=== PATIENT | female | born 1960 | race Caucasian/White ===

== ENCOUNTER → 2021-04-17 09:16 | Outpatient (BNVA) | payer OTHER, SELFPAY | PROVIDERS: PCP Internal Medicine; Visit Provider Physician Assistant | DX: S00.03XA Contusion of scalp, initial encounter (principal); S10.93XA Contusion of unspecified part of neck, initial encounter; W10.9XXA Fall (on) (from) unspecified stairs and steps, initial encounter | CPT/HCPCS: 90714; 90715; 99203 ==

== ENCOUNTER → 2021-04-23 08:35 | Outpatient (BNVA) | payer OTHER, SELFPAY | PROVIDERS: PCP Internal Medicine; Visit Provider Internal Medicine | DX: S40.011A Contusion of right shoulder, initial encounter (principal); S20.219A Contusion of unspecified front wall of thorax, initial encounter; S30.0XXA Contusion of lower back and pelvis, initial encounter; X30.XXXA Exposure to excessive natural heat, initial encounter; W18.30XA Fall on same level, unspecified, initial encounter; R11.0 Nausea | CPT/HCPCS: 70450; 99214 ==

== ENCOUNTER 2021-04-30 13:10 | Outpatient (REF) | payer OTHER, SELFPAY ==
--- NOTE | ~2021-04-30 | MM_ITS ---
EXAMINATION: MM SCREENING DIGITAL BREAST TOMOSYNTHESIS, BILATERAL CLINICAL INFORMATION: Screening. Asymptomatic. The lifetime risk of breast cancer based on the Tyrer-Cuzick Model is 5.0%. COMPARISON: Mammography: 07/07/2019 and 12/03/2012. TECHNIQUE: Digital breast tomosynthesis is performed in both the craniocaudal and mediolateral oblique views along with computer-aided detection (CAD). Synthesized 2D images are generated from the tomosynthesis. FINDINGS: The breasts are extremely dense, which lowers the sensitivity of mammography (ACR BI-RADS breast composition Category d). There is a stable parenchymal pattern to the left breast. Within the upper outer aspect of the right breast, there is a new grouping of calcifications for which further evaluation with spot magnification films is recommended. MM/MM tomosynthesis screening BI IMPRESSION: New grouping of calcifications right breast for which spot magnification views in 90-degree mediolateral and craniocaudal projections is suggested. ASSESSMENT: BI-RADS 0: Incomplete - Need Additional Imaging Evaluation RECOMMENDATION: 1. Additional views of the right breast. 2. Targeted ultrasound if warranted after review of the additional views. 3. Radiology department staff will contact the patient for additional imaging. This patient's information was entered into a reminder system with a target due date for their next mammogram.
== END 2021-04-30 13:11 | disposition home or self-care (01) ==
LOC: HO.MAMMO 13:10
PROVIDERS: Visit Provider Internal Medicine
DX: Z12.31 Encounter for screening mammogram for malignant neoplasm of breast (principal)
CPT/HCPCS: 77063; 77067

== ENCOUNTER → 2021-05-01 07:48 | Outpatient (BNVA) | payer OTHER, SELFPAY | PROVIDERS: PCP Internal Medicine; Visit Provider Internal Medicine | DX: S16.1XXA Strain of muscle, fascia and tendon at neck level, initial encounter (principal); S29.012A Strain of muscle and tendon of back wall of thorax, initial encounter; W10.9XXA Fall (on) (from) unspecified stairs and steps, initial encounter | CPT/HCPCS: 72050; 99214 ==

== ENCOUNTER 2021-05-08 08:54 | Outpatient (REF) | payer OTHER, SELFPAY ==
--- NOTE | ~2021-05-08 | MM_ITS ---
EXAMINATION: MM DIAGNOSTIC DIGITAL MAMMOGRAPHY, RIGHT CLINICAL INFORMATION: Recall from screening for new calcifications right breast superior to chronic benign grouped calcifications. COMPARISON: Mammography: 04/30/2021, 07/07/2019, 12/03/2012 TECHNIQUE: Digital mammography is performed in the following views: Magnification CC x4, magnification MLO. Exam is technically challenging, requiring 3 technologists for positioning and imaging. Images optimized to patient capabilities. FINDINGS: The breasts are heterogeneously dense, which may obscure small masses (ACR BI-RADS breast composition Category c). There is variable motion artifact on all of the magnification CC views. There are old grouped calcifications central right breast with central coarse calcification and surrounding punctate round calcifications similar to prior exams. The new calcifications for follow-up approximately 2 cm superior to the old grouped calcifications appear around 4-6 in number and relatively coarse, similar to the other chronic group. They will be reassessed again in 6 months. Results are discussed with the patient at time of visit. MM/MM added views RT IMPRESSION: Probable benign calcifications superior to old chronic grouped calcifications right breast. Patient study limitations. ASSESSMENT: BI-RADS 3: Probably Benign RECOMMENDATION: Diagnostic right mammography in 6 months. This patient's information was entered into a reminder system with a target due date for their next mammogram.
== END 2021-05-08 08:55 | disposition home or self-care (01) ==
LOC: HO.MAMMO 08:54
PROVIDERS: PCP Internal Medicine; Visit Provider Internal Medicine
DX: R92.1 Mammographic calcification found on diagnostic imaging of breast (principal)
CPT/HCPCS: 77065

== ENCOUNTER → 2021-05-15 07:55 | Outpatient (BNVA) | payer OTHER, SELFPAY | PROVIDERS: PCP Internal Medicine; Visit Provider Internal Medicine | DX: M50.30 Other cervical disc degeneration, unspecified cervical region (principal); Z91.81 History of falling | CPT/HCPCS: 99213 ==

== ENCOUNTER → 2021-06-05 08:31 | Outpatient (BNVA) | payer OTHER, SELFPAY | PROVIDERS: PCP Internal Medicine; Visit Provider Internal Medicine | DX: M50.30 Other cervical disc degeneration, unspecified cervical region (principal); Z91.81 History of falling | CPT/HCPCS: 99213 ==

== ENCOUNTER → 2021-06-19 08:05 | Outpatient (BNVA) | payer OTHER, SELFPAY | PROVIDERS: PCP Internal Medicine; Visit Provider Internal Medicine | DX: S16.1XXD Strain of muscle, fascia and tendon at neck level, subsequent encounter (principal); M47.812 Spondylosis without myelopathy or radiculopathy, cervical region; W18.30XD Fall on same level, unspecified, subsequent encounter | CPT/HCPCS: 99213 ==

== ENCOUNTER 2021-06-20 10:20 | Outpatient (REF) | payer OTHER, SELFPAY ==
--- NOTE | ~2021-06-20 | MR_ITS ---
EXAMINATION: MR CERVICAL SPINE WITHOUT CONTRAST CLINICAL INFORMATION: 60-year-old with history of previous fall on 04/13/2021 with persistent neck pain. COMPARISON: 05/01/2021 x-rays. TECHNIQUE: MRI of the cervical spine was obtained using routine sequences without contrast. Technical Note: Images are degraded by motion artifact throughout the study. FINDINGS: Alignment: There is 2 mm of anterolisthesis at C3-C4 stable from previous x-ray and 3 mm of anterolisthesis at C4-C5 unchanged. There is trace anterolisthesis at C5-C6 also unchanged. There is mild lordotic reversal centered at C5-C6 stable in appearance. Craniocervical Junction/C1-C2 Articulations: Intact and aligned. Small effusion at the left C1-C2 articulation. Visualized Intracranial Structures: Aaiq-ww-smqeuafj diffuse generalized brain parenchymal volume loss. Vertebral Bodies: Normal height. Disc spaces: Mild disc space height loss at C4-C5, moderate disc space height loss at C5-C6 and severe disc space height loss at C6-C7 unchanged. Anterior marginal spondylosis noted between C4-C5 and C6-C7 inclusive similar to previous x-ray. Bone Marrow: Subchondral bone marrow edema seen on both sides of the left C4-C5 facet joint. See below. Mild type I and type II degenerative marrow signal changes along the endplates at C6-C7. C2-C3: No disc herniation. Mild facet arthropathy. No significant canal or neuroforaminal stenosis. C3-C4: No disc herniation. Nttqraqj-fz-vuwkzb right-sided and moderate left-sided facet arthropathy with the moderate right-sided and mild left-sided neural foraminal stenosis without significant spinal canal stenosis. Ligamentum flavum thickening is noted. C4-C5: Broad-based posterior disc osteophyte complex noted with unroofing of the posterior disc margin related to spondylolisthesis. There is bndz-mc-kzkdnegd flattening of the dural sac and there is ligamentum flavum thickening with mild central spinal canal stenosis. There is uncovertebral spurring bilaterally and there is severe left-sided and wydq-vg-fkexymuh right-sided facet arthropathy, with reactive subchondral bone marrow edema at the left facet joint with a left facet joint effusion consistent with active inflammatory changes. There is mild left-sided neural foraminal stenosis. C5-C6: Broad-based central to right paramedian disc osteophyte complex with effacement of the dural sac asymmetric to the right and mild right-sided ventral cord impingement with ligamentum flavum thickening and jpyw-vz-lhjzrddd central spinal canal stenosis. There is right lateral recess stenosis and there is uncovertebral spurring bilaterally with fhxz-hv-lwgtmbpi facet arthrosis, right more the left. There is moderate right-sided and utxo-iv-gyaexrun left-sided neural foraminal stenosis. There is most likely encroachment on the exiting right C6 nerve root. C6-C7: Broad-based posterior disc osteophyte complex is noted with effacement of the dural sac asymmetric to the left abutting the ventral aspect of the spinal cord with possible mild left-sided ventral cord impingement. Ligamentum flavum thickening is noted with dqraezgs-ts-kqrmdw central spinal canal stenosis. Left lateral recess stenosis also noted with bilateral uncovertebral spurring and minor facet arthropathy with severe left-sided and nvkc-iv-hzgqvkex right-sided neural foraminal stenosis. Probable encroachment on the exiting left C7 nerve root. C7-T1: No disc herniation. Ligamentum flavum thickening noted with hxgh-nw-czphjqif facet arthropathy without significant canal or neuroforaminal stenosis. The cervical and visualized upper thoracic spinal cord is normal in signal intensity throughout, without focal lesion, edema or syrinx. MR/MR cervical spine wo con IMPRESSION: 1. Lordotic reversal centered at C5-C6 with multilevel subluxations as described above, similar to previous x-ray. 2. Multilevel DDD, spondylosis and posterior disc osteophyte complexes as described above. Ytzogewa-ch-ztbuqp spinal canal stenosis at C6-C7, brwo-ab-ologdznv spinal canal stenosis at C5-C6 and mild spinal canal stenosis at C4-C5 with ventral cord impingement suggested on the left at C6-C7 and on the right at C5-C6. 3. 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 4. Multilevel bilateral neural foraminal narrowing as discussed above, most significant on the left at C6-C7 and on the right at C5-C6.
== END 2021-06-20 10:21 | disposition home or self-care (01) ==
LOC: HO.MRI 10:20
PROVIDERS: PCP Internal Medicine; Visit Provider Internal Medicine
DX: M54.2 Cervicalgia (principal); Z91.81 History of falling
CPT/HCPCS: 72141

== ENCOUNTER → 2021-06-28 09:09 | Outpatient (BNVA) | payer OTHER, SELFPAY | PROVIDERS: PCP Internal Medicine; Visit Provider Internal Medicine | DX: M54.2 Cervicalgia (principal); Z91.81 History of falling | CPT/HCPCS: 99214 ==

== ENCOUNTER → 2021-07-12 08:25 | Outpatient (BNVA) | payer OTHER, SELFPAY | PROVIDERS: PCP Internal Medicine; Visit Provider Internal Medicine | DX: M50.30 Other cervical disc degeneration, unspecified cervical region (principal); M54.9 Dorsalgia, unspecified; Z91.81 History of falling | CPT/HCPCS: 99213 ==

== ENCOUNTER 2021-07-30 09:00 | Outpatient (RCR) | payer OTHER, SELFPAY ==
--- NOTE | 2021-05-09 15:41 | MHC.PT.EP ---
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 Pt REPORTS BACK TOP OF HEAD WAS BLEEDING BUT SHE DID NOT LOSE CONSCIOUSNESS. DID NOT GO TO ER. THE NEXT DAY HAD SIGNIFICANT PAIN ON R SIDE OF BODY WITH BRUISING R FLANK. Pt PRESENTS TO PT WITH TIGHT LUMBAR PARASPINALS AND UT MMS, SOME DECREASED CORE STRENGTH AND DECREASED R SHLDER STRENGTH. Pt WITH LIMITED CERVICAL AND LUMBAR ROM AND POOR BALANCE WITH ANTALGIC GT. Pt DID HIT HEAD WHEN SHE FELL (CT NEGATIVE FOR BLEED) BUT PRESENTS WITH NEURO-TYPE MOVEMENTS (SOMEWHAT FIDGETY WITHOUT SMOOTHNESS NOTED)..DIFFICULT TO ASSESS IF THIS WAS HOW Pt WAS PRE-FALL. REPORTS NO TROUBLE WITH VISION OR DIZZINESS. Pt SHOULD BENEFIT FROM PT TO ADDRESS THESE ISSUES. OF NOTE, Pt HAS BEEN OOW SINCE THE FALL. FU WITH WORK CONNECTION Frequency and Duration: The patient will be seen 3X/WK X 4 WKS Short Term Goals: 1. I HEP WITH DC EX PROG 2. CENTRALIZE/LOCALIZE SXS 3. IMPROVED GT PATTERN [employer]ker Goals: 1.I TRANSFERS SUP<>SIT WITHOUT SIGNIF PAIN 2. Pt TO TOLERATE TRUNK STRETCHING WITHOUT C/O INCREASE IN PAIN 3. RTW 4. CERV AND LUMBAR ROM WFLS WITHOUT SIGNIF PAIN Treatment Plan: Modalities to reduce pain, spasms and effusion. Manual therapy to restore motion and function. Therapeutic exercise to improve strength and flexibility. Neuromuscular re-education for posture and balance. Therapeutic activities to return to functional activities of daily living. Electronically signed by: PATRICIA BEARD PT Please sign and return to therapist. Thank you for your referral.
--- NOTE | 2021-08-15 15:47 | MHC.PT.DC ---
[facility] [place] Office [place] Office [place] Office [address] Daniel Bowie [address] [phone] F: [phone] F: [phone] F: [phone] F: [phone] Physical Therapy Discharge Report Diagnosis: FALL, MULTIPLE CONTUSIONS, NECK AND BACK PAIN Date of Surgery: NA Date of Evaluation: 05/09/21 Date of Discharge: 08/03/21 Treatments to Date: 17 Cancellations to Date: 7 No Shows to Date: Discharge Status: Recommend MD Follow-up Discharge Summary: BETTER THAN SOC, BUT HAS SEEMINGLY PLATEAUED IN PT AT THIS TIME, OVERALL DECONDITIONED WITH LIMITED STRENTH AND BAL. RECOMMENDED PCP FU FOR CONTINUED HANDLING OF MED ISSUES. SPOKE WITH DR BRITTNEY CHINO Pt. Pt CALLED AFTER WC APPT TO SAY OK FOR DC AND WILL BE REFERRED TO A SPECIALIST FOR A SHOT Electronically signed by: PATRICIA BEARD PT Please sign and return to therapist. Thank you for your referral.
== END 2021-08-15 15:48 | disposition home or self-care (01) ==
LOC: HO.PT 09:00
PROVIDERS: Visit Provider Internal Medicine
DX: M47.812 Spondylosis without myelopathy or radiculopathy, cervical region (principal); M50.33 Other cervical disc degeneration, cervicothoracic region
CPT/HCPCS: 97110; 97162; 97163; 97530

== ENCOUNTER → 2021-08-02 07:59 | Outpatient (BNVA) | payer OTHER, SELFPAY | PROVIDERS: PCP Internal Medicine; Visit Provider Internal Medicine | DX: M54.2 Cervicalgia (principal); M54.6 Pain in thoracic spine; M81.0 Age-related osteoporosis without current pathological fracture; M48.02 Spinal stenosis, cervical region | CPT/HCPCS: 99214 ==

== ENCOUNTER → 2021-08-14 08:24 | Outpatient (BNVA) | payer OTHER, SELFPAY | PROVIDERS: PCP Internal Medicine; Visit Provider Internal Medicine | DX: M47.812 Spondylosis without myelopathy or radiculopathy, cervical region (principal) | CPT/HCPCS: 99213 ==

== ENCOUNTER → 2021-08-27 07:58 | Outpatient (BNVA) | payer OTHER, SELFPAY | PROVIDERS: PCP Internal Medicine; Visit Provider Internal Medicine | DX: M19.90 Unspecified osteoarthritis, unspecified site (principal); Z91.81 History of falling | CPT/HCPCS: 99213 ==

== ENCOUNTER 2021-09-24 10:00 | Outpatient (REF) | payer OTHER, SELFPAY ==
--- NOTE | ~2021-09-24 | XR_ITS ---
EXAMINATION: XR THORACOLUMBAR SPINE CLINICAL INFORMATION: Dorsal pain. Cervical spinal stenosis. COMPARISON: None TECHNIQUE: Dorsal spine is imaged in 3 views. FINDINGS: There is normal segmentation with 12 rib-bearing thoracic vertebrae of normal height and normal thoracic kyphosis. There is a mild levocurvature lower thoracic spine and borderline dextrocurvature midthoracic spine. There is no thoracic vertebral compression, spondylolisthesis, disc narrowing, destructive process, or paraspinal soft tissue swelling. XR/XR thoracic spine 2V IMPRESSION: No vertebral compression, spondylolisthesis, destructive process.
== END 2021-09-24 10:01 | disposition home or self-care (01) ==
LOC: HO.XRAY 10:00
PROVIDERS: PCP Internal Medicine; Visit Provider Internal Medicine
DX: M48.02 Spinal stenosis, cervical region (principal); M54.6 Pain in thoracic spine; M25.511 Pain in right shoulder; M25.512 Pain in left shoulder; F17.210 Nicotine dependence, cigarettes, uncomplicated
CPT/HCPCS: 72070; 99202

== ENCOUNTER 2021-09-29 14:15 | Emergency (ER) | payer OTHER, SELFPAY ==
[2021-09-29 14:26] VITALS: BP 110/70; BP 116/73; PULSE 103; PULSE 105; RESP 18; TEMP 36.6; O2SAT 97; O2SAT 98; BMI 16.2
--- NOTE | 2021-09-29 14:53 | ED_ITS ---
HPI - Skin/Abscess/Foreign Bdy General Chief complaint: Skin/Abscess/Foreign Body <Kayla Mendoza DO - Last Filed: 09/29/21 16:23> Stated complaint: infection s/p surgery <Kayla Mendoza DO - Last Filed: 09/29/21 16:23> Time Seen by Provider: 09/29/21 14:37 <Kayla Mendoza DO - Last Filed: 09/29/21 16:23> Source: patient and EMS <Kayla Mendoza DO - Last Filed: 09/29/21 16:23> Mode of arrival: EMS <Kayla Mendoza DO - Last Filed: 09/29/21 16:23> Limitations: no limitations <Kayla Mendoza DO - Last Filed: 09/29/21 16:23> History of Present Illness HPI narrative: per patient at [facility] saw a Dr. Montiel on Friday underwent excision of RLE on Friday for basal cell carcinoma in the office she has had pain since Rx tylenol. Noted redness and drainage starting yesterday she was told her surgeon is in [place] for 2 weeks <Kayla Mendoza DO - Last Filed: 09/29/21 16:23> MD complaint: abscess/boil and lesion <Kayla Mendoza DO - Last Filed: 09/29/21 16:23> Onset (ago): day(s) (yesterday) <Kayla Mendoza DO - Last Filed: 09/29/21 16:23> Tetanus up to date: yes <Kayla Mendoza DO - Last Filed: 09/29/21 16:23> Location: RLE <Kayla Mendoza DO - Last Filed: 09/29/21 16:23> Severity: moderate <Kayla Mendoza DO - Last Filed: 09/29/21 16:23> Quality: stabbing <Kayla Mendoza DO - Last Filed: 09/29/21 16:23> Pain Consistency: constant <Kayla Mendoza DO - Last Filed: 09/29/21 16:23> Relieving factors: none <Kayla Mendoza DO - Last Filed: 09/29/21 16:23> Exacerbating factors: palpation and movement <Kayla Mendoza DO - Last Filed: 09/29/21 16:23> Context: other (basal cell excision) <Kayla Mendoza DO - Last Filed: 09/29/21 16:23> Associated symptoms: arthralgias <Kayla Mendoza DO - Last Filed: 09/29/21 16:23> Treatments prior to arrival: bandages <Kayla Mendoza DO - Last Filed: 09/29/21 16:23> Related Data Home medications: Home Medications Medication Instructions Recorded Confirmed alendronate 70 mg tablet 70 mg PO MO 09/29/21 09/29/21 fluticasone propionate 50 1 spray INTRANASAL BID 09/29/21 09/29/21 mcg/actuation nasal spray,suspension Previous Rx's Medication Instructions Recorded cholecalciferol (vitamin D3) 25 25 mcg PO DAILY #90 cap 12/25/20 mcg (1,000 unit) capsule metoprolol tartrate 25 mg tablet 25 mg PO BID #60 tab 08/20/21 cephalexin 500 mg capsule 500 mg PO TID 7 Days #21 cap 09/29/21 doxycycline monohydrate 100 mg 100 mg PO BID 7 Days #14 tab 09/29/21 tablet morphine 15 mg immediate release 15 mg PO Q6H PRN 3 Days #12 tab 09/29/21 tablet ondansetron 4 mg disintegrating 4 mg PO Q8H PRN #20 tab 09/29/21 tablet <Kayla Mendoza DO - Last Filed: 09/29/21 16:23> Allergies/Adverse reactions: Allergies Allergy/AdvReac Type Severity Reaction Status Date / Time No Known Allergies Allergy Verified 09/24/21 10:01 <Kayla Mendoza DO - Last Filed: 09/29/21 16:23> Review of Systems Review of Systems: Constitutional : No Fever, No Chills ENT/Mouth : No sore throat, No Rhinorrhea Eyes: No Eye Pain, No Swelling, No Redness Cardiovascular : No Chest Pain, No SOB Respiratory : No Cough, No Sputum Gastrointestinal : No Nausea, No Vomiting, No Diarrhea, No abdominal Pain Genitourinary : No Dysuria, No Hematuria Musculoskeletal : pos joint pain, No Myalgias, No Joint Swelling Skin : No Skin Lesions, positive skin rash Neuro : No Weakness, No Numbness, No Headache Psych : No Anxiety, No Depression Heme/Lymph: No Bruising, No Bleeding,No Lymphadenopathy Endocrine : No Polyuria, No Polydipsia All other systems reviewed and are negative <Kayla Mendoza DO - Last Filed: 09/29/21 16:23> [facility] Past Medical History Medical History: Medical History Cervical stenosis of spinal canal HTN (hypertension) <Kayla Mendoza DO - Last Filed: 09/29/21 16:23> Surgical History: Surgical History No pertinent past surgical history <Kayla Mendoza DO - Last Filed: 09/29/21 16:23> Social History Social History: Social History Housing: House ([facility]) Alcohol intake: current Alcohol intake frequency: a few times a week Patient Tobacco Use Status: Current everyday Tobacco user Tobacco use type: Cigarette Cigarettes Per Day: 15 Advance Directives: No Advance Directives Information Provided: No service: No Current occupational status: unemployed <Kayla Mendoza DO - Last Filed: 09/29/21 16:23> Physical Exam Vital Signs: Vital Signs: Last Vital Signs Temp 97.8 F 09/29/21 14:26 Pulse 103 H 09/29/21 14:26 Resp 18 09/29/21 14:26 BP 116/73 09/29/21 14:26 Pulse Ox 97 09/29/21 14:26 Body Mass Index 16.2 <Kayla Mendoza DO - Last Filed: 09/29/21 16:23> Vital Signs: Last Vital Signs Temp 97.8 F 09/29/21 14:26 Pulse 103 H 09/29/21 14:26 Resp 18 09/29/21 14:26 BP 116/73 09/29/21 14:26 Pulse Ox 97 09/29/21 14:26 Body Mass Index 16.2 <Kelvin Hidalgo MD - Last Filed: 09/29/21 16:20> Appearance: Alert. Oriented X3. No acute distress. Eyes: Pupils equal, round and reactive to light. ENT: Pharynx normal. Neck: Normal inspection. Neck supple. CVS: Normal heart rate and rhythm. Pulses normal. Respiratory: No respiratory distress. Breath sounds normal. Abdomen: Soft and nontender. Skin: Skin warm and dry. Normal skin color. Normal skin turgor. Extremities: No lower extremity edema. R anterior rain sutures noted with wound dehisced surrounding edema and erythema with purulence noted no lymphagitis no involvement of knee or ankle no large pocket or abscess felt Neuro: Oriented X 3. No motor deficit. No sensory deficit. <Kayla Mendoza DO - Last Filed: 09/29/21 16:23> Course Course Course Narrative: message sent to surgery 250pm - Dr. Ward was sent pictures reccommends removal of 2 sutures, culture wound and follow up with her surgeon on Friday removed two stitches without issue, irrigated and cleansed wound patient is alert and oriented, she is refusing to stay overnight but agrees to a dose of IV antibiotics will sign out to Dr. Hidalgo pending recheck <Kayla Mendoza DO - Last Filed: 09/29/21 16:23> MDM - Skin/Abscess/Foreign Bdy MDM Narrative Medical decision making narrative: 61 yo female with recent excision on RLE (basal cell) from [facility] on Friday now comes in with wound dehiscence and infection - at this time labs, wound culture, IV antibiotics, IV morphine and surgery consult - dispo per results and findings. <Kayla Mendoza DO - Last Filed: 09/29/21 16:23> Lab Data Result diagrams: : 09/29/21 15:05 09/29/21 15:05 <Kayla Mendoza DO - Last Filed: 09/29/21 16:23> Labs: Lab Results 09/29/21 09/29/21 09/29/21 Range/Units 15:05 15:05 15:05 WBC 14.8 H (4.8-10.8) X10*3/uL RBC 2.78 L (4.20-5.50) X10*6/uL Hgb 11.5 L (12.0-16.0) g/dl Hct 33.0 L (37.0-47.0) % MCV 118.7 H (80.0-98.0) fL MCH 41.4 H (27.0-33.0) pg MCHC 34.8 (31.0-35.0) g/dl RDW 15.9 (11.0-16.0) % Plt Count 260 (160-400) X10*3/uL MPV 10.1 (9.4-12.3) fL Immature Gran % (Auto) 0.5 H (0.0-0.4) % Neut % (Auto) 78.0 H (45-73) % Lymph % (Auto) 14.1 L (20-40) % Crenshaw % (Auto) 7.0 (2-11) % Eos % (Auto) 0.2 (0-4) % Baso % (Auto) 0.2 (0-2) % Lymph # (Auto) 2.1 (1.2-4.9) X10*3/uL Crenshaw # (Auto) 1.0 (0.1-1.2) X10*3/uL Eos # (Auto) 0.0 (0.0-0.4) X10*3/uL Baso # (Auto) 0.0 (0.0-0.2) X10*3/uL Abs Immat Gran (auto) 0.08 H (0.00-0.03) X10*3/uL Absolute Neuts (auto) 11.5 H (2.0-8.3) x10*3/uL Absolute Nucleated RBC 0.000 (0.0-0.012) X10*3/uL Nucleated RBC % (auto) 0.0 (0.0-0.2) /100WBC Sodium 137 (135-145) mmol/L Potassium 2.8 L (3.3-5.1) mmol/L Chloride 99 (96-108) mmol/L Carbon Dioxide 24 (22-29) mmol/L Anion Gap 17 (12-20) BUN 11 (9-16) mg/dL Creatinine 0.66 (0.5-1.4) mg/dL Estim Creat Clear Calc 56.3 Estimated GFR > 60 Random Glucose 101 (60-115) mg/dL Lactic Acid 2.4 H* (0.5-2.0) mmol/L Calcium 7.9 L (8.4-10.2) mg/dL Magnesium 1.3 L* (1.6-2.6) mg/dL Total Bilirubin 1.3 H (0.0-1.0) mg/dL Direct Bilirubin 0.7 H (0.0-0.5) mg/dL AST 40 H (5-31) U/L ALT 19 (0-31) U/L Alkaline Phosphatase 140 H (39-117) U/L Total Protein 7.1 (6.5-8.0) g/dL Albumin 3.8 (3.5-5.0) g/dL COVID-19 (SURJIT) (Negative) COVID-19 Clin Com 09/29/21 Range/Units 15:05 WBC (4.8-10.8) X10*3/uL RBC (4.20-5.50) X10*6/uL Hgb (12.0-16.0) g/dl Hct (37.0-47.0) % MCV (80.0-98.0) fL MCH (27.0-33.0) pg MCHC (31.0-35.0) g/dl RDW (11.0-16.0) % Plt Count (160-400) X10*3/uL MPV (9.4-12.3) fL Immature Gran % (Auto) (0.0-0.4) % Neut % (Auto) (45-73) % Lymph % (Auto) (20-40) % Crenshaw % (Auto) (2-11) % Eos % (Auto) (0-4) % Baso % (Auto) (0-2) % Lymph # (Auto) (1.2-4.9) X10*3/uL Crenshaw # (Auto) (0.1-1.2) X10*3/uL Eos # (Auto) (0.0-0.4) X10*3/uL Baso # (Auto) (0.0-0.2) X10*3/uL Abs Immat Gran (auto) (0.00-0.03) X10*3/uL Absolute Neuts (auto) (2.0-8.3) x10*3/uL Absolute Nucleated RBC (0.0-0.012) X10*3/uL Nucleated RBC % (auto) (0.0-0.2) /100WBC Sodium (135-145) mmol/L Potassium (3.3-5.1) mmol/L Chloride (96-108) mmol/L Carbon Dioxide (22-29) mmol/L Anion Gap (12-20) BUN (9-16) mg/dL Creatinine (0.5-1.4) mg/dL Estim Creat Clear Calc Estimated GFR Random Glucose (60-115) mg/dL Lactic Acid (0.5-2.0) mmol/L Calcium (8.4-10.2) mg/dL Magnesium (1.6-2.6) mg/dL Total Bilirubin (0.0-1.0) mg/dL Direct Bilirubin (0.0-0.5) mg/dL AST (5-31) U/L ALT (0-31) U/L Alkaline Phosphatase (39-117) U/L Total Protein (6.5-8.0) g/dL Albumin (3.5-5.0) g/dL COVID-19 (SURJIT) Negative (Negative) COVID-19 Clin Com See Note <Kayla Mendoza, DO - Last Filed: 09/29/21 16:23> Lab Results 09/29/21 09/29/21 09/29/21 Range/Units 15:05 15:05 15:05 WBC 14.8 H (4.8-10.8) X10*3/uL RBC 2.78 L (4.20-5.50) X10*6/uL Hgb 11.5 L (12.0-16.0) g/dl Hct 33.0 L (37.0-47.0) % MCV 118.7 H (80.0-98.0) fL MCH 41.4 H (27.0-33.0) pg MCHC 34.8 (31.0-35.0) g/dl RDW 15.9 (11.0-16.0) % Plt Count 260 (160-400) X10*3/uL MPV 10.1 (9.4-12.3) fL Immature Gran % (Auto) 0.5 H (0.0-0.4) % Neut % (Auto) 78.0 H (45-73) % Lymph % (Auto) 14.1 L (20-40) % Crenshaw % (Auto) 7.0 (2-11) % Eos % (Auto) 0.2 (0-4) % Baso % (Auto) 0.2 (0-2) % Lymph # (Auto) 2.1 (1.2-4.9) X10*3/uL Crenshaw # (Auto) 1.0 (0.1-1.2) X10*3/uL Eos # (Auto) 0.0 (0.0-0.4) X10*3/uL Baso # (Auto) 0.0 (0.0-0.2) X10*3/uL Abs Immat Gran (auto) 0.08 H (0.00-0.03) X10*3/uL Absolute Neuts (auto) 11.5 H (2.0-8.3) x10*3/uL Absolute Nucleated RBC 0.000 (0.0-0.012) X10*3/uL Nucleated RBC % (auto) 0.0 (0.0-0.2) /100WBC Sodium 137 (135-145) mmol/L Potassium 2.8 L (3.3-5.1) mmol/L Chloride 99 (96-108) mmol/L Carbon Dioxide 24 (22-29) mmol/L Anion Gap 17 (12-20) BUN 11 (9-16) mg/dL Creatinine 0.66 (0.5-1.4) mg/dL Estim Creat Clear Calc 56.3 Estimated GFR > 60 Random Glucose 101 (60-115) mg/dL Lactic Acid 2.4 H* (0.5-2.0) mmol/L Calcium 7.9 L (8.4-10.2) mg/dL Magnesium 1.3 L* (1.6-2.6) mg/dL Total Bilirubin 1.3 H (0.0-1.0) mg/dL Direct Bilirubin 0.7 H (0.0-0.5) mg/dL AST 40 H (5-31) U/L ALT 19 (0-31) U/L Alkaline Phosphatase 140 H (39-117) U/L Total Protein 7.1 (6.5-8.0) g/dL Albumin 3.8 (3.5-5.0) g/dL COVID-19 (SURJIT) (Negative) COVID-19 Clin Com 09/29/21 Range/Units 15:05 WBC (4.8-10.8) X10*3/uL RBC (4.20-5.50) X10*6/uL Hgb (12.0-16.0) g/dl Hct (37.0-47.0) % MCV (80.0-98.0) fL MCH (27.0-33.0) pg MCHC (31.0-35.0) g/dl RDW (11.0-16.0) % Plt Count (160-400) X10*3/uL MPV (9.4-12.3) fL Immature Gran % (Auto) (0.0-0.4) % Neut % (Auto) (45-73) % Lymph % (Auto) (20-40) % Crenshaw % (Auto) (2-11) % Eos % (Auto) (0-4) % Baso % (Auto) (0-2) % Lymph # (Auto) (1.2-4.9) X10*3/uL Crenshaw # (Auto) (0.1-1.2) X10*3/uL Eos # (Auto) (0.0-0.4) X10*3/uL Baso # (Auto) (0.0-0.2) X10*3/uL Abs Immat Gran (auto) (0.00-0.03) X10*3/uL Absolute Neuts (auto) (2.0-8.3) x10*3/uL Absolute Nucleated RBC (0.0-0.012) X10*3/uL Nucleated RBC % (auto) (0.0-0.2) /100WBC Sodium (135-145) mmol/L Potassium (3.3-5.1) mmol/L Chloride (96-108) mmol/L Carbon Dioxide (22-29) mmol/L Anion Gap (12-20) BUN (9-16) mg/dL Creatinine (0.5-1.4) mg/dL Estim Creat Clear Calc Estimated GFR Random Glucose (60-115) mg/dL Lactic Acid (0.5-2.0) mmol/L Calcium (8.4-10.2) mg/dL Magnesium (1.6-2.6) mg/dL Total Bilirubin (0.0-1.0) mg/dL Direct Bilirubin (0.0-0.5) mg/dL AST (5-31) U/L ALT (0-31) U/L Alkaline Phosphatase (39-117) U/L Total Protein (6.5-8.0) g/dL Albumin (3.5-5.0) g/dL COVID-19 (SURJIT) Negative (Negative) COVID-19 Clin Com See Note <Kelvin Hidalgo MD - Last Filed: 09/29/21 16:20> Critical Care Time Critical Care Time Critical Care Time: Yes <Kayla Mendoza DO - Last Filed: 09/29/21 16:23> Total Critical Care Time: 45 <Kayla Mendoza DO - Last Filed: 09/29/21 16:23> Attestation: medical consult, repletion of K and magnesium, IVF I attest to this time spent taking care of the patient <Kayla Mendoza DO - Last Filed: 09/29/21 16:23> Discharge Plan Discharge Clinical Impression: Hypomagnesemia, Acidosis, lactic, Dehiscence of wound, Hypokalemia Cellulitis Qualifiers: Site of cellulitis: extremity Site of cellulitis of extremity: lower extremity Laterality: right Qualified Code(s): L03.115 - Cellulitis of right lower limb <Kayla Mendoza DO - Last Filed: 09/29/21 16:23> Instructions: Cellulitis (ED), Hypokalemia (ED), Hypomagnesemia (ED), Wound Dehiscence (ED) <Kayla Mendoza DO - Last Filed: 09/29/21 16:23> Additional Instructions: return to ED for any worsening symptoms or concerns keep area clean and covered you need to see your surgeon FRIDAY or someone in the office this is very serious <Kayla Mendoza DO - Last Filed: 09/29/21 16:23> Prescriptions: New cephalexin 500 mg capsule 500 mg PO TID 7 Days Qty: 21 RF: 0 doxycycline monohydrate 100 mg tablet 100 mg PO BID 7 Days Qty: 14 RF: 0 morphine 15 mg tablet 15 mg PO Q6H PRN (Reason: pain) 3 Days Qty: 12 RF: 0 ondansetron 4 mg tablet,disintegrating 4 mg PO Q8H PRN (Reason: nausea and vomiting) Qty: 20 RF: 0 No Action cholecalciferol (vitamin D3) 25 mcg (1,000 unit) capsule 25 mcg PO DAILY Qty: 90 RF: 8 metoprolol tartrate 25 mg tablet 25 mg PO BID Qty: 60 RF: 8 fluticasone propionate 50 mcg/actuation spray,suspension 1 spray intranasal BID RF: 0 alendronate 70 mg tablet 70 mg PO MO RF: 0 <Kayla Mendoza DO - Last Filed: 09/29/21 16:23>
[2021-09-29 15:12] LABS: MANUAL DIFF FLAG NO
[2021-09-29 15:13] LABS: Basophils Percent Auto 0.2 % (0-2); Eosinophils Percent Auto 0.2 % (0-4); Hemoglobin 11.5 g/dl (12.0-16.0); Imm Gran Abs Auto 0.08 X10*3/uL (0.00-0.03); Imm Gran Pct Auto 0.5 % (0.0-0.4); Lymphocytes Absolute Auto 2.1 X10*3/uL (1.2-4.9); Lymphocytes Percent Auto 14.1 % (20-40); Mean Corpuscular HGB Conc 34.8 g/dl (31.0-35.0); Mean Corpuscular Hemoglobin 41.4 pg (27.0-33.0); Mean Corpuscular Volume 118.7 fL (80.0-98.0); Mean Platelet Volume 10.1 fL (9.4-12.3); Neutrophils Absolute Auto 11.5 x10*3/uL (2.0-8.3); Platelet Count 260 X10*3/uL (160-400); Red Blood Count 2.78 X10*6/uL (4.20-5.50); Red Cell Distribution Width 15.9 % (11.0-16.0); White Blood Count 14.8 X10*3/uL (4.8-10.8)
[2021-09-29] MEDS: ondansetron HCL 4 MG/2 ML VIAL IVPUSH (15:19)
[2021-09-29] MEDS: 0.9 % Sodium Chloride 500 ML IV (15:20)
[2021-09-29] MEDS: Morphine Sulfate 4 MG/ML CARTRIDGE IVPUSH (15:21)
[2021-09-29] MEDS: Piperacillin Sodium/Tazobactam 3.375 GM in 0.9 % Sodium Chloride 50 ML IV (15:23)
[2021-09-29 15:27] LABS: COVID-19 Test Negative (Negative)
--- NOTE | 2021-09-29 15:39 | PHA.MEDREC ---
Pharmacy Consult ? Medication Reconciliation Pharmacy has completed the medication reconciliation.
[2021-09-29] MEDS: vancomycin HCL 750 MG in 0.9 % Sodium Chloride 250 ML 265 MG IV (16:07)
[2021-09-29 16:09] LABS: Alanine Aminotransferase 19 U/L (0-31); Albumin Level 3.8 g/dL (3.5-5.0); Alkaline Phosphatase 140 U/L (39-117); Anion Gap 17 (12-20); Aspartate Amino Transferase 40 U/L (5-31); Bilirubin Direct 0.7 mg/dL (0.0-0.5); Bilirubin Total 1.3 mg/dL (0.0-1.0); Blood Urea Nitrogen 11 mg/dL (9-16); Calcium 7.9 mg/dL (8.4-10.2); Carbon Dioxide 24 mmol/L (22-29); Chloride 99 mmol/L (96-108); Creatinine Clr Calc Pharmacy 56.3; Estimated Glomerular Filt Rate > 60; Glucose Random 101 mg/dL (60-115); Magnesium 1.3 mg/dL (1.6-2.6); Potassium 2.8 mmol/L (3.3-5.1); Sodium 137 mmol/L (135-145); Total Protein 7.1 g/dL (6.5-8.0)
[2021-09-29 16:10] LABS: Lactic Acid 2.4 mmol/L (0.5-2.0)
[2021-09-29 16:26] VITALS: BP 118/69; PULSE 101; RESP 20; TEMP 37.1; O2SAT 98
--- NOTE | 2021-09-29 16:28 | ED_ITS ---
HPI - Skin/Abscess/Foreign Bdy General Chief complaint: Skin/Abscess/Foreign Body Stated complaint: infection s/p surgery Time Seen by Provider: 09/29/21 14:37 Source: patient Mode of arrival: ambulatory Limitations: no limitations History of Present Illness HPI narrative: underwent basal cell excision at [facility] on Friday R anterior rain - no abx went home with tylenol c/o pain and noted redness/drainage yesterd aleena MAYER complaint: abscess/boil and lesion Onset (ago): day(s) (2) Tetanus up to date: yes Location: RLE Severity: moderate Quality: aching Pain Consistency: constant Exacerbating factors: none Context: other (excision) Associated symptoms: arthralgias Treatments prior to arrival: bandages Related Data Home Medications Medication Instructions Recorded Confirmed alendronate 70 mg tablet 70 mg PO MO 09/29/21 09/29/21 fluticasone propionate 50 1 spray INTRANASAL BID 09/29/21 09/29/21 mcg/actuation nasal spray,suspension Previous Rx's Medication Instructions Recorded cholecalciferol (vitamin D3) 25 25 mcg PO DAILY #90 cap 12/25/20 mcg (1,000 unit) capsule metoprolol tartrate 25 mg tablet 25 mg PO BID #60 tab 08/20/21 cephalexin 500 mg capsule 500 mg PO TID 7 Days #21 cap 09/29/21 doxycycline monohydrate 100 mg 100 mg PO BID 7 Days #14 tab 09/29/21 tablet morphine 15 mg immediate release 15 mg PO Q6H PRN 3 Days #12 tab 09/29/21 tablet ondansetron 4 mg disintegrating 4 mg PO Q8H PRN #20 tab 09/29/21 tablet Allergies Allergy/AdvReac Type Severity Reaction Status Date / Time No Known Allergies Allergy Verified 09/24/21 10:01 Review of Systems Review of Systems: Constitutional : No Fever, No Chills ENT/Mouth : No sore throat, No Rhinorrhea Eyes: No Eye Pain, No Swelling, No Redness Cardiovascular : No Chest Pain, No SOB Respiratory : No Cough, No Sputum Gastrointestinal : No Nausea, No Vomiting, No Diarrhea, No abdominal Pain Genitourinary : No Dysuria, No Hematuria Musculoskeletal : No joint pain, No Myalgias, No Joint Swelling Skin : No Skin Lesions, positive skin rash Neuro : No Weakness, No Numbness, No Headache Psych : No Anxiety, No Depression Heme/Lymph: No Bruising, No Bleeding,No Lymphadenopathy Endocrine : No Polyuria, No Polydipsia All other systems reviewed and are negative [facility] Past Medical History Attestation statement: The following information was validated with the patient. Medical History Cervical stenosis of spinal canal HTN (hypertension) Surgical History No pertinent past surgical history Social History Social History Housing: House ([facility]) Alcohol intake: current Alcohol intake frequency: a few times a week Patient Tobacco Use Status: Current everyday Tobacco user Tobacco use type: Cigarette Cigarettes Per Day: 15 Advance Directives: No Advance Directives Information Provided: No service: No Current occupational status: unemployed Physical Exam Vital Signs: Vital Signs: Last Vital Signs Temp 98.8 F 09/29/21 16:26 Pulse 101 H 09/29/21 16:26 Resp 20 09/29/21 16:26 BP 118/69 09/29/21 16:26 Pulse Ox 98 09/29/21 16:26 Body Mass Index 16.2 Appearance: Alert. Oriented X3. No acute distress. Eyes: Pupils equal, round and reactive to light. ENT: Pharynx normal. Neck: Normal inspection. Neck supple. CVS: Normal heart rate and rhythm. Pulses normal. Respiratory: No respiratory distress. Breath sounds normal. Abdomen: Soft and nontender. Skin: Skin warm and dry. Normal skin color. Normal skin turgor. Extremities: RLE redness and wound dehiscence with purulence noted no lymphangitis her entire surgical wound is inflammed and red - distal NV intact no spread to knee or ankle Neuro: Oriented X 3. No motor deficit. No sensory deficit. Course Course Course Narrative: discussed with surgery Dr. Ward - remove two stitches culture the wound, irrigate and follow up with her surgeon on Friday removed two stitches without issue irrigated and cleansed patient refuses to stay overnight signed out to Dr. Hidalgo pending lyte replacement IVF, repletion of magnesium and K MDM - Skin/Abscess/Foreign Bdy MDM Narrative Medical decision making narrative: 61 yo female with HTN here with wound dehiscence infection/cellulitis denies systemic symptoms was initially seen at [facility] on Friday sent home with tylenol - will obtain labs, cultures, start IV antibiotics and discuss with surgery - no abscess felt. Patient states she is not staying overnight on arrival. Has not been on antibiotics Lab Data Result diagrams: 09/29/21 15:05 09/29/21 15:05 Labs: Lab Results 09/29/21 09/29/21 09/29/21 Range/Units 15:05 15:05 15:05 WBC 14.8 H (4.8-10.8) X10*3/uL RBC 2.78 L (4.20-5.50) X10*6/uL Hgb 11.5 L (12.0-16.0) g/dl Hct 33.0 L (37.0-47.0) % MCV 118.7 H (80.0-98.0) fL MCH 41.4 H (27.0-33.0) pg MCHC 34.8 (31.0-35.0) g/dl RDW 15.9 (11.0-16.0) % Plt Count 260 (160-400) X10*3/uL MPV 10.1 (9.4-12.3) fL Immature Gran % (Auto) 0.5 H (0.0-0.4) % Neut % (Auto) 78.0 H (45-73) % Lymph % (Auto) 14.1 L (20-40) % Overton % (Auto) 7.0 (2-11) % Eos % (Auto) 0.2 (0-4) % Baso % (Auto) 0.2 (0-2) % Lymph # (Auto) 2.1 (1.2-4.9) X10*3/uL [place]ton # (Auto) 1.0 (0.1-1.2) X10*3/uL Eos # (Auto) 0.0 (0.0-0.4) X10*3/uL Baso # (Auto) 0.0 (0.0-0.2) X10*3/uL Abs Immat Gran (auto) 0.08 H (0.00-0.03) X10*3/uL Absolute Neuts (auto) 11.5 H (2.0-8.3) x10*3/uL Absolute Nucleated RBC 0.000 (0.0-0.012) X10*3/uL Nucleated RBC % (auto) 0.0 (0.0-0.2) /100WBC Sodium 137 (135-145) mmol/L Potassium 2.8 L (3.3-5.1) mmol/L Chloride 99 (96-108) mmol/L Carbon Dioxide 24 (22-29) mmol/L Anion Gap 17 (12-20) BUN 11 (9-16) mg/dL Creatinine 0.66 (0.5-1.4) mg/dL Estim Creat Clear Calc 56.3 Estimated GFR > 60 Random Glucose 101 (60-115) mg/dL Lactic Acid 2.4 H* (0.5-2.0) mmol/L Calcium 7.9 L (8.4-10.2) mg/dL Magnesium 1.3 L* (1.6-2.6) mg/dL Total Bilirubin 1.3 H (0.0-1.0) mg/dL Direct Bilirubin 0.7 H (0.0-0.5) mg/dL AST 40 H (5-31) U/L ALT 19 (0-31) U/L Alkaline Phosphatase 140 H (39-117) U/L Total Protein 7.1 (6.5-8.0) g/dL Albumin 3.8 (3.5-5.0) g/dL COVID-19 (SURJIT) (Negative) COVID-19 Clin Com 09/29/21 Range/Units 15:05 WBC (4.8-10.8) X10*3/uL RBC (4.20-5.50) X10*6/uL Hgb (12.0-16.0) g/dl Hct (37.0-47.0) % MCV (80.0-98.0) fL MCH (27.0-33.0) pg MCHC (31.0-35.0) g/dl RDW (11.0-16.0) % Plt Count (160-400) X10*3/uL MPV (9.4-12.3) fL Immature Gran % (Auto) (0.0-0.4) % Neut % (Auto) (45-73) % Lymph % (Auto) (20-40) % [place]ton % (Auto) (2-11) % Eos % (Auto) (0-4) % Baso % (Auto) (0-2) % Lymph # (Auto) (1.2-4.9) X10*3/uL Overton # (Auto) (0.1-1.2) X10*3/uL Eos # (Auto) (0.0-0.4) X10*3/uL Baso # (Auto) (0.0-0.2) X10*3/uL Abs Immat Gran (auto) (0.00-0.03) X10*3/uL Absolute Neuts (auto) (2.0-8.3) x10*3/uL Absolute Nucleated RBC (0.0-0.012) X10*3/uL Nucleated RBC % (auto) (0.0-0.2) /100WBC Sodium (135-145) mmol/L Potassium (3.3-5.1) mmol/L Chloride (96-108) mmol/L Carbon Dioxide (22-29) mmol/L Anion Gap (12-20) BUN (9-16) mg/dL Creatinine (0.5-1.4) mg/dL Estim Creat Clear Calc Estimated GFR Random Glucose (60-115) mg/dL Lactic Acid (0.5-2.0) mmol/L Calcium (8.4-10.2) mg/dL Magnesium (1.6-2.6) mg/dL Total Bilirubin (0.0-1.0) mg/dL Direct Bilirubin (0.0-0.5) mg/dL AST (5-31) U/L ALT (0-31) U/L Alkaline Phosphatase (39-117) U/L Total Protein (6.5-8.0) g/dL Albumin (3.5-5.0) g/dL COVID-19 (SURJIT) Negative (Negative) COVID-19 Clin Com See Note Critical Care Time Critical Care Time Critical Care Time: Yes Total Critical Care Time: 45 Attestation: IVF, medical consult, repletion of magnesium and K I attest to this time spent taking care of the patient Discharge Plan Discharge Clinical Impression: Hypomagnesemia, Acidosis, lactic, Dehiscence of wound, Hypokalemia Cellulitis Qualifiers: Site of cellulitis: extremity Site of cellulitis of extremity: lower extremity Laterality: right Qualified Code(s): L03.115 - Cellulitis of right lower limb Instructions: Cellulitis (ED), Hypokalemia (ED), Hypomagnesemia (ED), Wound Dehiscence (ED) Additional Instructions: return to ED for any worsening symptoms or concerns keep area clean and covered you need to see your surgeon FRIDAY or someone in the office this is very serious Prescriptions: New cephalexin 500 mg capsule 500 mg PO TID 7 Days Qty: 21 RF: 0 doxycycline monohydrate 100 mg tablet 100 mg PO BID 7 Days Qty: 14 RF: 0 morphine 15 mg tablet 15 mg PO Q6H PRN (Reason: pain) 3 Days Qty: 12 RF: 0 ondansetron 4 mg tablet,disintegrating 4 mg PO Q8H PRN (Reason: nausea and vomiting) Qty: 20 RF: 0 No Action cholecalciferol (vitamin D3) 25 mcg (1,000 unit) capsule 25 mcg PO DAILY Qty: 90 RF: 8 metoprolol tartrate 25 mg tablet 25 mg PO BID Qty: 60 RF: 8 fluticasone propionate 50 mcg/actuation spray,suspension 1 spray intranasal BID RF: 0 alendronate 70 mg tablet 70 mg PO MO RF: 0
[2021-09-29] MEDS: Potassium Chloride ER 20 MEQ TAB.ER.PRT 40 MEQ PO (17:03)
[2021-09-29 17:11] LABS: Reflex Lactate? Lactic Acid Added
== END 2021-09-29 17:13 | disposition left against medical advice (07) ==
PROVIDERS: Emergency Provider Emergency Medicine; PCP Internal Medicine
DX: T81.31XA Disruption of external operation (surgical) wound, not elsewhere classified, initial encounter (principal); Y83.8 Other surgical procedures as the cause of abnormal reaction of the patient, or of later complication, without mention of misadventure at the time of the procedure; Y92.9 Unspecified place or not applicable; L03.115 Cellulitis of right lower limb; E83.42 Hypomagnesemia; E87.2 Acidosis; E87.6 Hypokalemia; R21 Rash and other nonspecific skin eruption; Z20.822 Contact with and (suspected) exposure to COVID-19; I10 Essential (primary) hypertension; F17.200 Nicotine dependence, unspecified, uncomplicated
CPT/HCPCS: 36415; 80048; 80076; 83605; 83735; 85025; 87040; 87071; 87077; 87186; 87205; 87635; 96361; 96365; 96375; 99283; 99291; J2270; J2405; J2543; J3370

== ENCOUNTER → 2021-10-09 07:49 | Outpatient (BNVA) | payer OTHER, SELFPAY | PROVIDERS: PCP Internal Medicine; Visit Provider Internal Medicine | DX: M54.2 Cervicalgia (principal); M79.603 Pain in arm, unspecified; M47.812 Spondylosis without myelopathy or radiculopathy, cervical region; M48.02 Spinal stenosis, cervical region | CPT/HCPCS: 99213 ==

== ENCOUNTER → 2021-10-12 10:36 | Outpatient (BNVA) | payer OTHER, SELFPAY | PROVIDERS: PCP Internal Medicine; Visit Provider Internal Medicine ==

== ENCOUNTER 2021-10-26 09:51 | Inpatient (IN) | payer OTHER, SELFPAY ==
[2021-10-26] VITALS (10 sets, daily range): BP systolic 100–143; BP diastolic 55–82; PULSE 75–110; RESP 17–27; TEMP 36.4–37; O2SAT 89–99; BMI 17.6
--- NOTE | ~2021-10-26 | CT_ITS ---
EXAMINATION: CT HEAD WITHOUT CONTRAST CLINICAL INFORMATION: AP study from study with motion artifact earlier in the day with question of possible subarachnoid blood. COMPARISON: Earlier on same day and April 23, 2021 TECHNIQUE: Contiguous axial imaging was performed from the skull base to vertex without intravenous administration of contrast. This CT examination was performed using dose optimization techniques as appropriate, variously including the following: *Automated exposure control *Adjustment of mA and/or kV according to patient size (this includes techniques or standardized protocols for targeted exams where dose is matched to indication/reason for exam; i.e. extremities or head) *Use of iterative reconstruction technique DLP: 612.92 mGy-cm FINDINGS: There is no evidence of acute intracranial hemorrhage or territorial infarction. No abnormal mass effect or midline shift is seen. Vasques to white matter differentiation is well preserved. No extra-axial fluid collections are identified. The ventricles, sulci, and cisterns are prominent for age. There is mild periventricular white matter low density seen consistent with microangiopathy. The osseous structures and soft tissues are normal. There is significant paranasal sinus disease present. Calcified distal right vertebral artery aneurysm again seen. CT/CT head/brain wo con IMPRESSION: No acute intracranial pathology. No acute subarachnoid hemorrhage. Significant diffuse paranasal sinus disease. Cerebral atrophy with mild changes of microangiopathy. Calcified Right vertebral artery aneurysm.
--- NOTE | ~2021-10-26 | CT_ITS ---
EXAMINATION: CT HEAD WITHOUT CONTRAST CLINICAL INFORMATION: Status post fall. COMPARISON: CT head 04/23/2021 and 01/04/2020 TECHNIQUE: Contiguous axial imaging was performed from the skull base to vertex without intravenous administration of contrast. This CT examination was performed using dose optimization techniques as appropriate, variously including the following: *Automated exposure control *Adjustment of mA and/or kV according to patient size (this includes techniques or standardized protocols for targeted exams where dose is matched to indication/reason for exam; i.e. extremities or head) *Use of iterative reconstruction technique DLP: 214.38 mGy-cm FINDINGS: There is [id number] global volume loss with proportionate dilatation of the ventricles and cortical sulci. A small amorphous hyperdensity noted in the right frontal lobe anterior to the sylvian fissure (series 3 image 43) may represent a small subarachnoid hemorrhage versus parenchymal contusion. There is no evidence of midline shift or mass effect. Mild bilateral periventricular white matter patchy low-attenuation changes likely of chronic microangiopathy. No evidence of fracture of the osseous calvarium. Significant opacification of the paranasal sinuses is redemonstrated. Mastoid air cells and middle ear cavities are well aerated. No evidence of significant calvarial soft tissue swelling or hematoma. Patient is status post bilateral lens extraction. CT/CT head/brain wo con IMPRESSION: Probable small focus of subarachnoid hemorrhage versus some parenchymal contusion in the posterior right frontal lobe. Mild white matter changes of chronic microangiopathy. No evidence of focal acute osseous calvarial fracture. This critical result was discussed with GEMMA Jensen at 12:56 PM on 10/26/2021 and it was ascertained that the content and urgency of the report was understood at the time of direct communication.
--- NOTE | ~2021-10-26 | CT_ITS ---
EXAMINATION: CT CERVICAL SPINE WITHOUT CONTRAST CLINICAL INFORMATION: Fall with pain COMPARISON: June 20, 2021 TECHNIQUE: CT cervical spine without intravenous contrast and with sagittal and coronal reconstructions. This CT examination was performed using dose optimization techniques as appropriate, variously including the following: *Automated exposure control *Adjustment of mA and/or kV according to patient size (this includes techniques or standardized protocols for targeted exams where dose is matched to indication/reason for exam; i.e. extremities or head) *Use of iterative reconstruction technique DLP: 658.84 mGy-cm FINDINGS: There is some motion artifact present. No abnormal prevertebral soft tissue swelling. Paraspinal muscle planes are maintained. No acute cervical spine fracture is noted. Pterygoid plates intact. There is degenerative narrowing of the temporomandibular joints with some flattening of the mandibular heads. There is 2 mm of anterior subluxation of C4 on C5. There is degenerative disc disease seen C5-C6 and to a greater degree at the C6-C7 level where there is loss of the disc space with marginal spurring and sclerosis. There is some anterior neural foraminal encroachment seen at the C6-C7 level related to spurring of joint of Luschka. There is facet arthropathy seen C2-C5 on the left and C2-C6 on the right. There is bilateral upper lobe interstitial and airspace disease present. Prominent carotid artery calcifications are seen. Visualized thyroid gland unremarkable. CT/CT cervical spine wo con IMPRESSION: No acute cervical spine fracture. Degenerative disc disease most prominent at C5-C7. Bilateral temporomandibular joint degenerative change. Interstitial and airspace disease within the upper lobes bilaterally. EXAMINATION: CT HEAD/BRAIN WITHOUT CONTRAST CLINICAL INFORMATION: Fall COMPARISON: April 23, 2021 TECHNIQUE: CT scanning from base of skull to vertex performed without IV contrast administration. This CT examination was performed using dose optimization techniques as appropriate, variously including the following: *Automated exposure control *Adjustment of mA and/or kV according to patient size (this includes techniques or standardized protocols for targeted exams where dose is matched to indication/reason for exam; i.e. extremities or head) *Use of iterative reconstruction technique DLP: 214.38 mGy-cm. FINDINGS: The ventricles, sulci, and cisterns are prominent for age. No abnormal extra-axial fluid collection or intracranial hemorrhage is seen. No significant mass effect or midline structure shift is evident. There is alban-ventricular white matter low density is present consistent with microangiopathy. 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 There is diffuse paranasal sinus disease present as well as nasal polyps. IMPRESSION: No acute intracranial abnormality. Diffuse paranasal sinus disease. 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
--- NOTE | ~2021-10-26 | CT_ITS ---
EXAMINATION: CT ANGIOGRAM OF THE CHEST WITH AND WITHOUT CONTRAST (CT PULMONARY ANGIOGRAM FOR PE) CLINICAL INFORMATION: Reason for Exam COVID positive hypoxia elevated ddimer COMPARISON: Straight 10/26/2021 TECHNIQUE: Prior to contrast administration, noncontrast localization images were obtained. Subsequently, multidetector volumetric imaging was performed from the thoracic inlet to below the diaphragms following the administration of 80 mL Omnipaque 350 intravenous contrast. No contrast reaction reported Sagittal, coronal, and MIP oblique sagittal reformatted images were obtained on the CT workstation, uploaded to PACS, and reviewed. This CT examination was performed using dose optimization techniques as appropriate, variously including the following: *Automated exposure control *Adjustment of mA and/or kV according to patient size (this includes techniques or standardized protocols for targeted exams where dose is matched to indication/reason for exam; i.e. extremities or head) *Use of iterative reconstruction technique Total exam dose-length product 777 mGy-cm (in total with CT of the head) FINDINGS: QUALITY OF STUDY/CONTRAST BOLUS: Satisfactory. PULMONARY ARTERIES: No central or segmental pulmonary emboli. THORACIC AORTA: No aneurysm or dissection. Scattered atherosclerotic plaque and calcifications. LUNG: There are patchy peripheral opacities throughout both lungs with interlobular septal thickening. No suspicious nodule or mass. PLEURA: No pleural effusion or pneumothorax. MEDIASTINUM: Normal heart size. No pericardial effusion. No hilar or mediastinal lymphadenopathy. No evidence of septal bowing or right heart strain. CHEST WALL/AXILLA: No axillary or internal mammary lymphadenopathy. OSSEOUS STRUCTURES: No acute or suspicious osseous abnormality. UPPER ABDOMEN: Unremarkable. No reflux of contrast into the hepatic veins to suggest elevated right heart pressures. CT/CT angio chest PE protocol IMPRESSION: 1. No evidence for pulmonary embolism. 2. Patchy peripheral opacities throughout both lungs with interlobular septal thickening. Commonly reported imaging features of COVID-19 pneumonia are present. Other processes such as influenza pneumonia or organizing pneumonia can cause a similar imaging appearance, as can certain drug toxicities and connective tissue disorders. VTE: negative
--- NOTE | ~2021-10-26 | XR_ITS ---
EXAMINATION: XR CHEST CLINICAL INFORMATION: Weakness COMPARISON: Report of April 08, 2009 TECHNIQUE: AP portable view of the chest was obtained. FINDINGS: There are some bilateral regions of interstitial disease present right lung greater than left. No pneumothorax or pleural effusion. Heart normal size. No evidence of pulmonary edema. XR/XR chest 1V IMPRESSION: Bilateral regions of what appears to be interstitial lung disease which may be related to a viral or atypical pneumonitis.
--- NOTE | 2021-10-26 10:16 | ECG_ITS ---
Test Reason : weakness Blood Pressure : / mmHG Vent. Rate : 111 BPM Atrial Rate : 111 BPM P-R Int : 094 ms QRS Dur : 084 ms QT Int : 330 ms P-R-T Axes : 078 065 265 degrees QTc Int : 448 ms Artifact in tracing Sinus tachycardia with short ME ST & T wave abnormality anterolateral leads, consider ischemia Abnormal ECG When compared with ECG of 01-MAR-2013 11:03, ME interval has increased T wave inversion now evident in Lateral leads Referred By: Kayla Mendoza Electronically Signed By:NEFTALI DENTON
--- NOTE | 2021-10-26 10:18 | ED_ITS ---
HPI - General Adult General Chief complaint: General Medical Stated complaint: neck/back pain Time Seen by Provider: 10/26/21 10:07 Source: patient and old records reviewed Mode of arrival: EMS Limitations: other (poor historian, agitation and will not answer questions) History of Present Illness HPI narrative: partner called EMS - heavy ETOH history has not left her couch in 3 days confused and incontinent of stool/urine complaint: neck pain body pain Onset (ago): year(s) (but states it was worse this week) Location: neck Severity: moderate Quality: dull Relieving factors: none Exacerbating factors: movement Associated symptoms: loss of appetite, malaise and weakness Treatments prior to arrival: none Related Data Home Medications Medication Instructions Recorded Confirmed alendronate 70 mg tablet 70 mg PO MO 09/29/21 10/26/21 fluticasone propionate 50 1 spray INTRANASAL BID 09/29/21 10/26/21 mcg/actuation nasal spray,suspension cholecalciferol (vitamin D3) 25 1 cap PO DAILY 10/26/21 10/26/21 mcg (1,000 unit) capsule (Vitamin D3) Previous Rx's Medication Instructions Recorded metoprolol tartrate 25 mg tablet 25 mg PO BID #60 tab 08/20/21 Allergies Allergy/AdvReac Type Severity Reaction Status Date / Time No Known Allergies Allergy Verified 10/12/21 10:38 Review of Systems Review of Systems: ROS unable to be obtained due to agitation and poor cooperation [facility] Past Medical History Attestation statement: The following information was validated with the patient. Medical History Cervical spondylosis Cervical stenosis of spinal canal HTN (hypertension) Surgical History No pertinent past surgical history Social History Social History Housing: House ([facility]) Alcohol intake: current Alcohol intake frequency: a few times a week Patient Tobacco Use Status: Current everyday Tobacco user Tobacco use type: Cigarette Cigarettes Per Day: 15 Use of substances other than those prescribed or required for medical reasons: No Advance Directives: No Advance Directives Information Provided: No Patient : No service: No Current occupational status: unemployed Physical Exam Vital Signs: Vital Signs: Last Vital Signs Temp 97.5 F 10/26/21 10:07 Pulse 82 10/26/21 15:18 Resp 20 10/26/21 15:18 BP 114/82 10/26/21 15:18 Pulse Ox 98 10/26/21 15:18 BMI result Body Mass Index 17.6 Appearance: Alert. Oriented X2? but she is agitated and won't answer questions. Frail mild acute distress. Eyes: Pupils equal, round and reactive to light. ENT: Pharynx very dry MMM Neck: Normal inspection. Neck supple. CVS: tachycardic heart rate and rhythm. Pulses normal. Respiratory: No respiratory distress. Breath sounds diminished Abdomen: Soft and nontender. Skin: Skin warm and dry. pale skin color. poor skin turgor. Extremities: No lower extremity edema. scab on R anterior rain Neuro: Oriented X 2. No motor deficit - MAEB . No sensory deficit. Will not participate very agitated Course Course Course Narrative: 87% on RA - dexamethasone ordered elevated ddimer - CTA ordered seems improved after ativan given differing CT head reports spoke to Dr. Kingsley CT head artifact vs SAH repeat 4 hours due at 330pm currently elevated HR, hypoxia, elevated liver function tests, elevated BUN due to dehydration/COVID and not bacterial infection repeat head CT negative Medical Decision Making [facility] Narrative Medical decision making narrative: 61 yo female with hx of MSK pain, cervical spondylosis, ETOH abuse here with 3 days of FTT weakness, last drink ?yesterday at this time she is a poor historian will need labs, cultures, CXR, CT head/neck for possible fall, UA, IVF, thiamine, IV magnesium, IV ativan suspect component of withdrawal as well. Patient looks drastically different from her visit recently - anticipate she will require admission. Lab Data Result diagrams: 10/26/21 10:35 10/26/21 11:11 Labs: Lab Results 10/26/21 10/26/21 10/26/21 Range/Units 10:33 10:34 10:34 WBC (4.8-10.8) X10*3/uL RBC (4.20-5.50) X10*6/uL Hgb (12.0-16.0) g/dl Hct (37.0-47.0) % MCV (80.0-98.0) fL MCH (27.0-33.0) pg MCHC (31.0-35.0) g/dl RDW (11.0-16.0) % Plt Count (160-400) X10*3/uL MPV (9.4-12.3) fL Immature Gran % (Auto) (0.0-0.4) % Neut % (Auto) (45-73) % Lymph % (Auto) (20-40) % [place] % (Auto) (2-11) % Eos % (Auto) (0-4) % Baso % (Auto) (0-2) % Lymph # (Auto) (1.2-4.9) X10*3/uL [place] # (Auto) (0.1-1.2) X10*3/uL Eos # (Auto) (0.0-0.4) X10*3/uL Baso # (Auto) (0.0-0.2) X10*3/uL Abs Immat Gran (auto) (0.00-0.03) X10*3/uL Absolute Neuts (auto) (2.0-8.3) x10*3/uL Absolute Nucleated RBC (0.0-0.012) X10*3/uL Nucleated RBC % (auto) (0.0-0.2) /100WBC Smear Tech's Comments D-Dimer High Sensitivty NG/ML VBG pH (7.32-7.43) VBG pCO2 mmHg VBG pO2 mmHg VBG HCO3 (22-26) mmol/L VBG O2 Saturation % VBG Base Excess mmol/L Sodium (135-145) mmol/L Potassium (3.3-5.1) mmol/L Chloride (96-108) mmol/L Carbon Dioxide (22-29) mmol/L Anion Gap (12-20) BUN (9-16) mg/dL Creatinine (0.5-1.4) mg/dL Estim Creat Clear Calc Estimated GFR Random Glucose (60-115) mg/dL Lactic Acid 2.0 (0.5-2.0) mmol/L Calcium (8.4-10.2) mg/dL Magnesium (1.6-2.6) mg/dL Ferritin (10-250) ng/mL Total Bilirubin (0.0-1.0) mg/dL Direct Bilirubin (0.0-0.5) mg/dL AST (5-31) U/L ALT (0-31) U/L Alkaline Phosphatase (39-117) U/L Ammonia 25 (13-55) umol/L Lactate Dehydrogenase (122-220) U/L Total Creatine Kinase (26-140) U/L Troponin I High Sens (<3.5-17.0) ng/L Total Protein (6.5-8.0) g/dL Albumin (3.5-5.0) g/dL Lipase (8-78) U/L Ethyl Alcohol mg/dL COVID-19 (SURJIT) Positive A (Negative) COVID-19 Clin Com See Note 10/26/21 10/26/21 10/26/21 Range/Units 10:35 10:35 10:39 WBC 8.4 (4.8-10.8) X10*3/uL RBC 3.78 L D (4.20-5.50) X10*6/uL Hgb 14.2 D (12.0-16.0) g/dl Hct 40.7 D (37.0-47.0) % MCV 107.7 H (80.0-98.0) fL MCH 37.6 H (27.0-33.0) pg MCHC 34.9 (31.0-35.0) g/dl RDW 16.0 (11.0-16.0) % Plt Count 336 D (160-400) X10*3/uL MPV 11.0 (9.4-12.3) fL Immature Gran % (Auto) 0.8 H (0.0-0.4) % Neut % (Auto) 80.9 H (45-73) % Lymph % (Auto) 12.6 L (20-40) % [place] % (Auto) 4.5 (2-11) % Eos % (Auto) 0.8 (0-4) % Baso % (Auto) 0.4 (0-2) % Lymph # (Auto) 1.1 L (1.2-4.9) X10*3/uL [place] # (Auto) 0.4 (0.1-1.2) X10*3/uL Eos # (Auto) 0.1 (0.0-0.4) X10*3/uL Baso # (Auto) 0.0 (0.0-0.2) X10*3/uL Abs Immat Gran (auto) 0.07 H (0.00-0.03) X10*3/uL Absolute Neuts (auto) 6.8 (2.0-8.3) x10*3/uL Absolute Nucleated RBC 0.000 (0.0-0.012) X10*3/uL Nucleated RBC % (auto) 0.0 (0.0-0.2) /100WBC Smear Tech's Comments VERIFIED D-Dimer High Sensitivty NG/ML VBG pH 7.51 H (7.32-7.43) VBG pCO2 28 mmHg VBG pO2 44 mmHg VBG HCO3 23 (22-26) mmol/L VBG O2 Saturation 71.0 % VBG Base Excess 1.9 mmol/L Sodium (135-145) mmol/L Potassium (3.3-5.1) mmol/L Chloride (96-108) mmol/L Carbon Dioxide (22-29) mmol/L Anion Gap (12-20) BUN (9-16) mg/dL Creatinine (0.5-1.4) mg/dL Estim Creat Clear Calc Estimated GFR Random Glucose (60-115) mg/dL Lactic Acid (0.5-2.0) mmol/L Calcium (8.4-10.2) mg/dL Magnesium (1.6-2.6) mg/dL Ferritin (10-250) ng/mL Total Bilirubin (0.0-1.0) mg/dL Direct Bilirubin (0.0-0.5) mg/dL AST (5-31) U/L ALT (0-31) U/L Alkaline Phosphatase (39-117) U/L Ammonia (13-55) umol/L Lactate Dehydrogenase (122-220) U/L Total Creatine Kinase (26-140) U/L Troponin I High Sens 51.7 H* (<3.5-17.0) ng/L Total Protein (6.5-8.0) g/dL Albumin (3.5-5.0) g/dL Lipase (8-78) U/L Ethyl Alcohol mg/dL COVID-19 (SURJIT) (Negative) COVID-19 Clin Com 10/26/21 10/26/21 10/26/21 Range/Units 11:11 11:11 11:54 WBC (4.8-10.8) X10*3/uL RBC (4.20-5.50) X10*6/uL Hgb (12.0-16.0) g/dl Hct (37.0-47.0) % MCV (80.0-98.0) fL MCH (27.0-33.0) pg MCHC (31.0-35.0) g/dl RDW (11.0-16.0) % Plt Count (160-400) X10*3/uL MPV (9.4-12.3) fL Immature Gran % (Auto) (0.0-0.4) % Neut % (Auto) (45-73) % Lymph % (Auto) (20-40) % [place] % (Auto) (2-11) % Eos % (Auto) (0-4) % Baso % (Auto) (0-2) % Lymph # (Auto) (1.2-4.9) X10*3/uL [place] # (Auto) (0.1-1.2) X10*3/uL Eos # (Auto) (0.0-0.4) X10*3/uL Baso # (Auto) (0.0-0.2) X10*3/uL Abs Immat Gran (auto) (0.00-0.03) X10*3/uL Absolute Neuts (auto) (2.0-8.3) x10*3/uL Absolute Nucleated RBC (0.0-0.012) X10*3/uL Nucleated RBC % (auto) (0.0-0.2) /100WBC Smear Tech's Comments D-Dimer High Sensitivty 675 NG/ML VBG pH (7.32-7.43) VBG pCO2 mmHg VBG pO2 mmHg VBG HCO3 (22-26) mmol/L VBG O2 Saturation % VBG Base Excess mmol/L Sodium 135 (135-145) mmol/L Potassium 3.8 D (3.3-5.1) mmol/L Chloride 99 (96-108) mmol/L Carbon Dioxide 22 (22-29) mmol/L Anion Gap 18 (12-20) BUN 53 H (9-16) mg/dL Creatinine 1.13 (0.5-1.4) mg/dL Estim Creat Clear Calc 36.9 Estimated GFR 49 Random Glucose 93 (60-115) mg/dL Lactic Acid (0.5-2.0) mmol/L Calcium 8.3 L (8.4-10.2) mg/dL Magnesium 1.8 (1.6-2.6) mg/dL Ferritin 8302 H (10-250) ng/mL Total Bilirubin 0.6 (0.0-1.0) mg/dL Direct Bilirubin 0.3 (0.0-0.5) mg/dL AST 101 H (5-31) U/L ALT 35 H (0-31) U/L Alkaline Phosphatase 198 H D (39-117) U/L Ammonia (13-55) umol/L Lactate Dehydrogenase 627 H (122-220) U/L Total Creatine Kinase 21 L (26-140) U/L Troponin I High Sens (<3.5-17.0) ng/L Total Protein 6.3 L (6.5-8.0) g/dL Albumin 3.0 L D (3.5-5.0) g/dL Lipase 74 (8-78) U/L Ethyl Alcohol < 10 mg/dL COVID-19 (SURJIT) (Negative) COVID-19 Clin Com ECG Data Attestation: I personally reviewed and interpreted this ECG as follows: Interpretation: Rate: 111 Rhythm: sinus tachycardia Bonnie: normal Normal P waves. Normal JOSH. Normal QRS complex. ST T wave : ST depressions lateral leads, no MOY qTC: prolonged prior studies: no priors The study has been interpreted contemporaneously by me. . Discharge Plan Discharge Clinical Impression: COVID-19, Hypoxia, Acute dehydration, Elevated troponin Alcohol withdrawal Qualifiers: Complication of substance-induced condition: with delirium Qualified Code(s): F10.231 - Alcohol dependence with withdrawal delirium Patient Disposition: Admitted As Inpatient
[2021-10-26] MEDS: 0.9 % Sodium Chloride 1,000 ML 999 ML IVCONT (10:41)
[2021-10-26 10:45] LABS: Basophils Percent Auto 0.4 % (0-2); Eosinophils Absolute Auto 0.1 X10*3/uL (0.0-0.4); Eosinophils Percent Auto 0.8 % (0-4); Hematocrit 40.7 % (37.0-47.0); Hemoglobin 14.2 g/dl (12.0-16.0); Imm Gran Abs Auto 0.07 X10*3/uL (0.00-0.03); Imm Gran Pct Auto 0.8 % (0.0-0.4); Lymphocytes Absolute Auto 1.1 X10*3/uL (1.2-4.9); Lymphocytes Percent Auto 12.6 % (20-40); MANUAL DIFF FLAG SCAN; Mean Corpuscular HGB Conc 34.9 g/dl (31.0-35.0); Mean Corpuscular Hemoglobin 37.6 pg (27.0-33.0); Mean Corpuscular Volume 107.7 fL (80.0-98.0); Monocytes Absolute Auto 0.4 X10*3/uL (0.1-1.2); Monocytes Percent Auto 4.5 % (2-11); Neutrophils Absolute Auto 6.8 x10*3/uL (2.0-8.3); Neutrophils Percent Auto 80.9 % (45-73); Platelet Count 336 X10*3/uL (160-400); Red Blood Count 3.78 X10*6/uL (4.20-5.50); SCAN SMEAR FLAG 1; White Blood Count 8.4 X10*3/uL (4.8-10.8)
[2021-10-26 10:46] LABS: Venous Blood Gas Refer to POC result
[2021-10-26 10:46] LABS: VBG Base Excess 1.9 mmol/L; VBG HCO3 23 mmol/L (22-26); VBG pCO2 28 mmHg; VBG pH 7.51 (7.32-7.43); VBG pO2 44 mmHg
[2021-10-26] MEDS: Thiamine HCL 200 MG in 0.9 % Sodium Chloride 100 ML 204 MG IV (10:46)
[2021-10-26] MEDS: LORazepam 2 MG/ML VIAL 1 MG IVPUSH (10:46)
[2021-10-26 10:53] LABS: COVID-19 Test Positive (Negative)
[2021-10-26 10:59] LABS: Ammonia 25 umol/L (13-55)
--- NOTE | 2021-10-26 11:04 | PHA.MEDREC ---
Pharmacy Consult ? Medication Reconciliation Pharmacy has completed the medication reconciliation.
[2021-10-26 11:06] LABS: SLIDE REVIEW VERIFIED
[2021-10-26] MEDS: Magnesium Sulfate/H2O 2 GM/50 ML PIGGYBACK IV (11:13)
[2021-10-26 11:19] LABS: Troponin-I High Sensitivity 51.7 ng/L (<3.5-17.0)
[2021-10-26] MEDS: Folic Acid 1 MG in 0.9 % Sodium Chloride 50 ML 100.4 MG IV (11:24)
[2021-10-26 11:33] LABS: Ethanol < 10 mg/dL
[2021-10-26 11:39] LABS: Alanine Aminotransferase 35 U/L (0-31); Alkaline Phosphatase 198 U/L (39-117); Anion Gap 18 (12-20); Aspartate Amino Transferase 101 U/L (5-31); Bilirubin Direct 0.3 mg/dL (0.0-0.5); Bilirubin Total 0.6 mg/dL (0.0-1.0); Blood Urea Nitrogen 53 mg/dL (9-16); Calcium 8.3 mg/dL (8.4-10.2); Carbon Dioxide 22 mmol/L (22-29); Chloride 99 mmol/L (96-108); Creatinine Clr Calc Pharmacy 36.9; Estimated Glomerular Filt Rate 49; Glucose Random 93 mg/dL (60-115); Lipase 74 U/L (8-78); Magnesium 1.8 mg/dL (1.6-2.6); Potassium 3.8 mmol/L (3.3-5.1); Sodium 135 mmol/L (135-145); Total Protein 6.3 g/dL (6.5-8.0)
[2021-10-26] MEDS: Acetaminophen 325 MG TABLET 650 MG PO (11:41)
[2021-10-26] MEDS: dexAMETHasone sod phosphate 4 MG/ML VIAL 6 MG IVPUSH (11:41)
[2021-10-26 12:04] LABS: Lactate Dehydrogenase 627 U/L (122-220)
[2021-10-26 12:06] LABS: D Dimer High Sensitivity 675 NG/ML
[2021-10-26 13:15] LABS: Ferritin 8302 ng/mL (10-250)
--- NOTE | 2021-10-26 13:15 | PC.NURSE ---
patient S.O. can be reached at [phone]
[2021-10-26] MEDS: iohexoL 350 MG/ML 100 ML INFUS..BTL IV (15:22)
[2021-10-26 16:35] LABS: INTERNATIONAL NORM RATIO 0.9 (0.9-1.1); Prothrombin Time 10.7 SEC (9.9-13.0)
[2021-10-26 16:38] LABS: Partial Thromboplastin Time 30.5 SEC (24.1-38.0)
--- NOTE | 2021-10-26 17:11 | PM.IMHP ---
History of Present Illness Date of Service: 10/26/21 Chief Complaint: SOb, increase weakness 62 years old lady with the image of osteoporosis who presents to the hospital with the with decreased oral intake a in general weakness for the last 10 days or so. The patient reported that she receives Pfizer vaccine back in February and was supposed to get her with still showed this week but for the last week she has been sick with cold symptoms that has been associated with increased lethargy, decreased oral intake and increased nausea. She denies any fever, chest pain 1 palpitation, diarrhea or change in bowel habit. In the emergency she tested positive for COVID. CTA negative for any PE. Found to be hypoxic down to 87 on room air. Admitted for further evaluation and treatment. Review of Systems Review of Systems: No fever, chills But increase in generalized weakness and decreased appetite No chest pain, palpitation dyspnea, episodes the cough No abdominal pain, nausea or vomiting No urinary symptoms No any rash or wounds PMFSH Medical History Cervical spondylosis Cervical stenosis of spinal canal HTN (hypertension) Surgical History No pertinent past surgical history Social History Housing: House ([facility]) Alcohol intake: current Alcohol intake frequency: a few times a week Patient Tobacco Use Status: Current everyday Tobacco user Tobacco use type: Cigarette Cigarettes Per Day: 15 Use of substances other than those prescribed or required for medical reasons: No Advance Directives: No Advance Directives Information Provided: No Patient : No service: No Current occupational status: unemployed Meds Allergies Allergy/AdvReac Type Severity Reaction Status Date / Time No Known Allergies Allergy Verified 10/12/21 10:38 Active Medications: Current Medications Pharmacy Consult (Consult Rx Perform Med Rec) 1 each MISCELLANE ONCE PRN PRN Reason: Consult order Home Medications Medication Instructions Recorded Confirmed Last Taken Type alendronate 70 mg tablet 70 mg PO MO 09/29/21 10/26/21 09/24/21 History fluticasone propionate 50 1 spray INTRANASAL BID 09/29/21 10/26/21 09/29/21 History mcg/actuation nasal spray,suspension cholecalciferol (vitamin D3) 25 1 cap PO DAILY 10/26/21 10/26/21 Unknown History mcg (1,000 unit) capsule (Vitamin D3) Physical Exam Vital Signs and Narrative: Vital Signs: Last Vital Signs Temp 97.5 F 10/26/21 10:07 Pulse 77 10/26/21 16:47 Resp 18 10/26/21 16:47 BP 107/58 L 10/26/21 16:47 Pulse Ox 94 10/26/21 16:47 BMI result Body Mass Index 17.6 Const: Other: Constitutional : Alert, oriented, looks tired and ill Neck : Normal inspection, Supple Cardiovascular : RRR, S1 S2, no lower extremity edema Respiratory : G moving chest wall, not in distress, on oxygen supplement Gastrointestinal: soft, lax, Normal bowel sounds, Non tender Skin : Warm, Dry Neurological : Alert & oriented x3, No focal deficit Results Labs CBC and Chem 7: 10/26/21 10:35 10/26/21 11:11 Labs: Laboratory Results - last 24 hr 10/26/21 10/26/21 10/26/21 10:33 10:34 10:34 MCV MCH MCHC RDW Plt Count MPV Immature Gran % (Auto) Neut % (Auto) Lymph % (Auto) [place] % (Auto) Eos % (Auto) Baso % (Auto) Lymph # (Auto) [place] # (Auto) Eos # (Auto) Baso # (Auto) Abs Immat Gran (auto) Absolute Neuts (auto) Absolute Nucleated RBC Nucleated RBC % (auto) Smear Tech's Comments PT INR APTT D-Dimer High Sensitivty VBG pH VBG pCO2 VBG pO2 VBG HCO3 VBG O2 Saturation VBG Base Excess Anion Gap Estim Creat Clear Calc Estimated GFR Random Glucose Lactic Acid 2.0 Calcium Magnesium Ferritin Total Bilirubin Direct Bilirubin AST ALT Alkaline Phosphatase Ammonia 25 Lactate Dehydrogenase Total Creatine Kinase Troponin I High Sens Total Protein Albumin Lipase Ethyl Alcohol COVID-19 (SURJIT) Positive A COVID-19 Clin Com See Note 10/26/21 10/26/21 10/26/21 10:35 10:35 10:39 MCV 107.7 H MCH 37.6 H MCHC 34.9 RDW 16.0 Plt Count 336 D MPV 11.0 Immature Gran % (Auto) 0.8 H Neut % (Auto) 80.9 H Lymph % (Auto) 12.6 L [place] % (Auto) 4.5 Eos % (Auto) 0.8 Baso % (Auto) 0.4 Lymph # (Auto) 1.1 L [place] # (Auto) 0.4 Eos # (Auto) 0.1 Baso # (Auto) 0.0 Abs Immat Gran (auto) 0.07 H Absolute Neuts (auto) 6.8 Absolute Nucleated RBC 0.000 Nucleated RBC % (auto) 0.0 Smear Tech's Comments VERIFIED PT INR APTT D-Dimer High Sensitivty VBG pH 7.51 H VBG pCO2 28 VBG pO2 44 VBG HCO3 23 VBG O2 Saturation 71.0 VBG Base Excess 1.9 Anion Gap Estim Creat Clear Calc Estimated GFR Random Glucose Lactic Acid Calcium Magnesium Ferritin Total Bilirubin Direct Bilirubin AST ALT Alkaline Phosphatase Ammonia Lactate Dehydrogenase Total Creatine Kinase Troponin I High Sens 51.7 H* Total Protein Albumin Lipase Ethyl Alcohol COVID-19 (SURJIT) COVID-19 [employer] 10/26/21 10/26/21 10/26/21 11:11 11:11 11:54 MCV MCH MCHC RDW Plt Count MPV Immature Gran % (Auto) Neut % (Auto) Lymph % (Auto) [place] % (Auto) Eos % (Auto) Baso % (Auto) Lymph # (Auto) [place] # (Auto) Eos # (Auto) Baso # (Auto) Abs Immat Gran (auto) Absolute Neuts (auto) Absolute Nucleated RBC Nucleated RBC % (auto) Smear Tech's Comments PT 10.7 INR 0.9 APTT 30.5 D-Dimer High Sensitivty 675 VBG pH VBG pCO2 VBG pO2 VBG HCO3 VBG O2 Saturation VBG Base Excess Anion Gap 18 Estim Creat Clear Calc 36.9 Estimated GFR 49 Random Glucose 93 Lactic Acid Calcium 8.3 L Magnesium 1.8 Ferritin 8302 H Total Bilirubin 0.6 Direct Bilirubin 0.3 AST 101 H ALT 35 H Alkaline Phosphatase 198 H D Ammonia Lactate Dehydrogenase 627 H Total Creatine Kinase 21 L Troponin I High Sens Total Protein 6.3 L Albumin 3.0 L D Lipase 74 Ethyl Alcohol < 10 COVID-19 (SURJIT) COVID-19 [employer] [facility] Radiologist's Impressions: Impressions Chest X-Ray 10/26/21 11:11 IMPRESSION: Bilateral regions of what appears to be interstitial lung disease which may be related to a viral or atypical pneumonitis. Cervical Spine CT 10/26/21 11:50 IMPRESSION: No acute cervical spine fracture. Degenerative disc disease most prominent at C5-C7. Bilateral temporomandibular joint degenerative change. Interstitial and airspace disease within the upper lobes bilaterally. EXAMINATION: CT HEAD/BRAIN WITHOUT CONTRAST CLINICAL INFORMATION: Fall COMPARISON: April 23, 2021 TECHNIQUE: CT scanning from base of skull to vertex performed without IV contrast administration. This CT examination was performed using dose optimization techniques as appropriate, variously including the following: *Automated exposure control *Adjustment of mA and/or kV according to patient size (this includes techniques or standardized protocols for targeted exams where dose is matched to indication/reason for exam; i.e. extremities or head) *Use of iterative reconstruction technique DLP: 214.38 mGy-cm. FINDINGS: The ventricles, sulci, and cisterns are prominent for age. No abnormal extra-axial fluid collection or intracranial hemorrhage is seen. No significant mass effect or midline structure shift is evident. There is alban-ventricular white matter low density is present consistent with microangiopathy. 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 There is diffuse paranasal sinus disease present as well as nasal polyps. IMPRESSION: No acute intracranial abnormality. Diffuse paranasal sinus disease. 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 Head CT 10/26/21 11:50 IMPRESSION: Probable small focus of subarachnoid hemorrhage versus some parenchymal contusion in the posterior right frontal lobe. Mild white matter changes of chronic microangiopathy. No evidence of focal acute osseous calvarial fracture. This critical result was discussed with GEMMA Jensen at 12:56 PM on 10/26/2021 and it was ascertained that the content and urgency of the report was understood at the time of direct communication. Head CT 10/26/21 15:20 IMPRESSION: No acute intracranial pathology. No acute subarachnoid hemorrhage. Significant diffuse paranasal sinus disease. Cerebral atrophy with mild changes of microangiopathy. Calcified Right vertebral artery aneurysm. Chest CTA 10/26/21 15:21 IMPRESSION: 1. No evidence for pulmonary embolism. 2. Patchy peripheral opacities throughout both lungs with interlobular septal thickening. Commonly reported imaging features of COVID-19 pneumonia are present. Other processes such as influenza pneumonia or organizing pneumonia can cause a similar imaging appearance, as can certain drug toxicities and connective tissue disorders. VTE: negative Assessment and Plan (1) COVID-19: Status: Acute (2) Hypoxia: Status: Acute (3) Acute dehydration: Status: Acute 62 years old lady with the image of osteoporosis who presents to the hospital with the with decreased oral intake a in general weakness for the last 10 days Acute hypoxia Secondary to COVID-19 infection Date in of infection Start IV steroids Wean oxygen down as tolerated ID evaluation Acute dehydration BUN elevated to 50s with normal creatinine To give IV fluids and encourage oral intake Transaminitis Mild Likely secondary to infection, to monitor LFT DVT PPX Lovenox Quality Stroke Does the patient have a stroke diagnosis?: No VTE Prior VTE?: No VTE Risk Level:: Medical - moderate - high VTE Device Contraindication: Treatment Not Indicated VTE Drug Contraindication: N/A - Med Ordered
[2021-10-26 17:15] LABS: Appearance Urine CLEAR; Color Urine YELLOW; Glucose Urine UA NEG (NEG); Leukocyte Esterase Urine 1+ (NEG); Nitrite Urine POS (NEG); UACC Culture Trigger YES; Urine Blood TRACE (NEG); Urine Ketones NEG (NEG); Urine Protein NEG (NEG-TRACE)
[2021-10-26 17:32] LABS: Amphetamine Screen Urine Not Detected (Not Detect); Barbiturates, Urine Not Detected (Not Detect); Benzodiazepines Screen Urine Not Detected (Not Detect); Cannabinoid Screen Urine Not Detected (Not Detect); Cocaine Screen Urine Not Detected (Not Detect); Fentanyl, urine Not Detected (Not Detect); Opiate Screen Urine POSITIVE (Not Detect); Phencyclidine Screen Urine Not Detected (Not Detect)
[2021-10-26 17:55] LABS: Troponin-I High Sensitivity 63.3 ng/L (<3.5-17.0)
[2021-10-26 18:04] LABS: Bacteria Urine 3+ /LPF; RBC Urine 0-2 /HPF (0); Squamous Epithelial Cell Urine TRACE /LPF
[2021-10-26] MEDS: Enoxaparin Sodium 40 MG/0.4 ML SYRINGE SUBCUT (18:05)
[2021-10-26] MEDS: Metoprolol Tartrate 25 MG TABLET PO (21:09)
[2021-10-26] MEDS: 0.9 % Sodium Chloride Flush 3 ML SYRINGE IVFLUSH (21:39)
[2021-10-27] VITALS (8 sets, daily range): BP systolic 108–151; BP diastolic 64–85; PULSE 60–125; RESP 18–20; TEMP 36.1–36.7; O2SAT 90–99
--- NOTE | 2021-10-27 08:24 | MHC.CM.PN ---
Patient is Covid (+). CM attempted to reach Patient via cell @ [phone], but S.O./Neil answered instead. Patient lives in a mobile home with S.O. and she uses a walker to assist with mobility. Patient works for [employer] and is presently out of work on Workman's Comp r/t a fall at work, in April 2021.Home no services pending PT eval is the goal and CM has initiated and will follow for dc planning. Neil has explained that he can only minimally assist Patient because he is disabled himself. PCP is Dr. Carlos Guzman.
[2021-10-27 08:34] LABS: Hematocrit 38.1 % (37.0-47.0); Hemoglobin 13.3 g/dl (12.0-16.0); Mean Corpuscular HGB Conc 34.9 g/dl (31.0-35.0); Mean Corpuscular Hemoglobin 37.2 pg (27.0-33.0); Mean Corpuscular Volume 106.4 fL (80.0-98.0); Mean Platelet Volume 10.9 fL (9.4-12.3); Platelet Count 348 X10*3/uL (160-400); Red Blood Count 3.58 X10*6/uL (4.20-5.50); Red Cell Distribution Width 15.9 % (11.0-16.0); White Blood Count 7.7 X10*3/uL (4.8-10.8)
[2021-10-27 08:52] LABS: Anion Gap 16 (12-20); Blood Urea Nitrogen 40 mg/dL (9-16); Calcium 8.3 mg/dL (8.4-10.2); Carbon Dioxide 20 mmol/L (22-29); Chloride 104 mmol/L (96-108); Creatinine Clr Calc Pharmacy 54.2; Estimated Glomerular Filt Rate > 60; Glucose Random 83 mg/dL (60-115); Potassium 4.4 mmol/L (3.3-5.1); Sodium 136 mmol/L (135-145)
[2021-10-27] MEDS: Metoprolol Tartrate 25 MG TABLET PO ×2 (09:21→19:26)
[2021-10-27] MEDS: dexAMETHasone sod phosphate 4 MG/ML VIAL 6 MG IVPUSH (09:21)
[2021-10-27] MEDS: 0.9 % Sodium Chloride Flush 3 ML SYRINGE IVFLUSH ×3 (09:21→19:26)
[2021-10-27] MEDS: Cholecalciferol (Vitamin D3) 25 MCG TABLET PO (09:22)
--- NOTE | 2021-10-27 11:09 | P.PNIM_ITS ---
Subjective Subjective Date of Service: 10/27/21 Interval History: the patient was seen and evaluated this morning Laying in bed, feels improvement but still requiring 4 L of oxygen to Able to eat more appetite Denies any fever, chills or chest pain No reported other overnight events. Review of Systems No fever, chills generalized weakness and decreased appetite No chest pain, palpitation dyspnea, episodes the cough No abdominal pain, nausea or vomiting No urinary symptoms No any rash or wounds Physical Exam Vital Signs: Vital Signs: Last Vital Signs Temp 97.8 F 10/27/21 07:18 Pulse 87 10/27/21 09:21 Resp 20 10/27/21 07:18 BP 130/77 10/27/21 09:21 Pulse Ox 94 10/27/21 07:18 BMI result Body Mass Index 17.6 Const: Other: Constitutional : Alert, oriented, looks tired Neck : Normal inspection, Supple Cardiovascular : RRR, S1 S2, no lower extremity edema Respiratory : G moving chest wall, not in distress, on oxygen supplement Gastrointestinal: soft, lax, Normal bowel sounds, Non tender Skin : Warm, Dry Neurological : Alert & oriented x3, No focal deficit Objective Data Active Medications Acetaminophen (Acetaminophen 325 Mg Tablet) 650 mg PO Q6H PRN PRN Reason: Pain, Mild (Pain Scale 1-3) Dexamethasone Sodium Phosphate (Dexamethasone Sod Phosphate 4 Mg/Ml Vial) 6 mg IVPUSH DAILY [facility] Last Admin: 10/27/21 09:21 Dose: 6 mg Documented by: RUTH Enoxaparin Sodium (Enoxaparin Sodium 40 Mg/0.4 Ml Syringe) 40 mg SUBCUT Q24H [facility] Last Admin: 10/26/21 18:05 Dose: 40 mg Documented by: WARREN Fluticasone Propionate (Fluticasone Propionate Nasal 16 Gm [place]) 1 spray NOSTRIL-B BID [facility] Last Admin: 10/27/21 09:31 Dose: Not Given Documented by: RUTH Non-Admin Reason: Med Not Available Metoprolol Tartrate (Metoprolol Tartrate 25 Mg Tablet) 25 mg PO BID [facility]; Protocol Last Admin: 10/27/21 09:21 Dose: 25 mg Documented by: RUTH Ondansetron HCl (Ondansetron Hcl 4 Mg/2 Ml Vial) 4 mg IVPUSH Q8H PRN PRN Reason: Nausea and Vomiting Pharmacy Consult (Consult Rx Perform Med Rec) 1 each MISCELLANE ONCE PRN PRN Reason: Consult order Sodium Chloride (0.9 % Sodium Chloride Flush 3 Ml Syringe) 3 ml IVFLUSH QSHIFT [facility] Last Admin: 10/27/21 09:21 Dose: 3 ml Documented by: RUTH Vitamin D (Cholecalciferol (Vitamin D3) 25 Mcg Tablet) 25 mcg PO DAILY [facility] Last Admin: 10/27/21 09:22 Dose: 25 mcg Documented by: RUTH Labs CBC & Chem 7: 10/27/21 07:53 10/27/21 07:53 Labs: Laboratory Results - last 24 hr 10/26/21 10/26/21 10/26/21 10:35 11:11 11:11 MCV MCH MCHC RDW Plt Count MPV Absolute Nucleated RBC Nucleated RBC % (auto) PT INR APTT D-Dimer High Sensitivty Anion Gap 18 Estim Creat Clear Calc 36.9 Estimated GFR 49 Random Glucose 93 Calcium 8.3 L Magnesium 1.8 Ferritin 8302 H Total Bilirubin 0.6 Direct Bilirubin 0.3 AST 101 H ALT 35 H Alkaline Phosphatase 198 H D Lactate Dehydrogenase 627 H Total Creatine Kinase 21 L Troponin I High Sens 51.7 H* Total Protein 6.3 L Albumin 3.0 L D Lipase 74 Urine Color Urine Appearance Urine pH Ur Specific [place] Urine Protein Urine Glucose (UA) Urine Ketones Urine Blood Urine Nitrite Ur Leukocyte Esterase Urine RBC Urine WBC Ur Squamous Epith Cells Urine Bacteria Urine Opiates Screen Urine Fentanyl Screen Ur Barbiturates Screen Ur Phencyclidine Scrn Ur Amphetamines Screen U Benzodiazepines Scrn Urine Cocaine Screen U Marijuana (THC) Screen Ethyl Alcohol < 10 10/26/21 10/26/21 10/26/21 11:54 16:49 16:59 MCV MCH MCHC RDW Plt Count MPV Absolute Nucleated RBC Nucleated RBC % (auto) PT 10.7 INR 0.9 APTT 30.5 D-Dimer High Sensitivty 675 Anion Gap Estim Creat Clear Calc Estimated GFR Random Glucose Calcium Magnesium Ferritin Total Bilirubin Direct Bilirubin AST ALT Alkaline Phosphatase Lactate Dehydrogenase Total Creatine Kinase Troponin I High Sens 63.3 H* Total Protein Albumin Lipase Urine Color Urine Appearance Urine pH Ur Specific [place] Urine Protein Urine Glucose (UA) Urine Ketones Urine Blood Urine Nitrite Ur Leukocyte Esterase Urine RBC Urine WBC Ur Squamous Epith Cells Urine Bacteria Urine Opiates Screen POSITIVE H Urine Fentanyl Screen Not Detected Ur Barbiturates Screen Not Detected Ur Phencyclidine Scrn Not Detected Ur Amphetamines Screen Not Detected U Benzodiazepines Scrn Not Detected Urine Cocaine Screen Not Detected U Marijuana (THC) Screen Not Detected Ethyl Alcohol 10/26/21 10/27/21 10/27/21 16:59 07:53 07:53 MCV 106.4 H MCH 37.2 H MCHC 34.9 RDW 15.9 Plt Count 348 MPV 10.9 Absolute Nucleated RBC 0.000 Nucleated RBC % (auto) 0.0 PT INR APTT D-Dimer High Sensitivty Anion Gap 16 Estim Creat Clear Calc 54.2 Estimated GFR > 60 Random Glucose 83 Calcium 8.3 L Magnesium Ferritin Total Bilirubin Direct Bilirubin AST ALT Alkaline Phosphatase Lactate Dehydrogenase Total Creatine Kinase Troponin I High Sens Total Protein Albumin Lipase Urine Color YELLOW Urine Appearance CLEAR Urine pH 6.0 Ur Specific [place] 1.010 Urine Protein NEG Urine Glucose (UA) NEG Urine Ketones NEG Urine Blood TRACE Urine Nitrite POS H Ur Leukocyte Esterase 1+ H Urine RBC 0-2 Urine WBC 5-9 H Ur Squamous Epith Cells TRACE Urine Bacteria 3+ Urine Opiates Screen Urine Fentanyl Screen Ur Barbiturates Screen Ur Phencyclidine Scrn Ur Amphetamines Screen U Benzodiazepines Scrn Urine Cocaine Screen U Marijuana (THC) Screen Ethyl Alcohol Microbiology Microbiology Results: Microbiology 10/26/21 16:59 Urine Culture - Preliminary Urine clean catch - Urine guthrie top Culture too young to evaluate. Assessment and Plan (1) COVID-19: Status: Acute (2) Acute respiratory failure with hypoxia: Status: Acute Assessment and Plan: 62 years old lady with the image of osteoporosis who presents to the hospital with the with decreased oral intake a in general weakness for the last 10 days Acute hypoxia Secondary to COVID-19 infection Date in of infection continue IV steroids day 2 Wean oxygen down as tolerated ID evaluation Acute dehydration BUN elevated to 50s with normal creatinine DC IV fluids encourage oral intake Transaminitis Mild Likely secondary to infection, to monitor LFT DVT PPX Lovenox Quality Stroke Does the patient have a stroke diagnosis?: No VTE Prior VTE?: No VTE Risk Level:: Medical - moderate - high VTE Device Contraindication: Treatment Not Indicated VTE Drug Contraindication: N/A - Med Ordered
[2021-10-27] MEDS: Enoxaparin Sodium 40 MG/0.4 ML SYRINGE SUBCUT (18:30)
[2021-10-27] MEDS: Fluticasone Propionate Nasal 16 GM SPRAY 1 SPRAY NOSTRIL-B (19:29)
[2021-10-28] VITALS (9 sets, daily range): BP systolic 121–146; BP diastolic 73–81; PULSE 62–86; RESP 14–20; TEMP 35.9–36.7; O2SAT 92–97
[2021-10-28 07:35] LABS: Anion Gap 12 (12-20); Blood Urea Nitrogen 29 mg/dL (9-16); Calcium 8.5 mg/dL (8.4-10.2); Carbon Dioxide 26 mmol/L (22-29); Chloride 104 mmol/L (96-108); Creatinine Clr Calc Pharmacy 64.2; Estimated Glomerular Filt Rate > 60; Glucose Random 88 mg/dL (60-115); Potassium 3.8 mmol/L (3.3-5.1); Sodium 138 mmol/L (135-145)
[2021-10-28] MEDS: Metoprolol Tartrate 25 MG TABLET PO ×2 (07:49→21:33)
[2021-10-28] MEDS: dexAMETHasone sod phosphate 4 MG/ML VIAL 6 MG IVPUSH (07:49)
[2021-10-28] MEDS: Cholecalciferol (Vitamin D3) 25 MCG TABLET PO (07:49)
[2021-10-28] MEDS: 0.9 % Sodium Chloride Flush 3 ML SYRINGE IVFLUSH ×3 (07:50→21:34)
[2021-10-28] MEDS: Fluticasone Propionate Nasal 16 GM SPRAY 1 SPRAY NOSTRIL-B ×2 (07:51→21:33)
--- NOTE | 2021-10-28 11:04 | P.PNIM_ITS ---
Subjective Subjective Date of Service: 10/28/21 Interval History: the patient was seen and evaluated this morning Laying in bed, feels improvement but still requiring 4 L of oxygen Having more appetite Denies any fever, chills or chest pain No reported other overnight events. Review of Systems No fever, chills generalized weakness and decreased appetite No chest pain, palpitation dyspnea, episodes the cough No abdominal pain, nausea or vomiting No urinary symptoms No any rash or wounds Physical Exam Vital Signs: Vital Signs: Last Vital Signs Temp 97.7 F 10/28/21 07:04 Pulse 83 10/28/21 07:49 Resp 14 10/28/21 07:04 BP 146/77 H 10/28/21 07:49 Pulse Ox 97 10/28/21 07:04 BMI result Body Mass Index 17.6 Const: Other: Constitutional : Alert, oriented, looks tired Neck : Normal inspection, Supple Cardiovascular : RRR, S1 S2, no lower extremity edema Respiratory : G moving chest wall, not in distress, on oxygen supplement Gastrointestinal: soft, lax, Normal bowel sounds, Non tender Skin : Warm, Dry Neurological : Alert & oriented x3, No focal deficit Objective Data Active Medications Acetaminophen (Acetaminophen 325 Mg Tablet) 650 mg PO Q6H PRN PRN Reason: Pain, Mild (Pain Scale 1-3) Dexamethasone Sodium Phosphate (Dexamethasone Sod Phosphate 4 Mg/Ml Vial) 6 mg IVPUSH DAILY [facility] Last Admin: 10/28/21 07:49 Dose: 6 mg Documented by: RUTH Enoxaparin Sodium (Enoxaparin Sodium 40 Mg/0.4 Ml Syringe) 40 mg SUBCUT Q24H [facility] Last Admin: 10/27/21 18:30 Dose: 40 mg Documented by: RUTH Fluticasone Propionate (Fluticasone Propionate Nasal 16 Gm [place]) 1 spray NOSTRIL-B BID [facility] Last Admin: 10/28/21 07:51 Dose: 1 spray Documented by: RUTH Metoprolol Tartrate (Metoprolol Tartrate 25 Mg Tablet) 25 mg PO BID [facility]; Protocol Last Admin: 10/28/21 07:49 Dose: 25 mg Documented by: RUTH Nicotine (Nicotine 7 Mg Patch.Td24) 7 mg TRANSDERMA DAILY [facility] Ondansetron HCl (Ondansetron Hcl 4 Mg/2 Ml Vial) 4 mg IVPUSH Q8H PRN PRN Reason: Nausea and Vomiting Pharmacy Consult (Consult Rx Perform Med Rec) 1 each MISCELLANE ONCE PRN PRN Reason: Consult order Sodium Chloride (0.9 % Sodium Chloride Flush 3 Ml Syringe) 3 ml IVFLUSH QSHIFT [facility] Last Admin: 10/28/21 07:50 Dose: 3 ml Documented by: RUTH Vitamin D (Cholecalciferol (Vitamin D3) 25 Mcg Tablet) 25 mcg PO DAILY [facility] Last Admin: 10/28/21 07:49 Dose: 25 mcg Documented by: RUTH Labs CBC & Chem 7: 10/27/21 07:53 10/28/21 06:51 Labs: Laboratory Results - last 24 hr 10/28/21 06:51 Anion Gap 12 Estim Creat Clear Calc 64.2 Estimated GFR > 60 Random Glucose 88 Calcium 8.5 Microbiology Microbiology Results: Microbiology 10/26/21 16:59 Urine Culture - Final Urine clean catch - Urine guthrie top 10/26/21 10:38 Blood Culture - Preliminary Blood - Venous No growth after 24 hours. 10/26/21 10:35 Blood Culture - Preliminary Blood - Venous No growth after 24 hours. Assessment and Plan (1) Acute respiratory failure with hypoxia: Status: Acute (2) COVID-19: Status: Acute Assessment and Plan: 62 years old lady with the image of osteoporosis who presents to the hospital with the with decreased oral intake a in general weakness for the last 10 days Acute hypoxia Secondary to COVID-19 infection Had 10 days of symptoms before coming continue IV steroids day 3 Wean oxygen down as tolerated Pending ID evaluation Acute dehydration Was dry at time of presentation with BUN elevated to 50s with normal creatinine DC IV fluids encourage oral intake Transaminitis Mild Likely secondary to infection, to monitor LFT DVT PPX Lovenox Quality Stroke Does the patient have a stroke diagnosis?: No VTE Prior VTE?: No VTE Risk Level:: Medical - moderate - high VTE Device Contraindication: Treatment Not Indicated VTE Drug Contraindication: N/A - Med Ordered
[2021-10-28] MEDS: Nicotine 7 MG PATCH.TD24 TRANSDERMA (13:57)
[2021-10-29 04:00] VITALS: BP 140/89; PULSE 85; RESP 20; TEMP 37.2; O2SAT 95
[2021-10-29 07:09] LABS: Alanine Aminotransferase 49 U/L (0-31); Alkaline Phosphatase 205 U/L (39-117); Aspartate Amino Transferase 95 U/L (5-31); Bilirubin Direct 0.4 mg/dL (0.0-0.5); Bilirubin Total 0.5 mg/dL (0.0-1.0); C Reactive Protein 1.43 mg/dL (< or = 0.50); Lactate Dehydrogenase 470 U/L (122-220); Total Protein 6.1 g/dL (6.5-8.0)
[2021-10-29 07:10] LABS: Anion Gap 13 (12-20); Blood Urea Nitrogen 22 mg/dL (9-16); Calcium 8.2 mg/dL (8.4-10.2); Carbon Dioxide 28 mmol/L (22-29); Chloride 102 mmol/L (96-108); Creatinine Clr Calc Pharmacy 65.2; Estimated Glomerular Filt Rate > 60; Glucose Random 78 mg/dL (60-115); Potassium 3.6 mmol/L (3.3-5.1); Sodium 139 mmol/L (135-145)
[2021-10-29 07:34] VITALS: BP 152/87; PULSE 82; RESP 18; TEMP 36.8; O2SAT 90
[2021-10-29] MEDS: Cholecalciferol (Vitamin D3) 25 MCG TABLET PO (08:21)
[2021-10-29] MEDS: Nicotine 7 MG PATCH.TD24 TRANSDERMA (08:21)
[2021-10-29] MEDS: Metoprolol Tartrate 25 MG TABLET PO (08:21)
[2021-10-29] MEDS: dexAMETHasone sod phosphate 4 MG/ML VIAL 6 MG IVPUSH (08:21)
[2021-10-29] MEDS: 0.9 % Sodium Chloride Flush 3 ML SYRINGE IVFLUSH (08:22)
[2021-10-29] MEDS: Fluticasone Propionate Nasal 16 GM SPRAY 1 SPRAY NOSTRIL-B (10:07)
[2021-10-29 11:19] VITALS: BP 153/93; PULSE 79; RESP 20; TEMP 36.5; O2SAT 94
--- NOTE | 2021-10-29 13:24 | PM.DS ---
DS: Providers Provider Date of Service: 10/29/21 Date of admission: 10/26/21 16:50 Date of discharge: 10/29/21 Primary care physician: Carlos Guzman MD Consults: 10/26/21 17:06 Consult to Infectious Diseases Routine Consulting Provider: Juanita Yeh Reason for consultation: Covid19 infx, prv immunization DS: Diagnosis Discharge Diagnosis (1) Acute respiratory failure with hypoxia: Status: Acute (2) COVID-19: Status: Acute DS: Summary Hospital Course Hospital Course: 62 years old lady with the image of osteoporosis who presents to the hospital with the with decreased oral intake a in general weakness for the last 10 days or so.? The patient reported that she receives Orgdot vaccine back in February and was supposed to get her with still showed this week but for the last week she has been sick with cold symptoms that has been associated with increased lethargy, decreased oral intake and increased nausea.? She denies any fever, chest pain 1 palpitation, diarrhea or change in bowel habit.? In the emergency she tested positive for COVID.? CTA negative for any PE hospital course Admitted with supplemental O2; dexamethasone 6 mg IV daily. Patient continued to do well and edema discharge was satting in the 90s on room air. She is adamant about being discharged; at this time believe she is medically stable for the same Time Spent with Patient Time attestation: Total time spent providing and/or coordinating discharge services: Discharge coordination time: Greater than 30 minutes Quality: Stroke Does the patient have a stroke diagnosis?: No Physical Exam Vital Signs: Vital Signs: Last Vital Signs Temp 97.7 F 10/29/21 11:19 Pulse 79 10/29/21 11:19 Resp 20 10/29/21 11:19 BP 153/93 H 10/29/21 11:19 Pulse Ox 94 10/29/21 11:19 BMI result Body Mass Index 17.6 Const: Other: awake alert oriented x3 no acute distr Resp: Other: clear but diminished. Cardio: Other: no S4; positive S1-S2; no S3 murmurs recounts Neuro: Other: cranial nerves 2-12 grossly intact as tested. Motor is 5/5 all extremities. Sensation intact. Cognition appropriate Extrem: Other: no edema bilaterally DS: Data Data Completed and Pending Labs on day of discharge: Laboratory Results - last 24 hr 10/29/21 10/29/21 06:08 06:08 Sodium 139 Potassium 3.6 Chloride 102 Carbon Dioxide 28 Anion Gap 13 BUN 22 H Creatinine 0.64 Estim Creat Clear Calc 65.2 Estimated GFR > 60 Random Glucose 78 Calcium 8.2 L Total Bilirubin 0.5 Direct Bilirubin 0.4 AST 95 H ALT 49 H Alkaline Phosphatase 205 H Lactate Dehydrogenase 470 H C-Reactive Protein 1.43 H Total Protein 6.1 L Albumin 3.0 L Preliminary micro results at discharge 10/26/21 10:38 Blood Culture - Preliminary Blood - Venous No growth after 48 hours. 10/26/21 10:35 Blood Culture - Preliminary Blood - Venous No growth after 48 hours. Discharge Plan Discharge Patient Disposition: Home, Self-Care Discharge Diagnosis: Acute respiratory failure secondary to Covid-19 Referrals: Carlos Guzman MD [Primary Care Provider] - 1 Week Discharge Medications: New dexamethasone 6 mg tablet 6 mg PO DAILY Qty: 7 RF: 0 Continued metoprolol tartrate 25 mg tablet 25 mg PO BID Qty: 60 RF: 8 cholecalciferol (vitamin D3) [Vitamin D3] 25 mcg (1,000 unit) capsule 1 cap PO DAILY RF: 0 fluticasone propionate 50 mcg/actuation spray,suspension 1 spray intranasal BID RF: 0 alendronate 70 mg tablet 70 mg PO MO RF: 0 Discharge Orders: Discharge Order (Routine); Ordered 10/29/21 Ordered By: Anil Lua Diet: advance to usual diet Activity on Discharge: As tolerated Stand Alone Forms: Patient Portal Discharge page Care Plan Goals: complete course of dexamethasone Health Concerns: to not resume cigarette smoking Plan of Treatment: follow-up PCP next available Assessment: as above
--- NOTE | 2021-10-29 13:32 | MHC.CM.PN ---
Patient has been medically cleared for dc to home today, self care.
== END 2021-10-29 14:18 | disposition home or self-care (01) | DRG 137 ==
LOC: HO.ED 12:08 → HO.EDOVER 17:16 → HO.IMC 20:06
PROVIDERS: Emergency Medicine; Admitting Provider Student in an Organized Health Care Education/Training Program; Emergency Provider Emergency Medicine; PCP Internal Medicine; Visit Provider Hospitalist
DX: U07.1 COVID-19 (principal); J96.01 Acute respiratory failure with hypoxia; E86.0 Dehydration; F17.210 Nicotine dependence, cigarettes, uncomplicated; R62.7 Adult failure to thrive; F10.231 Alcohol dependence with withdrawal delirium; Z68.1 Body mass index [BMI] 19.9 or less, adult; Z71.6 Tobacco abuse counseling; Z79.51 Long term (current) use of inhaled steroids; Z79.899 Other long term (current) drug therapy
CPT/HCPCS: 36415; 70450; 71045; 71275; 72125; 80048; 80076; 80307; 81001; 82077; 82140; 82550; 82728; 82803; 83605; 83615; 83690; 83735; 84484; 85025; 85027; 85379; 85610; 85730; 86140; 87040; 87086; 87635; 93005; 96365; 96366; 96367; 96375; 99285; J1100; J1650; J2060; J3411; J3475; Q9967

== ENCOUNTER → 2021-11-23 09:15 | Outpatient (BNVA) | payer OTHER, SELFPAY | PROVIDERS: PCP Internal Medicine; Visit Provider Internal Medicine | DX: M48.32 Traumatic spondylopathy, cervical region (principal); M50.30 Other cervical disc degeneration, unspecified cervical region; Z91.81 History of falling | CPT/HCPCS: 99213 ==

== ENCOUNTER 2021-11-27 10:31 | Outpatient (REF) | payer OTHER, SELFPAY ==
--- NOTE | ~2021-11-27 | MM_ITS ---
EXAMINATION: MM DIAGNOSTIC DIGITAL BREAST TOMOSYNTHESIS, RIGHT CLINICAL INFORMATION: Short interval six-month follow-up probable benign calcifications posterior to superior 12:00 right breast. TC score 5%. COMPARISON: Mammography: 05/08/2021, 04/30/2021 (BI-RADS 0), 07/07/2019, 12/03/2012 TECHNIQUE: Digital breast tomosynthesis is performed in both the craniocaudal and mediolateral oblique views along with computer-aided detection (CAD). Synthesized 2D images are generated from the tomosynthesis. Additional magnification views are obtained in the CC x2 and ML x2 projections. Technologist notes technically challenging exam requiring 2 technologists for positioning. Exam optimized to patient capabilities. FINDINGS: The breasts are heterogeneously dense, which may obscure small masses (ACR BI-RADS breast composition Category c). There is variable motion and and difficulty in positioning. Exam tailored to patient capabilities. The calcifications for follow-up resides superior to a old central group of calcifications mid right breast. The calcifications for follow-up appear coarse and benign-appearing. They will be reassessed again at time of annual bilateral mammography, due in 6 months. Results are provided to the patient at time of visit by the technologist. MM/MM tomosynthesis diagnostic RT IMPRESSION: Probable benign calcifications superior mid 12:00 right breast. Patient study limitations. ASSESSMENT: BI-RADS 3: Probably Benign RECOMMENDATION: Diagnostic mammography at time of annual bilateral exam, due in 6 months. This patient's information was entered into a reminder system with a target due date for their next mammogram.
== END 2021-11-27 10:32 | disposition home or self-care (01) ==
LOC: HO.MAMMO 10:31
PROVIDERS: PCP Internal Medicine; Visit Provider Internal Medicine
DX: R92.1 Mammographic calcification found on diagnostic imaging of breast (principal)
CPT/HCPCS: 77061; 77065

== ENCOUNTER 2021-12-05 07:55 | Outpatient (REF) | payer OTHER, SELFPAY ==
[2021-12-05 08:07] LABS: MANUAL DIFF FLAG NO
[2021-12-05 08:38] LABS: Basophils Absolute Auto 0.1 X10*3/uL (0.0-0.2); Basophils Percent Auto 0.5 % (0-2); Eosinophils Absolute Auto 0.1 X10*3/uL (0.0-0.4); Eosinophils Percent Auto 1.1 % (0-4); Hematocrit 34.3 % (37.0-47.0); Hemoglobin 11.7 g/dl (12.0-16.0); Imm Gran Abs Auto 0.07 X10*3/uL (0.00-0.03); Imm Gran Pct Auto 0.7 % (0.0-0.4); Lymphocytes Absolute Auto 3.1 X10*3/uL (1.2-4.9); Lymphocytes Percent Auto 32.5 % (20-40); Mean Corpuscular HGB Conc 34.1 g/dl (31.0-35.0); Mean Corpuscular Hemoglobin 35.7 pg (27.0-33.0); Mean Corpuscular Volume 104.6 fL (80.0-98.0); Mean Platelet Volume 10.5 fL (9.4-12.3); Monocytes Absolute Auto 0.8 X10*3/uL (0.1-1.2); Monocytes Percent Auto 8.6 % (2-11); Neutrophils Absolute Auto 5.4 x10*3/uL (2.0-8.3); Neutrophils Percent Auto 56.6 % (45-73); Platelet Count 181 X10*3/uL (160-400); Red Blood Count 3.28 X10*6/uL (4.20-5.50); Red Cell Distribution Width 16.7 % (11.0-16.0); White Blood Count 9.5 X10*3/uL (4.8-10.8)
[2021-12-05 09:02] LABS: Alanine Aminotransferase 20 U/L (0-31); Albumin Level 3.2 g/dL (3.5-5.0); Alkaline Phosphatase 152 U/L (39-117); Anion Gap 14 (12-20); Aspartate Amino Transferase 85 U/L (5-31); Bilirubin Total 0.7 mg/dL (0.0-1.0); Blood Urea Nitrogen 7 mg/dL (9-16); Carbon Dioxide 28 mmol/L (22-29); Chloride 102 mmol/L (96-108); Cholesterol 206 mg/dL; Estimated Glomerular Filt Rate > 60; Glucose Fasting 114 mg/dL (60-99); HDL Cholesterol 55 mg/dL; Potassium 3.9 mmol/L (3.3-5.1); Sodium 140 mmol/L (135-145); Total Protein 6.2 g/dL (6.5-8.0); Triglycerides 1064 mg/dL
[2021-12-05 09:24] LABS: Thyroid Stimulating Hormone 0.71 uIU/mL (0.32-4.0)
== END 2021-12-05 07:56 | disposition home or self-care (01) ==
LOC: HO.LAB 07:55
PROVIDERS: PCP Internal Medicine; Visit Provider Internal Medicine
DX: Z00.00 Encounter for general adult medical examination without abnormal findings (principal)
CPT/HCPCS: 36415; 80053; 80061; 84443; 85025

== ENCOUNTER 2022-06-01 09:56 | Outpatient (REF) | payer OTHER, SELFPAY ==
[2022-06-01 10:23] LABS: Binax Internal Control QC Valid; Binax Now Covid-19 Ag Negative (Negative); Binax Performed by: HO.BONILM
== END 2022-06-01 09:57 | disposition home or self-care (01) ==
LOC: HO.HMGCLDS 09:56
PROVIDERS: PCP Internal Medicine; Visit Provider Physician Assistant Medical
DX: Z20.822 Contact with and (suspected) exposure to COVID-19 (principal)
CPT/HCPCS: 87811; C9803

== ENCOUNTER 2022-06-14 13:29 | Outpatient (REF) | payer OTHER, SELFPAY | END 2022-06-14 13:30 | disposition home or self-care (01) | LOC: HO.MAMMO 13:29 | PROVIDERS: PCP Internal Medicine; Visit Provider Internal Medicine | DX: Z13.89 Encounter for screening for other disorder (principal) ==

== ENCOUNTER 2022-08-17 08:21 | Outpatient (REF) | payer OTHER, SELFPAY ==
[2022-08-17 08:50] LABS: MANUAL DIFF FLAG NO
[2022-08-17 09:03] LABS: Basophils Absolute Auto 0.1 X10*3/uL (0.0-0.2); Basophils Percent Auto 0.7 % (0-2); Eosinophils Absolute Auto 0.1 X10*3/uL (0.0-0.4); Eosinophils Percent Auto 1.6 % (0-4); Hemoglobin 13.6 g/dl (12.0-16.0); Imm Gran Abs Auto 0.02 X10*3/uL (0.00-0.03); Imm Gran Pct Auto 0.3 % (0.0-0.4); Lymphocytes Absolute Auto 2.2 X10*3/uL (1.2-4.9); Lymphocytes Percent Auto 28.9 % (20-40); Mean Corpuscular HGB Conc 34.9 g/dl (31.0-35.0); Mean Corpuscular Volume 108.9 fL (80.0-98.0); Mean Platelet Volume 9.6 fL (9.4-12.3); Monocytes Absolute Auto 0.6 X10*3/uL (0.1-1.2); Neutrophils Absolute Auto 4.6 x10*3/uL (2.0-8.3); Neutrophils Percent Auto 60.5 % (45-73); Platelet Count 267 X10*3/uL (160-400); Red Blood Count 3.58 X10*6/uL (4.20-5.50); Red Cell Distribution Width 12.9 % (11.0-16.0); White Blood Count 7.5 X10*3/uL (4.8-10.8)
[2022-08-17 09:16] LABS: Alanine Aminotransferase 16 U/L (0-31); Albumin Level 3.8 g/dL (3.5-5.0); Alkaline Phosphatase 178 U/L (39-117); Anion Gap 19 (12-20); Aspartate Amino Transferase 46 U/L (5-31); Bilirubin Total 0.9 mg/dL (0.0-1.0); Blood Urea Nitrogen 9 mg/dL (9-16); Calcium 8.7 mg/dL (8.4-10.2); Carbon Dioxide 30 mmol/L (22-29); Chloride 96 mmol/L (96-108); Cholesterol 257 mg/dL; Estimated Glomerular Filt Rate > 60; Glucose Fasting 104 mg/dL (60-99); HDL Cholesterol 119 mg/dL; LDL Cholesterol Calculated 119 mg/dl; Potassium 3.7 mmol/L (3.3-5.1); Sodium 141 mmol/L (135-145); Total Protein 7.1 g/dL (6.5-8.0); Triglycerides 96 mg/dL
[2022-08-17 09:33] LABS: Thyroid Stimulating Hormone 0.45 uIU/mL (0.32-4.0)
== END 2022-08-17 08:22 | disposition home or self-care (01) ==
LOC: HO.LAB 08:21
PROVIDERS: PCP Internal Medicine; Visit Provider Internal Medicine
DX: E03.9 Hypothyroidism, unspecified (principal); I10 Essential (primary) hypertension; E78.5 Hyperlipidemia, unspecified; Z13.0 Encounter for screening for diseases of the blood and blood-forming organs and certain disorders involving the immune mechanism
CPT/HCPCS: 36415; 80053; 80061; 84443; 85025

== ENCOUNTER 2022-08-27 12:59 | Outpatient (REF) | payer OTHER, SELFPAY ==
--- NOTE | ~2022-08-27 | MM_ITS ---
EXAMINATION: MM DIAGNOSTIC DIGITAL BREAST TOMOSYNTHESIS, BILATERAL CLINICAL INFORMATION: Right breast follow up for calcifications. Yearly left breast study. The lifetime risk of breast cancer based on the Tyrer-Cuzick Model is 4.6%. COMPARISON: Mammography: 11/27/2021 and studies dating back to 12/03/2012. TECHNIQUE: Digital breast tomosynthesis is performed in both the craniocaudal and mediolateral oblique views along with computer-aided detection (CAD). Synthesized 2D images are generated from the tomosynthesis. Spot magnification views of the right breast in craniocaudal and 90 degree mediolateral views. Study is somewhat limited due to difficulty in positioning patient and motion. FINDINGS: The breasts are extremely dense, which lowers the sensitivity of mammography (ACR BI-RADS breast composition Category d). RIGHT BREAST: There is again noted to be stability of the central calcifications within the right breast. The grouping of calcifications being followed within the superior lateral aspect show some increase but more with the appearance of a calcifying fibroadenoma. No new suspicious mass or grouping of calcifications identified. Recommend right breast magnification imaging at time of next yearly bilateral study. LEFT BREAST: There is stable appearance of the left breast with no new abnormal dominant mass or suspicious grouping of microcalcifications. Results are provided to the patient at time of visit by the technologist. MM/MM tomosynthesis diagnostic BI IMPRESSION: Superior lateral aspect grouping of calcifications probably benign and may be calcifications about a small fibroadenoma. ASSESSMENT: BI-RADS 3: Probably Benign. RECOMMENDATION: Diagnostic mammography at time of next annual exam, due in 12 months. This patient's information was entered into a reminder system with a target due date for their next mammogram.
== END 2022-08-27 13:00 | disposition home or self-care (01) ==
LOC: HO.MAMMO 12:59
PROVIDERS: PCP Internal Medicine; Visit Provider Internal Medicine
DX: R92.1 Mammographic calcification found on diagnostic imaging of breast (principal)
CPT/HCPCS: 77062; 77066

== ENCOUNTER 2022-10-16 14:36 | Outpatient (REF) | payer OTHER, SELFPAY ==
--- NOTE | ~2022-10-16 | XR_ITS ---
EXAMINATION: XR RIBS, RIGHT CLINICAL INFORMATION: Fall. COMPARISON: Chest x-ray 10/26/2021 TECHNIQUE: 3 views of the right ribs were obtained. PA Chest 1 view. FINDINGS: Lungs are hyperinflated but clear. There are nipple shadows in both mid lungs. No consolidation, pneumothorax, or pleural effusion. The cardiomediastinal silhouette and pulmonary vasculature are normal. Osseous structures are unremarkable. Ribs are intact. No fractures are identified. XR/XR ribs RT min 3V w CXR1V IMPRESSION: 1. Unremarkable chest exam. 2. Unremarkable right rib exam.
== END 2022-10-16 14:37 | disposition home or self-care (01) ==
LOC: HO.XRAY 14:36
PROVIDERS: PCP Internal Medicine; Visit Provider Internal Medicine
DX: Z91.81 History of falling (principal)
CPT/HCPCS: 71101

== ENCOUNTER 2022-10-23 16:32 | Inpatient (IN) | payer OTHER, SELFPAY ==
[2022-10-23] VITALS (10 sets, daily range): BP systolic 104–127; BP diastolic 52–87; PULSE 42–117; RESP 16–18; TEMP 36.2–36.9; O2SAT 94–99; BMI 15.5
--- NOTE | ~2022-10-23 | CT_ITS ---
EXAMINATION: CT CHEST WITHOUT CONTRAST CLINICAL INFORMATION: Bilateral effusions, hypoxia COMPARISON: None TECHNIQUE: Multidetector volumetric CT imaging of the chest was done. Axial MIP volume rendering provided. Sagittal and coronal reformatted images were obtained. This CT examination was performed using dose optimization techniques as appropriate, variously including the following: *Automated exposure control *Adjustment of mA and/or kV according to patient size (this includes techniques or standardized protocols for targeted exams where dose is matched to indication/reason for exam; i.e. extremities or head) *Use of iterative reconstruction technique DLP: 92 mGy-cm FINDINGS: STOCK LAYER: There is moderate haziness in the right lung base likely from underlying atelectasis. LUNGS: There is diffuse centrilobular emphysema. There is a right lower lobe consolidation/compressive atelectasis underlying small to moderate right pleural effusion. Minimal compressive atelectasis left lung base from small left pleural effusion is noted. MEDIASTINUM: The central trachea and the bronchi widely patent. The thyroid lobes are smooth not visualized. Atherosclerotic changes of thoracic aorta are noted. Ascending aorta measures 4.0 x 3.7 cm minimally ectatic. No pericardial effusion seen. There is mild coronary artery calcifications present. Small shotty lymph nodes in the mediastinum with largest 3 carinal lymph node measuring 9 mm in short axis. CORONARY ARTERY CALCIFICATION: Mild coronary artery calcification. PLEURA: Moderate right and small left pleural effusion. No pleural calcification seen. AXILLA: No lymphadenopathy. UPPER ABDOMEN: Visualized liver, spleen, pancreas and bilateral adrenal glands unremarkable. OSSEOUS STRUCTURES: No aggressive lytic or sclerotic process seen. CT/CT chest wo IV con IMPRESSION: 1. Moderate right and small left pleural effusion. There is right lower lobe consolidation/compressive atelectasis. 2. Minimal compressive atelectasis left lung base. 3. Diffuse centrilobular emphysema. Fleischner guidelines were followed.
--- NOTE | ~2022-10-23 | XR_ITS ---
EXAMINATION: XR CHEST CLINICAL INFORMATION: Hypoxia. COMPARISON: 10/22/2022 chest radiograph. TECHNIQUE: Frontal view of the chest was obtained. FINDINGS: There has been interval development of small to moderate right and small left pleural effusions with superjacent opacities. The upper lung green are clear. The heart and mediastinal structures are unremarkable. XR/XR chest 1V IMPRESSION: Interval development of small to moderate right and small left pleural effusions with superjacent layering/infiltrate/atelectasis, right greater than left.
--- NOTE | ~2022-10-23 | US_ITS ---
EXAMINATION: US VENOUS ULTRASOUND WITH DOPPLER LOWER EXTREMITY, RIGHT CLINICAL INFORMATION: Right lower extremity swelling and pain COMPARISON: None TECHNIQUE: Ultrasound of the deep veins is performed from the hip to the calf with compression sonography and color and pulse Doppler assessment. Spectral analysis with color-flow imaging is performed. FINDINGS: There is none compression and an absent flow seen from the right common femoral to the proximal posterior tibial vein consistent with acute DVT. Peroneal vein is not seen. The superficial right greater saphenous vein is patent. There is no Alegre's cyst. IVC appears patent. US/US venous duplex LE RT IMPRESSION: Acute DVT right common femoral to posterior tibial vein. IVC is patent. .
--- NOTE | ~2022-10-23 | XR_ITS ---
EXAMINATION: XR KNEE, RIGHT CLINICAL INFORMATION: Knee pain COMPARISON: None TECHNIQUE: AP and lateral views of the right knee. FINDINGS: The lateral view is oblique however did appears to be a small patellar effusion. No acute fracture or dislocation is evident. The joint spaces appear maintained. No destructive bony lesion is seen. Vascular calcifications are present. XR/XR knee RT 2V IMPRESSION: No significant bony abnormality of the right knee identified. Small suprapatellar effusion.
--- NOTE | ~2022-10-23 | MR_ITS ---
EXAMINATION: MRI OF THE BRAIN WITHOUT CONTRAST CLINICAL INFORMATION: CVA. COMPARISON: CT scan of the head 10/23/2022. TECHNIQUE: MRI of the brain was obtained using routine sequences without contrast. FINDINGS: There is a small area of increased diffusion signal with slightly decreased ADC map signal in the precentral gyrus on the right laterally, corresponding to the low attenuation on the CT scan. This area has markedly prominent T2/FLAIR signal, and the findings are consistent with an acute/subacute infarct. There is no evidence of hemorrhagic transformation. No evidence of acute infarcts is demonstrated elsewhere. No mass effect or midline shift is seen. The ventricles and sulci are commensurately prominent consistent with diffuse volume loss. There are mild areas of hyperintense T2 and FLAIR signal in the periventricular and subcortical white matter, and in the jayne, most consistent with chronic microvascular ischemic changes. No extra-axial fluid collections are seen. The cerebellum appears normal. No pathologic magnetic susceptibility artifact is identified elsewhere on the gradient refocused acquisition. The craniovertebral junction and midline structures are normal. Marrow signal is slightly heterogenous findings history; a bone density scan on 08/05/2019 demonstrated osteoporosis. There have been bilateral lens extractions. The major intracranial flow-voids at the level of the qagan [place] of [place] are preserved. The dural venous sinus flow-voids are maintained. This trace fluid in the left mastoid tip. There is extensive mucoperiosteal thickening in the bilateral maxillary, sphenoid, ethmoid and right greater than left frontal sinuses. There are effusions in the bilateral temporomandibular joints. MR/MR head/brain wo con IMPRESSION: 1. There is an area of acute/subacute infarction in the right precentral gyrus without hemorrhagic transformation. No acute infarcts are demonstrated elsewhere. 2. There is diffuse volume loss and there are mild chronic microvascular ischemic changes. 3. There is extensive pansinus opacification. 4. This critical result was discussed with Dr. Wade by telephone on 10/24/2022 at 11:25 AM and it was ascertained that the content and urgency of the report was understood at the time of direct communication.
--- NOTE | ~2022-10-23 | XR_ITS ---
EXAMINATION: XR CHEST CLINICAL INFORMATION: Intubated. Line placement. COMPARISON: 11/06/2022. TECHNIQUE: Frontal view of the chest was obtained. FINDINGS: Endotracheal tube is approximately 6 cm above the joy. The tip of the enteric tube is at the level of the proximal gastric body. The tip of the right IJ catheter is at the level of the mid superior vena cava. No pneumothorax. The airway lyles appear to be thickened in this patient with underlying emphysematous disease. However, there might be thickening of peribronchial interstitium from pulmonary edema. Nonspecific hazy bilateral pulmonary opacities are present. There is mild layering of bilateral pleural effusions (right pleural effusion larger than left). There are opacities from airspace disease or atelectasis in lower lobes. Cardiac silhouette is normal in size. The visualized bones are intact. XR/XR chest 1V IMPRESSION: * ET tube is 6 cm above the joy. * The hazy opacities and peribronchial interstitial thickening are likely from pulmonary edema. * Small bilateral pleural effusions (right larger than left).
--- NOTE | ~2022-10-23 | CT_ITS ---
EXAMINATION: CT CHEST, ABDOMEN PELVIS WITHOUT IV CONTRAST. CT CERVICAL SPINE WITHOUT CONTRAST. CLINICAL INFORMATION: Fall. Lower back pain and neck pain. COMPARISON: Chest and right RIBS 10/16/2022 TECHNIQUE: 5 mm thin axial and reformatted 3 mm thin sagittal and coronal images of chest, abdomen and pelvis were obtained. Lastly 3 mm thin axial and reformatted 2 mm thin sagittal and coronal images of cervical spine were obtained. DLP [id number] FINDINGS: CHEST: There is mild centrilobular emphysematous changes of both lungs with bilateral apical parenchymal scarring and pleural thickening. There is patchy atelectatic changes in right lower lobe. No nodule, mass or consolidation seen. There is no pleural effusion or thickening. The thyroid lobes are symmetric and normal. The central trachea and the bronchi widely patent. Heart size is normal with mild coronary artery calcifications. The ascending aorta is ectatic but not dilated. No pericardial effusion seen. No abnormal size mediastinal or hilar lymph nodes seen. The axilla is unremarkable. The chest wall is unremarkable. Bone windows reveals nondisplaced right right eighth and ninth rib fractures. There is no hematoma. ABDOMEN AND PELVIS: The liver is normal size, contour and density. There is a small hypodense 1.2 cm lesion segment 4A axial image 28/29. No additional lesions seen. No intrahepatic ductal dilatation. The gallbladder is unremarkable. Visualized spleen, pancreas and bilateral adrenal glands unremarkable. Both kidneys are normal size, shape and position. There is cortical scar lower pole right kidney with 2 mm calcification and an exophytic 1.2 cm cyst. There is no hydronephrosis. The abdominal aorta is heavily calcified and nondilated. No retrobulbar lymph nodes or mass seen. There is scattered stool and gas seen in the colon without significant distention. The small bowel loops are normal caliber. Appendix is not visualized. There is no free air or free fluid. Imaging through the pelvis reveals the urinary bladder is unremarkable. The uterus is anteverted and appears unremarkable. No adnexal mass or free fluid. There are scattered phleboliths in the pelvis. Bone windows reveal no aggressive lytic or sclerotic process. No fracture seen. There is vacuum disc phenomena and degenerative disc changes L3-for L4-L5 disc levels. Cervical spine: There is reversal of cervical lordosis with grade 1 anterolisthesis C3 over C4 and C4 over C5. There is loss of C5-C6 and C6-C7 disc heights with moderate ventral spondylosis from C4-C5 through C6-C7 disc level. There is bilateral facet joint arthropathy and these disc levels. The craniovertebral junction and the C1-C2 alignment is normal. There is no visible acute fracture, dislocation or subluxation seen. The prevertebral and paravertebral soft tissues are normal. The airways widely patent. CT/CT cervical spine wo IV con IMPRESSION: Nondisplaced fracture right posterior lateral eighth and ninth ribs without hematoma or pneumothorax. Emphysema with no acute process in lungs. No acute process seen in the abdomen. Hyperdense lesion in the anterior segment 4A of the liver. Question hemangioma versus focal nodular hyperplasia. Right lower pole cortical scarring with focal calcification and exophytic cyst. No radiopaque calculi or hydronephrosis. Reversal of cervical lordosis with grade 1 anterolisthesis C3 over C4 and C4 over C5 with degenerative disc changes C4-C5, C5-C6 and C6-C7 disc levels with moderate ventral spondylosis. No lytic or sclerotic process seen.
--- NOTE | ~2022-10-23 | XR_ITS ---
EXAMINATION: XR CHEST CLINICAL INFORMATION: Fever COMPARISON: Previous chest x-ray most recent 10/28/2022 TECHNIQUE: Frontal view of the chest was obtained. FINDINGS: The cardiac and mediastinal contours are stable. There is perihilar and lower lobe airspace disease. This is slightly increased from recent exam. Differential would include pulmonary edema and pneumonia. There is a small left pleural effusion. There is no right pleural effusion. There is no pneumothorax. XR/XR chest 1V IMPRESSION: Bilateral perihilar and lower lobe airspace disease, slightly increased in the lower lobes from October 28 exam. Differential would include pulmonary edema and pneumonia.
--- NOTE | ~2022-10-23 | CT_ITS ---
CT head/brain wo IV con CLINICAL INFORMATION: Reason for Exam weakness w/ ambulation right arm weakness COMPARISON: Multiple prior CTs most recent October 2021 TECHNIQUE: Department standard protocol. This CT examination was performed using dose optimization techniques as appropriate, variously including the following: *Automated exposure control *Adjustment of mA and/or kV according to patient size (this includes techniques or standardized protocols for targeted exams where dose is matched to indication/reason for exam; i.e. extremities or head) *Use of iterative reconstruction technique DLP: 822 mGy-cm FINDINGS: CEREBRAL HEMISPHERES: Peripheral hypodense area in the right anterior parietal lobe concerning for possible infarct indeterminant age. No bleed or mass effect. Second hypodense focal area found in the left temporal lobe image 33 series 9. No mass effect or associated intraparenchymal bleed. BRAIN PARENCHYMA: Deep white matter and paraventricular hypoattenuation, nonspecific; most likely changes secondary to chronic ischemia due to microvascular angiopathy. SUBDURAL SPACE: No bleed. BASAL GANGLIA AND PINEAL GLAND: Unremarkable VENTRICLES: Symmetric and normal in size. CEREBELLUM AND BRAINSTEM: No space-occupying mass, hemorrhage or acute infarct. CEREBELLOPONTINE ANGLES: No lesion found. ORBITS: No intraorbital mass. VESSELS: Unremarkable SKULL BASE: Unremarkable INCLUDED SINUSES AT SKULL BASE: Clear SKULL AND SKIN: No fracture or bone lesion found. CT/CT head/brain wo IV con IMPRESSION: * Peripheral hypodense area in the right anterior parietal lobe and left temporal lobe, these are concerning for possible infarct indeterminant age. No associated intracranial bleed. No mass effect. * Deep white matter and periventricular hypoattenuation, nonspecific; most likely sequela of chronic microvascular angiopathy ischemia. * Consider correlation with follow-up MRI for further investigation. This critical result was discussed with Deep Rowley APRN by telephone at 10/23/2022 8:20 PM and it was ascertained that the content and urgency of the report was understood at the time of direct communication.
--- NOTE | ~2022-10-23 | CT_ITS ---
EXAMINATION: CT CHEST, ABDOMEN AND PELVIS WITHOUT CONTRAST CLINICAL INFORMATION: Status post cardiac arrest with abdominal distention COMPARISON: Head CT 11/07/2022, CT abdomen and pelvis 10/23/2022 TECHNIQUE: Multidetector volumetric imaging was performed from the thoracic inlet through the pubic symphysis. Sagittal and coronal reformatted images were obtained on the technologist's workstation. Axial MIP volume rendering provided. This CT examination was performed using dose optimization techniques as appropriate, variously including the following: *Automated exposure control *Adjustment of mA and/or kV according to patient size (this includes techniques or standardized protocols for targeted exams where dose is matched to indication/reason for exam; i.e. extremities or head) *Use of iterative reconstruction technique DLP: 855 mGy-cm FINDINGS: CHEST: Lungs: Extensive bilateral airspace consolidation with air bronchograms. Extensive ground glass opacities and interlobular septal thickening in the mid and upper lungs. 1 cm right middle lobe nodular density abutting the oblique fissure on series 4 image 33. Endotracheal tube tip terminates approximately 4 cm above the joy. Mediastinum: No cardiomegaly. Trace pericardial fluid or thickening. Mild LAD coronary artery vascular calcifications. No thoracic aortic aneurysm. Moderate vascular calcifications. No mediastinal or hilar lymphadenopathy by size criteria. Pericardium/Pleura: Small to moderate-sized bilateral pleural effusions. No pneumothorax. Chest Wall/Axilla: No axillary lymphadenopathy. Mild body wall edema. ABDOMEN/PELVIS: Liver, Gallbladder, Biliary Tree: Normal hepatic size. Marked diffuse hepatic hypoattenuation/steatosis. 1.2 cm hypodensity nodule with attenuation values of 53 Hounsfield units in the medial segment left liver lobe, unchanged. No biliary ductal dilation. The gallbladder is unremarkable with no evidence of radiopaque gallstones, gallbladder wall thickening, or pericholecystic inflammatory changes. Pancreas: Unremarkable. Spleen: Unremarkable. Adrenal Glands: Unremarkable. Kidneys and Ureters: No hydronephrosis. 2 mm nonobstructing right lower pole renal calculus. Small 1.1 cm exophytic right lower pole benign-appearing renal cyst, unchanged. No further follow-up imaging recommended. Mild symmetric bilateral perirenal fascial stranding, nonspecific. Bladder: Decompressed with Smalls catheter in place. Gastrointestinal Tract: Enteric tube tip terminates in the body the stomach. No dilated bowel loops. Apparent mural thickening of the descending and sigmoid colon versus incomplete distention. Normal appendix. No pneumatosis or free air. Small volume ascites tracking into the pelvis. Abdominal Wall: No hernia is demonstrated. Body wall edema/anasarca. Lymphovascular Structures: Lymph nodes: No lymphadenopathy. Vascular: Normal caliber abdominal aorta. Extensive vascular calcifications. Pelvic Viscera: Gynecologic structures grossly unremarkable. 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 Acute mildly displaced fractures of the posterior right eighth and ninth ribs, present previously. Nondisplaced fracture of the anterolateral left second rib. Mildly displaced fractures of the anterior left third and fourth ribs. Nondisplaced anterior left fifth rib fracture. Mild angular contour deformity of the sternum, suspicious for nondisplaced fracture on sagittal image 43. CT/CT abdomen pelvis wo IV con IMPRESSION: 1. Extensive bilateral airspace consolidation and groundglass opacities and increased septal markings in the mid and upper lungs. Differential considerations include pulmonary edema and multifocal pneumonia. 2. Small to moderate-sized bilateral pleural effusions. 3. Multiple acute bilateral rib fractures and suspected nondisplaced sternal fracture, as described. 4. No evidence of bowel obstruction or free air. Mild mural thickening versus incomplete distention of the descending and sigmoid colon. Correlate clinically with any signs or symptoms of colitis. 5. Small volume ascites and diffuse body wall edema/anasarca. 6. Unchanged 1.2 cm indeterminate hypodense nodule in the left liver lobe, possibly a small hemangioma versus FNH. 7. Additional findings, as described.
--- NOTE | 2022-10-23 17:05 | ED.GENADULT ---
HPI - General Adult General Chief complaint: General Medical Stated complaint: LOWER BACK PAIN Time Seen by Provider: 10/23/22 17:03 Source: patient and EMS Mode of arrival: EMS Limitations: other (poor historian ) History of Present Illness HPI narrative: This is a 62-year-old female history of alcoholism, hypertension, osteoporosis presenting to the emergency department with frequent falls, weakness, neck pain, right lower back pain/flank pain, going on for months however worsening over the past week. Patient tells me she had a very big fall in April 2021 and ever since then her life has changed. She tells me she lives at home with her boyfriend however due to increasing weakness and pain she has head difficulty completing activities of daily living, does not have outpatient services. When I asked her why she came in today she tells me she is very worried because yesterday she had weakness, numbness and tingling to her left arm. Tells me she feels like she needs services at home. She tells me she feels like at times her legs give out on her. This has been going on for months. She tells me her last fall was a week ago, no head strike or loss of consciousness. Patient ambulatory into her room without difficulties. Patient denies numbness, tingling, urine/bowel incontinence/retention, saddle paresthesias, chest pain, shortness of breath, nausea, vomiting, abdominal pain. NIH stroke scale 0 Related Data Home Medications Medication Instructions Recorded Confirmed fluticasone propionate 50 2 spray intranasal DAILY 09/29/21 10/23/22 mcg/actuation nasal spray,suspension alendronate 70 mg tablet 70 mg PO FR@0600 10/23/22 10/23/22 gabapentin 100 mg capsule 100 mg PO BID PRN Pain (Scale 10/23/22 10/23/22 Score 1-3) nicotine 21 mg/24 hr daily 1 patch transdermal DAILY PRN 10/23/22 10/23/22 transdermal patch Nicotine Cravings Previous Rx's Medication Instructions Recorded metoprolol tartrate 25 mg tablet 25 mg PO BID #180 tabs 05/29/22 cholecalciferol (vitamin D3) 25 25 mcg PO DAILY #30 caps 10/21/22 mcg (1,000 unit) capsule (Vitamin D3) Allergies Allergy/AdvReac Type Severity Reaction Status Date / Time No Known Allergies Allergy Verified 10/23/22 16:44 Review of Systems Review of Systems: Constitutional : No Weight loss, No Fever, No Chills, No Fatigue, No Malaise ENT/Mouth : No sore throat, No Rhinorrhea Eyes: No Eye Pain, No Swelling, No Redness Cardiovascular : No Chest Pain, No SOB, No Dyspnea on Exertion, No Orthopnea, No Edema, No Palpitations Respiratory : No Cough, No Sputum, No Wheezing Gastrointestinal : No Nausea, No Vomiting, No Diarrhea, No Constipation, No abdominal Pain, No Hematochezia, No Melena Genitourinary : No Dysuria, No Urinary Frequency, No Hematuria, Musculoskeletal : + joint pain, No Myalgias, No Joint Swelling, + right flank pain Skin : No Skin Lesions, No rash Neuro : + Weakness, No Numbness, No Dizziness, No Headache Psych : No Anxiety/Panic, No Depression All other systems reviewed and are negative Yes all other systems are reviewed and are negative PMFSH Past Medical History Attestation statement: The following information was validated with the patient. Source: old records reviewed and nursing notes reviewed Medical History Alcoholism Anxiety Cervical spondylosis Cervical stenosis of spinal canal HTN (hypertension) Surgical History History of surgery Social History Social History Household Members: Spouse Housing: Apartment Do you presently have visiting nurse or other home services: No Alcohol intake: current Alcohol intake frequency: holidays/special occasions only Patient Tobacco Use Status: Current everyday Tobacco user Tobacco use type: Cigarette Cigarettes Per Day: 5 Smoked in Last 30 Days: Yes e-Cigarette/Vaping Use: Never Used Second Hand Smoke Exposure: No Use of substances other than those prescribed or required for medical reasons: No Advance Directives: No Advance Directives Information Provided: No Patient : No service: No Current occupational status: other Cognitive needs: No Hearing needs: No Vision needs: No Physical Exam ED Vital Signs: Vital Signs - 24 hr 10/23/22 16:44 10/23/22 17:58 10/23/22 19:10 Temperature 98.4 F 98.2 F Pulse Rate 104 H 99 110 H Respiratory Rate 18 16 Blood Pressure 125/87 106/66 127/70 Pulse Oximetry 99 98 Oxygen Delivery Method Room Air Room Air 10/23/22 20:00 10/23/22 21:06 10/23/22 21:30 Temperature 98.2 F Pulse Rate 104 H 102 H 109 H Respiratory Rate 16 Blood Pressure 104/53 L 112/70 124/53 L Pulse Oximetry 97 Oxygen Delivery Method Room Air BMI result Body Mass Index 15.5 vss Appearance: Alert.? Oriented X3.? No acute distress.? Head: Normocephalic, atraumatic, no step-offs or deformities Eyes: Pupils equal, round and reactive to light.? ENT: Pharynx normal.? Neck: Normal inspection.? Neck supple.? CVS: Normal heart rate and rhythm.? Pulses normal.? Respiratory: No respiratory distress.? Breath sounds normal.? Abdomen: Soft and nontender.? Skin: Skin warm and dry.? Normal skin color.? Normal skin turgor.? MSK: Pain with palpation to right flank region Extremities: No lower extremity edema.? No calf ttp. Global weakness. 2+ DTR to lower extremities . 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 Neuro: Oriented X 3.? No motor deficit.? No sensory deficit. CN 2-12 intact . Ambulating with steady gait normal coordination. No saddle paresthesias Course Reevaluation(s) Reevaluation #1: CBC patient is noted to have a a macrocytic anemia likely secondary to alcoholism. Platelets also noted to be 88 significantly lower than usual. Patient noted to have hyponatremia 131, being hydrated with IV fluids. Patient with elevated anion gap likely secondary to alcohol use. Time: 20:24 Reevaluation #2: You head CT showing peripheral hypodense area in the right anterior parietal lobe and left temporal lobe concerning for possible infarcts. Patient was noted to be hypotensive ( this seems to be patients normal per chart review) and tachycardic therefore I did order blood cultures and a lactic however low suspicion for infection patient without fevers, chills, URI sx, UTI sx. CT of the cervical spine no acute findings. No acute findings within the abdomen. Patient's frequent falls likely secondary to physical deconditioning and or infarcts. UA pending. Patient will likely require hospital admission. Time: 20:53 Reevaluation #3: Patient's lactic markedly elevated. At this time infection is suspected. Pending final results of UA. Will cover with broad-spectrum antibiotics. Patient did receive adequate hydration following a 30 cc/kilos bolus ( patient got 3 L at minimum needed 1156.65 based off patient's weight). At this time septic focus exam was done at the bedside. Time: 21:33 Additional Reevaluation(s): 2132 UA w/ infection ceftriaxone ordered. Patient will be admitted to the hospitalist for Urosepsis, YAKELIN, CVA. Patient initially wanted to leave however discussed risks vs benifits and willing to stay. Medications Administered Generic Name Dose Route Start Last Admin Trade Name Freq PRN Reason Stop Dose Admin Sodium Chloride 1,000 mls @ 999 mls/hr 10/23/22 20:45 10/23/22 21:09 Ns IV 10/23/22 21:45 999 mls/hr .Q1H1M FALGUNI Administration Discontinued Medications Generic Name Dose Route Start Last Admin Trade Name Freq PRN Reason Stop Dose Admin Sodium Chloride 1,000 mls @ 999 mls/hr 10/23/22 18:45 10/23/22 19:07 Ns IV 10/23/22 19:45 999 mls/hr .Q1H1M FALGUNI Administration Sodium Chloride 1,000 mls @ 999 mls/hr 10/23/22 18:45 10/23/22 19:07 Ns IV 10/23/22 19:45 999 mls/hr .Q1H1M FALGUNI Administration Lidocaine 1 patch 10/23/22 17:52 10/23/22 18:24 Lidocaine 4 % Patch Adh..Patch TRANSDERMA 10/23/22 17:53 1 patch ONCE ONE Administration Protocol Morphine Sulfate 2 mg 10/23/22 17:52 10/23/22 18:23 Morphine Sulfate 2 Mg/Ml Cartridge IVPUSH 10/23/22 17:53 2 mg ONCE ONE Administration Protocol Nicotine 14 mg 10/23/22 20:58 10/23/22 21:08 Nicotine 14 Mg Patch.Td24 TRANSDERMA 10/23/22 20:59 14 mg ONCE ONE Administration Medical Decision Making Medical Decision Making [facility] Narrative: [id number] 62-year-old female presents with frequent falls, weakness, lower back pain, neck pain. Last fall was about a week ago. Not on blood thinners. Physical examination with global weakness and pain with palpation to right flank area no overlying skin changes. Regular rate and rhythm. Lungs clear. Abdomen soft nontender nondistended. Neuro nonfocal.. NIH stroke scale 0. Plan at this time imaging. Basic laboratory studies. Will rule out electrolyte abnormalities, orthostatic hypotension, intracranial hemorrhage, fractures, dislocations, intra-abdominal injuries, injuries to chest and UTI Lab Data Result Diagrams: 10/23/22 18:03 10/23/22 18:03 Labs: Lab Results 10/23/22 10/23/22 10/23/22 Range/Units 18:03 18:03 21:03 WBC 7.2 (4.8-10.8) X10*3/uL RBC 2.58 L D (4.20-5.50) X10*6/uL Hgb 10.4 L D (12.0-16.0) g/dl Hct 28.4 L D (37.0-47.0) % MCV 110.1 H (80.0-98.0) fL MCH 40.3 H (27.0-33.0) pg MCHC 36.6 H (31.0-35.0) g/dl RDW 13.8 (11.0-16.0) % Plt Count 88 L D (160-400) X10*3/uL MPV 12.1 (9.4-12.3) fL Immature Gran % (Auto) Cancelled Neut % (Auto) Cancelled Lymph % (Auto) Cancelled [place] % (Auto) Cancelled Eos % (Auto) Cancelled Baso % (Auto) Cancelled Lymph # (Auto) Cancelled [place] # (Auto) Cancelled Eos # (Auto) Cancelled Baso # (Auto) Cancelled Abs Immat Gran (auto) Cancelled Absolute Neuts (auto) Cancelled Absolute Nucleated RBC 0.020 H (0.0-0.012) X10*3/uL Nucleated RBC % (auto) 0.3 H (0.0-0.2) /100WBC Neutrophils % (Manual) 75 H (45-73) % Band Neutrophils % 5 (3-5) % Lymphocytes % (Manual) 18 L (20-40) % Monocytes % (Manual) 1 L (2-11) % Eosinophils % (Manual) 1 (0-4) % Abs Neuts (Manual) 5.8 (2.0-8.3) X10*3/uL Lymphocytes # (Manual) 1.3 (1.2-4.9) X10*3/uL Monocytes # (Manual) 0.1 (0.1-1.2) X10*3/uL Eosinophils # (Manual) 0.1 (0.0-0.4) X10*3/uL [place] Cells PRESENT Toxic Granulation PRESENT Toxic Vacuolation PRESENT Dohle Bodies PRESENT Platelet Estimate DECREASED (NORMAL) Plt Morphology Comment NORMAL RBC Morphology NOTED Polychromasia 1+ (0-2) /OIF Macrocytosis 2+ (15-30) /OIF [place] Cells 1+ (0-2) /OIF Sodium 131 L (135-145) mmol/L Potassium 3.3 (3.3-5.1) mmol/L Chloride 95 L (96-108) mmol/L Carbon Dioxide 17 L (22-29) mmol/L Anion Gap 22 H (12-20) BUN 44 H (9-16) mg/dL Creatinine 2.05 H (0.5-1.4) mg/dL Estim Creat Clear Calc 17.1 Estimated GFR 24 Random Glucose 93 (60-115) mg/dL Calcium 7.7 L D (8.4-10.2) mg/dL Total Bilirubin 0.9 (0.0-1.0) mg/dL AST 55 H (5-31) U/L ALT 23 (0-31) U/L Alkaline Phosphatase 213 H (39-117) U/L Total Creatine Kinase 27 (26-140) U/L Total Protein 5.3 L (6.5-8.0) g/dL Albumin 2.7 L (3.5-5.0) g/dL Urine Color Yellow Urine Appearance Cloudy Urine pH 5.0 (5.0-9.0) Ur Specific [place] 1.015 (1.005-1.025) Urine Protein 30 (1+) H (Neg-Trace) mg/dL Urine Glucose (UA) Negative (Negative) mg/dL Urine Ketones Negative (Negative) mg/dL Urine Blood Negative (Negative) Urine Nitrite Negative (Negative) Ur Leukocyte Esterase Large (3+) H (Negative) Urine RBC 3-5 H (0-2) /HPF Urine WBC 21-50 H (0-5) /HPF Ur Squamous Epith Cells >20 (0-2) /HPF Urine Bacteria 2+ (None Seen) Hyaline Casts 3-5 (0-2) /LPF Ethyl Alcohol 99 mg/dL Critical Care Time Critical Care Time Critical Care Time: No Discharge Plan Discharge Clinical Impression: CVA (cerebral vascular accident), Frequent falls, Thrombocytopenia, YAKELIN (acute kidney injury), Rib fractures, UTI (urinary tract infection) Patient Disposition: Admitted As Inpatient
--- NOTE | 2022-10-23 17:39 | PC.NURSE ---
iv inserted, vss, patient awaiting ct scan, will continue to monitor
[2022-10-23 18:23] LABS: Hematocrit 28.4 % (37.0-47.0); Hemoglobin 10.4 g/dl (12.0-16.0); Mean Corpuscular HGB Conc 36.6 g/dl (31.0-35.0); Mean Corpuscular Hemoglobin 40.3 pg (27.0-33.0); Mean Platelet Volume 12.1 fL (9.4-12.3); NRBC Pct Auto 0.3 /100WBC (0.0-0.2); Red Blood Count 2.58 X10*6/uL (4.20-5.50); Red Cell Distribution Width 13.8 % (11.0-16.0); White Blood Count 7.2 X10*3/uL (4.8-10.8)
[2022-10-23] MEDS: Morphine Sulfate 2 MG/ML CARTRIDGE IVPUSH (18:23)
[2022-10-23] MEDS: Lidocaine 4 % Patch ADH..PATCH 1 PATCH TRANSDERMA (18:24)
--- NOTE | 2022-10-23 18:30 | PC.NURSE ---
pt medicated per order
[2022-10-23 18:32] LABS: Alanine Aminotransferase 23 U/L (0-31); Albumin Level 2.7 g/dL (3.5-5.0); Alkaline Phosphatase 213 U/L (39-117); Anion Gap 22 (12-20); Aspartate Amino Transferase 55 U/L (5-31); Bilirubin Total 0.9 mg/dL (0.0-1.0); Blood Urea Nitrogen 44 mg/dL (9-16); Calcium 7.7 mg/dL (8.4-10.2); Carbon Dioxide 17 mmol/L (22-29); Chloride 95 mmol/L (96-108); Creatinine Clr Calc Pharmacy 17.1; Estimated Glomerular Filt Rate 24; Glucose Random 93 mg/dL (60-115); Potassium 3.3 mmol/L (3.3-5.1); Sodium 131 mmol/L (135-145); Total Protein 5.3 g/dL (6.5-8.0)
[2022-10-23 18:33] LABS: Mean Corpuscular Volume 110.1 fL (80.0-98.0); Platelet Count 88 X10*3/uL (160-400)
[2022-10-23] MEDS: 0.9 % Sodium Chloride 1,000 ML 999 ML IV ×3 (19:07→21:09)
[2022-10-23 19:36] LABS: Band Neutrophils Percent 5 % (3-5); Eosinophils Absolute Manual 0.1 X10*3/uL (0.0-0.4); Eosinophils Percent Manual 1 % (0-4); Lymphocytes Absolute Manual 1.3 X10*3/uL (1.2-4.9); Lymphocytes Percent Manual 18 % (20-40); Monocytes Absolute Manual 0.1 X10*3/uL (0.1-1.2); Monocytes Percent Manual 1 % (2-11); Neutrophils Absolute Manual 5.8 X10*3/uL (2.0-8.3); Neutrophils Percent Manual 75 % (45-73)
--- NOTE | 2022-10-23 19:36 | MHC.EDTECH ---
pt was a 1 asst to bathroom ,had a medium bowel movement ,assist pt back to bed .
--- NOTE | 2022-10-23 19:41 | PC.NURSE ---
Addendum entered by Lis Alvarenga 10/23/22 19:45: error-assumed care at 1900 Original Note: THIS RN ASSUMED CARE OF PT AT 1700. PT MEDICATED ACCORDING TO MAR
[2022-10-23 19:42] LABS: Burr Cells 1+ (0-2) /OIF; Dohle Bodies PRESENT; Macrocytosis 2+ (15-30) /OIF; Platelet Estimate DECREASED (NORMAL); Platelet Morphology Comment NORMAL; Polychromasia 1+ (0-2) /OIF; RBC Morphology NOTED; Smudge Cells PRESENT; Toxic Granulation PRESENT
[2022-10-23 19:43] LABS: Toxic Vacuolation PRESENT
[2022-10-23 20:46] LABS: Ethanol 99 mg/dL
--- NOTE | 2022-10-23 21:07 | PC.NURSE ---
provider made aware of HR and BP at this time. pt medicated according to mar
[2022-10-23] MEDS: Nicotine 14 MG PATCH.TD24 TRANSDERMA (21:08)
[2022-10-23 21:13] LABS: Appearance Urine Cloudy; Color Urine Yellow; Glucose Urine UA Negative (Negative); Leukocyte Esterase Urine Large (3+) (Negative); Nitrite Urine Negative (Negative); Specific Gravity - Urine 1.015 (1.005-1.025); UMIC TRIGGER UACC YES; Urine Blood Negative (Negative); Urine Ketones Negative (Negative); Urine Protein 30 (1+) mg/dL (Neg-Trace)
--- NOTE | 2022-10-23 21:23 | PHA.MEDREC ---
Pharmacy Consult ? Medication Reconciliation Pharmacy has completed the medication reconciliation.Spoke with patient in the ED who had medication bottles with her. Patient states she has gabapentin at home but only uses it as needed.
[2022-10-23 21:26] LABS: Bacteria Urine 2+ (None Seen); Squamous Epithelial Cell Urine >20 /HPF (0-2); UACC Culture Trigger YES; WBC Urine 21-50 /HPF (0-5)
[2022-10-23 21:33] LABS: Lactic Acid 4.3 mmol/L (0.5-2.0)
[2022-10-23 21:45] LABS: Influenza A PCR NEGATIVE (Negative); Influenza B PCR NEGATIVE (Negative); Resp Syncy Virus RNA Qual PCR NEGATIVE (Negative); SARS COV2 PCR INHOUSE NEGATIVE (Negative)
--- NOTE | 2022-10-23 22:18 | MHC.EDTECH ---
pt was a 1 asst to bedside commode ,pt voided lg amount of urine ,assisted by to bed .
--- NOTE | 2022-10-23 22:19 | MHC.EDTECH ---
pt had ham sandwich and juice for snack ,warm blanket given .
[2022-10-23] MEDS: cefTRIAXone sodium 1 GM in 0.9 % Sodium Chloride 50 ML IV (22:22)
--- NOTE | 2022-10-23 22:31 | PM.IMHP ---
History of Present Illness Date of Service: 10/23/22 Chief Complaint: arm weakness, frequent falling 62-year-old female with past medical history of osteoporosis, alcoholism, anxiety, hypertension presents to the hospital with complaints of frequent falling, and left-sided weakness of her upper extremity. Patient reports that for the past several months he has been having increased weakness and frequent falling, she was not concerned but yesterday she had significant weakness in her left upper extremity which she could not grasp items and had difficulty using her arm at all. Patient reports lower extremity weakness bilaterally with no worsening, she reports no facial droop, no difficulty with slurred speech. She denies any difficulty swallowing. Reports no headache or change in vision. Including no double or blurry vision. Patient denies any chest pain, abdominal pain, no urinary symptoms and no lower extremity edema Arrival to the ED patient found to have tachycardia with a heart rate of 104 labs are significant for WBC count of 7.8, hemoglobin of 10.4, hematocrit of 20.4, platelet count of 88 previously 267 in August, sodium 131, potassium 3.3 creatinine of 2.05 with a baseline of around 0.63 Lactic acid of 4.3, calcium 7.7, UA positive for leukocyte Estrace, WBC Has CT shows peripheral hypodense area in the right entered for vital lobe and left temporal lobe secondary to infarct age indeterminate, no associated intracranial bleed. No mass effect. Deep white matter and periventricular hypoattenuation, see clearly of chronic microvascular angiopathy ischemia, Patient will be admitted further management Review of Systems Review of Systems: Yes all other systems are reviewed and are negative [facility] Medical History Alcoholism Anxiety Cervical spondylosis Cervical stenosis of spinal canal HTN (hypertension) Surgical History History of surgery Social History Household Members: Spouse Housing: Apartment Do you presently have visiting nurse or other home services: No Alcohol intake: current Alcohol intake frequency: holidays/special occasions only Patient Tobacco Use Status: Current everyday Tobacco user Tobacco use type: Cigarette Cigarettes Per Day: 5 Smoked in Last 30 Days: Yes e-Cigarette/Vaping Use: Never Used Second Hand Smoke Exposure: No Use of substances other than those prescribed or required for medical reasons: No Advance Directives: No Advance Directives Information Provided: No Patient : No service: No Current occupational status: other Cognitive needs: No Hearing needs: No Vision needs: No Meds Allergies Allergy/AdvReac Type Severity Reaction Status Date / Time No Known Allergies Allergy Verified 10/23/22 16:44 Active Medications: Current Medications Pharmacy Consult (Consult Rx Perform Med Rec) 1 each MISCELLANE ONCE PRN PRN Reason: Consult order Pharmacy Consult (Consult Rx Etoh Phenob Im/Po) 1 each MISCELLANE ONCE PRN; Protocol PRN Reason: Consult order Phenobarbital (Phenobarbital 30 Mg Tablet) 30 mg PO BID [facility] Stop: 10/25/22 21:01 Phenobarbital (Phenobarbital 15 Mg Tablet) 15 mg PO BID [facility] Stop: 10/27/22 21:01 Phenobarbital (Phenobarbital 15 Mg Tablet) 15 mg PO DAILY [facility] Stop: 10/29/22 09:01 Phenobarbital Sodium (Phenobarbital Sodium 130 Mg/Ml Vial Im Q3hx2) 115 mg IM Q3H [facility] Stop: 10/24/22 05:01 Home Medications Medication Instructions Recorded Confirmed Last Taken Type fluticasone propionate 50 2 spray intranasal DAILY 09/29/21 10/23/22 09/29/21 History mcg/actuation nasal spray,suspension alendronate 70 mg tablet 70 mg PO FR@0600 10/23/22 10/23/22 Unknown History gabapentin 100 mg capsule 100 mg PO BID PRN Pain (Scale 10/23/22 10/23/22 Unknown History Score 1-3) nicotine 21 mg/24 hr daily 1 patch transdermal DAILY PRN 10/23/22 10/23/22 Unknown History transdermal patch Nicotine Cravings Physical Exam Vital Signs and Narrative: Vital Signs: Last Vital Signs Temp 97.2 F 10/23/22 22:14 Pulse 117 H 10/23/22 22:14 Resp 16 10/23/22 22:14 BP 106/52 L 10/23/22 22:14 Pulse Ox 97 10/23/22 22:14 O2 Del Method 10/23/22 22:14 BMI result Body Mass Index 15.5 Const: Other: catechtic , ill appearing General: cooperative and no acute distress Orientation/consciousness: patient oriented x3 Eyes: Pupils: Equal, round and reactive pupils present Resp: Effort & Inspection: normal respiratory effort Auscultation: clear to auscultation bilaterally Cardio: Rate: regular rate Rhythm: regular rhythm GI: Palpation (GI): Soft to palpation Auscultation: normal bowel sounds Skin: General skin exam: no rashes or lesions noted Neuro: Other: 3/5 strength left upper and lower extremity asterixes General: patient oriented x3 Cranial nerves: Yes Equal, round and reactive pupils present Cognition (Neuro): normal cognition Results Labs CBC and Chem 7: 10/24/22 06:00 10/23/22 22:56 Labs: Laboratory Results - last 24 hr 10/23/22 10/23/22 10/23/22 18:03 18:03 20:53 MCV 110.1 H MCH 40.3 H MCHC 36.6 H RDW 13.8 Plt Count 88 L D MPV 12.1 Immature Gran % (Auto) Cancelled Neut % (Auto) Cancelled Lymph % (Auto) Cancelled Maverick % (Auto) Cancelled Eos % (Auto) Cancelled Baso % (Auto) Cancelled Lymph # (Auto) Cancelled Maverick # (Auto) Cancelled Eos # (Auto) Cancelled Baso # (Auto) Cancelled Abs Immat Gran (auto) Cancelled Absolute Neuts (auto) Cancelled Absolute Nucleated RBC 0.020 H Nucleated RBC % (auto) 0.3 H Neutrophils % (Manual) 75 H Band Neutrophils % 5 Lymphocytes % (Manual) 18 L Monocytes % (Manual) 1 L Eosinophils % (Manual) 1 Abs Neuts (Manual) 5.8 Lymphocytes # (Manual) 1.3 Monocytes # (Manual) 0.1 Eosinophils # (Manual) 0.1 Smudge Cells PRESENT Toxic Granulation PRESENT Toxic Vacuolation PRESENT Dohle Bodies PRESENT Platelet Estimate DECREASED Plt Morphology Comment NORMAL RBC Morphology NOTED Polychromasia 1+ (0-2) Macrocytosis 2+ (15-30) Jose Roberto Cells 1+ (0-2) Anion Gap 22 H Estim Creat Clear Calc 17.1 Estimated GFR 24 Random Glucose 93 Lactic Acid 4.3 H* Calcium 7.7 L D Total Bilirubin 0.9 AST 55 H ALT 23 Alkaline Phosphatase 213 H Total Creatine Kinase 27 Total Protein 5.3 L Albumin 2.7 L Urine Color Urine Appearance Urine pH Ur Specific [place] Urine Protein Urine Glucose (UA) Urine Ketones Urine Blood Urine Nitrite Ur Leukocyte Esterase Urine RBC Urine WBC Ur Squamous Epith Cells Urine Bacteria Hyaline Casts Ethyl Alcohol 99 Influenza Type A (PCR) Influenza Type B (PCR) RSV RNA Qual (PCR) SARS-CoV-2 RNA (RT-PCR) 10/23/22 10/23/22 20:53 21:03 MCV MCH MCHC RDW Plt Count MPV Immature Gran % (Auto) Neut % (Auto) Lymph % (Auto) Maverick % (Auto) Eos % (Auto) Baso % (Auto) Lymph # (Auto) Maverick # (Auto) Eos # (Auto) Baso # (Auto) Abs Immat Gran (auto) Absolute Neuts (auto) Absolute Nucleated RBC Nucleated RBC % (auto) Neutrophils % (Manual) Band Neutrophils % Lymphocytes % (Manual) Monocytes % (Manual) Eosinophils % (Manual) Abs Neuts (Manual) Lymphocytes # (Manual) Monocytes # (Manual) Eosinophils # (Manual) Smudge Cells Toxic Granulation Toxic Vacuolation Dohle Bodies Platelet Estimate Plt Morphology Comment RBC Morphology Polychromasia Macrocytosis [place] Cells Anion Gap Estim Creat Clear Calc Estimated GFR Random Glucose Lactic Acid Calcium Total Bilirubin AST ALT Alkaline Phosphatase Total Creatine Kinase Total Protein Albumin Urine Color Yellow Urine Appearance Cloudy Urine pH 5.0 Ur Specific [place] 1.015 Urine Protein 30 (1+) H Urine Glucose (UA) Negative Urine Ketones Negative Urine Blood Negative Urine Nitrite Negative Ur Leukocyte Esterase Large (3+) H Urine RBC 3-5 H Urine WBC 21-50 H Ur Squamous Epith Cells >20 Urine Bacteria 2+ Hyaline Casts 3-5 Ethyl Alcohol Influenza Type A (PCR) NEGATIVE Influenza Type B (PCR) NEGATIVE RSV RNA Qual (PCR) NEGATIVE SARS-CoV-2 RNA (RT-PCR) NEGATIVE Imaging Radiologist's Impressions: Impressions Abdomen/Pelvis CT 10/23/22 19:10 IMPRESSION: Nondisplaced fracture right posterior lateral eighth and ninth ribs without hematoma or pneumothorax. Emphysema with no acute process in lungs. No acute process seen in the abdomen. Hyperdense lesion in the anterior segment 4A of the liver. Question hemangioma versus focal nodular hyperplasia. Right lower pole cortical scarring with focal calcification and exophytic cyst. No radiopaque calculi or hydronephrosis. Reversal of cervical lordosis with grade 1 anterolisthesis C3 over C4 and C4 over C5 with degenerative disc changes C4-C5, C5-C6 and C6-C7 disc levels with moderate ventral spondylosis. No lytic or sclerotic process seen. Cervical Spine CT 10/23/22 19:10 IMPRESSION: Nondisplaced fracture right posterior lateral eighth and ninth ribs without hematoma or pneumothorax. Emphysema with no acute process in lungs. No acute process seen in the abdomen. Hyperdense lesion in the anterior segment 4A of the liver. Question hemangioma versus focal nodular hyperplasia. Right lower pole cortical scarring with focal calcification and exophytic cyst. No radiopaque calculi or hydronephrosis. Reversal of cervical lordosis with grade 1 anterolisthesis C3 over C4 and C4 over C5 with degenerative disc changes C4-C5, C5-C6 and C6-C7 disc levels with moderate ventral spondylosis. No lytic or sclerotic process seen. Chest CT 10/23/22 19:10 IMPRESSION: Nondisplaced fracture right posterior lateral eighth and ninth ribs without hematoma or pneumothorax. Emphysema with no acute process in lungs. No acute process seen in the abdomen. Hyperdense lesion in the anterior segment 4A of the liver. Question hemangioma versus focal nodular hyperplasia. Right lower pole cortical scarring with focal calcification and exophytic cyst. No radiopaque calculi or hydronephrosis. Reversal of cervical lordosis with grade 1 anterolisthesis C3 over C4 and C4 over C5 with degenerative disc changes C4-C5, C5-C6 and C6-C7 disc levels with moderate ventral spondylosis. No lytic or sclerotic process seen. Head CT 10/23/22 19:10 IMPRESSION: * Peripheral hypodense area in the right anterior parietal lobe and left temporal lobe, these are concerning for possible infarct indeterminant age. No associated intracranial bleed. No mass effect. * Deep white matter and periventricular hypoattenuation, nonspecific; most likely sequela of chronic microvascular angiopathy ischemia. * Consider correlation with follow-up MRI for further investigation. This critical result was discussed with Deep Rowley APRN by telephone at 10/23/2022 8:20 PM and it was ascertained that the content and urgency of the report was understood at the time of direct communication. Assessment and Plan (1) CVA (cerebral vascular accident): Status: Acute (2) YAKELIN (acute kidney injury): Status: Acute (3) Thrombocytopenia: Status: Acute (4) UTI (urinary tract infection): Status: Acute (5) Frequent falls: Status: Acute (6) Macrocytic anemia: Status: Acute (7) Alcohol abuse with withdrawal: Status: Acute Plan 62-year-old female with past medical history of alcohol abuse presents to the hospital with complaints of weakness # CVA - appears to be having multiple CVA is seen on head CT - will obtain MRI - aspirin and high-dose statin - neurology consulted - Admit to telemetry # YAKELIN - likely secondary to dehydration - IV fluid - follow BMP # thrombocytopenia - likely secondary to alcohol abuse - no acute bleed - follow CBC # UTI - positive UA - has urinary frequency - follow cultures # frequent falls - likely secondary to above specially CVA - physical therapy consulted # macrocytic anemia - likely secondary to alcohol abuse - will obtain B12, folic acid, ferritin - stool occult blood pending - follow CBC - pressure will transfuse above 7 # alcohol abuse with withdrawal - daily drinker - in withdrawal - will start on phenobarb protocol - thiamine and folic acid DVT prophylaxis: SCDs Given patient's multiple issues including CVA, YAKELIN, wiring tonight inpatient hospital stay for further management ablation Time Spent With Patient Time: Total time managing care of this patient today ____ minutes. Quality Stroke Does the patient have a stroke diagnosis?: No VTE Prior VTE?: No VTE Risk Level:: Medical - moderate - high VTE Device Contraindication: N/A - Device Ordered VTE Drug Contraindication: Treatment Not Indicated
[2022-10-23] MEDS: PHENobarbitaL sodium 130 MG/ML IM ONCE 154 MG IM (22:34)
[2022-10-23 22:58] LABS: Reflex Lactate? Lactic Acid Added
[2022-10-23 23:25] LABS: Anion Gap 18 (12-20); Blood Urea Nitrogen 37 mg/dL (9-16); Calcium 6.6 mg/dL (8.4-10.2); Carbon Dioxide 15 mmol/L (22-29); Chloride 105 mmol/L (96-108); Creatinine Clr Calc Pharmacy 22.1; Estimated Glomerular Filt Rate 33; Glucose Random 88 mg/dL (60-115); Potassium 3.9 mmol/L (3.3-5.1); Sodium 134 mmol/L (135-145)
[2022-10-23] MEDS: Aspirin Enteric Coated 81 MG TABLET.DR PO (23:31)
[2022-10-23] MEDS: 0.9 % Sodium Chloride 1,000 ML 100 ML IVCONT (23:32)
[2022-10-23] MEDS: Atorvastatin Calcium 80 MG TABLET PO (23:32)
[2022-10-23 23:50] LABS: ~Lactic Acid-LAB USE ONLY 4.3 mmol/L (0.5-2.0)
[2022-10-24] VITALS (9 sets, daily range): BP systolic 101–157; BP diastolic 53–96; PULSE 90–129; RESP 16–21; TEMP 36.4–37.1; O2SAT 90–95
[2022-10-24 01:33] LABS: Reflex Lactate? 2 Y
[2022-10-24] MEDS: PHENobarbitaL sodium 130 MG/ML VIAL IM Q3Hx2 115 MG IM ×2 (02:03→05:16)
--- NOTE | 2022-10-24 02:27 | PC.NURSE ---
@ 0209 ciwa scale performed. pt medicated according to mar. score of [address] recorded at this time[address] Young notified at this time. no new orders placed at this time
--- NOTE | 2022-10-24 05:25 | PC.NURSE ---
this rn medicated pt according to jan. assisted pt onto bedpan. bedpan removed at this time. pt repositioned to R side. pt requested ice water at this time. no new requests at this time
[2022-10-24 06:16] LABS: Hematocrit 24.1 % (37.0-47.0); Hemoglobin 8.7 g/dl (12.0-16.0); Mean Corpuscular HGB Conc 36.1 g/dl (31.0-35.0); Mean Corpuscular Hemoglobin 39.5 pg (27.0-33.0); Mean Corpuscular Volume 109.5 fL (80.0-98.0); NRBC Pct Auto 0.5 /100WBC (0.0-0.2); Red Cell Distribution Width 13.9 % (11.0-16.0); White Blood Count 5.7 X10*3/uL (4.8-10.8)
[2022-10-24 06:19] LABS: Platelet Count 74 X10*3/uL (160-400)
[2022-10-24 06:33] LABS: Cholesterol 106 mg/dL; HDL Cholesterol 17 mg/dL; LDL Cholesterol Calculated 56 mg/dl; Triglycerides 165 mg/dL
[2022-10-24 06:57] LABS: Band Neutrophils Percent 5 % (3-5); Eosinophils Absolute Manual 0.1 X10*3/uL (0.0-0.4); Eosinophils Percent Manual 2 % (0-4); Lymphocytes Absolute Manual 0.9 X10*3/uL (1.2-4.9); Lymphocytes Percent Manual 15 % (20-40); Monocytes Absolute Manual 0.1 X10*3/uL (0.1-1.2); Monocytes Percent Manual 1 % (2-11); Neutrophils Absolute Manual 4.7 X10*3/uL (2.0-8.3); Neutrophils Percent Manual 77 % (45-73)
[2022-10-24 07:01] LABS: Burr Cells 1+ (0-2) /OIF; Dohle Bodies PRESENT; Hypochromasia 1+ (5-14) /OIF; Macrocytosis 1+ (5-14) /OIF; Platelet Estimate DECREASED (NORMAL); Platelet Morphology Comment NORMAL; RBC Morphology NOTED; Target Cells 1+ (5-14) /OIF; Toxic Vacuolation PRESENT
[2022-10-24] MEDS: Thiamine HCL 100 MG TABLET PO (08:04)
[2022-10-24] MEDS: Metoprolol Tartrate 25 MG TABLET PO ×2 (08:04→20:16)
[2022-10-24] MEDS: Folic Acid 1 MG TABLET PO (08:04)
[2022-10-24] MEDS: Aspirin Enteric Coated 81 MG TABLET.DR PO (08:04)
[2022-10-24] MEDS: Cholecalciferol (Vitamin D3) 25 MCG TABLET PO (08:04)
[2022-10-24] MEDS: PHENobarbitaL 30 MG TABLET PO ×2 (08:04→20:16)
[2022-10-24] MEDS: 0.9 % Sodium Chloride 1,000 ML 100 ML IVCONT (08:05)
[2022-10-24 08:11] LABS: Ferritin 935 ng/mL (10-250)
[2022-10-24 08:28] LABS: Folate < 2.2 ng/mL (> or = 4.0); Vitamin B12 1351 pg/mL (200-900)
--- NOTE | 2022-10-24 10:30 | MHC.STROKE ---
Addendum entered by Maribel Simpson RN 10/24/22 14:08: I MET WITH THE PATIENT AFTER HER MRI, SHE WAS ATTEMPTING TO GET OUT OF BED AND SHE IS VERY UNSTEADY WITH A HISTORY OF FALLS. I REPORTED THIS TO THE CHARGE NURSE AND THEY ARE CONSIDERING A SITTER AND A CAMERA. I DID REVIEW THE MRI RESULTS WITH HER AND THE LOCATION OF HER STROKE, SHE IS NOT COMPLETELY COMPREHENDING WHAT I AM SAYING AND SHE IS ASKING TO BE DISCHARGED. THE NURSE AND I ATTEMPTED TO RE-ORIENT HER. SHE COULD BENEFIT FROM A CARE TEAM CONSULT FOR HER ALCOHOLISM. Original Note: I MET WITH THE PATIENT TO PROVIDE STROKE EDUCATION. WE DISCUSSED HER CTH FINDINGS AND I REVIEWED HER PLAN OF CARE. WE DID THE MRI SCREENING FORM TOGETHER. SHE WAS UNABLE TO DETERMINE THE ONSET OF HER SYMPTOMS, SHE HAS BEEN FALLING ON AND OFF FOR MONTHS BUT LAST WEEK 10/17/22 SHE HAD GOTTEN WORSENING WEAKNESS. WE REVIEWED HER INDIVIDUAL RISK FACTORS, SMOKING, HTN, ETOH, SHE UNDERSTANDS. SHE WAS VERY TREMULOUS AND INTERMITTENTLY AGITATED, I PROVIDED REASSURANCE. SHE IS LEFT HANDED AND WAS UNABLE TO GRASP THE PEN AND WRITE. I WILL CONTINUE TO FOLLOW.
--- NOTE | 2022-10-24 12:11 | PM.NEUROCN ---
History of Present Illness Data of Consult Service Date: 10/24/22 Primary Care Provider: Carlos Guzman MD [facility] Reason for consult: Stroke 62 years old woman with alcoholism who came to hospital with new onset of left hand or arm weakness. It started about a day before. There was no associated pain or any other symptom. She had been falling frequently but also stated that she has been drinking alcohol. Review of Systems Review of Systems: No recent cold or flu-like illness or local trauma PMFSH Past Medical History Medical History Alcoholism Anxiety Cervical spondylosis Cervical stenosis of spinal canal HTN (hypertension) Surgical History Surgical History History of surgery Social History Social History Household Members: Spouse Housing: Apartment Do you presently have visiting nurse or other home services: No Alcohol intake: current Alcohol intake frequency: holidays/special occasions only Patient Tobacco Use Status: Current everyday Tobacco user Tobacco use type: Cigarette Cigarettes Per Day: 5 Smoked in Last 30 Days: Yes e-Cigarette/Vaping Use: Never Used Second Hand Smoke Exposure: No Use of substances other than those prescribed or required for medical reasons: No Advance Directives: No Advance Directives Information Provided: No Patient : No service: No Current occupational status: other Cognitive needs: No Hearing needs: No Vision needs: No Meds Allergies Allergy/AdvReac Type Severity Reaction Status Date / Time No Known Allergies Allergy Verified 10/23/22 16:44 Active Medications: Current Medications Acetaminophen (Acetaminophen 325 Mg Tablet) 650 mg PO Q6H PRN PRN Reason: Pain, Mild (Pain Scale 1-3) Aspirin (Aspirin Enteric Coated 81 Mg Tablet.) 81 mg PO DAILY [facility] Last Admin: 10/24/22 08:04 Dose: 81 mg Atorvastatin Calcium (Atorvastatin Calcium 80 Mg Tablet) 80 mg PO BEDTIME [facility] Last Admin: 10/23/22 23:32 Dose: 80 mg Fluticasone Propionate (Fluticasone Propionate Nasal 16 Gm Fidelity) 2 spray NOSTRIL-B DAILY [facility] Last Admin: 10/24/22 08:06 Dose: Not Given Folic Acid (Folic Acid 1 Mg Tablet) 1 mg PO DAILY [facility] Last Admin: 10/24/22 08:04 Dose: 1 mg Gabapentin (Gabapentin 100 Mg Capsule) 100 mg PO BID PRN PRN Reason: Pain (Scale Score 1-3) Ceftriaxone Sodium 1 gm/ (Sodium Chloride) 50 mls @ 100 mls/hr IV Q24H [facility] Sodium Chloride (Ns) 1,000 mls @ 100 mls/hr IVCONT .Q10H [facility] Last Admin: 10/24/22 08:05 Dose: 100 mls/hr Metoprolol Tartrate (Metoprolol Tartrate 25 Mg Tablet) 25 mg PO BID [facility]; Protocol Last Admin: 10/24/22 08:04 Dose: 25 mg Nicotine (Nicotine 21 Mg Patch.Td24) 21 mg TRANSDERMA DAILY PRN PRN Reason: Nicotine Cravings Ondansetron HCl (Ondansetron Hcl 4 Mg/2 Ml Vial) 4 mg IVPUSH Q8H PRN PRN Reason: Nausea and Vomiting Pharmacy Consult (Consult Rx Perform Med Rec) 1 each MISCELLANE ONCE PRN PRN Reason: Consult order Pharmacy Consult (Consult Rx Etoh Phenob Im/Po) 1 each MISCELLANE ONCE PRN; Protocol PRN Reason: Consult order Phenobarbital (Phenobarbital 30 Mg Tablet) 30 mg PO BID [facility] Stop: 10/25/22 21:01 Last Admin: 10/24/22 08:04 Dose: 30 mg Phenobarbital (Phenobarbital 15 Mg Tablet) 15 mg PO BID [facility] Stop: 10/27/22 21:01 Phenobarbital (Phenobarbital 15 Mg Tablet) 15 mg PO DAILY [facility] Stop: 10/29/22 09:01 Thiamine HCl (Thiamine Hcl 100 Mg Tablet) 100 mg PO DAILY [facility] Last Admin: 10/24/22 08:04 Dose: 100 mg Vitamin D (Cholecalciferol (Vitamin D3) 25 Mcg Tablet) 25 mcg PO DAILY [facility] Last Admin: 10/24/22 08:04 Dose: 25 mcg Home Medications Medication Instructions Recorded Confirmed Last Taken Type fluticasone propionate 50 2 spray intranasal DAILY 09/29/21 10/23/22 09/29/21 History mcg/actuation nasal spray,suspension alendronate 70 mg tablet 70 mg PO FR@0600 10/23/22 10/23/22 Unknown History gabapentin 100 mg capsule 100 mg PO BID PRN Pain (Scale 10/23/22 10/23/22 Unknown History Score 1-3) nicotine 21 mg/24 hr daily 1 patch transdermal DAILY PRN 10/23/22 10/23/22 Unknown History transdermal patch Nicotine Cravings Physical Exam Vital Signs: Vital Signs: Last Vital Signs Temp 98.2 F 10/24/22 09:34 Pulse 110 H 10/24/22 09:34 Resp 16 10/24/22 09:34 BP 132/60 10/24/22 09:34 Pulse Ox 94 10/24/22 09:34 O2 Del Method 10/24/22 09:34 BMI result Body Mass Index 15.5 Neuro: Other: Alert and awake with normal spontaneity of speech fluency comprehension and anxious affect. There was mild weakness of left hand and arm. She was still able to use both hands and was working with her pocketbook. There was mild tremor in upper extremities. Deep tendon reflexes were absent. Face was symmetrical. Results Labs CBC & Chem 7: 10/24/22 06:00 10/23/22 22:56 Labs: Short CBC 10/23/22 10/24/22 Range/Units 18:03 06:00 WBC 7.2 5.7 (4.8-10.8) X10*3/uL Hgb 10.4 L D 8.7 L (12.0-16.0) g/dl Hct 28.4 L D 24.1 L (37.0-47.0) % Plt Count 88 L D 74 L (160-400) X10*3/uL BMP 10/23/22 10/23/22 18:03 22:56 Sodium 131 L 134 L Potassium 3.3 3.9 Chloride 95 L 105 Carbon Dioxide 17 L 15 L BUN 44 H 37 H D Creatinine 2.05 H 1.58 H Calcium 7.7 L D 6.6 L D Cardiac Enzymes 10/23/22 Range/Units 18:03 Total Creatine Kinase 27 (26-140) U/L Liver Function 10/23/22 Range/Units 18:03 Total Bilirubin 0.9 (0.0-1.0) mg/dL AST 55 H (5-31) U/L ALT 23 (0-31) U/L Alkaline Phosphatase 213 H (39-117) U/L Albumin 2.7 L (3.5-5.0) g/dL Urine 10/23/22 Range/Units 21:03 Urine Color Yellow Urine Appearance Cloudy Urine pH 5.0 (5.0-9.0) Ur Specific [place] 1.015 (1.005-1.025) Urine Protein 30 (1+) H (Neg-Trace) mg/dL Urine Glucose (UA) Negative (Negative) mg/dL Her head CT and MRI brain were reviewed. There was quite significant diffuse cerebral and cerebellar atrophy with microvascular ischemic changes and a new embolic looking right frontoparietal cortical infarct. Microbiology Microbiology Results: Microbiology 10/23/22 21:29 Urine clean catch - Urine [place] top Urine Culture - Preliminary Culture too young to evaluate. 10/23/22 20:53 Blood - Venous Blood Culture - Preliminary Prelim: GNR Gram Stain only 10/23/22 20:53 Blood - Venous Blood Culture - Preliminary Prelim: GNR Gram Stain only Assessment and Plan (1) CVA (cerebral vascular accident): Status: Acute 62 years old woman who has an acute embolic looking right hemispheric cortical infarct explaining left hand and arm weakness but the larger pathologies underneath resulting in quite significant cerebral and cerebellar atrophy likely related to alcoholism. This would explain her cognitive and physical problems. Despite that, she reported that she was still drinking alcohol. Mainstay of management is proper placement where she would not have access to alcohol. As far as stroke is concerned, I recommend anti-platelet agent blood pressure controlled on statin. Carotid ultrasound is also recommended to rule out right carotid stenosis. Time Spent With Patient Time: Total time managing care of this patient today ____ minutes. Procedures Date of Service Date of Service: 10/24/22
[2022-10-24 12:53] LABS: Anion Gap 11 (12-20); Blood Urea Nitrogen 33 mg/dL (9-16); Calcium 6.4 mg/dL (8.4-10.2); Carbon Dioxide 19 mmol/L (22-29); Chloride 107 mmol/L (96-108); Creatinine Clr Calc Pharmacy 28.2; Estimated Glomerular Filt Rate 44; Glucose Random 71 mg/dL (60-115); Potassium 3.3 mmol/L (3.3-5.1); Sodium 134 mmol/L (135-145)
--- NOTE | 2022-10-24 14:52 | HO.PM.IMPN ---
Subjective Subjective Date of Service: 10/24/22 Interval History: the patient was seen and evaluated this morning Laying in bed, feels little better MRI showing evidence of acute to subacute stroke Denies any fever, chills or shortness of breath No reported other overnight events. Systemic review: No fever, chills or weakness No chest pain, palpitation No shortness of breath or coughing No abdominal pain, nausea or vomiting No urinary symptoms No reported rash Physical Exam Vital Signs: Vital Signs: Last Vital Signs Temp 98.2 F 10/24/22 09:34 Pulse 110 H 10/24/22 09:34 Resp 16 10/24/22 09:34 BP 132/60 10/24/22 09:34 Pulse Ox 94 10/24/22 09:34 O2 Del Method 10/24/22 09:34 BMI result Body Mass Index 15.5 Const: Other: Constitutional : Awake, interactive, not in distress Neck : Normal inspection, Supple Cardiovascular : RRR, no JVP, no lower extremity edema Respiratory : good bilateral air entry, no crackles, wheezes or rhonchi Gastrointestinal: soft, lax, Normal bowel sounds, Non tender Skin : Warm, Dry Neurological : Alert & oriented x3, mild left upper arm weakness, tremor in upper extremities Objective Data Active Medications Acetaminophen (Acetaminophen 325 Mg Tablet) 650 mg PO Q6H PRN PRN Reason: Pain, Mild (Pain Scale 1-3) Aspirin (Aspirin Enteric Coated 81 Mg Tablet.) 81 mg PO DAILY [facility] Last Admin: 10/24/22 08:04 Dose: 81 mg Documented By: ELY Atorvastatin Calcium (Atorvastatin Calcium 80 Mg Tablet) 80 mg PO BEDTIME [facility] Last Admin: 10/23/22 23:32 Dose: 80 mg Documented By: WAYNE Fluticasone Propionate (Fluticasone Propionate Nasal 16 Gm [place]) 2 spray NOSTRIL-B DAILY [facility] Last Admin: 10/24/22 08:06 Dose: Not Given Documented By: ELY Non-Admin Reason: Med Not Available Folic Acid (Folic Acid 1 Mg Tablet) 1 mg PO DAILY [facility] Last Admin: 10/24/22 08:04 Dose: 1 mg Documented By: ELY Gabapentin (Gabapentin 100 Mg Capsule) 100 mg PO BID PRN PRN Reason: Pain (Scale Score 1-3) Ceftriaxone Sodium 1 gm/ (Sodium Chloride) 50 mls @ 100 mls/hr IV Q24H [facility] Sodium Chloride (Ns) 1,000 mls @ 100 mls/hr IVCONT .Q10H [facility] Last Admin: 10/24/22 08:05 Dose: 100 mls/hr Documented By: ELY Metoprolol Tartrate (Metoprolol Tartrate 25 Mg Tablet) 25 mg PO BID [facility]; Protocol Last Admin: 10/24/22 08:04 Dose: 25 mg Documented By: ELY Nicotine (Nicotine 21 Mg Patch.Td24) 21 mg TRANSDERMA DAILY PRN PRN Reason: Nicotine Cravings Ondansetron HCl (Ondansetron Hcl 4 Mg/2 Ml Vial) 4 mg IVPUSH Q8H PRN PRN Reason: Nausea and Vomiting Pharmacy Consult (Consult Rx Perform Med Rec) 1 each MISCELLANE ONCE PRN PRN Reason: Consult order Pharmacy Consult (Consult Rx Etoh Phenob Im/Po) 1 each MISCELLANE ONCE PRN; Protocol PRN Reason: Consult order Phenobarbital (Phenobarbital 30 Mg Tablet) 30 mg PO BID [facility] Stop: 10/25/22 21:01 Last Admin: 10/24/22 08:04 Dose: 30 mg Documented By: ELY Phenobarbital (Phenobarbital 15 Mg Tablet) 15 mg PO BID [facility] Stop: 10/27/22 21:01 Phenobarbital (Phenobarbital 15 Mg Tablet) 15 mg PO DAILY [facility] Stop: 10/29/22 09:01 Thiamine HCl (Thiamine Hcl 100 Mg Tablet) 100 mg PO DAILY [facility] Last Admin: 10/24/22 08:04 Dose: 100 mg Documented By: ELY Vitamin D (Cholecalciferol (Vitamin D3) 25 Mcg Tablet) 25 mcg PO DAILY [facility] Last Admin: 10/24/22 08:04 Dose: 25 mcg Documented By: ELY Labs CBC & Chem 7: 10/24/22 06:00 10/24/22 06:00 Labs: Laboratory Results - last 24 hr 10/23/22 10/23/22 10/23/22 18:03 18:03 20:53 MCV 110.1 H MCH 40.3 H MCHC 36.6 H RDW 13.8 Plt Count 88 L D MPV 12.1 Immature Gran % (Auto) Cancelled Neut % (Auto) Cancelled Lymph % (Auto) Cancelled [place] % (Auto) Cancelled Eos % (Auto) Cancelled Baso % (Auto) Cancelled Lymph # (Auto) Cancelled [place] # (Auto) Cancelled Eos # (Auto) Cancelled Baso # (Auto) Cancelled Abs Immat Gran (auto) Cancelled Absolute Neuts (auto) Cancelled Absolute Nucleated RBC 0.020 H Nucleated RBC % (auto) 0.3 H Neutrophils % (Manual) 75 H Band Neutrophils % 5 Lymphocytes % (Manual) 18 L Monocytes % (Manual) 1 L Eosinophils % (Manual) 1 Abs Neuts (Manual) 5.8 Lymphocytes # (Manual) 1.3 Monocytes # (Manual) 0.1 Eosinophils # (Manual) 0.1 Smudge Cells PRESENT Toxic Granulation PRESENT Toxic Vacuolation PRESENT Dohle Bodies PRESENT Platelet Estimate DECREASED Plt Morphology Comment NORMAL RBC Morphology NOTED Polychromasia 1+ (0-2) Hypochromasia Macrocytosis 2+ (15-30) Target Cells Jose Roberto Cells 1+ (0-2) Anion Gap 22 H Estim Creat Clear Calc 17.1 Estimated GFR 24 Random Glucose 93 Lactic Acid 4.3 H* Lactic Acid F/U @ 2Hr Lactic Acid F/U @ 4Hr Calcium 7.7 L D Ferritin Total Bilirubin 0.9 AST 55 H ALT 23 Alkaline Phosphatase 213 H Total Creatine Kinase 27 Total Protein 5.3 L Albumin 2.7 L Triglycerides Cholesterol LDL Cholesterol, Calc HDL Cholesterol Vitamin B12 Folate Urine Color Urine Appearance Urine pH Ur Specific [place] Urine Protein Urine Glucose (UA) Urine Ketones Urine Blood Urine Nitrite Ur Leukocyte Esterase Urine RBC Urine WBC Ur Squamous Epith Cells Urine Bacteria Hyaline Casts Ethyl Alcohol 99 Influenza Type A (PCR) Influenza Type B (PCR) RSV RNA Qual (PCR) SARS-CoV-2 RNA (RT-PCR) 10/23/22 10/23/22 10/23/22 20:53 21:03 22:56 MCV MCH MCHC RDW Plt Count MPV Immature Gran % (Auto) Neut % (Auto) Lymph % (Auto) [place] % (Auto) Eos % (Auto) Baso % (Auto) Lymph # (Auto) [place] # (Auto) Eos # (Auto) Baso # (Auto) Abs Immat Gran (auto) Absolute Neuts (auto) Absolute Nucleated RBC Nucleated RBC % (auto) Neutrophils % (Manual) Band Neutrophils % Lymphocytes % (Manual) Monocytes % (Manual) Eosinophils % (Manual) Abs Neuts (Manual) Lymphocytes # (Manual) Monocytes # (Manual) Eosinophils # (Manual) Smudge Cells Toxic Granulation Toxic Vacuolation Dohle Bodies Platelet Estimate Plt Morphology Comment RBC Morphology Polychromasia Hypochromasia Macrocytosis Target Cells Jose Roberto Cells Anion Gap 18 Estim Creat Clear Calc 22.1 Estimated GFR 33 Random Glucose 88 Lactic Acid Lactic Acid F/U @ 2Hr Lactic Acid F/U @ 4Hr Calcium 6.6 L D Ferritin Total Bilirubin AST ALT Alkaline Phosphatase Total Creatine Kinase Total Protein Albumin Triglycerides Cholesterol LDL Cholesterol, Calc HDL Cholesterol Vitamin B12 Folate Urine Color Yellow Urine Appearance Cloudy Urine pH 5.0 Ur Specific [place] 1.015 Urine Protein 30 (1+) H Urine Glucose (UA) Negative Urine Ketones Negative Urine Blood Negative Urine Nitrite Negative Ur Leukocyte Esterase Large (3+) H Urine RBC 3-5 H Urine WBC 21-50 H Ur Squamous Epith Cells >20 Urine Bacteria 2+ Hyaline Casts 3-5 Ethyl Alcohol Influenza Type A (PCR) NEGATIVE Influenza Type B (PCR) NEGATIVE RSV RNA Qual (PCR) NEGATIVE SARS-CoV-2 RNA (RT-PCR) NEGATIVE 10/23/22 10/24/22 10/24/22 23:26 01:50 06:00 MCV 109.5 H MCH 39.5 H MCHC 36.1 H RDW 13.9 Plt Count 74 L MPV 11.0 Immature Gran % (Auto) Cancelled Neut % (Auto) Cancelled Lymph % (Auto) Cancelled [place] % (Auto) Cancelled Eos % (Auto) Cancelled Baso % (Auto) Cancelled Lymph # (Auto) Cancelled [place] # (Auto) Cancelled Eos # (Auto) Cancelled Baso # (Auto) Cancelled Abs Immat Gran (auto) Cancelled Absolute Neuts (auto) Cancelled Absolute Nucleated RBC 0.030 H Nucleated RBC % (auto) 0.5 H Neutrophils % (Manual) 77 H Band Neutrophils % 5 Lymphocytes % (Manual) 15 L Monocytes % (Manual) 1 L Eosinophils % (Manual) 2 Abs Neuts (Manual) 4.7 Lymphocytes # (Manual) 0.9 L Monocytes # (Manual) 0.1 Eosinophils # (Manual) 0.1 Smudge Cells Toxic Granulation Toxic Vacuolation PRESENT Dohle Bodies PRESENT Platelet Estimate DECREASED Plt Morphology Comment NORMAL RBC Morphology NOTED Polychromasia Hypochromasia 1+ (5-14) Macrocytosis 1+ (5-14) Target Cells 1+ (5-14) Jose Roberto Cells 1+ (0-2) Anion Gap Estim Creat Clear Calc Estimated GFR Random Glucose Lactic Acid Lactic Acid F/U @ 2Hr 4.3 H* Lactic Acid F/U @ 4Hr 3.0 H* Calcium Ferritin Total Bilirubin AST ALT Alkaline Phosphatase Total Creatine Kinase Total Protein Albumin Triglycerides Cholesterol LDL Cholesterol, Calc HDL Cholesterol Vitamin B12 Folate Urine Color Urine Appearance Urine pH Ur Specific [place] Urine Protein Urine Glucose (UA) Urine Ketones Urine Blood Urine Nitrite Ur Leukocyte Esterase Urine RBC Urine WBC Ur Squamous Epith Cells Urine Bacteria Hyaline Casts Ethyl Alcohol Influenza Type A (PCR) Influenza Type B (PCR) RSV RNA Qual (PCR) SARS-CoV-2 RNA (RT-PCR) 10/24/22 10/24/22 10/24/22 06:00 07:20 07:20 MCV MCH MCHC RDW Plt Count MPV Immature Gran % (Auto) Neut % (Auto) Lymph % (Auto) [place] % (Auto) Eos % (Auto) Baso % (Auto) Lymph # (Auto) [place] # (Auto) Eos # (Auto) Baso # (Auto) Abs Immat Gran (auto) Absolute Neuts (auto) Absolute Nucleated RBC Nucleated RBC % (auto) Neutrophils % (Manual) Band Neutrophils % Lymphocytes % (Manual) Monocytes % (Manual) Eosinophils % (Manual) Abs Neuts (Manual) Lymphocytes # (Manual) Monocytes # (Manual) Eosinophils # (Manual) Smudge Cells Toxic Granulation Toxic Vacuolation Dohle Bodies Platelet Estimate Plt Morphology Comment RBC Morphology Polychromasia Hypochromasia Macrocytosis Target Cells [place] Cells Anion Gap 11 L Estim Creat Clear Calc 28.2 Estimated GFR 44 Random Glucose 71 Lactic Acid Lactic Acid F/U @ 2Hr Lactic Acid F/U @ 4Hr Calcium 6.4 L Ferritin 935 H Total Bilirubin AST ALT Alkaline Phosphatase Total Creatine Kinase Total Protein Albumin Triglycerides 165 Cholesterol 106 LDL Cholesterol, Calc 56 HDL Cholesterol 17 Vitamin B12 1351 H Folate < 2.2 L Urine Color Urine Appearance Urine pH Ur Specific [place] Urine Protein Urine Glucose (UA) Urine Ketones Urine Blood Urine Nitrite Ur Leukocyte Esterase Urine RBC Urine WBC Ur Squamous Epith Cells Urine Bacteria Hyaline Casts Ethyl Alcohol Influenza Type A (PCR) Influenza Type B (PCR) RSV RNA Qual (PCR) SARS-CoV-2 RNA (RT-PCR) Microbiology Microbiology Results: Microbiology 10/23/22 20:53 Blood Culture - Preliminary Blood - Venous Prelim: GNR Gram Stain only 10/23/22 21:29 Urine Culture - Preliminary Urine clean catch - Urine guthrie top Culture too young to evaluate. 10/23/22 20:53 Blood Culture - Preliminary Blood - Venous Prelim: GNR Gram Stain only Assessment and Plan (1) Alcohol abuse with withdrawal: Status: Acute (2) Macrocytic anemia: Status: Acute (3) Frequent falls: Status: Acute (4) Thrombocytopenia: Status: Acute (5) CVA (cerebral vascular accident): Status: Acute (6) YAKELIN (acute kidney injury): Status: Acute Plan 62-year-old female with past medical history of alcohol abuse presents to the hospital with complaints of weakness # acute/ subacute right precentral gyrus stroke multiple findings seen on head CT MRI showed evidence of right precentral get risks stroke along with cerebral and cerebellar atrophy continue aspirin and high-dose statin, blood pressure control Neurology input appreciated pending echo, carotid ultrasound # YAKELIN secondary to dehydration improving with IV fluid follow BMP # hyponatremia Sodium of 134, likely related to dehydration Follow BMP # thrombocytopenia secondary to alcohol abuse no acute bleed follow CBC # gram-negative bacteremia secondary to UTI positive UA pending final cultures continue ceftriaxone # frequent falls likely secondary to above specially CVA physical therapy consulted # macrocytic anemia secondary to alcohol abuse and folic acid deficiency start folic acid replacement # alcohol abuse with withdrawal daily drinker in withdrawal phenobarb protocol thiamine and folic acid DVT prophylaxis: SCDs Given patient's multiple issues including CVA, YAKELIN, Alcohol withdrawal will need overnight inpatient hospital stay for further management pending safe discharge plan Time Spent With Patient Time: Total time managing care of this patient today ____ minutes. Quality Stroke Does the patient have a stroke diagnosis?: No VTE Prior VTE?: No VTE Risk Level:: Medical - moderate - high VTE Device Contraindication: N/A - Device Ordered VTE Drug Contraindication: Treatment Not Indicated
--- NOTE | 2022-10-24 16:12 | MHC.CM.PN ---
CM met with admitted patient in overflow, waiting for transport to room 445. A&Ox4. Tremulous. ETOH withdrawal. RN aware. Lives with boyfriend/HCP Neil Thomas ([phone]). HCP at home. Pfizer x5. Just started using a cane intermittently. Usually independent. Pt aware that PT is recommending STR. Pt is very hesitant to go to STR. Initially said No! Pt is agreeable to CM placing referrals and will decide during her admission. Pt may be more agreeable to Home PT. Care Port given with 22 referrals. D/C plan: STR pending patient agreement, if not Home PT. Pt to arrange transport if she elects to go home at discharge. CM to follow for discharge planning.
[2022-10-24] MEDS: PHENobarbitaL sodium 130 MG/ML VIAL IM (16:37)
--- NOTE | 2022-10-24 17:09 | PC.NURSE ---
MD notified of pt desat adn increased ciwa score. Nebulizer and additional phenobarbital dose ordered and administered. Inpatient RN notified.
[2022-10-24] MEDS: PHENobarbitaL sodium 130 MG/ML VIAL 60 MG IM (17:44)
[2022-10-24] MEDS: Atorvastatin Calcium 80 MG TABLET PO (20:16)
[2022-10-24] MEDS: cefTRIAXone sodium 1 GM in 0.9 % Sodium Chloride 50 ML IV (23:03)
[2022-10-25 04:00] VITALS: BP 140/79; PULSE 120; RESP 18; TEMP 37; O2SAT 92
[2022-10-25 07:43] VITALS: BP 90/71; PULSE 113; RESP 20; TEMP 37.3; O2SAT 92
[2022-10-25 11:26] VITALS: BMI 15.5
--- NOTE | 2022-10-25 11:30 | MHC.CLN ---
PT IS MODERATELY MALNOURISHED PT WITH 15% NON SIGNIFICANT WT LOSS X 1 YEAR WITH MILD DEPLETED SUBCUTANEOUS FAT AND MUSCLE MASS PT REFUSED BREAKFAST THIS MORNING DIET RX: REGULAR-APPROPRIATE RECOMMEND ADDING ENSURE BID TO INCREASE KCALS SUPP TO PROVIDE 700KCALS, 40G PROTEIN MONITOR PO INTAKE CLOSELY SEE ALSO FULL CLINICAL NUTRITION ASSESSMENT
--- NOTE | 2022-10-25 12:14 | HO.PM.IMPN ---
Subjective Subjective Date of Service: 10/25/22 Interval History: the patient was seen and evaluated this morning Laying in bed, anxious with active withdrawal symptoms No reported other overnight events. Systemic review: No fever, chills or weakness No chest pain, palpitation No shortness of breath or coughing No abdominal pain, nausea or vomiting No urinary symptoms No reported rash Physical Exam Vital Signs: Vital Signs: Last Vital Signs Temp 99.2 F 10/25/22 07:43 Pulse 113 H 10/25/22 07:43 Resp 20 10/25/22 07:43 BP 90/71 10/25/22 07:43 Pulse Ox 92 10/25/22 07:43 O2 Del Method 10/25/22 07:43 O2 Flow Rate 3 10/25/22 07:43 BMI result Body Mass Index 15.5 Const: Other: Constitutional : Awake, anxious and in mild distress Neck : Normal inspection, Supple Cardiovascular : RRR, no JVP, no lower extremity edema Respiratory : good bilateral air entry, no crackles, wheezes or rhonchi Gastrointestinal: soft, lax, Normal bowel sounds, Non tender Skin : Warm, Dry Neurological : Alert with stimulation but overall anxious and oriented to self only, mild left upper arm weakness Objective Data Active Medications Acetaminophen (Acetaminophen 325 Mg Tablet) 650 mg PO Q6H PRN PRN Reason: Pain, Mild (Pain Scale 1-3) Albuterol Sulfate (Albuterol Sulfate (0.083%) 2.5 Mg/3 Ml Vial.Neb) 2.5 mg INHALE Q4H PRN PRN Reason: Shortness of Breath/Wheezing Aspirin (Aspirin Enteric Coated 81 Mg Tablet.) 81 mg PO DAILY [facility] Last Admin: 10/25/22 10:32 Dose: Not Given Documented By: ZULEYKA Non-Admin Reason: Patient Refused Atorvastatin Calcium (Atorvastatin Calcium 80 Mg Tablet) 80 mg PO BEDTIME [facility] Last Admin: 10/24/22 20:16 Dose: 80 mg Documented By: NANCY Fluticasone Propionate (Fluticasone Propionate Nasal 16 Gm [place]) 2 spray NOSTRIL-B DAILY [facility] Last Admin: 10/25/22 10:32 Dose: Not Given Documented By: ZULEYKA Non-Admin Reason: Patient Refused Folic Acid (Folic Acid 1 Mg Tablet) 1 mg PO DAILY [facility] Last Admin: 10/25/22 10:32 Dose: Not Given Documented By: ZULEYKA Non-Admin Reason: Patient Refused Gabapentin (Gabapentin 100 Mg Capsule) 100 mg PO BID PRN PRN Reason: Pain (Scale Score 1-3) Ceftriaxone Sodium 1 gm/ (Sodium Chloride) 50 mls @ 100 mls/hr IV Q24H [facility] Last Infusion: 10/24/22 23:49 Dose: 0 mls/hr Documented By: NANCY Metoprolol Tartrate (Metoprolol Tartrate 25 Mg Tablet) 25 mg PO BID [facility]; Protocol Last Admin: 10/25/22 10:32 Dose: Not Given Documented By: ZULEYKA Non-Admin Reason: Patient Refused Nicotine (Nicotine 21 Mg Patch.Td24) 21 mg TRANSDERMA DAILY PRN PRN Reason: Nicotine Cravings Ondansetron HCl (Ondansetron Hcl 4 Mg/2 Ml Vial) 4 mg IVPUSH Q8H PRN PRN Reason: Nausea and Vomiting Pharmacy Consult (Consult Rx Perform Med Rec) 1 each MISCELLANE ONCE PRN PRN Reason: Consult order Pharmacy Consult (Consult Rx Etoh Phenob Im/Po) 1 each MISCELLANE ONCE PRN; Protocol PRN Reason: Consult order Phenobarbital (Phenobarbital 30 Mg Tablet) 30 mg PO BID [facility] Stop: 10/25/22 21:01 Last Admin: 10/24/22 20:16 Dose: 30 mg Documented By: NANCY Phenobarbital (Phenobarbital 15 Mg Tablet) 15 mg PO BID [facility] Stop: 10/27/22 21:01 Phenobarbital (Phenobarbital 15 Mg Tablet) 15 mg PO DAILY [facility] Stop: 10/29/22 09:01 Thiamine HCl (Thiamine Hcl 100 Mg Tablet) 100 mg PO DAILY [facility] Last Admin: 10/25/22 10:32 Dose: Not Given Documented By: ZULEYKA Non-Admin Reason: Patient Refused Vitamin D (Cholecalciferol (Vitamin D3) 25 Mcg Tablet) 25 mcg PO DAILY [facility] Last Admin: 10/25/22 10:32 Dose: Not Given Documented By: ZULEYKA Non-Admin Reason: Patient Refused Labs CBC & Chem 7: 10/24/22 06:00 10/24/22 06:00 Labs: Laboratory Results - last 24 hr 10/24/22 06:00 Anion Gap 11 L Estim Creat Clear Calc 28.2 Estimated GFR 44 Random Glucose 71 Calcium 6.4 L Microbiology Microbiology Results: Microbiology 10/23/22 20:53 Blood Culture - Preliminary Blood - Venous Gram negative flip 10/23/22 20:53 Blood Culture - Preliminary Blood - Venous Gram negative flip 10/23/22 21:29 Urine Culture - Preliminary Urine clean catch - Urine guth[place] top Culture too young to evaluate. Assessment and Plan (1) Alcohol abuse with withdrawal: Status: Acute (2) YAKELIN (acute kidney injury): Status: Acute (3) Acute embolic stroke: Status: Acute (4) Gram-negative bacteremia: Status: Acute Plan 62-year-old female with past medical history of alcohol abuse presents to the hospital with complaints of weakness # alcohol abuse with withdrawal worsening symptoms of withdrawal continue phenobarb protocol, to give extra doses thiamine and folic acid # acute/ subacute right precentral gyrus stroke multiple findings seen on head CT MRI showed evidence of right precentral get risks stroke along with cerebral and cerebellar atrophy other MRI findings suggestive of chronic underlying cerebral and cerebellar loss from chronic alcoholism continue aspirin and high-dose statin, blood pressure control Neurology input appreciated pending echo, carotid ultrasound # YAKELIN secondary to dehydration improving with IV fluid follow BMP # hyponatremia Sodium of 134, likely related to dehydration Follow BMP # thrombocytopenia secondary to alcohol abuse no acute bleed follow CBC # gram-negative bacteremia secondary to UTI positive UA pending final cultures continue ceftriaxone # frequent falls likely secondary to above specially CVA physical therapy consulted # macrocytic anemia secondary to alcohol abuse and folic acid deficiency start folic acid replacement # moderate malnutrition BMI of 15.5 Supplement added DVT prophylaxis: SCDs Given patient's multiple issues including Acute stroke, YAKELIN, Alcohol withdrawal will need overnight inpatient hospital stay for further management pending echo, carotid ultrasound and safe discharge plan Time Spent With Patient Time: Total time managing care of this patient today ____ minutes. Quality Stroke Does the patient have a stroke diagnosis?: No VTE Prior VTE?: No VTE Risk Level:: Medical - moderate - high VTE Device Contraindication: N/A - Device Ordered VTE Drug Contraindication: Treatment Not Indicated
[2022-10-25] MEDS: PHENobarbitaL 30 MG TABLET PO ×2 (13:01→20:27)
[2022-10-25 16:00] VITALS: BP 168/100; PULSE 104; RESP 30; TEMP 36.9; O2SAT 94
--- NOTE | 2022-10-25 16:05 | MHC.RECOVRN ---
This content writer met w/ patient. Pt was laying in bed, sitter in corner when entered room. Pt was awake to verbal stimuli, kept eyes closed while talking. This content writer introduced self, attempted to gather information for CIWA and info on ETOH use. Pt states I'm not taking anymore meds, i'm not answering anymore questions . Pt request to be left alone to rest. T/W spoke w/ [facility] RN. [facility] RN reports patients CIWA's consistently high, pt has not been agreeable to IM extra dose of phenobarb.
[2022-10-25 19:05] VITALS: BP 90/58; PULSE 108; RESP 30; TEMP 36.1; O2SAT 92
[2022-10-25] MEDS: Acetaminophen 325 MG TABLET 650 MG PO (20:27)
[2022-10-25] MEDS: Nicotine 21 MG PATCH.TD24 TRANSDERMA (20:27)
[2022-10-25] MEDS: Atorvastatin Calcium 80 MG TABLET PO (20:27)
[2022-10-25] MEDS: cefTRIAXone sodium 1 GM in 0.9 % Sodium Chloride 50 ML IV (22:03)
[2022-10-26] VITALS: BP 108/67; PULSE 90; RESP 18; TEMP 36.7; O2SAT 94
[2022-10-26 08:00] VITALS: BP 110/76; PULSE 92; RESP 17; TEMP 36.7; O2SAT 95
[2022-10-26 08:48] LABS: Hematocrit 26.5 % (37.0-47.0); Hemoglobin 9.8 g/dl (12.0-16.0); Mean Corpuscular Hemoglobin 39.7 pg (27.0-33.0); Mean Corpuscular Volume 107.3 fL (80.0-98.0); Mean Platelet Volume 12.2 fL (9.4-12.3); NRBC Pct Auto 0.2 /100WBC (0.0-0.2); Platelet Count 100 X10*3/uL (160-400); Red Blood Count 2.47 X10*6/uL (4.20-5.50); Red Cell Distribution Width 14.6 % (11.0-16.0); White Blood Count 9.8 X10*3/uL (4.8-10.8)
[2022-10-26] MEDS: Acetaminophen 325 MG TABLET 650 MG PO ×2 (09:19→20:15)
[2022-10-26] MEDS: Metoprolol Tartrate 25 MG TABLET PO (09:24)
[2022-10-26] MEDS: Fluticasone Propionate Nasal 16 GM SPRAY 2 SPRAY NOSTRIL-B (09:24)
[2022-10-26] MEDS: Aspirin Enteric Coated 81 MG TABLET.DR PO (09:24)
[2022-10-26] MEDS: Cholecalciferol (Vitamin D3) 25 MCG TABLET PO (09:24)
[2022-10-26] MEDS: Folic Acid 1 MG TABLET PO (09:24)
[2022-10-26] MEDS: Thiamine HCL 100 MG TABLET PO (09:24)
[2022-10-26] MEDS: PHENobarbitaL 15 MG TABLET PO ×2 (09:24→20:14)
--- NOTE | 2022-10-26 11:06 | HO.PM.IMPN ---
Subjective Subjective Date of Service: 10/26/22 Interval History: the patient was seen and evaluated this morning Laying in bed, more alert and interactive today Less withdrawal symptoms as she is recovering well No reported other overnight events. Systemic review: No fever, chills or weakness No chest pain, palpitation No shortness of breath or coughing No abdominal pain, nausea or vomiting No urinary symptoms No reported rash Physical Exam Vital Signs: Vital Signs: Last Vital Signs Temp 98.0 F 10/26/22 08:00 Pulse 92 10/26/22 08:00 Resp 17 10/26/22 08:00 BP 110/76 10/26/22 08:00 Pulse Ox 95 10/26/22 08:00 O2 Del Method 10/26/22 08:00 O2 Flow Rate 3 10/26/22 08:00 BMI result Body Mass Index 15.5 Const: Other: Constitutional : Awake, interactive and in mild distress Neck : Normal inspection, Supple Cardiovascular : RRR, no JVP, no lower extremity edema Respiratory : good bilateral air entry, no crackles, wheezes or rhonchi Gastrointestinal: soft, lax, Normal bowel sounds, Non tender Skin : Warm, Dry Neurological : Alert , oriented x3, mild left upper arm weakness Objective Data Active Medications Acetaminophen (Acetaminophen 325 Mg Tablet) 650 mg PO Q6H PRN PRN Reason: Pain, Mild (Pain Scale 1-3) Last Admin: 10/26/22 09:19 Dose: 650 mg Documented By: ARABELLA Albuterol Sulfate (Albuterol Sulfate (0.083%) 2.5 Mg/3 Ml Vial.Neb) 2.5 mg INHALE Q4H PRN PRN Reason: Shortness of Breath/Wheezing Aspirin (Aspirin Enteric Coated 81 Mg Tablet.) 81 mg PO DAILY [facility] Last Admin: 10/26/22 09:24 Dose: 81 mg Documented By: ARABELLA Atorvastatin Calcium (Atorvastatin Calcium 80 Mg Tablet) 80 mg PO BEDTIME [facility] Last Admin: 10/25/22 20:27 Dose: 80 mg Documented By: JOVITA Fluticasone Propionate (Fluticasone Propionate Nasal 16 Gm Garibaldi) 2 spray NOSTRIL-B DAILY [facility] Last Admin: 10/26/22 09:24 Dose: 2 spray Documented By: ARABELLA Folic Acid (Folic Acid 1 Mg Tablet) 1 mg PO DAILY [facility] Last Admin: 10/26/22 09:24 Dose: 1 mg Documented By: ARABELLA Gabapentin (Gabapentin 100 Mg Capsule) 100 mg PO BID PRN PRN Reason: Pain (Scale Score 1-3) Ceftriaxone Sodium 1 gm/ (Sodium Chloride) 50 mls @ 100 mls/hr IV Q24H [facility] Last Infusion: 10/25/22 23:01 Dose: 0 mls/hr Documented By: JOVITA Lorazepam (Lorazepam 0.5 Mg Tablet) 0.5 mg PO ONCE PRN PRN Reason: agitation Metoprolol Tartrate (Metoprolol Tartrate 25 Mg Tablet) 25 mg PO BID [facility]; Protocol Last Admin: 10/26/22 09:24 Dose: 25 mg Documented By: ARABELLA Nicotine (Nicotine 21 Mg Patch.Td24) 21 mg TRANSDERMA DAILY PRN PRN Reason: Nicotine Cravings Last Admin: 10/25/22 20:27 Dose: 21 mg Documented By: JOVITA Ondansetron HCl (Ondansetron Hcl 4 Mg/2 Ml Vial) 4 mg IVPUSH Q8H PRN PRN Reason: Nausea and Vomiting Pharmacy Consult (Consult Rx Perform Med Rec) 1 each MISCELLANE ONCE PRN PRN Reason: Consult order Pharmacy Consult (Consult Rx Etoh Phenob Im/Po) 1 each MISCELLANE ONCE PRN; Protocol PRN Reason: Consult order Phenobarbital (Phenobarbital 15 Mg Tablet) 15 mg PO BID [facility] Stop: 10/27/22 21:01 Last Admin: 10/26/22 09:24 Dose: 15 mg Documented By: ARABELLA Phenobarbital (Phenobarbital 15 Mg Tablet) 15 mg PO DAILY [facility] Stop: 10/29/22 09:01 Thiamine HCl (Thiamine Hcl 100 Mg Tablet) 100 mg PO DAILY [facility] Last Admin: 10/26/22 09:24 Dose: 100 mg Documented By: ARABELLA Vitamin D (Cholecalciferol (Vitamin D3) 25 Mcg Tablet) 25 mcg PO DAILY [facility] Last Admin: 10/26/22 09:24 Dose: 25 mcg Documented By: ARABELLA Labs CBC & Chem 7: 10/26/22 08:30 10/24/22 06:00 Labs: Laboratory Results - last 24 hr 10/26/22 08:30 MCV 107.3 H MCH 39.7 H MCHC 37.0 H RDW 14.6 Plt Count 100 L D MPV 12.2 Absolute Nucleated RBC 0.020 H Nucleated RBC % (auto) 0.2 Microbiology Microbiology Results: Microbiology 10/23/22 20:53 Blood Culture - Final Blood - Venous Enterobacter aerogenes 10/23/22 20:53 Blood Culture - Final Blood - Venous Enterobacter aerogenes 10/23/22 21:29 Urine Culture - Final Urine clean catch - Urine guthrie top Assessment and Plan (1) Gram-negative bacteremia: Status: Acute (2) Acute embolic stroke: Status: Acute (3) Alcohol abuse with withdrawal: Status: Acute Plan 62-year-old female with past medical history of alcohol abuse presents to the hospital with complaints of weakness # alcohol abuse with withdrawal improving worsening symptoms of withdrawal continue phenobarb protocol, to give extra doses If needed thiamine and folic acid # acute/ subacute right precentral gyrus stroke multiple findings seen on head CT MRI showed evidence of right precentral get risks stroke along with cerebral and cerebellar atrophy other MRI findings suggestive of chronic underlying cerebral and cerebellar loss from chronic alcoholism continue aspirin and high-dose statin, blood pressure control Neurology input appreciated pending echo, carotid ultrasound # YAKELIN secondary to dehydration resolved with IV fluid follow BMP # hyponatremia Sodium of 134, likely related to dehydration and chronic alcoholism Follow BMP # thrombocytopenia secondary to alcohol abuse no acute bleed follow CBC # Enterobacter bacteremia secondary to UTI positive UA final blood cultures growing sensitive Enterobacter continue ceftriaxone # frequent falls likely secondary to above specially CVA physical therapy consulted # macrocytic anemia secondary to alcohol abuse and folic acid deficiency start folic acid replacement # moderate malnutrition BMI of 15.5 Supplement added DVT prophylaxis: SCDs for low platelets Given patient's multiple issues including Acute stroke, YAKELIN, Alcohol withdrawal will need overnight inpatient hospital stay for further management pending echo, carotid ultrasound and safe discharge plan Time Spent With Patient Time: Total time managing care of this patient today ____ minutes. Quality Stroke Does the patient have a stroke diagnosis?: No VTE Prior VTE?: No VTE Risk Level:: Medical - moderate - high VTE Device Contraindication: N/A - Device Ordered VTE Drug Contraindication: Treatment Not Indicated
[2022-10-26 11:52] VITALS: BP 110/76; PULSE 92; O2SAT 95
[2022-10-26 12:00] VITALS: BP 115/83; PULSE 90; RESP 18; TEMP 36.8; O2SAT 98
[2022-10-26 15:03] VITALS: BP 100/56; PULSE 82; RESP 14; TEMP 36.2; O2SAT 93
[2022-10-26 20:00] VITALS: BP 99/60; PULSE 94; RESP 18; TEMP 37.3
[2022-10-26] MEDS: Atorvastatin Calcium 80 MG TABLET PO (20:15)
[2022-10-26] MEDS: Nicotine 21 MG PATCH.TD24 TRANSDERMA (20:16)
[2022-10-26] MEDS: Gabapentin 100 MG CAPSULE PO (20:17)
[2022-10-26] MEDS: cefTRIAXone sodium 1 GM in 0.9 % Sodium Chloride 50 ML IV (22:01)
[2022-10-27] VITALS (9 sets, daily range): BP systolic 90–106; BP diastolic 53–74; PULSE 80–94; RESP 15–20; TEMP 35.9–37.1; O2SAT 91–99
[2022-10-27] MEDS: Aspirin Enteric Coated 81 MG TABLET.DR PO (09:11)
[2022-10-27] MEDS: Cholecalciferol (Vitamin D3) 25 MCG TABLET PO (09:11)
[2022-10-27] MEDS: Acetaminophen 325 MG TABLET 650 MG PO (09:11)
[2022-10-27] MEDS: PHENobarbitaL 15 MG TABLET PO ×2 (09:11→22:07)
[2022-10-27] MEDS: Thiamine HCL 100 MG TABLET PO (09:11)
[2022-10-27] MEDS: Folic Acid 1 MG TABLET PO (09:11)
[2022-10-27] MEDS: Fluticasone Propionate Nasal 16 GM SPRAY 2 SPRAY NOSTRIL-B (09:15)
[2022-10-27] MEDS: Gabapentin 100 MG CAPSULE PO (09:18)
--- NOTE | 2022-10-27 11:20 | HO.PM.IMPN ---
Subjective Subjective Date of Service: 10/27/22 Interval History: the patient was seen and evaluated this morning Laying in bed, more alert and interactive Less withdrawal symptoms still on O2 supplement No reported other overnight events. Systemic review: No fever, chills or weakness No chest pain, palpitation No shortness of breath or coughing No abdominal pain, nausea or vomiting No urinary symptoms No reported rash Physical Exam Vital Signs: Vital Signs: Last Vital Signs Temp 98.8 F 10/27/22 07:45 Pulse 85 10/27/22 07:45 Resp 18 10/27/22 07:45 BP 90/62 10/27/22 07:45 Pulse Ox 92 10/27/22 07:45 O2 Del Method 10/27/22 07:45 O2 Flow Rate 3 10/27/22 07:45 BMI result Body Mass Index 15.5 Const: Other: Constitutional : Awake, interactive and in mild distress Neck : Normal inspection, Supple Cardiovascular : RRR, no JVP, no lower extremity edema Respiratory : good bilateral air entry, no crackles, wheezes or rhonchi Gastrointestinal: soft, lax, Normal bowel sounds, Non tender Skin : Warm, Dry Neurological : Alert , oriented x3, mild left upper arm weakness Objective Data Active Medications Acetaminophen (Acetaminophen 325 Mg Tablet) 650 mg PO Q6H PRN PRN Reason: Pain, Mild (Pain Scale 1-3) Last Admin: 10/27/22 09:11 Dose: 650 mg Documented By: ARABELLA Albuterol Sulfate (Albuterol Sulfate (0.083%) 2.5 Mg/3 Ml Vial.Neb) 2.5 mg INHALE Q4H PRN PRN Reason: Shortness of Breath/Wheezing Aspirin (Aspirin Enteric Coated 81 Mg Tablet.) 81 mg PO DAILY [facility] Last Admin: 10/27/22 09:11 Dose: 81 mg Documented By: ARABELLA Atorvastatin Calcium (Atorvastatin Calcium 80 Mg Tablet) 80 mg PO BEDTIME [facility] Last Admin: 10/26/22 20:15 Dose: 80 mg Documented By: JOVITA Fluticasone Propionate (Fluticasone Propionate Nasal 16 Gm Denio) 2 spray NOSTRIL-B DAILY [facility] Last Admin: 10/27/22 09:15 Dose: 2 spray Documented By: ARABELLA Folic Acid (Folic Acid 1 Mg Tablet) 1 mg PO DAILY [facility] Last Admin: 10/27/22 09:11 Dose: 1 mg Documented By: ARABELLA Gabapentin (Gabapentin 100 Mg Capsule) 100 mg PO BID PRN PRN Reason: Pain (Scale Score 1-3) Last Admin: 10/27/22 09:18 Dose: 100 mg Documented By: ARABELLA Ceftriaxone Sodium 1 gm/ (Sodium Chloride) 50 mls @ 100 mls/hr IV Q24H [facility] Last Infusion: 10/26/22 23:18 Dose: 0 mls/hr Documented By: JOVITA Lorazepam (Lorazepam 0.5 Mg Tablet) 0.5 mg PO ONCE PRN PRN Reason: agitation Metoprolol Tartrate (Metoprolol Tartrate 25 Mg Tablet) 25 mg PO BID [facility]; Protocol Last Admin: 10/27/22 09:22 Dose: Not Given Documented By: ARABELLA Non-Admin Reason: soft BP-MD awared Nicotine (Nicotine 21 Mg Patch.Td24) 21 mg TRANSDERMA DAILY PRN PRN Reason: Nicotine Cravings Last Admin: 10/26/22 20:16 Dose: 21 mg Documented By: JOVITA Ondansetron HCl (Ondansetron Hcl 4 Mg/2 Ml Vial) 4 mg IVPUSH Q8H PRN PRN Reason: Nausea and Vomiting Pharmacy Consult (Consult Rx Perform Med Rec) 1 each MISCELLANE ONCE PRN PRN Reason: Consult order Pharmacy Consult (Consult Rx Etoh Phenob Im/Po) 1 each MISCELLANE ONCE PRN; Protocol PRN Reason: Consult order Phenobarbital (Phenobarbital 15 Mg Tablet) 15 mg PO BID [facility] Stop: 10/27/22 21:01 Last Admin: 10/27/22 09:11 Dose: 15 mg Documented By: ARABELLA Phenobarbital (Phenobarbital 15 Mg Tablet) 15 mg PO DAILY [facility] Stop: 10/29/22 09:01 Thiamine HCl (Thiamine Hcl 100 Mg Tablet) 100 mg PO DAILY [facility] Last Admin: 10/27/22 09:11 Dose: 100 mg Documented By: ARABELLA Vitamin D (Cholecalciferol (Vitamin D3) 25 Mcg Tablet) 25 mcg PO DAILY [facility] Last Admin: 10/27/22 09:11 Dose: 25 mcg Documented By: ARABELLA Labs CBC & Chem 7: 10/26/22 08:30 10/24/22 06:00 Microbiology Microbiology Results: Microbiology 10/23/22 20:53 Blood Culture - Final Blood - Venous Enterobacter aerogenes 10/23/22 20:53 Blood Culture - Final Blood - Venous Enterobacter aerogenes Assessment and Plan (1) Gram-negative bacteremia: Status: Acute (2) Acute embolic stroke: Status: Acute (3) Alcohol abuse with withdrawal: Status: Acute Plan 62-year-old female with past medical history of alcohol abuse presents to the hospital with complaints of weakness # alcohol abuse with withdrawal improving continue phenobarb protocol, to give extra doses If needed thiamine and folic acid # acute/ subacute right precentral gyrus stroke multiple findings seen on head CT MRI showed evidence of right precentral get risks stroke along with cerebral and cerebellar atrophy other MRI findings suggestive of chronic underlying cerebral and cerebellar loss from chronic alcoholism continue aspirin and high-dose statin, blood pressure control Neurology input appreciated pending echo, carotid ultrasound with no major stenosis # YAKELIN secondary to dehydration resolved with IV fluid follow BMP # COPD not in exacerbation Duonebs Incentive spirometry wean O2 down as tolerated # hyponatremia Sodium of 134, likely related to dehydration and chronic alcoholism Follow BMP # thrombocytopenia secondary to alcohol abuse no acute bleed follow CBC # Enterobacter bacteremia secondary to UTI positive UA final blood cultures growing sensitive Enterobacter continue ceftriaxone # frequent falls likely secondary to above specially CVA physical therapy consulted # macrocytic anemia secondary to alcohol abuse and folic acid deficiency start folic acid replacement # moderate malnutrition BMI of 15.5 Supplement added DVT prophylaxis: SCDs for low platelets Given patient's multiple issues including Acute stroke, YAKELIN, Alcohol withdrawal will need overnight inpatient hospital stay for further management pending echo, and safe discharge plan Time Spent With Patient Time: Total time managing care of this patient today ____ minutes. Quality Stroke Does the patient have a stroke diagnosis?: No VTE Prior VTE?: No VTE Risk Level:: Medical - moderate - high VTE Device Contraindication: N/A - Device Ordered VTE Drug Contraindication: Treatment Not Indicated
--- NOTE | 2022-10-27 12:46 | MHC.CM.PN ---
CM assisted Patient with completing a HCP; original and copies given to Patient, a copy placed on the physical chart and a copy uploaded into [employer].
[2022-10-27] MEDS: Albuterol/Iprat 2.5/0.5MG 3 ML AMPUL.NEB INHALE (15:22)
[2022-10-27] MEDS: Atorvastatin Calcium 80 MG TABLET PO (22:06)
[2022-10-27] MEDS: cefTRIAXone sodium 1 GM in 0.9 % Sodium Chloride 50 ML IV (22:07)
[2022-10-27] MEDS: Metoprolol Tartrate 25 MG TABLET PO (22:07)
[2022-10-28] VITALS (8 sets, daily range): BP systolic 83–120; BP diastolic 53–65; PULSE 73–93; RESP 12–18; TEMP 36.7–37.3; O2SAT 92–97
[2022-10-28 05:50] LABS: CDiff Gene PCR NEGATIVE (Negative)
--- NOTE | 2022-10-28 06:30 | PM.EVENT ---
Event Note Date of Service: 10/28/22 Event Note: frequent episodes of diarrhea. stool sample sent Time Spent With Patient Time: Total time managing care of this patient today ____ minutes.
[2022-10-28] MEDS: Acetaminophen 325 MG TABLET 650 MG PO ×3 (08:29→21:43)
[2022-10-28] MEDS: Cholecalciferol (Vitamin D3) 25 MCG TABLET PO (08:29)
[2022-10-28] MEDS: Aspirin Enteric Coated 81 MG TABLET.DR PO (08:29)
[2022-10-28] MEDS: PHENobarbitaL 15 MG TABLET PO (08:29)
[2022-10-28] MEDS: Gabapentin 100 MG CAPSULE PO (08:29)
[2022-10-28] MEDS: Folic Acid 1 MG TABLET PO (08:29)
[2022-10-28] MEDS: Thiamine HCL 100 MG TABLET PO (08:29)
[2022-10-28] MEDS: Fluticasone Propionate Nasal 16 GM SPRAY 2 SPRAY NOSTRIL-B (08:32)
--- NOTE | 2022-10-28 09:14 | MHC.CM.PN ---
EMR REVIEWED, PER HOSPITALIST PT MAY BE MEDICALLY CLEARED TOMORROW 10/29, SNF REFERRAL UPDATED AND FAXED AND WILL NEED TODAYS OT/PT DAILY NOTES SENT WHEN AVAILABLE PT REFUSED TO PARTICIPATE 10/26, CM WILL CONT TO FOLLOW D/C NEEDS.
[2022-10-28] MEDS: Albuterol/Iprat 2.5/0.5MG 3 ML AMPUL.NEB INHALE (09:27)
--- NOTE | 2022-10-28 10:10 | PC.NURSE ---
pt has soft BP 96/54 this morning- hold Metoprolol - awared. at 1010. pt has 15 beats of V tach. pt denied chest pain, stated that she has severe back pain. MD notified. Additional order of Metoprolol was given. Pt back in bed comfortably.
[2022-10-28] MEDS: oxyCODONE HCl Immed Release 5 MG TABLET PO (10:34)
--- NOTE | 2022-10-28 11:24 | HO.PM.IMPN ---
Subjective Subjective Date of Service: 10/28/22 Interval History: ?the patient was seen and evaluated this morning Laying? in bed,? more alert and interactive short run of NSVT this morning, asymptomatic still on O2 supplement No reported other overnight events. Systemic review: No fever, chills or weakness No chest pain, palpitation No shortness of breath or coughing No abdominal pain, nausea or vomiting No urinary symptoms No reported rash Physical Exam Vital Signs: Vital Signs: Last Vital Signs Temp 98.1 F 10/28/22 11:23 Pulse 84 10/28/22 11:23 Resp 12 10/28/22 11:23 BP 93/55 L 10/28/22 11:23 Pulse Ox 92 10/28/22 11:23 O2 Del Method 10/28/22 11:23 O2 Flow Rate 3 10/28/22 11:23 BMI result Body Mass Index 15.5 Const: Other: Constitutional : Awake, ? interactive and in mild distress Neck : Normal inspection, Supple Cardiovascular : RRR, no JVP, no lower extremity edema Respiratory : good bilateral air entry,? no crackles, wheezes or rhonchi Gastrointestinal:? soft, lax, Normal bowel sounds, Non tender Skin : Warm, Dry Neurological : Alert , oriented x3, mild left upper? arm weakness Objective Data Active Medications Acetaminophen (Acetaminophen 325 Mg Tablet) 650 mg PO Q6H PRN PRN Reason: Pain, Mild (Pain Scale 1-3) Last Admin: 10/28/22 08:29 Dose: 650 mg Documented By: ARABELLA Albuterol Sulfate (Albuterol Sulfate (0.083%) 2.5 Mg/3 Ml Vial.Neb) 2.5 mg INHALE Q4H PRN PRN Reason: Shortness of Breath/Wheezing Albuterol/Ipratropium (Albuterol/Iprat 2.5/0.5mg 3 Ml Ampul.Neb) 3 ml INHALE RQ6H WHILE AWAKE [facility] Last Admin: 10/28/22 09:27 Dose: 3 ml Documented By: MARK Aspirin (Aspirin Enteric Coated 81 Mg Tablet.) 81 mg PO DAILY [facility] Last Admin: 10/28/22 08:29 Dose: 81 mg Documented By: ARABELLA Atorvastatin Calcium (Atorvastatin Calcium 80 Mg Tablet) 80 mg PO BEDTIME [facility] Last Admin: 10/27/22 22:06 Dose: 80 mg Documented By: MAGDALENA Fluticasone Propionate (Fluticasone Propionate Nasal 16 Gm Shiloh) 2 spray NOSTRIL-B DAILY [facility] Last Admin: 10/28/22 08:32 Dose: 2 spray Documented By: ARABELLA Folic Acid (Folic Acid 1 Mg Tablet) 1 mg PO DAILY [facility] Last Admin: 10/28/22 08:29 Dose: 1 mg Documented By: ARABELLA Gabapentin (Gabapentin 100 Mg Capsule) 100 mg PO BID PRN PRN Reason: Pain (Scale Score 1-3) Last Admin: 10/28/22 08:29 Dose: 100 mg Documented By: ARABELLA Ceftriaxone Sodium 1 gm/ (Sodium Chloride) 50 mls @ 100 mls/hr IV Q24H [facility] Last Infusion: 10/27/22 22:59 Dose: 0 mls/hr Documented By: MAGDALENA Lorazepam (Lorazepam 0.5 Mg Tablet) 0.5 mg PO ONCE PRN PRN Reason: agitation Metoprolol Tartrate (Metoprolol Tartrate 25 Mg Tablet) 25 mg PO BID [facility]; Protocol Last Admin: 10/28/22 08:42 Dose: Not Given Documented By: ARABELLA Non-Admin Reason: soft BP-MD awared Nicotine (Nicotine 21 Mg Patch.Td24) 21 mg TRANSDERMA DAILY PRN PRN Reason: Nicotine Cravings Last Admin: 10/26/22 20:16 Dose: 21 mg Documented By: JOVITA Ondansetron HCl (Ondansetron Hcl 4 Mg/2 Ml Vial) 4 mg IVPUSH Q8H PRN PRN Reason: Nausea and Vomiting Oxycodone HCl (Oxycodone Hcl Immed Release 5 Mg Tablet) 5 mg PO Q8H PRN PRN Reason: Pain, Severe (Pain Scale 7-10) Last Admin: 10/28/22 10:34 Dose: 5 mg Documented By: ARABELLA Pharmacy Consult (Consult Rx Perform Med Rec) 1 each MISCELLANE ONCE PRN PRN Reason: Consult order Pharmacy Consult (Consult Rx Etoh Phenob Im/Po) 1 each MISCELLANE ONCE PRN; Protocol PRN Reason: Consult order Phenobarbital (Phenobarbital 15 Mg Tablet) 15 mg PO DAILY [facility] Stop: 10/29/22 09:01 Last Admin: 10/28/22 08:29 Dose: 15 mg Documented By: ARABELLA Thiamine HCl (Thiamine Hcl 100 Mg Tablet) 100 mg PO DAILY [facility] Last Admin: 10/28/22 08:29 Dose: 100 mg Documented By: ARABELLA Vitamin D (Cholecalciferol (Vitamin D3) 25 Mcg Tablet) 25 mcg PO DAILY [facility] Last Admin: 10/28/22 08:29 Dose: 25 mcg Documented By: ARABELLA Labs CBC & Chem 7: 10/26/22 08:30 10/24/22 06:00 Labs: Laboratory Results - last 24 hr 10/28/22 04:45 C. difficile Tox B Gene NEGATIVE Assessment and Plan (1) Gram-negative bacteremia: Status: Acute (2) Acute embolic stroke: Status: Acute (3) Alcohol abuse with withdrawal: Status: Acute (4) NSVT (nonsustained ventricular tachycardia): Status: Acute Plan 62-year-old female with past medical history of alcohol abuse presents to the hospital with complaints of weakness # NSVT had a run of 14 beats, asymptomatic Check electrolytes Increase metoprolol Get Cardiology evaluation Pending echo # alcohol abuse with withdrawal ? improving ?continue phenobarb protocol, to give extra doses If needed thiamine and folic acid #? acute/ subacute right precentral gyrus stroke ?multiple findings seen on head CT ?MRI showed evidence of right precentral get risks stroke along with? cerebral and cerebellar atrophy ?other MRI findings suggestive of chronic underlying cerebral and cerebellar loss from chronic alcoholism ?continue aspirin and high-dose statin, blood pressure control ?Neurology input appreciated ?pending echo, carotid ultrasound with no major stenosis # YAKELIN secondary to dehydration ?resolved with IV fluid follow BMP # COPD not in exacerbation Duonebs Incentive spirometry wean O2 down as tolerated #? hyponatremia Sodium of 134, likely related to dehydration and chronic alcoholism Follow BMP # thrombocytopenia secondary to alcohol abuse no acute bleed follow CBC #? Enterobacter bacteremia secondary to UTI positive UA ?final blood cultures growing sensitive Enterobacter? ?continue ceftriaxone to finish 2 weeks total of Abx (by 10/04), can change to PO Imodium for diarrhea (-ve CDiff) # frequent falls\rib fractures likely secondary to above specially CVA CT chest showed Nondisplaced fracture right posterior lateral eighth and ninth ribs without hematoma or pneumothorax. physical therapy consulted # macrocytic anemia ?secondary to alcohol abuse and folic acid deficiency ?start folic acid replacement #? moderate malnutrition BMI of 15.5 Supplement added DVT prophylaxis:? SCDs for low platelets Given patient's multiple issues including Acute stroke, YAKELIN, Alcohol withdrawal will need overnight inpatient hospital stay for further management? pending echo, and safe discharge plan Time Spent With Patient Time: Total time managing care of this patient today ____ minutes. Quality Stroke Does the patient have a stroke diagnosis?: No VTE Prior VTE?: No VTE Risk Level:: Medical - moderate - high VTE Device Contraindication: N/A - Device Ordered VTE Drug Contraindication: Treatment Not Indicated
[2022-10-28 11:36] LABS: Anion Gap 14 (12-20); Blood Urea Nitrogen 20 mg/dL (9-16); Calcium 6.7 mg/dL (8.4-10.2); Carbon Dioxide 19 mmol/L (22-29); Chloride 102 mmol/L (96-108); Creatinine Clr Calc Pharmacy 45.5; Estimated Glomerular Filt Rate > 60; Glucose Random 88 mg/dL (60-115); Magnesium 1.1 mg/dL (1.6-2.6); Potassium 3.1 mmol/L (3.3-5.1); Sodium 132 mmol/L (135-145)
--- NOTE | 2022-10-28 13:11 | MHC.CLN ---
F/U DIET RX: REGULAR-APPROPRIATE ENSURE BID PROVIDES ADDITIONAL 700KCALS, 40G PROTEIN INTAKE VARIABLE, 25-100% MONITOR PO INTAKE CLOSELY
[2022-10-28] MEDS: Magnesium Oxide 400 MG TABLET PO (17:35)
[2022-10-28] MEDS: cefTRIAXone sodium 1 GM in 0.9 % Sodium Chloride 50 ML IV (21:43)
[2022-10-28] MEDS: Atorvastatin Calcium 80 MG TABLET PO (21:43)
[2022-10-29] VITALS (7 sets, daily range): BP systolic 92–125; BP diastolic 56–89; PULSE 69–86; RESP 17–36; TEMP 36–37.2; O2SAT 92–96
[2022-10-29] MEDS: oxyCODONE HCl Immed Release 5 MG TABLET PO ×4 (05:02→20:22)
--- NOTE | 2022-10-29 07:00 | CA_ITS ---
Transthoracic Echocardiogram Patient (Last, First, Middle): Ana Hall J Gender: Female Date of : 1960 Age: 62 Procedure Date: 10/29/2022 Procedure Type: Transthoracic Echocardiogram Location: [facility] Height: 157.48 cm Weight: 38.56 kg BSA: 1.33 m2 Heart Rate: bpm BP: 132 / 60 mmHg Welding Operator: Referring MD: Kali Wade MD Assistant Shift Supervisor: Shayne Stockton MD Symptoms: acute stroke for eval, with Bubble Study Study Quality: Fair ECG Rhythm: Sinus Conclusions: - 1. Normal LV systolic and diastolic function 2. Mildly dilated right ventricle with severe LV systolic dysfunction of unclear etiology 3. Mild biatrial enlargement without any evidence of interatrial shunting 4. Mild mitral regurgitation 5. [id number] tricuspid regurgitation 6. Mildly elevated right atrial pressure with upper limits of normal right ventricular systolic pressure 7. No gross pericardial effusion Findings Left Ventricle Normal left ventricular size, thickness, and systolic function. The visually estimated ejection fraction is between 60-65%. Spectral Doppler is indicative of a normal filling pattern. Right Ventricle Mildly increased right ventricular cavity size. There is severely decreased right ventricular systolic function. Atria Mild biatrial enlargement. There is no evidence of interatrial shunt by agitated saline. Aortic Valve Normal aortic valve structure and function. There is no aortic valve stenosis. There is no aortic valve regurgitation. Mitral Valve There is mild anterior and posterior mitral leaflet thickening. There is mild mitral valve regurgitation. There is no mitral valve stenosis. Pulmonic Valve The pulmonic valve is likely normal. There is trace pulmonic valve regurgitation. Tricuspid Valve Normal tricuspid valve structure. There is moderate tricuspid valve regurgitation. Mildly elevated right atrial pressure. Great Vessels All visible segments of the aorta are normal in size. The pulmonary artery was not well visualized. Venous The inferior vena cava is mildly dilated and collapses less than 50% with inspiration. Pericardium/Pleural There is no evidence of pericardial effusion. Prior Study Comparison No prior study available for comparison. Measurements 2D Linear Measurements IVSd: 1.13 0.6-0.9/0.6-1.0 cm LVIDd: 4.29 3.9-5.3/4.2-5.9 cm LVIDd Index: 3.23 2.4-3.2/2.2-3.1 cm/m2 LVIDs: 3.05 2.0-3.6 cm LVPWd: 1.06 0.7-1.1 cm Ao Root: 3.00 2.1-3.5 cm LA Diam: 2.90 2.7-3.8/3.0-4.0 cm LAIDs Index: 2.18 1.5-2.3 cm/m2 LV Mass: 200.87 67-162/88-224 g LV Mass Index: 151.03 43-95/49-115 g/m2 LVOT Diam: 2.00 3.0+(-)1.3 cm 2D Systolic Function EF 4C: 69.40 >55% EF 2C: 63.20 >55% EF BiP: 65.50 >55% Mitral Valve MV Pk E: 0.58 MV PK A: 0.64 MV Decel Time: 163.00 E/A: 0.90 E'Lateral: 7.51 E'Medial: 5.87 E/E' Med: 9.90 E/E' Lat: 7.80 PHT: 48.00 MVA PHT: 4.58 Decel [place]: 3.56 Aortic Valve AoV Pk Blayne: 1.29 AoV Mn Blayne: 0.76 AoV VTI: 0.19 AoV Pk Grad: 7.00 Aov Mn Grad: 3.00 HUSEYIN Cont.VTI: 2.65 LVOT LVOT Pk Blayne: 0.85 LVOT Mn Blayne: 0.53 LVOT VTI: 0.16 LVOT Pk Grad: 3.00 LVOT Mn Grad: 1.00 LVOT Diam: 2.00 LVOT Area: 3.14 Diastolic Function MV Pk E: 0.58 MV Pk A: 0.64 E/A: 0.90 E'Medial: 5.87 E/E' Med: 9.90 E' Laterial: 7.51 E/E' Lat: 7.80 Right Ventricle TAPSE (mm): 10.00 TVS' Blayne: 6.00 Tricuspid Valve TR Pk Blayne: 2.58 TR Pk Grad: 27.00 RA Press: 8.00 RVSP: 35.00 Great Vessels Aorta Ao Root-2D: 3.00 2.0-3.7 cm Ao Asc: 3.30 2.1-3.4 cm Pulmonary Valve PV Pk Blayne: 0.75 Peak PV Grad: 2.00 Updated in Other Vendor System with Status of Final Shayne Stockton MD electronically signed on 10/29/2022 1:44:41 PM with status of Final
[2022-10-29 07:27] LABS: Blood Urea Nitrogen 15 mg/dL (9-16); Calcium 6.8 mg/dL (8.4-10.2); Creatinine Clr Calc Pharmacy 44.9; Estimated Glomerular Filt Rate > 60; Glucose Random 69 mg/dL (60-115)
[2022-10-29 07:30] LABS: Magnesium 1.7 mg/dL (1.6-2.6)
[2022-10-29 07:35] LABS: Anion Gap 15 (12-20); Carbon Dioxide 20 mmol/L (22-29); Chloride 103 mmol/L (96-108); Potassium 4.6 mmol/L (3.3-5.1); Sodium 133 mmol/L (135-145)
[2022-10-29] MEDS: Magnesium Oxide 400 MG TABLET PO ×2 (09:23→17:40)
[2022-10-29] MEDS: Gabapentin 100 MG CAPSULE PO ×2 (09:23→20:23)
[2022-10-29] MEDS: Thiamine HCL 100 MG TABLET PO (09:24)
[2022-10-29] MEDS: Metoprolol Tartrate 25 MG TABLET PO ×2 (09:24→20:23)
[2022-10-29] MEDS: PHENobarbitaL 15 MG TABLET PO (09:24)
[2022-10-29] MEDS: Folic Acid 1 MG TABLET PO (09:24)
[2022-10-29] MEDS: Cholecalciferol (Vitamin D3) 25 MCG TABLET PO (09:24)
[2022-10-29] MEDS: Fluticasone Propionate Nasal 16 GM SPRAY 2 SPRAY NOSTRIL-B (09:28)
[2022-10-29] MEDS: Aspirin Enteric Coated 81 MG TABLET.DR PO (09:28)
--- NOTE | 2022-10-29 10:35 | P.CONCA_ITS ---
History of Present Illness History of Present Illness Date of Service: 10/29/22 Requesting physician: Jorge L Murillo Consult reason: other (Cardiac arrhythmia) Chief complaint: CVA, UTI, sepsis Narrative: I was consulted to see Ana in cardiology consultation today for noted cardiac arrhythmias. She was noted to have 15 beat run of wide complex rhythm that was nonsustained yesterday. No symptoms reported with it. She also has multiple runs of narrow complex tachycardia which are either suggestive atrial tachycardia on some appear to be regular and could be short burst of AFib. This is unclear. Patient has no symptoms. No palpitations. Patient admitted with acute embolic stroke and Gram-negative bacteremia as well as alcohol withdrawal. She uses alcohol significantly. Yesterday was noted to have significant hypo magnesium E a as well as hypokalemia both have been corrected. Since then she has not had any further ventricular arrhythmias. Her metoprolol was increased. Cardiology consult was sought because of the cardiac arrhythmias. Patient denies any prior cardiac history. Denies any history of congestive heart failure, myocardial infarction, cardiac arrhythmias. She denies any history of palpitations at home. Denies any lightheadedness or syncope at home. Review of Systems Constitutional: Constitutional: Reports no additional constitutional complaints Eyes: Eyes: Reports no additional eye complaints Cardiovascular: Cardiovascular: Reports no additional cardiovascular complaints Gastrointestinal: Gastrointestinal: Reports no additional gastrointestinal complaints Musculoskeletal: Musculoskeletal: Reports no additional musculoskeletal complaints Psychiatric: Psychiatric: Reports anxiety and Reports mood swings PMFSH Past Medical History Medical History Alcoholism Anxiety Cervical spondylosis Cervical stenosis of spinal canal HTN (hypertension) Surgical History Surgical History History of surgery Social History Social History Household Members: Significant Other Housing: House Do you presently have visiting nurse or other home services: No Alcohol intake: current Alcohol intake frequency: holidays/special occasions only Patient Tobacco Use Status: Current everyday Tobacco user Tobacco use type: Cigarette Cigarettes Per Day: 10 e-Cigarette/Vaping Use: Never Used Second Hand Smoke Exposure: No service: No Current occupational status: other Cognitive needs: No Hearing needs: No Vision needs: No Meds Allergies Allergy/AdvReac Type Severity Reaction Status Date / Time No Known Allergies Allergy Verified 10/23/22 16:44 Active Medications: Current Medications Acetaminophen (Acetaminophen 325 Mg Tablet) 650 mg PO Q6H PRN PRN Reason: Pain, Mild (Pain Scale 1-3) Last Admin: 10/28/22 21:43 Dose: 650 mg Albuterol Sulfate (Albuterol Sulfate (0.083%) 2.5 Mg/3 Ml Vial.Neb) 2.5 mg INHALE Q4H PRN PRN Reason: Shortness of Breath/Wheezing Albuterol/Ipratropium (Albuterol/Iprat 2.5/0.5mg 3 Ml Ampul.Neb) 3 ml INHALE RQ6H WHILE AWAKE [facility] Last Admin: 10/29/22 07:34 Dose: Not Given Aspirin (Aspirin Enteric Coated 81 Mg Tablet.Dr) 81 mg PO DAILY [facility] Last Admin: 10/29/22 09:28 Dose: 81 mg Atorvastatin Calcium (Atorvastatin Calcium 80 Mg Tablet) 80 mg PO BEDTIME [facility] Last Admin: 10/28/22 21:43 Dose: 80 mg Fluticasone Propionate (Fluticasone Propionate Nasal 16 Gm [place]) 2 spray NOSTRIL-B DAILY [facility] Last Admin: 10/29/22 09:28 Dose: 2 spray Folic Acid (Folic Acid 1 Mg Tablet) 1 mg PO DAILY [facility] Last Admin: 10/29/22 09:24 Dose: 1 mg Gabapentin (Gabapentin 100 Mg Capsule) 100 mg PO BID PRN PRN Reason: Pain (Scale Score 1-3) Last Admin: 10/29/22 09:23 Dose: 100 mg Ceftriaxone Sodium 1 gm/ (Sodium Chloride) 50 mls @ 100 mls/hr IV Q24H [facility] Last Infusion: 10/28/22 22:52 Dose: Infused Loperamide HCl (Loperamide Hcl 2 Mg Capsule) 2 mg PO Q4H PRN PRN Reason: Diarrhea Last Admin: 10/28/22 22:49 Dose: 2 mg Lorazepam (Lorazepam 0.5 Mg Tablet) 0.5 mg PO ONCE PRN PRN Reason: agitation [facility] Last Admin: 10/29/22 09:23 Dose: 400 mg Metoprolol Tartrate (Metoprolol Tartrate 25 Mg Tablet) 25 mg PO BID [facility]; Protocol Last Admin: 10/29/22 09:24 Dose: 25 mg Nicotine (Nicotine 21 Mg Patch.Td24) 21 mg TRANSDERMA DAILY PRN PRN Reason: Nicotine Cravings Last Admin: 10/26/22 20:16 Dose: 21 mg Ondansetron HCl (Ondansetron Hcl 4 Mg/2 Ml Vial) 4 mg IVPUSH Q8H PRN PRN Reason: Nausea and Vomiting Oxycodone HCl (Oxycodone Hcl Immed Release 5 Mg Tablet) 5 mg PO Q8H PRN PRN Reason: Pain, Severe (Pain Scale 7-10) Last Admin: 10/29/22 05:02 Dose: 5 mg Pharmacy Consult (Consult Rx Perform Med Rec) 1 each MISCELLANE ONCE PRN PRN Reason: Consult order Pharmacy Consult (Consult Rx Etoh Phenob Im/Po) 1 each MISCELLANE ONCE PRN; Protocol PRN Reason: Consult order Thiamine HCl (Thiamine Hcl 100 Mg Tablet) 100 mg PO DAILY [facility] Last Admin: 10/29/22 09:24 Dose: 100 mg Vitamin D (Cholecalciferol (Vitamin D3) 25 Mcg Tablet) 25 mcg PO DAILY [facility] Last Admin: 10/29/22 09:24 Dose: 25 mcg Home Medications Medication Instructions Recorded Confirmed Last Taken Type fluticasone propionate 50 2 spray intranasal DAILY 09/29/21 10/23/22 09/29/21 History mcg/actuation nasal spray,suspension alendronate 70 mg tablet 70 mg PO FR@0600 10/23/22 10/23/22 Unknown History gabapentin 100 mg capsule 100 mg PO BID PRN Pain (Scale 10/23/22 10/23/22 Unknown History Score 1-3) nicotine 21 mg/24 hr daily 1 patch transdermal DAILY PRN 10/23/22 10/23/22 Unknown History transdermal patch Nicotine Cravings Physical Exam Vital Signs: Vital Signs: Last Vital Signs Temp 98.6 F 10/29/22 07:26 Pulse 75 10/29/22 07:26 Resp 20 10/29/22 07:26 BP 100/61 10/29/22 07:26 Pulse Ox 92 10/29/22 07:26 O2 Del Method 10/29/22 07:26 O2 Flow Rate 3 10/29/22 07:26 BMI result Body Mass Index 15.5 Const: General: cooperative, comfortable, no acute distress, alert, awake and anxious Nutritional Appearance: malnourished Orientation/consciousness: patient oriented x3 HEENT: Head: Yes normocephalic and Yes atraumatic Neck: Neck: Yes trachea midline, Yes supple and Yes no JVD Resp: Effort & Inspection: decreased respiratory effort Auscultation: clear to auscultation bilaterally Cardio: Jugular venous distension: no JVD Rate: regular rate Rhythm: regular rhythm Heart sounds: S1 normal heart sound present, S2 normal heart sound present, no click, no gallops, no murmurs and no rubs GI: Auscultation: normal bowel sounds Skin: General skin exam: no rashes or lesions noted and ecchymosis Neuro: General: patient oriented x3 Extrem: General: Yes no clubbing, cyanosis or edema Objective Labs and Meds Result diagrams: 10/26/22 08:30 10/29/22 05:38 Lab results: Laboratory Results - last 24 hr 10/28/22 10/29/22 10/29/22 10:52 05:38 05:38 Sodium 132 L 133 L Potassium 3.1 L 4.6 D Chloride 102 103 Carbon Dioxide 19 L 20 L Anion Gap 14 15 BUN 20 H 15 Creatinine 0.77 0.78 Estim Creat Clear Calc 45.5 44.9 Estimated GFR > 60 > 60 Random Glucose 88 69 Calcium 6.7 L 6.8 L Magnesium 1.1 L* 1.7 Imaging Radiologist's impression: Impressions Chest X-Ray 10/28/22 11:53 FINDINGS/IMPRESSION: Findings suggest diffuse bilateral interstitial prominence with a perihilar predominance, as well as possible Rosanna B-lines. The findings suggest pulmonary edema. No gross effusion or pneumothorax is seen. The cardiac silhouette is poorly evaluated. The aorta is atherosclerotic. Assessment and Plan (1) Cardiac arrhythmia: Status: Acute Cardiac arrhythmia in this middle-aged woman with multiple medical problems including acute embolic stroke, gram-negative bacteremia as well as alcohol withdrawal. Most likely due to increased catecholamine levels in her blood stream given acute medical issues. Will consider starting low-dose metoprolol therapy 12.5 mg q.6 hours. She also had significant electrolyte abnormalities yesterday and this has been corrected. Continue to replace magnesium and potassium and maintain magnesium above 2 and potassium above 4. Continue check and replace as needed. Continue treat alcohol withdrawal as well as her bacteremia. Agree with echocardiogram to evaluate for LV systolic function especially given that she has long-term use of alcohol and could have underlying cardiomyopathy. She also had embolic stroke and should do a bubble contrast study to evaluate for PFO. Although management would be with aspirin statins at this point in time. Complete cessation of alcohol was discussed with her. She is not in any emotional state to understand her current medical condition very well. Education should be provided. At this point time will sign of the case unless she has further arrhythmias. Thank you for allowing me to partake in the care Time Spent With Patient Time: Total time managing care of this patient today ____ minutes. Procedures Date of Service Date of Service: 10/29/22
[2022-10-29] MEDS: Nicotine 21 MG PATCH.TD24 TRANSDERMA (13:17)
--- NOTE | 2022-10-29 13:37 | P.PNIM_ITS ---
Subjective Subjective Date of Service: 10/29/22 Interval History: patient was seen and evaluated this morning few PAC ,Asymptomatic still on O2 supplement No reported other overnight events. Review of Systems No fever, chills or weakness No chest pain, palpitation No shortness of breath or coughing No abdominal pain, nausea or vomiting No urinary symptoms Physical Exam Vital Signs: Vital Signs: Last Vital Signs Temp 98.4 F 10/29/22 11:09 Pulse 72 10/29/22 11:09 Resp 20 10/29/22 11:09 BP 95/56 L 10/29/22 11:09 Pulse Ox 93 10/29/22 11:09 O2 Del Method 10/29/22 11:09 O2 Flow Rate 3 10/29/22 11:09 BMI result Body Mass Index 15.5 Constitutional : Awake, ? interactive and in mild distress Neck : Normal inspection, Supple Cardiovascular : RRR, no JVP, no lower extremity edema Respiratory : good bilateral air entry,? no crackles, wheezes or rhonchi Gastrointestinal:? soft, lax, Normal bowel sounds, Non tender Skin : Warm, Dry Neurological : Alert , oriented x3, mild left upper? arm weakness. Objective Data Active Medications Acetaminophen (Acetaminophen 325 Mg Tablet) 650 mg PO Q6H PRN PRN Reason: Pain, Mild (Pain Scale 1-3) Last Admin: 10/28/22 21:43 Dose: 650 mg Documented By: MAGDALENA Albuterol Sulfate (Albuterol Sulfate (0.083%) 2.5 Mg/3 Ml Vial.Neb) 2.5 mg INHALE Q4H PRN PRN Reason: Shortness of Breath/Wheezing Albuterol/Ipratropium (Albuterol/Iprat 2.5/0.5mg 3 Ml Ampul.Neb) 3 ml INHALE RQ6H WHILE AWAKE [facility] Last Admin: 10/29/22 07:34 Dose: Not Given Documented By: GARY Non-Admin Reason: Patient Refused Aspirin (Aspirin Enteric Coated 81 Mg Tablet.) 81 mg PO DAILY [facility] Last Admin: 10/29/22 09:28 Dose: 81 mg Documented By: BIJAL Atorvastatin Calcium (Atorvastatin Calcium 80 Mg Tablet) 80 mg PO BEDTIME [facility] Last Admin: 10/28/22 21:43 Dose: 80 mg Documented By: MAGDALENA Fluticasone Propionate (Fluticasone Propionate Nasal 16 Gm [place]) 2 spray NOSTRIL-B DAILY [facility] Last Admin: 10/29/22 09:28 Dose: 2 spray Documented By: BIJAL Folic Acid (Folic Acid 1 Mg Tablet) 1 mg PO DAILY [facility] Last Admin: 10/29/22 09:24 Dose: 1 mg Documented By: BIJAL Gabapentin (Gabapentin 100 Mg Capsule) 100 mg PO BID PRN PRN Reason: Pain (Scale Score 1-3) Last Admin: 10/29/22 09:23 Dose: 100 mg Documented By: BIJAL Ceftriaxone Sodium 1 gm/ (Sodium Chloride) 50 mls @ 100 mls/hr IV Q24H [facility] Last Infusion: 10/28/22 22:52 Dose: 0 mls/hr Documented By: MAGDALENA Lidocaine (Lidocaine 4 % Patch Adh..Patch) 1 patch TRANSDERMA DAILY [facility]; Protocol Loperamide HCl (Loperamide Hcl 2 Mg Capsule) 2 mg PO Q4H PRN PRN Reason: Diarrhea Last Admin: 10/28/22 22:49 Dose: 2 mg Documented By: MAGDALENA Lorazepam (Lorazepam 0.5 Mg Tablet) 0.5 mg PO ONCE PRN PRN Reason: agitation Magnesium Oxide ([facility] 400 Mg [facility]t) [facility] Last Admin: 10/29/22 09:23 Dose: 400 mg Documented By: BIJAL Metoprolol Tartrate (Metoprolol Tartrate 25 Mg Tablet) 25 mg PO BID [facility]; [place] [facility] Last Admin: 10/29/22 09:24 Dose: 25 mg Documented By: BIJAL Nicotine (Nicotine 21 Mg Patch.Td24) 21 mg TRANSDERMA DAILY PRN PRN Reason: Nicotine Cravings Last Admin: 10/29/22 13:17 Dose: 21 mg Documented By: TONYA Nicotine (Nicotine 21 Mg Patch.Td24) 21 mg TRANSDERMA DAILY [facility] Ondansetron HCl (Ondansetron Hcl 4 Mg/2 Ml Vial) 4 mg IVPUSH Q8H PRN PRN Reason: Nausea and Vomiting Oxycodone HCl (Oxycodone Hcl Immed Release 5 Mg Tablet) 5 mg PO Q8H PRN PRN Reason: Pain, Severe (Pain Scale 7-10) Last Admin: 10/29/22 13:17 Dose: 5 mg Documented By: TONYA Pharmacy Consult (Consult Rx Perform Med Rec) 1 each MISCELLANE ONCE PRN PRN Reason: Consult order Pharmacy Consult (Consult Rx Etoh Phenob Im/Po) 1 each MISCELLANE ONCE PRN; Protocol PRN Reason: Consult order Thiamine HCl (Thiamine Hcl 100 Mg Tablet) 100 mg PO DAILY [facility] Last Admin: 10/29/22 09:24 Dose: 100 mg Documented By: BIJAL Vitamin D (Cholecalciferol (Vitamin D3) 25 Mcg Tablet) 25 mcg PO DAILY [facility] Last Admin: 10/29/22 09:24 Dose: 25 mcg Documented By: BIJAL Labs CBC & Chem 7: 10/26/22 08:30 10/29/22 05:38 Labs: Laboratory Results - last 24 hr 10/29/22 10/29/22 05:38 05:38 Anion Gap 15 Estim Creat Clear Calc 44.9 Estimated GFR > 60 Random Glucose 69 Calcium 6.8 L Magnesium 1.7 Assessment and Plan (1) Gram-negative bacteremia: Status: Acute (2) Acute embolic stroke: Status: Acute (3) Alcohol abuse with withdrawal: Status: Acute (4) NSVT (nonsustained ventricular tachycardia): Status: Acute Plan 62-year-old female with past medical history of alcohol abuse presents to the hospital with complaints of weakness # NSVT seems improved with electrolytic replacement.only few PAC overnight. Pending echo cardio eval noted-echo added continue asa,statin, metoprolol . # alcohol abuse with withdrawal ? improving ?continue phenobarb protocol, to give extra doses If needed thiamine and folic acid #? acute/ subacute right precentral gyrus stroke ?multiple findings seen on head CT ?MRI showed evidence of right precentral get risks stroke along with? cerebral and cerebellar atrophy ?other MRI findings suggestive of chronic underlying cerebral and cerebellar loss from chronic alcoholism ?continue aspirin and high-dose statin, blood pressure control ?Neurology input appreciated ?pending echo, carotid ultrasound with no major stenosis # YAKELIN secondary to dehydration ?resolved with IV fluid follow BMP # COPD not in exacerbation Duonebs Incentive spirometry wean O2 down as tolerated #? hyponatremia Sodium of 134, likely related to dehydration and chronic alcoholism Follow BMP # thrombocytopenia secondary to alcohol abuse no acute bleed follow CBC #? Enterobacter bacteremia secondary to UTI positive UA ?final blood cultures growing sensitive Enterobacter? ?continue ceftriaxone to finish 2 weeks total of Abx , ID Eval added. Imodium for diarrhea (-ve CDiff) # frequent falls\rib fractures likely secondary to above specially CVA CT chest showed Nondisplaced fracture right posterior lateral eighth and ninth ribs without hematoma or pneumothorax. physical therapy consulted # macrocytic anemia ?secondary to alcohol abuse and folic acid deficiency ?start folic acid replacement #? moderate malnutrition BMI of 15.5 Supplement added DVT prophylaxis:? SCDs for low platelets ongoing hospitalisation need: Acute stroke, YAKELIN, Alcohol withdrawal will need overnight inpatient hospital stay for further management? pending echo, bacteremia,and safe discharge plan Time Spent With Patient Time: Total time managing care of this patient today ____ minutes. Quality Stroke Does the patient have a stroke diagnosis?: No VTE Prior VTE?: No VTE Risk Level:: Medical - moderate - high VTE Device Contraindication: N/A - Device Ordered VTE Drug Contraindication: Treatment Not Indicated
--- NOTE | 2022-10-29 14:30 | W.PM.IDCN ---
History of Present Illness Data of Consult Service Date: 10/29/22 Requesting physician: Clari Rodrigues Primary Care Provider: Carlos Guzman MD [facility] Reason for consult: Enterobacter bacteremia She presents with weakness to ER and found to have right flank pain. She has alcohol use disorder and reports falls. She has Enterobacter bacteremia sensitive to Levaquin She has no dysuria but has right flank pain. Review of Systems Review of Systems: Yes all other systems are reviewed and are negative PMFSH Past Medical History Medical History Alcoholism Anxiety Cervical spondylosis Cervical stenosis of spinal canal HTN (hypertension) Family History Family history: reviewed and not pertinent Surgical History Surgical History History of surgery Social History Social History Household Members: Significant Other Housing: House Do you presently have visiting nurse or other home services: No Alcohol intake: current Alcohol intake frequency: holidays/special occasions only Patient Tobacco Use Status: Current everyday Tobacco user Tobacco use type: Cigarette Cigarettes Per Day: 10 e-Cigarette/Vaping Use: Never Used Second Hand Smoke Exposure: No service: No Current occupational status: other Cognitive needs: No Hearing needs: No Vision needs: No Meds Allergies Allergy/AdvReac Type Severity Reaction Status Date / Time No Known Allergies Allergy Verified 10/23/22 16:44 Active Medications: Current Medications Acetaminophen (Acetaminophen 325 Mg Tablet) 650 mg PO Q6H PRN PRN Reason: Pain, Mild (Pain Scale 1-3) Last Admin: 10/28/22 21:43 Dose: 650 mg Albuterol Sulfate (Albuterol Sulfate (0.083%) 2.5 Mg/3 Ml Vial.Neb) 2.5 mg INHALE Q4H PRN PRN Reason: Shortness of Breath/Wheezing Albuterol/Ipratropium (Albuterol/Iprat 2.5/0.5mg 3 Ml Ampul.Neb) 3 ml INHALE RQ6H WHILE AWAKE [facility] Last Admin: 10/29/22 13:37 Dose: Not Given Aspirin (Aspirin Enteric Coated 81 Mg Tablet.) 81 mg PO DAILY [facility] Last Admin: 10/29/22 09:28 Dose: 81 mg Atorvastatin Calcium (Atorvastatin Calcium 80 Mg Tablet) 80 mg PO BEDTIME [facility] Last Admin: 10/28/22 21:43 Dose: 80 mg Fluticasone Propionate (Fluticasone Propionate Nasal 16 Gm [place]) 2 spray NOSTRIL-B DAILY [facility] Last Admin: 10/29/22 09:28 Dose: 2 spray Folic Acid (Folic Acid 1 Mg Tablet) 1 mg PO DAILY [facility] Last Admin: 10/29/22 09:24 Dose: 1 mg Gabapentin (Gabapentin 100 Mg Capsule) 100 mg PO BID PRN PRN Reason: Pain (Scale Score 1-3) Last Admin: 10/29/22 09:23 Dose: 100 mg Ceftriaxone Sodium 1 gm/ (Sodium Chloride) 50 mls @ 100 mls/hr IV Q24H [facility] Last Infusion: 10/28/22 22:52 Dose: Infused Lidocaine (Lidocaine 4 % Patch Adh..Patch) 1 patch TRANSDERMA DAILY [facility]; Protocol Loperamide HCl (Loperamide Hcl 2 Mg Capsule) 2 mg PO Q4H PRN PRN Reason: Diarrhea Last Admin: 10/28/22 22:49 Dose: 2 mg Lorazepam (Lorazepam 0.5 Mg Tablet) 0.5 mg PO ONCE PRN PRN Reason: agitation Magnesium Oxide ([facility] 400 Mg [facility]t) [facility] Last Admin: 10/29/22 09:23 Dose: 400 mg Metoprolol Tartrate (Metoprolol Tartrate 25 Mg Tablet) 25 mg PO BID [facility]; Protocol Last Admin: 10/29/22 09:24 Dose: 25 mg Nicotine (Nicotine 21 Mg Patch.Td24) 21 mg TRANSDERMA DAILY PRN PRN Reason: Nicotine Cravings Last Admin: 10/29/22 13:17 Dose: 21 mg Nicotine (Nicotine 21 Mg Patch.Td24) 21 mg TRANSDERMA DAILY [facility] Ondansetron HCl (Ondansetron Hcl 4 Mg/2 Ml Vial) 4 mg IVPUSH Q8H PRN PRN Reason: Nausea and Vomiting Oxycodone HCl (Oxycodone Hcl Immed Release 5 Mg Tablet) 5 mg PO Q8H PRN PRN Reason: Pain, Severe (Pain Scale 7-10) Last Admin: 10/29/22 13:17 Dose: 5 mg Pharmacy Consult (Consult Rx Perform Med Rec) 1 each MISCELLANE ONCE PRN PRN Reason: Consult order Pharmacy Consult (Consult Rx Etoh Phenob Im/Po) 1 each MISCELLANE ONCE PRN; Protocol PRN Reason: Consult order Thiamine HCl (Thiamine Hcl 100 Mg Tablet) 100 mg PO DAILY [facility] Last Admin: 10/29/22 09:24 Dose: 100 mg Vitamin D (Cholecalciferol (Vitamin D3) 25 Mcg Tablet) 25 mcg PO DAILY [facility] Last Admin: 10/29/22 09:24 Dose: 25 mcg Home Medications Medication Instructions Recorded Confirmed Last Taken Type fluticasone propionate 50 2 spray intranasal DAILY 09/29/21 10/23/22 09/29/21 History mcg/actuation nasal spray,suspension alendronate 70 mg tablet 70 mg PO FR@0600 10/23/22 10/23/22 Unknown History gabapentin 100 mg capsule 100 mg PO BID PRN Pain (Scale 10/23/22 10/23/22 Unknown History Score 1-3) nicotine 21 mg/24 hr daily 1 patch transdermal DAILY PRN 10/23/22 10/23/22 Unknown History transdermal patch Nicotine Cravings Physical Exam Vital Signs: Vital Signs: Last Vital Signs Temp 98.4 F 10/29/22 11:09 Pulse 72 10/29/22 11:09 Resp 20 10/29/22 11:09 BP 95/56 L 10/29/22 11:09 Pulse Ox 93 10/29/22 11:09 O2 Del Method 10/29/22 11:09 O2 Flow Rate 3 10/29/22 11:09 BMI result Body Mass Index 15.5 Const: General: cooperative HEENT: Head: Yes normal to inspection Face and sinus: Yes normal facial exam Mouth: Normal oral and palatal mucosa present Teeth and gingiva: dentition normal Eyes: General: appearance normal, both eyes and all related structures Pupils: Equal, round and reactive pupils present Resp: Effort & Inspection: normal respiratory effort Cardio: Rate: regular rate Rhythm: regular rhythm GI: Palpation (GI): Soft to palpation and nontender : General: Yes no CVA tenderness Back/Spine/Pelvis: Back: no CVA tenderness Skin: General skin exam: no rashes or lesions noted Neuro: General: moves all extremities Cranial nerves: Yes Equal, round and reactive pupils present Extrem: General: Yes normal to inspection Psych: Appearance: grossly normal Results Labs CBC & Chem 7: 10/26/22 08:30 10/29/22 05:38 Labs: BMP 10/29/22 05:38 Sodium 133 L Potassium 4.6 D Chloride 103 Carbon Dioxide 20 L BUN 15 Creatinine 0.78 Calcium 6.8 L Microbiology Microbiology Results: Microbiology 10/23/22 20:53 Blood - Venous Blood Culture - Final Enterobacter aerogenes 10/23/22 20:53 Blood - Venous Blood Culture - Final Enterobacter aerogenes 10/23/22 21:29 Urine clean catch - Urine [place] top Urine Culture - Final Assessment and Plan (1) Gram-negative bacteremia: Status: Acute There was possibly some right kidney scarring. Proximal UTI or kidney infection may be cause of bacteremia. There doesnt seem to be any other abdominal cause on evaluation/CT although SBP cannot be entirely ruled out as cause. (2) Alcohol abuse with withdrawal: Status: Acute (3) UTI (urinary tract infection): Status: Acute Plan Would give po Levaquin 750 mg daily for fourteen days. Time Spent With Patient Time: Total time managing care of this patient today ____ minutes.
[2022-10-29] MEDS: Atorvastatin Calcium 80 MG TABLET PO (20:23)
[2022-10-29] MEDS: LORazepam 0.5 MG TABLET PO (20:23)
[2022-10-29] MEDS: Albuterol/Iprat 2.5/0.5MG 3 ML AMPUL.NEB INHALE (20:55)
[2022-10-29] MEDS: cefTRIAXone sodium 1 GM in 0.9 % Sodium Chloride 50 ML IV (22:18)
[2022-10-30] VITALS (10 sets, daily range): BP systolic 92–132; BP diastolic 54–94; PULSE 67–99; RESP 12–20; TEMP 36.4–39.5; O2SAT 85–98
[2022-10-30] MEDS: Acetaminophen 325 MG TABLET 650 MG PO (08:12)
--- NOTE | 2022-10-30 08:24 | P.CDIC_ITS ---
CDI Concurrent Query Documentation Clarification: PHYSICIAN'S DOCUMENTATION REQUEST Date of Query: 10/30/22 0825 Patient Name: Ana Hall Admit Date: 10/23/22 Dear Doctor, A review of the medical record indicates additional documentation may be needed. Please review below and update the documentation accordingly. Clinical Indicators: Is there a diagnosis that correlates to these lab findings: Risk Factors/Clinical Indicators/Treatments LAB FINDINGS: potassium 3.1 L Based on the above, could you clarify in the Progress Notes the appropriate diagnosis, if significant, that supports the above abnormalities and additional evaluation, monitoring, and/or treatment rendered: * Hypokalemia or other etiology of labs * Labs indicate a diagnosis of (please specify) * Other (please specify) * Unable to determine Use of terms such as suspected, likely, concern for, or probable (associated with a specific diagnosis that is being evaluated, monitored, or treated as if it exists) are acceptable and can be coded in the inpatient setting, when documented at the time of discharge. Thank you, Jennifer Mercer [facility], CDIS Extension: [phone] Please use your independent medical judgment in providing your response. THIS QUERY IS PART OF THE PERMANENT MEDICAL RECORD Provider Response: Other Other Diagnosis: hypokalemia
--- NOTE | 2022-10-30 08:27 | MHC.CDI.CONC ---
CDI Concurrent Query Documentation Clarification: PHYSICIAN'S DOCUMENTATION REQUEST Date of Query: 10/30/22 0828 Patient Name: Ana Hall Admit Date: 10/23/22 Dear Doctor, A review of the medical record indicates additional documentation may be needed. Please review below and update the documentation accordingly. Clinical Indicators: Is there a diagnosis that correlates with these lab findings: Risk Factors/Clinical Indicators/Treatments LAB FINDINGS: magnesium 1.1 L Magnesium oxide Based on the above, could you clarify in the Progress Notes the appropriate diagnosis, if significant, that supports the above abnormalities and additional evaluation, monitoring, and/or treatment rendered: Hypomagnesemia Labs indicate a diagnosis of (please specify) Other (please specify) Unable to determine Use of terms such as suspected, likely, concern for, or probable (associated with a specific diagnosis that is being evaluated, monitored, or treated as if it exists) are acceptable and can be coded in the inpatient setting, when documented at the time of discharge. Thank you, Jennifer Mercer [facility], CDIS Extension: [phone] Please use your independent medical judgment in providing your response. THIS QUERY IS PART OF THE PERMANENT MEDICAL RECORD Provider Response: Other Other Diagnosis: hypomagnesemia
[2022-10-30 08:52] LABS: Hematocrit 22.1 % (37.0-47.0); Mean Corpuscular HGB Conc 36.2 g/dl (31.0-35.0); Mean Corpuscular Hemoglobin 39.2 pg (27.0-33.0); Mean Corpuscular Volume 108.3 fL (80.0-98.0); Mean Platelet Volume 11.3 fL (9.4-12.3); NRBC Pct Auto 0.3 /100WBC (0.0-0.2); Platelet Count 409 X10*3/uL (160-400); Red Blood Count 2.04 X10*6/uL (4.20-5.50); Red Cell Distribution Width 15.7 % (11.0-16.0); White Blood Count 25.5 X10*3/uL (4.8-10.8)
[2022-10-30 09:13] LABS: Anion Gap 17 (12-20); Blood Urea Nitrogen 13 mg/dL (9-16); Calcium 6.7 mg/dL (8.4-10.2); Carbon Dioxide 17 mmol/L (22-29); Chloride 101 mmol/L (96-108); Creatinine Clr Calc Pharmacy 43.8; Estimated Glomerular Filt Rate > 60; Glucose Random 68 mg/dL (60-115); Sodium 130 mmol/L (135-145)
[2022-10-30] MEDS: Aspirin Enteric Coated 81 MG TABLET.DR PO (09:14)
[2022-10-30] MEDS: Cholecalciferol (Vitamin D3) 25 MCG TABLET PO (09:14)
[2022-10-30] MEDS: Thiamine HCL 100 MG TABLET PO (09:14)
[2022-10-30] MEDS: Folic Acid 1 MG TABLET 2 MG PO (09:14)
[2022-10-30] MEDS: oxyCODONE HCl Immed Release 5 MG TABLET PO ×2 (09:15→19:29)
[2022-10-30] MEDS: Lidocaine 4 % Patch ADH..PATCH 1 PATCH TRANSDERMA (09:16)
[2022-10-30] MEDS: Magnesium Oxide 400 MG TABLET PO ×2 (09:16→18:09)
[2022-10-30] MEDS: Metoprolol Tartrate 25 MG TABLET PO (09:16)
[2022-10-30] MEDS: Nicotine 21 MG PATCH.TD24 TRANSDERMA (09:17)
[2022-10-30] MEDS: Fluticasone Propionate Nasal 16 GM SPRAY 2 SPRAY NOSTRIL-B (09:19)
--- NOTE | 2022-10-30 10:38 | MHC.CLN ---
F/U PO INTAKE SLIGHTLY VARIABLE; 100% X 4 MEALS, 25%, 50% WT REMAINS UNCHANGED 38.5KG DIET RX: REGULAR-APPROPRIATE ENSURE BID PROVIDES ADDITIONAL 700KCALS, 40G PROTEIN CONTINUE TO MONITOR PO INTAKE CLOSELY
[2022-10-30] MEDS: cefTRIAXone sodium 2 GM in 0.9 % Sodium Chloride 50 ML IV (10:54)
--- NOTE | 2022-10-30 11:39 | MHC.CM.PN ---
Per ROUNDS discussion, Patient remains febrile and is not medically cleared for dc; PT recommends STR and CM will continue to follow.
[2022-10-30 13:40] LABS: Folate 7.5 ng/mL (> or = 4.0); Vitamin B12 > 2000 pg/mL (200-900)
[2022-10-30] MEDS: Loperamide HCl 2 MG CAPSULE PO ×2 (13:44→18:08)
[2022-10-30] MEDS: Omeprazole 20 MG CAPSULE.DR PO (13:45)
[2022-10-30] MEDS: Albumin Human 25 % 50 ML 100 ML IV (13:55)
[2022-10-30 13:56] LABS: MRSA Nasal PCR NEGATIVE (Negative); SA Nasal PCR POSITIVE (Negative)
[2022-10-30 14:13] LABS: Ferritin 2464 ng/mL (10-250)
[2022-10-30] MEDS: Gabapentin 100 MG CAPSULE PO (14:20)
[2022-10-30] MEDS: Azithromycin 500 MG in 0.9 % Sodium Chloride 250 ML 125 MG IV (14:21)
[2022-10-30] MEDS: Albuterol/Iprat 2.5/0.5MG 3 ML AMPUL.NEB INHALE ×2 (14:35→18:59)
[2022-10-30 14:58] LABS: Iron 22 mcg/dL (30-160); Percent Iron Saturation 17 % (15-50); Total Iron Binding Capacity 127 mcg/dL (228-428); Unsaturated Iron Binding 105 ug/dL
--- NOTE | 2022-10-30 16:06 | HO.PM.IMPN ---
Subjective Subjective Date of Service: 10/31/22 Interval History: follow up:rib fracture ,electrolytic abnormalities, fevers Review of Systems has episode of fever this mornin,right lower rib cage pain not sob,has some dry cough She has diarrhea but unchanged from before, no abdominal pain. Physical Exam Vital Signs: Vital Signs: Last Vital Signs Temp 97.5 F 10/30/22 15:21 Pulse 69 10/30/22 15:21 Resp 20 10/30/22 15:21 BP 99/59 L 10/30/22 15:21 Pulse Ox 98 10/30/22 15:21 O2 Del Method 10/30/22 15:21 O2 Flow Rate 2 10/30/22 15:21 BMI result Body Mass Index 15.5 Constitutional : Awake, ? interactive and in mild distress Neck : Normal inspection, Supple Cardiovascular : RRR, no JVP, no lower extremity edema Respiratory : good bilateral air entry,? no crackles, wheezes or rhonchi Gastrointestinal:? soft, lax, Normal bowel sounds, Non tender Skin : Warm, Dry Neurological : Alert , oriented x3, mild left upper? arm weakness Objective Data Active Medications Acetaminophen (Acetaminophen 325 Mg Tablet) 650 mg PO Q6H PRN PRN Reason: Pain, Mild (Pain Scale 1-3) Last Admin: 10/30/22 08:12 Dose: 650 mg Documented By: BIJAL Albuterol Sulfate (Albuterol Sulfate (0.083%) 2.5 Mg/3 Ml Vial.Neb) 2.5 mg INHALE Q4H PRN PRN Reason: Shortness of Breath/Wheezing Albuterol/Ipratropium (Albuterol/Iprat 2.5/0.5mg 3 Ml Ampul.Neb) 3 ml INHALE RQ6H WHILE AWAKE [facility] Last Admin: 10/30/22 14:35 Dose: 3 ml Documented By: MELVIN Aspirin (Aspirin Enteric Coated 81 Mg Tablet.) 81 mg PO DAILY [facility] Last Admin: 10/30/22 09:14 Dose: 81 mg Documented By: BIJAL Atorvastatin Calcium (Atorvastatin Calcium 80 Mg Tablet) 80 mg PO BEDTIME [facility] Last Admin: 10/29/22 20:23 Dose: 80 mg Documented By: JOSE Fluticasone Propionate (Fluticasone Propionate Nasal 16 Gm [place]) 2 spray NOSTRIL-B DAILY [facility] Last Admin: 10/30/22 09:19 Dose: 2 spray Documented By: BIJAL Folic Acid (Folic Acid 1 Mg Tablet) 2 mg PO DAILY [facility] Last Admin: 10/30/22 09:14 Dose: 2 mg Documented By: BIJAL Gabapentin (Gabapentin 100 Mg Capsule) 100 mg PO BID PRN PRN Reason: Pain (Scale Score 1-3) Last Admin: 10/30/22 14:20 Dose: 100 mg Documented By: BIJAL Ceftriaxone Sodium 2 gm/ (Sodium Chloride) 50 mls @ 100 mls/hr IV Q24H [facility] Last Infusion: 10/30/22 15:08 Dose: 100 mls/hr Documented By: BIJAL Azithromycin 500 mg/ Sodium (Chloride) 250 mls @ 125 mls/hr IV Q24H [facility] Last Admin: 10/30/22 14:21 Dose: 125 mls/hr Documented By: BIJAL Lidocaine (Lidocaine 4 % Patch Adh..Patch) 1 patch TRANSDERMA DAILY [facility]; Protocol Last Admin: 10/30/22 09:16 Dose: 1 patch Documented By: BIJAL Loperamide HCl (Loperamide Hcl 2 Mg Capsule) 2 mg PO Q4H [facility] Last Admin: 10/30/22 13:44 Dose: 2 mg Documented By: BIJAL Lorazepam (Lorazepam 0.5 Mg Tablet) 0.5 mg PO ONCE PRN PRN Reason: agitation Last Admin: 10/29/22 20:23 Dose: 0.5 mg Documented By: JOSE Magnesium Oxide (Magnesium Oxide 400 Mg Tablet) 400 mg PO BIDPC [facility] Last Admin: 10/30/22 09:16 Dose: 400 mg Documented By: BIJAL Metoprolol Tartrate (Metoprolol Tartrate 25 Mg Tablet) 25 mg PO BID [facility]; Protocol Last Admin: 10/30/22 09:16 Dose: 25 mg Documented By: BIJAL Nicotine (Nicotine 21 Mg Patch.Td24) 21 mg TRANSDERMA DAILY PRN PRN Reason: Nicotine Cravings Last Admin: 10/29/22 13:17 Dose: 21 mg Documented By: TONYA Nicotine (Nicotine 21 Mg Patch.Td24) 21 mg TRANSDERMA DAILY [facility] Last Admin: 10/30/22 09:17 Dose: 21 mg Documented By: BIJAL Omeprazole (Omeprazole 20 Mg Capsule.Dr) 20 mg PO DAILY@0630 [facility] Last Admin: 10/30/22 13:45 Dose: 20 mg Documented By: BIJAL Ondansetron HCl (Ondansetron Hcl 4 Mg/2 Ml Vial) 4 mg IVPUSH Q8H PRN PRN Reason: Nausea and Vomiting Oxycodone HCl (Oxycodone Hcl Immed Release 5 Mg Tablet) 5 mg PO Q8H PRN PRN Reason: Pain, Severe (Pain Scale 7-10) Last Admin: 10/30/22 09:15 Dose: 5 mg Documented By: BIJAL Pharmacy Consult (Consult Rx Perform Med Rec) 1 each MISCELLANE ONCE PRN PRN Reason: Consult order Pharmacy Consult (Consult Rx Etoh Phenob Im/Po) 1 each MISCELLANE ONCE PRN; Protocol PRN Reason: Consult order Thiamine HCl (Thiamine Hcl 100 Mg Tablet) 100 mg PO DAILY [facility] Last Admin: 10/30/22 09:14 Dose: 100 mg Documented By: BIJAL Vitamin D (Cholecalciferol (Vitamin D3) 25 Mcg Tablet) 25 mcg PO DAILY [facility] Last Admin: 10/30/22 09:14 Dose: 25 mcg Documented By: BIJAL Labs CBC & Chem 7: 10/31/22 09:31 10/30/22 08:46 Labs: Laboratory Results - last 24 hr 10/30/22 10/30/22 10/30/22 08:46 08:46 08:46 MCV 108.3 H MCH 39.2 H MCHC 36.2 H RDW 15.7 Plt Count 409 H D MPV 11.3 Absolute Nucleated RBC 0.080 H Nucleated RBC % (auto) 0.3 H Anion Gap 17 Estim Creat Clear Calc 43.8 Estimated GFR > 60 Random Glucose 68 Calcium 6.7 L Iron 22 L TIBC 127 L % Saturation 17 Unsat Iron Binding 105 Ferritin 2464 H Vitamin B12 > 2000 H Folate 7.5 Nasal Screen MRSA (PCR) Nasal S. aureus Screen Nasal MRSA/S.aureus Interp 10/30/22 12:36 MCV MCH MCHC RDW Plt Count MPV Absolute Nucleated RBC Nucleated RBC % (auto) Anion Gap Estim Creat Clear Calc Estimated GFR Random Glucose Calcium Iron TIBC % Saturation Unsat Iron Binding Ferritin Vitamin B12 Folate Nasal Screen MRSA (PCR) NEGATIVE Nasal S. aureus Screen POSITIVE A Nasal MRSA/S.aureus Interp SEE NOTE Assessment and Plan (1) Gram-negative bacteremia: Status: Acute (2) Acute embolic stroke: Status: Acute (3) Alcohol abuse with withdrawal: Status: Acute (4) NSVT (nonsustained ventricular tachycardia): Status: Acute (5) Hypomagnesemia: Status: Acute (6) Hypokalemia: Status: Acute Plan 62-year-old female with past medical history of alcohol abuse presents to the hospital with complaints of weakness # NSVT seems improved with electrolytic replacement. Pending echo cardio eval noted-echo added continue asa,statin, metoprolol . # alcohol abuse with withdrawal ? improving ?continue phenobarb protocol, to give extra doses If needed thiamine and folic acid #? acute/ subacute right precentral gyrus stroke ?multiple findings seen on head CT ?MRI showed evidence of right precentral get risks stroke along with? cerebral and cerebellar atrophy ?other MRI findings suggestive of chronic underlying cerebral and cerebellar loss from chronic alcoholism ?continue aspirin and high-dose statin, blood pressure control ?Neurology input appreciated ?echo: Conclusions: - 1.? Normal LV systolic and diastolic function? 2. Mildly dilated right ventricle with severe LV systolic? dysfunction of unclear etiology? 3. Mild biatrial enlargement without any evidence of interatrial shunting ? 4. Mild mitral regurgitation ? 5. Qxve-yy-gakrumxe tricuspid regurgitation? 6. Mildly elevated right atrial pressure with upper limits of? ? normal right ventricular systolic pressure ? 7. No gross pericardial effusion? carotid ultrasound with no major stenosis # YAKELIN secondary to dehydration ?resolved with IV fluid follow BMP # COPD not in exacerbation Duonebs Incentive spirometry wean O2 down as tolerated possible pneumonia: nasal mrsa positive Elevated WBC count improvin,no fevers Repeat blood culture added procalcitonin levels res panel tachycardia due to pain repeat blood culture-neg@24hrs d/w Id -switched to iv levaquin,in addition added vanco ( since nasal mrsa positive) to cover pneumonia . #? hyponatremia Sodium of 130, likely related to dehydration and chronic alcoholism Follow BMP # thrombocytosis reactive #? Enterobacter bacteremia secondary to UTI positive UA ?final blood cultures growing sensitive Enterobacter? ?continue ceftriaxone to finish 2 weeks total of Abx , ID Eval added. Imodium for diarrhea (-ve CDiff) intially ed started with 30cc bolus , antibiotics ). # frequent falls\rib fractures likely secondary to above specially CVA CT chest showed Nondisplaced fracture right posterior lateral eighth and ninth ribs without hematoma or pneumothorax. physical therapy consulted lidocaine patch,oob ,inecntive nahun, oxycodone prn # macrocytic anemia ?secondary to alcohol abuse and folic acid deficiency ?start folic acid replacement #? moderate malnutrition BMI of 15.5 Supplement added Hypomagnesemia and hypokalemia repleted and resolved. DVT prophylaxis:? SCDs for low platelets ongoing hospitalisation need: Acute stroke, YAKELIN, pneumonia, bacteremia-need Iv antibiotics,and safe discharge plan Time Spent With Patient Time: Total time managing care of this patient today ____ minutes. Quality Stroke Does the patient have a stroke diagnosis?: No VTE Prior VTE?: No VTE Risk Level:: Medical - moderate - high VTE Device Contraindication: N/A - Device Ordered VTE Drug Contraindication: Treatment Not Indicated
[2022-10-30 16:19] LABS: Procalcitonin 7.33 ng/mL
[2022-10-30] MEDS: levoFLOXacin/D5W 750 MG/150 ML PIGGYBACK 100 MG IV (18:07)
[2022-10-30] MEDS: Thiamine HCL 100 MG TABLET 200 MG PO (19:28)
[2022-10-30] MEDS: Atorvastatin Calcium 80 MG TABLET PO (19:29)
--- NOTE | 2022-10-30 23:22 | PM.IDPN ---
Subjective Subjective Date of Service: 10/30/22 Critical Care Time (minutes): 15 Comment: She has fever x1 at 103 this am Objective Data Labs CBC & Chem 7: 10/30/22 08:46 10/30/22 08:46 Labs: Laboratory Results - last 24 hr 10/30/22 10/30/22 10/30/22 08:46 08:46 08:46 WBC 25.5 H RBC 2.04 L Hgb 8.0 L Hct 22.1 L MCV 108.3 H MCH 39.2 H MCHC 36.2 H RDW 15.7 Plt Count 409 H D MPV 11.3 Absolute Nucleated RBC 0.080 H Nucleated RBC % (auto) 0.3 H Sodium 130 L Potassium 5.0 Chloride 101 Carbon Dioxide 17 L Anion Gap 17 BUN 13 Creatinine 0.80 Estim Creat Clear Calc 43.8 Estimated GFR > 60 Random Glucose 68 Calcium 6.7 L Iron 22 L TIBC 127 L % Saturation 17 Unsat Iron Binding 105 Ferritin 2464 H Vitamin B12 Folate Procalcitonin 7.33 Nasal Screen MRSA (PCR) Nasal S. aureus Screen Nasal MRSA/S.aureus Interp 10/30/22 10/30/22 08:46 12:36 WBC RBC Hgb Hct MCV MCH MCHC RDW Plt Count MPV Absolute Nucleated RBC Nucleated RBC % (auto) Sodium Potassium Chloride Carbon Dioxide Anion Gap BUN Creatinine Estim Creat Clear Calc Estimated GFR Random Glucose Calcium Iron TIBC % Saturation Unsat Iron Binding Ferritin Vitamin B12 > 2000 H Folate 7.5 Procalcitonin Nasal Screen MRSA (PCR) NEGATIVE Nasal S. aureus Screen POSITIVE A Nasal MRSA/S.aureus Interp SEE NOTE Microbiology Microbiology Results: Microbiology 10/23/22 20:53 Blood - Venous Blood Culture - Final Enterobacter aerogenes 10/23/22 20:53 Blood - Venous Blood Culture - Final Enterobacter aerogenes 10/23/22 21:29 Urine clean catch - Urine guthrie top Urine Culture - Final Physical Exam Vital Signs: Vital Signs: Last Vital Signs Temp 98.0 F 10/30/22 19:20 Pulse 79 10/30/22 19:20 Resp 20 10/30/22 19:20 BP 97/58 L 10/30/22 19:20 Pulse Ox 94 10/30/22 19:20 O2 Del Method 10/30/22 19:20 O2 Flow Rate 2 10/30/22 19:20 BMI result Body Mass Index 15.5 Const: General: cooperative Resp: Effort & Inspection: normal respiratory effort Cardio: Rate: regular rate Rhythm: regular rhythm GI: Palpation (GI): nontender Assessment and Plan Assessment and plan (1) Gram-negative bacteremia: Status: Acute Plan Fever of unknown origin Probably lung source Change to po Levaquin 750 mg daily for 14 days. Consider MRSA nares Time Spent With Patient Time: Total time managing care of this patient today ____ minutes.
[2022-10-31] VITALS (7 sets, daily range): BP systolic 93–130; BP diastolic 54–78; PULSE 80–92; RESP 16–20; TEMP 36.5–37.8; O2SAT 91–100
[2022-10-31] MEDS: Omeprazole 20 MG CAPSULE.DR PO (04:35)
[2022-10-31] MEDS: oxyCODONE HCl Immed Release 5 MG TABLET PO ×3 (04:36→20:44)
[2022-10-31] MEDS: Loperamide HCl 2 MG CAPSULE PO ×5 (04:36→20:45)
[2022-10-31] MEDS: Lidocaine 4 % Patch ADH..PATCH 1 PATCH TRANSDERMA ×2 (09:20→16:20)
[2022-10-31] MEDS: Thiamine HCL 100 MG TABLET 200 MG PO ×2 (09:20→20:45)
[2022-10-31] MEDS: Nicotine 21 MG PATCH.TD24 TRANSDERMA (09:20)
[2022-10-31] MEDS: Folic Acid 1 MG TABLET 2 MG PO (09:20)
[2022-10-31] MEDS: Cholecalciferol (Vitamin D3) 25 MCG TABLET PO (09:21)
[2022-10-31] MEDS: Magnesium Oxide 400 MG TABLET PO ×2 (09:21→17:02)
[2022-10-31] MEDS: Aspirin Enteric Coated 81 MG TABLET.DR PO (09:21)
[2022-10-31] MEDS: Fluticasone Propionate Nasal 16 GM SPRAY 2 SPRAY NOSTRIL-B (09:38)
[2022-10-31 10:02] LABS: Hematocrit 23.6 % (37.0-47.0); Hemoglobin 8.3 g/dl (12.0-16.0); Mean Corpuscular HGB Conc 35.2 g/dl (31.0-35.0); Mean Corpuscular Hemoglobin 39.3 pg (27.0-33.0); Platelet Count 474 X10*3/uL (160-400); Red Blood Count 2.11 X10*6/uL (4.20-5.50); Red Cell Distribution Width 15.9 % (11.0-16.0); White Blood Count 21.5 X10*3/uL (4.8-10.8)
[2022-10-31 10:03] LABS: Mean Corpuscular Volume 111.8 fL (80.0-98.0)
[2022-10-31] MEDS: Doxycycline Hyclate 100 MG in 0.9 % Sodium Chloride 250 ML 166.67 MG IV ×2 (12:30→23:22)
[2022-10-31] MEDS: Albuterol/Iprat 2.5/0.5MG 3 ML AMPUL.NEB INHALE (14:36)
[2022-10-31 15:16] LABS: Creatinine Clr Calc Pharmacy 43.3; Estimated Glomerular Filt Rate > 60
[2022-10-31] MEDS: Acetaminophen 325 MG TABLET 650 MG PO ×2 (15:43→23:26)
[2022-10-31] MEDS: vancomycin HCL 1,000 MG in 0.9 % Sodium Chloride 250 ML 270 MG IV (15:44)
--- NOTE | 2022-10-31 16:46 | PHA.PROG ---
Admission Date/Time: October 23, 2022 22:28 Indication: PNA Weight in k.555 kg Adjusted body weight in Kg: [place] body weight in Kg: Obesity Dosing Indication % IBW: Serum Creatinine - Last 168 Hours 10/28/22 10/29/22 10/30/22 10:52 05:38 08:46 Creatinine 0.77 0.78 0.80 10/31/22 14:35 Creatinine 0.81 Estimated CrCl and GFR - Last 168 Hours 10/28/22 10/29/22 10/30/22 10:52 05:38 08:46 Estim Creat Clear Calc 45.5 44.9 43.8 Estimated GFR > 60 > 60 > 60 10/31/22 14:35 Estim Creat Clear Calc 43.3 Estimated GFR > 60 Vancomycin Loading Dose: 1000 MG Current Vancomycin Dosing Regimen: 13MG/KG OR 500MG Q12H Vancomycin Monitoring using AUC goal of 400 - 600 range with trough as surrogate marker: AUC 490, TROUGH 16 Date and Time for next Vancomycin Level to be DRAWN: RANDOM 11/01 @1300 Pharmacist Comments on Vancomycin Plan: - RANDOM AFTER 2 SINCE PHARMACY WILL BE CLOSED AT TIME OF TRUE TROUGH Vancomycin dosing will take advantage of [employer] as a clinical decision support tool that uses Bayesian modeling to calculate individual patient's pharmacokinetic parameters and forecast the patient's drug concentration time course with the target goal AUC 24 range of 400 - 600 mg/L/hr.
[2022-10-31] MEDS: levoFLOXacin/D5W 750 MG/150 ML PIGGYBACK 100 MG IV (17:02)
[2022-10-31] MEDS: Atorvastatin Calcium 80 MG TABLET PO (20:45)
[2022-11-01] VITALS (9 sets, daily range): BP systolic 90–105; BP diastolic 52–64; PULSE 80–90; RESP 16–20; TEMP 35.9–37.4; O2SAT 90–95
[2022-11-01] MEDS: vancomycin HCL 500 MG in 0.9 % Sodium Chloride 100 ML 110 MG IV (02:41)
[2022-11-01] MEDS: oxyCODONE HCl Immed Release 5 MG TABLET PO ×3 (04:33→21:14)
[2022-11-01] MEDS: Omeprazole 20 MG CAPSULE.DR PO ×2 (04:34→21:14)
[2022-11-01] MEDS: Loperamide HCl 2 MG CAPSULE PO ×5 (04:34→21:14)
[2022-11-01 06:27] LABS: Creatinine Clr Calc Pharmacy 44.3; Estimated Glomerular Filt Rate > 60
--- NOTE | 2022-11-01 07:41 | P.PNIM_ITS ---
Subjective Subjective Date of Service: 11/01/22 Interval History: pneumonia Review of Systems sob seems improvin still has rib cage pain Physical Exam Vital Signs: Vital Signs: Last Vital Signs BMI result Constitutional : Awake, ? interactive and in mild distress Neck : Normal inspection, Supple Cardiovascular : RRR, no JVP, no lower extremity edema Respiratory : good bilateral air entry,? no crackles, wheezes or rhonchi Gastrointestinal:? soft, lax, Normal bowel sounds, Non tender Skin : Warm, Dry Neurological : Alert , oriented x3 Vitals from 11/01/22 reviewed. Objective Data Active Medications Acetaminophen (Acetaminophen 325 Mg Tablet) 650 mg PO Q6H PRN PRN Reason: Pain, Mild (Pain Scale 1-3) Last Admin: 10/31/22 23:26 Dose: 650 mg Documented By: ANA Albuterol/Ipratropium (Albuterol/Iprat 2.5/0.5mg 3 Ml Ampul.Neb) 3 ml INHALE RQ6H WHILE AWAKE [facility] Last Admin: 10/31/22 19:10 Dose: Not Given Documented By: TIM Non-Admin Reason: Patient Refused Aspirin (Aspirin Enteric Coated 81 Mg Tablet.) 81 mg PO DAILY [facility] Last Admin: 10/31/22 09:21 Dose: 81 mg Documented By: ZULEYKA Atorvastatin Calcium (Atorvastatin Calcium 80 Mg Tablet) 80 mg PO BEDTIME [facility] Last Admin: 10/31/22 20:45 Dose: 80 mg Documented By: ANA Fluticasone Propionate (Fluticasone Propionate Nasal 16 Gm [place]) 2 spray NOSTRIL-B DAILY [facility] Last Admin: 10/31/22 09:38 Dose: 2 spray Documented By: ZULEYKA Folic Acid (Folic Acid 1 Mg Tablet) 2 mg PO DAILY [facility] Last Admin: 10/31/22 09:20 Dose: 2 mg Documented By: ZULEYKA Gabapentin (Gabapentin 100 Mg Capsule) 100 mg PO BID PRN PRN Reason: Pain (Scale Score 1-3) Last Admin: 10/30/22 14:20 Dose: 100 mg Documented By: BIJAL Levofloxacin (Levaquin) 750 mg in 150 mls @ 100 mls/hr IV Q24H [facility] Last Infusion: 10/31/22 19:03 Dose: 0 mls/hr Documented By: ANA Doxycycline Hyclate 100 mg/ (Sodium Chloride) 250 mls @ 166.67 mls/hr IV Q12H [facility] Last Infusion: 11/01/22 00:56 Dose: 0 mls/hr Documented By: ANA Vancomycin HCl 500 mg/ Sodium (Chloride) 110 mls @ 110 mls/hr IV Q12H [facility] Last Infusion: 11/01/22 03:43 Dose: 0 mls/hr Documented By: ANA Lidocaine (Lidocaine 4 % Patch Adh..Patch) 1 patch TRANSDERMA DAILY [facility]; Protocol Last Admin: 10/31/22 09:20 Dose: 1 patch Documented By: ZULEYKA Lidocaine (Lidocaine 4 % Patch Adh..Patch) 1 patch TRANSDERMA DAILY [facility]; Protocol Last Admin: 10/31/22 11:15 Dose: Not Given Documented By: ZULEYKA Non-Admin Reason: Duplicate Order Lidocaine (Lidocaine 4 % Patch Adh..Patch) 1 patch TRANSDERMA DAILY [facility]; Protocol Last Admin: 10/31/22 16:20 Dose: 1 patch Documented By: ZULEYKA Loperamide HCl (Loperamide Hcl 2 Mg Capsule) 2 mg PO Q4H [facility] Last Admin: 11/01/22 04:34 Dose: 2 mg Documented By: ANA Magnesium Oxide (Magnesium Oxide 400 Mg Tablet) 400 mg PO BIDPC [facility] Last Admin: 10/31/22 17:02 Dose: 400 mg Documented By: ZULEYKA Metoprolol Tartrate (Metoprolol Tartrate 25 Mg Tablet) 25 mg PO BID [facility]; Protocol Last Admin: 10/30/22 09:16 Dose: 25 mg Documented By: BIJAL Nicotine (Nicotine 21 Mg Patch.Td24) 21 mg TRANSDERMA DAILY PRN PRN Reason: Nicotine Cravings Last Admin: 10/29/22 13:17 Dose: 21 mg Documented By: TONYA Nicotine (Nicotine 21 Mg Patch.Td24) 21 mg TRANSDERMA DAILY [facility] Last Admin: 10/31/22 09:20 Dose: 21 mg Documented By: ZULEYKA Omeprazole (Omeprazole 20 Mg Capsule.Dr) 20 mg PO DAILY@0630 [facility] Last Admin: 11/01/22 04:34 Dose: 20 mg Documented By: ANA Ondansetron HCl (Ondansetron Hcl 4 Mg/2 Ml Vial) 4 mg IVPUSH Q8H PRN PRN Reason: Nausea and Vomiting Oxycodone HCl (Oxycodone Hcl Immed Release 5 Mg Tablet) 5 mg PO Q8H PRN PRN Reason: Pain, Severe (Pain Scale 7-10) Last Admin: 11/01/22 04:33 Dose: 5 mg Documented By: ANA Pharmacy Consult (Consult Rx Perform Med Rec) 1 each MISCELLANE ONCE PRN PRN Reason: Consult order Pharmacy Consult (Consult Rx Etoh Phenob Im/Po) 1 each MISCELLANE ONCE PRN; Protocol PRN Reason: Consult order Pharmacy Consult (Consult Rx Vancomycin Dosing) 1 each MISCELLANE DAILY PRN PRN Reason: Consult order Thiamine HCl (Thiamine Hcl 100 Mg Tablet) 200 mg PO BID [facility] Last Admin: 10/31/22 20:45 Dose: 200 mg Documented By: ANA Vitamin D (Cholecalciferol (Vitamin D3) 25 Mcg Tablet) 25 mcg PO DAILY [facility] Last Admin: 10/31/22 09:21 Dose: 25 mcg Documented By: ZULEYKA Labs CBC & Chem 7: 10/31/22 09:31 11/01/22 05:34 Labs: Laboratory Results - last 24 hr 10/30/22 10/31/22 10/31/22 19:33 09:31 14:35 MCV 111.8 H MCH 39.3 H MCHC 35.2 H RDW 15.9 Plt Count 474 H MPV 11.0 Absolute Nucleated RBC 0.000 Nucleated RBC % (auto) 0.0 Estim Creat Clear Calc 43.3 Estimated GFR > 60 Respiratory Panel Shea Cancelled Adenovirus (Rapid PCR) Cancelled B.pert (TEM-PCR) Cancelled B.parapertussis DNA PCR Cancelled C. pneumoniae DNA (PCR) Cancelled Coronavirus OC43 (PCR) Cancelled Coronavirus HKU1 (PCR) Cancelled Coronavirus 229E (PCR) Cancelled Coronavirus NL63 (PCR) Cancelled Human Metapneumovir PCR Cancelled Influenza A (RT-PCR) Cancelled Influenza B (RT-PCR) Cancelled M. pneumoniae (PCR) Cancelled Parainfluenza 1 (PCR) Cancelled Parainfluenza 2 (PCR) Cancelled Parainfluenza 3 (PCR) Cancelled Parainfluenza 4 (PCR) Cancelled RSV (PCR) Cancelled Entero/Rhino (PCR) Cancelled SARS-CoV-2 RNA (RT-PCR) Cancelled 11/01/22 05:34 MCV MCH MCHC RDW Plt Count MPV Absolute Nucleated RBC Nucleated RBC % (auto) Estim Creat Clear Calc 44.3 Estimated GFR > 60 Respiratory Panel Shea Adenovirus (Rapid PCR) B.pert (TEM-PCR) B.parapertussis DNA PCR C. pneumoniae DNA (PCR) Coronavirus OC43 (PCR) Coronavirus HKU1 (PCR) Coronavirus 229E (PCR) Coronavirus NL63 (PCR) Human Metapneumovir PCR Influenza A (RT-PCR) Influenza B (RT-PCR) M. pneumoniae (PCR) Parainfluenza 1 (PCR) Parainfluenza 2 (PCR) Parainfluenza 3 (PCR) Parainfluenza 4 (PCR) RSV (PCR) Entero/Rhino (PCR) SARS-CoV-2 RNA (RT-PCR) Microbiology Microbiology Results: Microbiology 10/30/22 08:46 Blood Culture - Preliminary Blood - Venous No growth after 24 hours. 10/30/22 08:46 Blood Culture - Preliminary Blood - Venous No growth after 24 hours. Assessment and Plan (1) Gram-negative bacteremia: Status: Acute (2) Acute embolic stroke: Status: Acute (3) Alcohol abuse with withdrawal: Status: Acute (4) NSVT (nonsustained ventricular tachycardia): Status: Acute (5) Hypomagnesemia: Status: Acute (6) Hypokalemia: Status: Acute Plan 62-year-old female with past medical history of alcohol abuse presents to the hospital with complaints of weakness # NSVT seems improved with electrolytic replacement. Pending echo cardio eval noted-echo added continue asa,statin, metoprolol . # alcohol abuse with withdrawal ? improving ?continue phenobarb protocol, to give extra doses If needed thiamine and folic acid #? acute/ subacute right precentral gyrus stroke ?multiple findings seen on head CT ?MRI showed evidence of right precentral get risks stroke along with? cerebral and cerebellar atrophy ?other MRI findings suggestive of chronic underlying cerebral and cerebellar loss from chronic alcoholism ?continue aspirin and high-dose statin, blood pressure control ?Neurology input appreciated ?echo: Conclusions: - 1.? Normal LV systolic and diastolic function? 2. Mildly dilated right ventricle with severe LV systolic? dysfunction of unclear etiology? 3. Mild biatrial enlargement without any evidence of interatrial shunting ? 4. Mild mitral regurgitation ? 5. [id number] tricuspid regurgitation? 6. Mildly elevated right atrial pressure with upper limits of? ? normal right ventricular systolic pressure ? 7. No gross pericardial effusion? carotid ultrasound with no major stenosis # YAKELIN secondary to dehydration ?resolved with IV fluid follow BMP # COPD not in exacerbation Duonebs Incentive spirometry wean O2 down as tolerated possible pneumonia: nasal mrsa positive Elevated WBC count improvin,no fevers Repeat blood culture added procalcitonin levels res panel tachycardia due to pain repeat blood culture-neg@24hrs d/w Id -switched to iv levaquin,in addition added vanco ( since nasal mrsa positive) to cover pneumonia . #? hyponatremia Sodium of 130, likely related to dehydration and chronic alcoholism Follow BMP # thrombocytosis reactive #? Enterobacter bacteremia secondary to UTI positive UA ?final blood cultures growing sensitive Enterobacter? ?continue ceftriaxone to finish 2 weeks total of Abx , ID Eval added. Imodium for diarrhea (-ve CDiff) intially ed started with 30cc bolus , antibiotics ). # frequent falls\rib fractures likely secondary to above specially CVA CT chest showed Nondisplaced fracture right posterior lateral eighth and ninth ribs without hematoma or pneumothorax. physical therapy consulted lidocaine patch,oob ,inecntive nahun, oxycodone prn # macrocytic anemia ?secondary to alcohol abuse and folic acid deficiency ?start folic acid replacement #? moderate malnutrition BMI of 15.5 Supplement added Hypomagnesemia and hypokalemia repleted and resolved. DVT prophylaxis:? SCDs for low platelets ongoing hospitalisation need: Acute stroke, YAKELIN, pneumonia, bacteremia-need Iv antibiotics,and safe discharge plan Time Spent With Patient Time: Total time managing care of this patient today ____ minutes. Quality Stroke Does the patient have a stroke diagnosis?: No VTE Prior VTE?: No VTE Risk Level:: Medical - moderate - high VTE Device Contraindication: N/A - Device Ordered VTE Drug Contraindication: Treatment Not Indicated
[2022-11-01 09:05] LABS: Hematocrit 25.9 % (37.0-47.0); Hemoglobin 8.8 g/dl (12.0-16.0); Mean Corpuscular Hemoglobin 38.3 pg (27.0-33.0); Mean Platelet Volume 10.6 fL (9.4-12.3); Platelet Count 600 X10*3/uL (160-400); Red Cell Distribution Width 15.9 % (11.0-16.0)
[2022-11-01 09:10] LABS: Mean Corpuscular Volume 112.6 fL (80.0-98.0)
[2022-11-01] MEDS: Acetaminophen 325 MG TABLET 650 MG PO ×2 (09:19→15:44)
[2022-11-01] MEDS: Lidocaine 4 % Patch ADH..PATCH 1 PATCH TRANSDERMA ×2 (09:19)
[2022-11-01] MEDS: Nicotine 21 MG PATCH.TD24 TRANSDERMA (09:19)
[2022-11-01] MEDS: Thiamine HCL 100 MG TABLET 200 MG PO ×2 (09:19→21:15)
[2022-11-01] MEDS: Aspirin Enteric Coated 81 MG TABLET.DR PO (09:20)
[2022-11-01] MEDS: Magnesium Oxide 400 MG TABLET PO ×2 (09:20→18:07)
[2022-11-01] MEDS: Cholecalciferol (Vitamin D3) 25 MCG TABLET PO (09:20)
[2022-11-01] MEDS: Gabapentin 100 MG CAPSULE PO ×2 (09:20→21:14)
[2022-11-01] MEDS: Folic Acid 1 MG TABLET 2 MG PO (09:20)
[2022-11-01] MEDS: Fluticasone Propionate Nasal 16 GM SPRAY 2 SPRAY NOSTRIL-B (09:35)
--- NOTE | 2022-11-01 10:52 | MHC.CLN ---
F/U PO INTAKE 50-100% DIET RX: REGULAR-APPROPRIATE PT RECEIVES ENSURE BID PROVIDES ADDITIONAL 700KCALS, 40G PROTEIN CONTINUE TO MONITOR PO INTAKE CLOSELY
[2022-11-01] MEDS: Doxycycline Hyclate 100 MG in 0.9 % Sodium Chloride 250 ML 166.67 MG IV (11:22)
[2022-11-01 11:34] LABS: Adenovirus PCR Not Detected (Not Detect.); Bordetella parapertussis PCR Not Detected (Not Detect.); Bordetella pertussis PCR Not Detected (Not Detect.); Chlamydia pneumoniae PCR Not Detected (Not Detect.); Coronavirus 229E PCR Not Detected (Not Detect.); Coronavirus HKU1 PCR Not Detected (Not Detect.); Coronavirus NL63 PCR Not Detected (Not Detect.); Coronavirus OC43 PCR Not Detected (Not Detect.); Human metapneumovirus PCR Not Detected (Not Detect.); Influenza A PCR Not Detected (Not Detect.); Influenza B PCR Not Detected (Not Detect.); Mycoplasma pneumoniae PCR Not Detected (Not Detect.); Parainfluenza 1 PCR Not Detected (Not Detect.); Parainfluenza 2 PCR Not Detected (Not Detect.); Parainfluenza 3 PCR Not Detected (Not Detect.); Parainfluenza 4 PCR Not Detected (Not Detect.); RSV PCR Not Detected (Not Detect.); Rhino/Enterovirus PCR Not Detected (Not Detect.); SARS-CoV-2 PCR Not Detected (Not Detect.)
--- NOTE | 2022-11-01 11:38 | HO.PM.IMPN ---
Subjective Subjective Date of Service: 11/02/22 Interval History: pneumonia,generalised weak Overnight no more fever Review of Systems Ribcage pain is similar to yesterday Denies any abdominal pain or nausea or vomiting Dry cough Physical Exam Vital Signs: Vital Signs: Last Vital Signs Temp 99.4 F 11/01/22 07:33 Pulse 82 11/01/22 07:33 Resp 20 11/01/22 07:33 BP 100/57 L 11/01/22 07:33 Pulse Ox 93 11/01/22 07:33 O2 Del Method 11/01/22 07:33 O2 Flow Rate 2 10/31/22 16:00 BMI result Body Mass Index 15.5 Constitutional : Awake, ? interactive and in mild distress Neck : Normal inspection, Supple Cardiovascular : RRR, no JVP, no lower extremity edema Respiratory : good bilateral air entry,? no crackles, wheezes or rhonchi,has right side lower/lateral rib cage pain similar to yesterday. Gastrointestinal:? soft, lax, Normal bowel sounds, Non tender Skin : Warm, Dry Neurological : Alert , oriented x3 Objective Data Active Medications Acetaminophen (Acetaminophen 325 Mg Tablet) 650 mg PO Q6H PRN PRN Reason: Pain, Mild (Pain Scale 1-3) Last Admin: 11/01/22 09:19 Dose: 650 mg Documented By: ZULEYKA Albuterol/Ipratropium (Albuterol/Iprat 2.5/0.5mg 3 Ml Ampul.Neb) 3 ml INHALE RQ6H WHILE AWAKE [facility] Last Admin: 11/01/22 07:44 Dose: Not Given Documented By: MELVIN Non-Admin Reason: Patient Asleep Aspirin (Aspirin Enteric Coated 81 Mg Tablet.) 81 mg PO DAILY [facility] Last Admin: 11/01/22 09:20 Dose: 81 mg Documented By: ZULEYKA Atorvastatin Calcium (Atorvastatin Calcium 80 Mg Tablet) 80 mg PO BEDTIME [facility] Last Admin: 10/31/22 20:45 Dose: 80 mg Documented By: ANA Fluticasone Propionate (Fluticasone Propionate Nasal 16 Gm [place]) 2 spray NOSTRIL-B DAILY [facility] Last Admin: 11/01/22 09:35 Dose: 2 spray Documented By: ZULEYKA Folic Acid (Folic Acid 1 Mg Tablet) 2 mg PO DAILY [facility] Last Admin: 11/01/22 09:20 Dose: 2 mg Documented By: ZULEYKA Gabapentin (Gabapentin 100 Mg Capsule) 100 mg PO BID PRN PRN Reason: Pain (Scale Score 1-3) Last Admin: 11/01/22 09:20 Dose: 100 mg Documented By: ZULEYKA Levofloxacin (Levaquin) 750 mg in 150 mls @ 100 mls/hr IV Q24H [facility] Last Infusion: 10/31/22 19:03 Dose: 0 mls/hr Documented By: ANA Doxycycline Hyclate 100 mg/ (Sodium Chloride) 250 mls @ 166.67 mls/hr IV Q12H [facility] Last Admin: 11/01/22 11:22 Dose: 166.67 mls/hr Documented By: ZULEYKA Vancomycin HCl 500 mg/ Sodium (Chloride) 110 mls @ 110 mls/hr IV Q12H [facility] Last Infusion: 11/01/22 03:43 Dose: 0 mls/hr Documented By: ANA Lidocaine (Lidocaine 4 % Patch Adh..Patch) 1 patch TRANSDERMA DAILY [facility]; Protocol Last Admin: 11/01/22 09:19 Dose: 1 patch Documented By: ZULEYKA Lidocaine (Lidocaine 4 % Patch Adh..Patch) 1 patch TRANSDERMA DAILY [facility]; Protocol Last Admin: 11/01/22 09:19 Dose: 1 patch Documented By: ZULEYKA Lidocaine (Lidocaine 4 % Patch Adh..Patch) 1 patch TRANSDERMA DAILY [facility]; Protocol Last Admin: 11/01/22 09:34 Dose: Not Given Documented By: ZULEYKA Non-Admin Reason: Duplicate Order Loperamide HCl (Loperamide Hcl 2 Mg Capsule) 2 mg PO Q4H [facility] Last Admin: 11/01/22 09:20 Dose: 2 mg Documented By: ZULEYKA Magnesium Oxide (Magnesium Oxide 400 Mg Tablet) 400 mg PO BIDPC [facility] Last Admin: 11/01/22 09:20 Dose: 400 mg Documented By: ZULEYKA Metoprolol Tartrate (Metoprolol Tartrate 25 Mg Tablet) 25 mg PO BID [facility]; Protocol Last Admin: 10/30/22 09:16 Dose: 25 mg Documented By: BIJAL Nicotine (Nicotine 21 Mg Patch.Td24) 21 mg TRANSDERMA DAILY PRN PRN Reason: Nicotine Cravings Last Admin: 10/29/22 13:17 Dose: 21 mg Documented By: TONYA Nicotine (Nicotine 21 Mg Patch.Td24) 21 mg TRANSDERMA DAILY [facility] Last Admin: 11/01/22 09:19 Dose: 21 mg Documented By: ZULEYKA Omeprazole (Omeprazole 20 Mg Capsule.Dr) 20 mg PO DAILY@0630 [facility] Last Admin: 11/01/22 04:34 Dose: 20 mg Documented By: ANA Ondansetron HCl (Ondansetron Hcl 4 Mg/2 Ml Vial) 4 mg IVPUSH Q8H PRN PRN Reason: Nausea and Vomiting Oxycodone HCl (Oxycodone Hcl Immed Release 5 Mg Tablet) 5 mg PO Q8H PRN PRN Reason: Pain, Severe (Pain Scale 7-10) Last Admin: 11/01/22 04:33 Dose: 5 mg Documented By: ANA Pharmacy Consult (Consult Rx Perform Med Rec) 1 each MISCELLANE ONCE PRN PRN Reason: Consult order Pharmacy Consult (Consult Rx Etoh Phenob Im/Po) 1 each MISCELLANE ONCE PRN; Protocol PRN Reason: Consult order Pharmacy Consult (Consult Rx Vancomycin Dosing) 1 each MISCELLANE DAILY PRN PRN Reason: Consult order Thiamine HCl (Thiamine Hcl 100 Mg Tablet) 200 mg PO BID [facility] Last Admin: 11/01/22 09:19 Dose: 200 mg Documented By: ZULEYKA Vitamin D (Cholecalciferol (Vitamin D3) 25 Mcg Tablet) 25 mcg PO DAILY [facility] Last Admin: 11/01/22 09:20 Dose: 25 mcg Documented By: ZULEYKA Labs CBC & Chem 7: 11/01/22 08:49 11/02/22 06:00 Labs: Laboratory Results - last 24 hr 10/31/22 10/31/22 11/01/22 14:35 17:33 05:34 MCV MCH MCHC RDW Plt Count MPV Absolute Nucleated RBC Nucleated RBC % (auto) Estim Creat Clear Calc 43.3 44.3 Estimated GFR > 60 > 60 Respiratory Panel Shea See Note Adenovirus (Rapid PCR) Not Detected B.pert (TEM-PCR) Not Detected B.parapertussis DNA PCR Not Detected C. pneumoniae DNA (PCR) Not Detected Coronavirus OC43 (PCR) Not Detected Coronavirus HKU1 (PCR) Not Detected Coronavirus 229E (PCR) Not Detected Coronavirus NL63 (PCR) Not Detected Human Metapneumovir PCR Not Detected Influenza A (RT-PCR) Not Detected Influenza B (RT-PCR) Not Detected M. pneumoniae (PCR) Not Detected Parainfluenza 1 (PCR) Not Detected Parainfluenza 2 (PCR) Not Detected Parainfluenza 3 (PCR) Not Detected Parainfluenza 4 (PCR) Not Detected RSV (PCR) Not Detected Entero/Rhino (PCR) Not Detected SARS-CoV-2 RNA (RT-PCR) Not Detected 11/01/22 08:49 MCV 112.6 H MCH 38.3 H MCHC 34.0 RDW 15.9 Plt Count 600 H D MPV 10.6 Absolute Nucleated RBC 0.000 Nucleated RBC % (auto) 0.0 Estim Creat Clear Calc Estimated GFR Respiratory Panel Shea Adenovirus (Rapid PCR) B.pert (TEM-PCR) B.parapertussis DNA PCR C. pneumoniae DNA (PCR) Coronavirus OC43 (PCR) Coronavirus HKU1 (PCR) Coronavirus 229E (PCR) Coronavirus NL63 (PCR) Human Metapneumovir PCR Influenza A (RT-PCR) Influenza B (RT-PCR) M. pneumoniae (PCR) Parainfluenza 1 (PCR) Parainfluenza 2 (PCR) Parainfluenza 3 (PCR) Parainfluenza 4 (PCR) RSV (PCR) Entero/Rhino (PCR) SARS-CoV-2 RNA (RT-PCR) Microbiology Microbiology Results: Microbiology 10/30/22 08:46 Blood Culture - Preliminary Blood - Venous No growth after 48 hours. 10/30/22 08:46 Blood Culture - Preliminary Blood - Venous No growth after 48 hours. Assessment and Plan (1) Gram-negative bacteremia: Status: Acute (2) Acute embolic stroke: Status: Acute (3) Alcohol abuse with withdrawal: Status: Acute (4) NSVT (nonsustained ventricular tachycardia): Status: Acute (5) Hypomagnesemia: Status: Acute (6) Hypokalemia: Status: Acute Plan 62-year-old female with past medical history of alcohol abuse presents to the hospital with complaints of weakness # NSVT seems improved with electrolytic replacement. cardio eval noted-echo : Conclusions: - 1.? Normal LV systolic and diastolic function? 2. Mildly dilated right ventricle with severe LV systolic? dysfunction of unclear etiology? 3. Mild biatrial enlargement without any evidence of interatrial shunting ? 4. Mild mitral regurgitation ? 5. Nzaf-[id number]-[id number] tricuspid regurgitation? 6. Mildly elevated right atrial pressure with upper limits of? ? normal right ventricular systolic pressure ? 7. No gross pericardial effusion ? continue asa,statin, metoprolol . # alcohol abuse with withdrawal still shaky continue phenobarbital,thiamine and folic acid #? acute/ subacute right precentral gyrus stroke ?multiple findings seen on head CT ?MRI showed evidence of right precentral get risks stroke along with? cerebral and cerebellar atrophy ?other MRI findings suggestive of chronic underlying cerebral and cerebellar loss from chronic alcoholism ?continue aspirin and high-dose statin, blood pressure control ?Neurology input appreciated ?echo: Conclusions: - 1.? Normal LV systolic and diastolic function? 2. Mildly dilated right ventricle with severe LV systolic? dysfunction of unclear etiology? 3. Mild biatrial enlargement without any evidence of interatrial shunting ? 4. Mild mitral regurgitation ? 5. Yvly-wo-quovrycm tricuspid regurgitation? 6. Mildly elevated right atrial pressure with upper limits of? ? normal right ventricular systolic pressure ? 7. No gross pericardial effusion? carotid ultrasound with no major stenosis # YAKELIN secondary to dehydration ?resolved with IV fluid follow BMP # COPD not in exacerbation Duonebs Incentive spirometry wean O2 down as tolerated possible pneumonia: nasal mrsa positive Elevated WBC count improvin,no fevers Repeat blood culture added procalcitonin levels res panel tachycardia due to pain repeat blood culture-neg@24hrs d/w Id -switched to iv levaquin,in addition added vanco ( since nasal mrsa positive) to cover pneumonia . #? hyponatremia Sodium of 130, likely related to dehydration and chronic alcoholism Follow BMP # thrombocytosis reactive #? Enterobacter bacteremia secondary to UTI positive UA ?final blood cultures growing sensitive Enterobacter? ?continue ceftriaxone to finish 2 weeks total of Abx , ID Eval added. Imodium for diarrhea (-ve CDiff) intially ed started with 30cc bolus , antibiotics ). # frequent falls\rib fractures likely secondary to above specially CVA CT chest showed Nondisplaced fracture right posterior lateral eighth and ninth ribs without hematoma or pneumothorax. physical therapy consulted lidocaine patch,oob ,inecntive nahun, oxycodone prn # macrocytic anemia ?secondary to alcohol abuse and folic acid deficiency ?start folic acid replacement #? moderate malnutrition BMI of 15.5 Supplement added Hypomagnesemia and hypokalemia repleted and resolved. DVT prophylaxis:? SCDs for low platelets ongoing hospitalisation need: Acute stroke, YAKELIN, pneumonia, bacteremia-need Iv antibiotics,and safe discharge plan Time Spent With Patient Time: Total time managing care of this patient today ____ minutes. Quality Stroke Does the patient have a stroke diagnosis?: No VTE Prior VTE?: No VTE Risk Level:: Medical - moderate - high VTE Device Contraindication: N/A - Device Ordered VTE Drug Contraindication: Treatment Not Indicated
[2022-11-01] MEDS: PHENobarbitaL 30 MG TABLET PO ×2 (12:37→21:14)
[2022-11-01 13:38] LABS: Vancomycin Random 17.6 mcg/mL (15-20)
[2022-11-01] MEDS: Albuterol/Iprat 2.5/0.5MG 3 ML AMPUL.NEB INHALE ×2 (13:38→19:46)
--- NOTE | 2022-11-01 15:00 | MHC.CM.PN ---
per rounds pt not ready for dcdc plan remains str
[2022-11-01] MEDS: levoFLOXacin/D5W 750 MG/150 ML PIGGYBACK 100 MG IV (15:43)
[2022-11-01] MEDS: Sodium Bicarbonate 650 MG TABLET PO ×2 (15:44→21:13)
[2022-11-01] MEDS: Megestrol Acetate 20 MG TABLET PO (18:07)
[2022-11-01] MEDS: Mirtazapine 15 MG TABLET PO (21:14)
[2022-11-01] MEDS: Atorvastatin Calcium 80 MG TABLET PO (21:14)
[2022-11-02] VITALS (9 sets, daily range): BP systolic 87–135; BP diastolic 51–70; PULSE 65–123; RESP 16–20; TEMP 36.1–37.7; O2SAT 90–96
[2022-11-02] MEDS: Acetaminophen 325 MG TABLET 650 MG PO ×3 (00:13→15:46)
[2022-11-02] MEDS: Loperamide HCl 2 MG CAPSULE PO ×5 (00:13→21:13)
[2022-11-02] MEDS: Doxycycline Hyclate 100 MG in 0.9 % Sodium Chloride 250 ML 166.67 MG IV (00:18)
[2022-11-02 06:54] LABS: Creatinine Clr Calc Pharmacy 32.7; Estimated Glomerular Filt Rate 52
[2022-11-02] MEDS: Aspirin Enteric Coated 81 MG TABLET.DR PO (09:24)
[2022-11-02] MEDS: Sodium Bicarbonate 650 MG TABLET PO ×3 (09:25→21:13)
[2022-11-02] MEDS: Folic Acid 1 MG TABLET 2 MG PO (09:25)
[2022-11-02] MEDS: Omeprazole 20 MG CAPSULE.DR PO ×2 (09:25→21:13)
[2022-11-02] MEDS: PHENobarbitaL 30 MG TABLET PO ×2 (09:26→21:13)
[2022-11-02] MEDS: Cholecalciferol (Vitamin D3) 25 MCG TABLET PO (09:26)
[2022-11-02] MEDS: Magnesium Oxide 400 MG TABLET PO ×2 (09:26→15:48)
[2022-11-02] MEDS: Lidocaine 4 % Patch ADH..PATCH 1 PATCH TRANSDERMA ×3 (09:27→09:31)
[2022-11-02] MEDS: Nicotine 21 MG PATCH.TD24 TRANSDERMA (09:27)
[2022-11-02] MEDS: oxyCODONE HCl Immed Release 5 MG TABLET PO ×2 (09:36→21:14)
[2022-11-02] MEDS: Thiamine HCL 100 MG TABLET 200 MG PO ×2 (09:36→21:13)
[2022-11-02] MEDS: Gabapentin 100 MG CAPSULE PO (09:36)
--- NOTE | 2022-11-02 13:40 | P.PNIM_ITS ---
Subjective Subjective Date of Service: 11/02/22 Interval History: pneumonia,generalised weak Review of Systems Says had a difficult night could not sleep because of the bed elevation, Ribcage pain Less tender Denies any abdominal pain or nausea or vomiting Dry cough Physical Exam Vital Signs: Vital Signs: Last Vital Signs Temp 98.1 F 11/02/22 11:04 Pulse 85 11/02/22 11:04 Resp 20 11/02/22 11:04 BP 102/57 L 11/02/22 11:04 Pulse Ox 94 11/02/22 11:04 O2 Del Method 11/02/22 11:04 O2 Flow Rate 2 10/31/22 16:00 BMI result Body Mass Index 15.5 ? Constitutional : Awake, ? interactive and in mild distress Neck : Normal inspection, Supple Cardiovascular : RRR, no JVP, no lower extremity edema Respiratory : good bilateral air entry,? no crackles, wheezes or rhonchi,has right side lower/lateral rib cage pain similar to yesterday. Gastrointestinal:? soft, lax, Normal bowel sounds, Non tender Skin : Warm, Dry Neurological : Alert , oriented x3 Objective Data Active Medications Acetaminophen (Acetaminophen 325 Mg Tablet) 650 mg PO Q6H PRN PRN Reason: Pain, Mild (Pain Scale 1-3) Last Admin: 11/02/22 09:36 Dose: 650 mg Documented By: RIAN Albuterol/Ipratropium (Albuterol/Iprat 2.5/0.5mg 3 Ml Ampul.Neb) 3 ml INHALE RQ6H WHILE AWAKE [facility] Last Admin: 11/02/22 07:46 Dose: Not Given Documented By: PRESTON Non-Admin Reason: Patient Asleep Aspirin (Aspirin Enteric Coated 81 Mg Tablet.) 81 mg PO DAILY [facility] Last Admin: 11/02/22 09:24 Dose: 81 mg Documented By: RIAN Atorvastatin Calcium (Atorvastatin Calcium 80 Mg Tablet) 80 mg PO BEDTIME [facility] Last Admin: 11/01/22 21:14 Dose: 80 mg Documented By: CANDIDO Fluticasone Propionate (Fluticasone Propionate Nasal 16 Gm [place]) 2 spray NOSTRIL-B DAILY [facility] Last Admin: 11/02/22 09:32 Dose: Not Given Documented By: RIAN Non-Admin Reason: Med Not Available Folic Acid (Folic Acid 1 Mg Tablet) 2 mg PO DAILY [facility] Last Admin: 11/02/22 09:25 Dose: 2 mg Documented By: RIAN Gabapentin (Gabapentin 100 Mg Capsule) 100 mg PO BID PRN PRN Reason: Pain (Scale Score 1-3) Last Admin: 11/02/22 09:36 Dose: 100 mg Documented By: RIAN Levofloxacin (Levaquin) 750 mg in 150 mls @ 100 mls/hr IV Q24H [facility] Last Infusion: 11/01/22 17:45 Dose: 0 mls/hr Documented By: ZULEYKA Lidocaine (Lidocaine 4 % Patch Adh..Patch) 1 patch TRANSDERMA DAILY [facility]; Protocol Last Admin: 11/02/22 09:27 Dose: 1 patch Documented By: RIAN Lidocaine (Lidocaine 4 % Patch Adh..Patch) 1 patch TRANSDERMA DAILY [facility]; Pro tocol Last Admin: 11/02/22 09:30 Dose: 1 patch Documented By: RIAN Lidocaine (Lidocaine 4 % Patch Adh..Patch) 1 patch TRANSDERMA DAILY [facility]; Protocol Last Admin: 11/02/22 09:31 Dose: 1 patch Documented By: RIAN Loperamide HCl (Loperamide Hcl 2 Mg Capsule) 2 mg PO Q4H [facility] Last Admin: 11/02/22 09:26 Dose: 2 mg Documented By: RIAN Magnesium Oxide (Magnesium Oxide 400 Mg Tablet) 400 mg PO BIDPC [facility] Last Admin: 11/02/22 09:26 Dose: 400 mg Documented By: RIAN Metoprolol Tartrate (Metoprolol Tartrate 25 Mg Tablet) 25 mg PO BID [facility]; Protocol Last Admin: 10/30/22 09:16 Dose: 25 mg Documented By: FOSTEKLeonard Mirtazapine (Mirtazapine 15 Mg Tablet) 15 mg PO BEDTIME [facility] Last Admin: 11/01/22 21:14 Dose: 15 mg Documented By: CANDIDO Nicotine (Nicotine 21 Mg Patch.Td24) 21 mg TRANSDERMA DAILY PRN PRN Reason: Nicotine Cravings Last Admin: 10/29/22 13:17 Dose: 21 mg Documented By: TONYA Nicotine (Nicotine 21 Mg Patch.Td24) 21 mg TRANSDERMA DAILY [facility] Last Admin: 11/02/22 09:27 Dose: 21 mg Documented By: RIAN Omeprazole (Omeprazole 20 Mg Capsule.) 20 mg PO BID [facility] Last Admin: 11/02/22 09:25 Dose: 20 mg Documented By: RIAN Ondansetron HCl (Ondansetron Hcl 4 Mg/2 Ml Vial) 4 mg IVPUSH Q8H PRN PRN Reason: Nausea and Vomiting Oxycodone HCl (Oxycodone Hcl Immed Release 5 Mg Tablet) 5 mg PO Q8H PRN PRN Reason: Pain, Severe (Pain Scale 7-10) Last Admin: 11/02/22 09:36 Dose: 5 mg Documented By: RIAN Pharmacy Consult (Consult Rx Perform Med Rec) 1 each MISCELLANE ONCE PRN PRN Reason: Consult order Pharmacy Consult (Consult Rx Etoh Phenob Im/Po) 1 each MISCELLANE ONCE PRN; Protocol PRN Reason: Consult order Pharmacy Consult (Consult Rx Vancomycin Dosing) 1 each MISCELLANE DAILY PRN PRN Reason: Consult order Phenobarbital (Phenobarbital 30 Mg Tablet) 30 mg PO BID [facility]; Protocol Stop: 11/02/22 21:01 Last Admin: 11/02/22 09:26 Dose: 30 mg Documented By: RIAN Sodium Bicarbonate (Sodium Bicarbonate 650 Mg Tablet) 650 mg PO TID [facility] Last Admin: 11/02/22 09:25 Dose: 650 mg Documented By: RIAN Thiamine HCl (Thiamine Hcl 100 Mg Tablet) 200 mg PO BID [facility] Last Admin: 11/02/22 09:36 Dose: 200 mg Documented By: RIAN Vitamin D (Cholecalciferol (Vitamin D3) 25 Mcg Tablet) 25 mcg PO DAILY [facility] Last Admin: 11/02/22 09:26 Dose: 25 mcg Documented By: RIAN Labs CBC & Chem 7: 11/01/22 08:49 11/02/22 06:00 Labs: Laboratory Results - last 24 hr 11/02/22 06:00 Estim Creat Clear Calc 32.7 Estimated GFR 52 Microbiology Microbiology Results: Microbiology 10/30/22 08:46 Blood Culture - Preliminary Blood - Venous No growth after 48 hours. 10/30/22 08:46 Blood Culture - Preliminary Blood - Venous No growth after 48 hours. Assessment and Plan (1) Gram-negative bacteremia: Status: Acute (2) Acute embolic stroke: Status: Acute (3) Alcohol abuse with withdrawal: Status: Acute (4) NSVT (nonsustained ventricular tachycardia): Status: Acute (5) Hypomagnesemia: Status: Acute (6) Hypokalemia: Status: Acute Plan 62-year-old female with past medical history of alcohol abuse presents to the hospital with complaints of weakness # NSVT seems improved with electrolytic replacement. cardio eval noted-echo : Conclusions: - 1.? Normal LV systolic and diastolic function? 2. Mildly dilated right ventricle with severe LV systolic? dysfunction of unclear etiology? 3. Mild biatrial enlargement without any evidence of interatrial shunting ? 4. Mild mitral regurgitation ? 5. Beom-vi-axjgkcpw tricuspid regurgitation? 6. Mildly elevated right atrial pressure with upper limits of? ? normal right ventricular systolic pressure ? 7. No gross pericardial effusion ? continue asa,statin, metoprolol . # alcohol abuse with withdrawal still shaky continue phenobarbital,thiamine and folic acid #? acute/ subacute right precentral gyrus stroke ?multiple findings seen on head CT ?MRI showed evidence of right precentral get risks stroke along with? cerebral and cerebellar atrophy ?other MRI findings suggestive of chronic underlying cerebral and cerebellar loss from chronic alcoholism ?continue aspirin and high-dose statin, blood pressure control ?Neurology input appreciated ?echo: Conclusions: - 1.? Normal LV systolic and diastolic function? 2. Mildly dilated right ventricle with severe LV systolic? dysfunction of unclear etiology? 3. Mild biatrial enlargement without any evidence of interatrial shunting ? 4. Mild mitral regurgitation ? 5. Iyoe-sf-djohvseq tricuspid regurgitation? 6. Mildly elevated right atrial pressure with upper limits of? ? normal right ventricular systolic pressure ? 7. No gross pericardial effusion? carotid ultrasound with no major stenosis # YAKELIN secondary to dehydration ?resolved with IV fluid follow BMP # COPD not in exacerbation Duonebs Incentive spirometry wean O2 down as tolerated possible pneumonia: Elevated WBC count improvin,no fevers Repeat blood culture added procalcitonin levels res panel tachycardia due to pain repeat blood culture-neg@24hrs d/w Id -switched to iv levaquin,in addition added vanco ( since nasal mrsa positive) to cover pneumonia . #? hyponatremia Sodium of 130, likely related to dehydration and chronic alcoholism she was strongly encouraged for p.o. intake and hydration. Follow BMP # thrombocytosis reactive #? Enterobacter bacteremia secondary to UTI positive UA ?final blood cultures growing sensitive Enterobacter? ?continue ceftriaxone to finish 2 weeks total of Abx , ID Eval added. Imodium for diarrhea (-ve CDiff) intially ed started with 30cc bolus , antibiotics ). # frequent falls\rib fractures likely secondary to above specially CVA CT chest showed Nondisplaced fracture right posterior lateral eighth and ninth ribs without hematoma or pneumothorax. physical therapy consulted lidocaine patch,oob ,inecntive nahun, oxycodone prn # macrocytic anemia ?secondary to alcohol abuse and folic acid deficiency ?start folic acid replacement #? moderate malnutrition BMI of 15.5 Supplement added, encourged for po intake,added remerone/given 1 dose megace also. Hypomagnesemia and hypokalemia repleted and resolved. DVT prophylaxis:? SCDs for low platelets ongoing hospitalisation need: Acute stroke, YAKELIN, pneumonia, bacteremia-need Iv antibiotics,and safe discharge plan Time Spent With Patient Time: Total time managing care of this patient today ____ minutes. Quality Stroke Does the patient have a stroke diagnosis?: No VTE Prior VTE?: No VTE Risk Level:: Medical - moderate - high VTE Device Contraindication: N/A - Device Ordered VTE Drug Contraindication: Treatment Not Indicated
[2022-11-02] MEDS: levoFLOXacin/D5W 750 MG/150 ML PIGGYBACK 100 MG IV (15:48)
[2022-11-02] MEDS: Albuterol/Iprat 2.5/0.5MG 3 ML AMPUL.NEB INHALE (19:42)
[2022-11-02] MEDS: Atorvastatin Calcium 80 MG TABLET PO (21:13)
[2022-11-02] MEDS: Mirtazapine 15 MG TABLET PO (21:13)
[2022-11-03] VITALS (9 sets, daily range): BP systolic 82–115; BP diastolic 44–73; PULSE 79–88; RESP 12–20; TEMP 36.4–37.4; O2SAT 91–96
--- NOTE | 2022-11-03 00:44 | PM.EVENT ---
Event Note Date of Service: 11/04/22 Event Note: patient noticed to be hypotensive after receiving oxycodone with a blood pressure of 82/44. Prior blood pressures were or low 90 over 50s. At this time will give 500 cc of NS, re-evaluate. This is not secondary to acute sepsis, likely secondary to oxycodone as well as dehydration. Time Spent With Patient Time: Total time managing care of this patient today ____ minutes.
[2022-11-03] MEDS: 0.9 % Sodium Chloride 500 ML IV (01:30)
--- NOTE | 2022-11-03 01:43 | PC.NURSE ---
500mL bolus hung at 0130 due to infiltrate of IV. New IV started R arm, remains asymptomatic.
[2022-11-03 06:43] LABS: Creatinine Clr Calc Pharmacy 30.2; Estimated Glomerular Filt Rate 47
[2022-11-03] MEDS: Magnesium Oxide 400 MG TABLET PO ×2 (07:35→16:57)
[2022-11-03] MEDS: oxyCODONE HCl Immed Release 5 MG TABLET PO ×2 (07:35→16:56)
[2022-11-03] MEDS: Cholecalciferol (Vitamin D3) 25 MCG TABLET PO (07:36)
[2022-11-03] MEDS: Thiamine HCL 100 MG TABLET 200 MG PO ×2 (07:36→20:50)
[2022-11-03] MEDS: Gabapentin 100 MG CAPSULE PO ×2 (07:36→20:50)
[2022-11-03] MEDS: Folic Acid 1 MG TABLET 2 MG PO (07:36)
[2022-11-03] MEDS: Omeprazole 20 MG CAPSULE.DR PO ×2 (07:36→20:50)
[2022-11-03] MEDS: Acetaminophen 325 MG TABLET 650 MG PO ×3 (07:36→20:49)
[2022-11-03] MEDS: Nicotine 21 MG PATCH.TD24 TRANSDERMA (07:36)
[2022-11-03] MEDS: Aspirin Enteric Coated 81 MG TABLET.DR PO (07:36)
[2022-11-03] MEDS: Sodium Bicarbonate 650 MG TABLET PO ×3 (07:36→20:50)
[2022-11-03] MEDS: Lidocaine 4 % Patch ADH..PATCH 1 PATCH TRANSDERMA ×3 (07:37)
[2022-11-03] MEDS: Lactated Ringers 1,000 ML 80 ML IVCONT (07:56)
--- NOTE | 2022-11-03 14:30 | HO.PM.IMPN ---
Subjective Subjective Date of Service: 11/03/22 Interval History: follow up for pneumonia ,poor oral inatke ,?dehydration Review of Systems rib cage pain seems improving Overnight event noted-blood pressure is seems improved with hydration, denies any new fever or shortness of breath or cough or phlegm. Physical Exam Vital Signs: Vital Signs: Last Vital Signs Temp 98.3 F 11/03/22 08:00 Pulse 81 11/03/22 08:00 Resp 12 11/03/22 08:00 BP 100/64 11/03/22 08:00 Pulse Ox 96 11/03/22 08:00 O2 Del Method 11/03/22 03:12 O2 Flow Rate 2 10/31/22 16:00 BMI result Body Mass Index 15.5 ?Constitutional : Awake, ? interactive and in mild distress Neck : Normal inspection, Supple Cardiovascular : RRR, no JVP, no lower extremity edema Respiratory : good bilateral air entry,? no crackles, wheezes or rhonchi,has right side lower/lateral rib cage pain similar to yesterday. Gastrointestinal:? soft, lax, Normal bowel sounds, Non tender Skin : Warm, Dry Neurological : Alert , oriented x3 Objective Data Active Medications Acetaminophen (Acetaminophen 325 Mg Tablet) 650 mg PO Q6H PRN PRN Reason: Pain, Mild (Pain Scale 1-3) Last Admin: 11/03/22 13:28 Dose: 650 mg Documented By: RIAN Aspirin (Aspirin Enteric Coated 81 Mg Tablet.) 81 mg PO DAILY [facility] Last Admin: 11/03/22 07:36 Dose: 81 mg Documented By: RIAN Atorvastatin Calcium (Atorvastatin Calcium 80 Mg Tablet) 80 mg PO BEDTIME [facility] Last Admin: 11/02/22 21:13 Dose: 80 mg Documented By: JOSE Fluticasone Propionate (Fluticasone Propionate Nasal 16 Gm [place]) 2 spray NOSTRIL-B DAILY [facility] Last Admin: 11/03/22 07:37 Dose: Not Given Documented By: RIAN Non-Admin Reason: Patient Refused Folic Acid (Folic Acid 1 Mg Tablet) 2 mg PO DAILY [facility] Last Admin: 11/03/22 07:36 Dose: 2 mg Documented By: RIAN Gabapentin (Gabapentin 100 Mg Capsule) 100 mg PO BID PRN PRN Reason: Pain (Scale Score 1-3) Last Admin: 11/03/22 07:36 Dose: 100 mg Documented By: RIAN Levofloxacin (Levaquin) 750 mg in 150 mls @ 100 mls/hr IV Q24H [facility] Last Infusion: 11/02/22 21:21 Dose: 0 mls/hr Documented By: CAROL Lactated Ringer's (Lr) 1,000 mls @ 80 mls/hr IVCONT .[id number] [facility] Last Admin: 11/03/22 07:56 Dose: 80 mls/hr Documented By: RIAN Lidocaine (Lidocaine 4 % Patch Adh..Patch) 1 patch TRANSDERMA DAILY [facility]; Protocol Last Admin: 11/03/22 07:37 Dose: 1 patch Documented By: RIAN Lidocaine (Lidocaine 4 % Patch Adh..Patch) 1 patch TRANSDERMA DAILY [facility]; Protocol Last Admin: 11/03/22 07:37 Dose: 1 patch Documented By: RIAN Lidocaine (Lidocaine 4 % Patch Adh..Patch) 1 patch TRANSDERMA DAILY [facility]; Protocol Last Admin: 11/03/22 07:37 Dose: 1 patch Documented By: RIAN Loperamide HCl (Loperamide Hcl 2 Mg Capsule) 2 mg PO Q4H [facility] Last Admin: 11/03/22 13:26 Dose: Not Given Documented By: RIAN Non-Admin Reason: Patient Refused Magnesium Oxide (Magnesium Oxide 400 Mg Tablet) 400 mg PO BIDPC [facility] Last Admin: 11/03/22 07:35 Dose: 400 mg Documented By: RIAN Metoprolol Tartrate (Metoprolol Tartrate 25 Mg Tablet) 25 mg PO BID [facility]; Protocol Last Admin: 10/30/22 09:16 Dose: 25 mg Documented By: BIJAL Mirtazapine (Mirtazapine 15 Mg Tablet) 15 mg PO BEDTIME [facility] Last Admin: 11/02/22 21:13 Dose: 15 mg Documented By: JOSE Nicotine (Nicotine 21 Mg Patch.Td24) 21 mg TRANSDERMA DAILY PRN PRN Reason: Nicotine Cravings Last Admin: 10/29/22 13:17 Dose: 21 mg Documented By: TONYA Nicotine (Nicotine 21 Mg Patch.Td24) 21 mg TRANSDERMA DAILY [facility] Last Admin: 11/03/22 07:36 Dose: 21 mg Documented By: RIAN Omeprazole (Omeprazole 20 Mg Capsule.) 20 mg PO BID [facility] Last Admin: 11/03/22 07:36 Dose: 20 mg Documented By: RIAN Ondansetron HCl (Ondansetron Hcl 4 Mg/2 Ml Vial) 4 mg IVPUSH Q8H PRN PRN Reason: Nausea and Vomiting Oxycodone HCl (Oxycodone Hcl Immed Release 5 Mg Tablet) 5 mg PO Q8H PRN PRN Reason: Pain, Severe (Pain Scale 7-10) Last Admin: 11/03/22 07:35 Dose: 5 mg Documented By: RIAN Pharmacy Consult (Consult Rx Perform Med Rec) 1 each MISCELLANE ONCE PRN PRN Reason: Consult order Pharmacy Consult (Consult Rx Etoh Phenob Im/Po) 1 each MISCELLANE ONCE PRN; Protocol PRN Reason: Consult order Pharmacy Consult (Consult Rx Vancomycin Dosing) 1 each MISCELLANE DAILY PRN PRN Reason: Consult order Sodium Bicarbonate (Sodium Bicarbonate 650 Mg Tablet) 650 mg PO TID [facility] Last Admin: 11/03/22 13:28 Dose: 650 mg Documented By: RIAN Thiamine HCl (Thiamine Hcl 100 Mg Tablet) 200 mg PO BID [facility] Last Admin: 11/03/22 07:36 Dose: 200 mg Documented By: RIAN Vitamin D (Cholecalciferol (Vitamin D3) 25 Mcg Tablet) 25 mcg PO DAILY [facility] Last Admin: 11/03/22 07:36 Dose: 25 mcg Documented By: RIAN Labs CBC & Chem 7: 11/01/22 08:49 11/03/22 05:54 Labs: Laboratory Results - last 24 hr 11/03/22 05:54 Estim Creat Clear Calc 30.2 Estimated GFR 47 Assessment and Plan (1) Gram-negative bacteremia: Status: Acute (2) Pneumonia: Status: Acute Plan 62-year-old female with past medical history of alcohol abuse presents to the hospital with complaints of weakness # NSVT ?seems improved with electrolytic replacement. cardio eval noted-echo : Conclusions: - 1.? Normal LV systolic and diastolic function? 2. Mildly dilated right ventricle with severe LV systolic? dysfunction of unclear etiology? 3. Mild biatrial enlargement without any evidence of interatrial shunting ? 4. Mild mitral regurgitation ? 5. Tzbz-cu-hjfzlsvi tricuspid regurgitation? 6. Mildly elevated right atrial pressure with upper limits of? ? normal right ventricular systolic pressure ? 7. No gross pericardial effusion ? continue asa,statin, metoprolol . # alcohol abuse with withdrawal still shaky continue phenobarbital,thiamine and folic acid #? acute/ subacute right precentral gyrus stroke ?multiple findings seen on head CT ?MRI showed evidence of right precentral get risks stroke along with? cerebral and cerebellar atrophy ?other MRI findings suggestive of chronic underlying cerebral and cerebellar loss from chronic alcoholism ?continue aspirin and high-dose statin, blood pressure control ?Neurology input appreciated ?echo: Conclusions: - 1.? Normal LV systolic and diastolic function? 2. Mildly dilated right ventricle with severe LV systolic? dysfunction of unclear etiology? 3. Mild biatrial enlargement without any evidence of interatrial shunting ? 4. Mild mitral regurgitation ? 5. Ezwc-xe-llaehuae tricuspid regurgitation? 6. Mildly elevated right atrial pressure with upper limits of? ? normal right ventricular systolic pressure ? 7. No gross pericardial effusion? carotid ultrasound with no major stenosis # YAKELIN secondary to dehydration ?resolved with IV fluid follow BMP # COPD not in exacerbation Duonebs Incentive spirometry wean O2 down as tolerated possible pneumonia: Elevated WBC count improvin,no fevers Repeat blood culture added procalcitonin levels res panel tachycardia due to pain repeat blood culture-neg@24hrs d/w Id -switched to iv levaquin,in addition added vanco ( since nasal mrsa positive) to cover pneumonia . #? hyponatremia Sodium of 130, likely related to dehydration and chronic alcoholism she was strongly encouraged for p.o. intake and hydration. Follow BMP # thrombocytosis reactive? #? Enterobacter bacteremia secondary to UTI positive UA ?final blood cultures growing sensitive Enterobacter? ?continue ceftriaxone to finish 2 weeks total of Abx , ID Eval added. Imodium for diarrhea (-ve CDiff) intially? ed started with 30cc bolus , antibiotics ). # frequent falls\rib fractures likely secondary to above specially CVA CT chest showed Nondisplaced fracture right posterior lateral eighth and ninth ribs without hematoma or pneumothorax. physical therapy consulted lidocaine patch,oob ,inecntive nahun, oxycodone prn # macrocytic anemia ?secondary to alcohol abuse and folic acid deficiency ?start folic acid replacement #? moderate malnutrition BMI of 15.5 decreased po intake-Supplement added, encourged for po intake and hydration,remerone, received fluids overnight ,continue gentle iv hydration check bladder scan Hypomagnesemia and hypokalemia repleted and resolved. DVT prophylaxis:? SCDs for low platelets ongoing hospitalisation need: pneumonia, bacteremia-need Iv antibiotics,and safe discharge plan Time Spent With Patient Time: Total time managing care of this patient today ____ minutes. Quality Stroke Does the patient have a stroke diagnosis?: No VTE Prior VTE?: No VTE Risk Level:: Medical - moderate - high VTE Device Contraindication: N/A - Device Ordered VTE Drug Contraindication: Treatment Not Indicated
[2022-11-03] MEDS: levoFLOXacin/D5W 750 MG/150 ML PIGGYBACK 100 MG IV (16:57)
[2022-11-03] MEDS: Loperamide HCl 2 MG CAPSULE PO ×2 (16:57→20:50)
[2022-11-03] MEDS: Mirtazapine 15 MG TABLET PO (20:50)
[2022-11-03] MEDS: Atorvastatin Calcium 80 MG TABLET PO (20:51)
[2022-11-04] MEDS: oxyCODONE HCl Immed Release 5 MG TABLET PO ×3 (02:33→19:01)
[2022-11-04 03:12] VITALS: BP 91/56; PULSE 86; RESP 20; TEMP 36.4; O2SAT 90
[2022-11-04] MEDS: Acetaminophen 325 MG TABLET 650 MG PO (06:33)
[2022-11-04 06:34] LABS: Creatinine Clr Calc Pharmacy 35.4; Estimated Glomerular Filt Rate 57
[2022-11-04 07:10] VITALS: BP 98/50; RESP 18; TEMP 35.9; O2SAT 97
[2022-11-04 08:07] LABS: Hemoglobin 8.2 g/dl (12.0-16.0); Mean Corpuscular HGB Conc 34.2 g/dl (31.0-35.0); Mean Corpuscular Hemoglobin 37.1 pg (27.0-33.0); Mean Corpuscular Volume 108.6 fL (80.0-98.0); Mean Platelet Volume 10.1 fL (9.4-12.3); Platelet Count 595 X10*3/uL (160-400); Red Blood Count 2.21 X10*6/uL (4.20-5.50); Red Cell Distribution Width 16.4 % (11.0-16.0); White Blood Count 13.8 X10*3/uL (4.8-10.8)
[2022-11-04] MEDS: Thiamine HCL 100 MG TABLET 200 MG PO ×2 (10:30→22:36)
[2022-11-04] MEDS: Aspirin Enteric Coated 81 MG TABLET.DR PO (10:30)
[2022-11-04] MEDS: Sodium Bicarbonate 650 MG TABLET PO ×3 (10:30→22:36)
[2022-11-04] MEDS: Folic Acid 1 MG TABLET 2 MG PO (10:31)
[2022-11-04] MEDS: Nicotine 21 MG PATCH.TD24 TRANSDERMA (10:31)
[2022-11-04] MEDS: Heparin Sodium,Porcine 5,000 UNIT/ML VIAL 5000 UNIT SUBCUT ×2 (10:31→22:36)
[2022-11-04] MEDS: Loperamide HCl 2 MG CAPSULE PO ×4 (10:32→22:36)
[2022-11-04] MEDS: Omeprazole 20 MG CAPSULE.DR PO ×2 (10:32→22:36)
[2022-11-04] MEDS: Acetaminophen 325 MG TABLET 975 MG PO ×2 (10:32→16:52)
[2022-11-04] MEDS: Magnesium Oxide 400 MG TABLET PO ×2 (10:33→16:53)
[2022-11-04] MEDS: Lidocaine 4 % Patch ADH..PATCH 1 PATCH TRANSDERMA ×3 (10:34→10:39)
[2022-11-04] MEDS: Albumin Human 25 % 50 ML 100 ML IV ×4 (10:37→18:25)
[2022-11-04] MEDS: Fluticasone Propionate Nasal 16 GM SPRAY 2 SPRAY NOSTRIL-B (10:38)
[2022-11-04 10:49] VITALS: BP 98/52; PULSE 86; RESP 18; TEMP 36.6; O2SAT 96
[2022-11-04] MEDS: Cholecalciferol (Vitamin D3) 25 MCG TABLET PO (10:51)
--- NOTE | 2022-11-04 14:02 | MHC.CM.PN ---
EMR REVIEWED. PT CONTINUES IV ABT FOR BACTEREMIA. SNF'S THAT ARE FOLLOWING HAVE BEEN UPDATED. CM WILL CONTINUE TO FOLLOW.
--- NOTE | 2022-11-04 14:34 | MHC.CLN ---
F/U PO INTAKE 50-100% DIET RX: REGULAR-APPROPRIATE PT RECEIVES ENSURE BID PROVIDES ADDITIONAL 700KCALS, 40G PROTEIN MONITOR PO INTAKE AND OBTAIN CURRENT WT
[2022-11-04 15:20] VITALS: BP 103/54; PULSE 89; RESP 16; TEMP 36.8; O2SAT 98
[2022-11-04 20:00] VITALS: BP 135/82; PULSE 90; RESP 16; TEMP 36.8; O2SAT 93
[2022-11-04] MEDS: Atorvastatin Calcium 80 MG TABLET PO (22:36)
[2022-11-04] MEDS: Mirtazapine 15 MG TABLET PO (22:36)
[2022-11-04 23:49] VITALS: BP 122/70; PULSE 86; RESP 16; TEMP 37.2
[2022-11-05 03:05] VITALS: BP 113/69; PULSE 87; RESP 14; TEMP 37.3; O2SAT 92
[2022-11-05] MEDS: oxyCODONE HCl Immed Release 5 MG TABLET PO ×4 (04:09→21:58)
[2022-11-05 06:22] LABS: Creatinine Clr Calc Pharmacy 32.7; Estimated Glomerular Filt Rate 52
[2022-11-05] MEDS: Folic Acid 1 MG TABLET 2 MG PO (07:52)
[2022-11-05] MEDS: Acetaminophen 325 MG TABLET 975 MG PO ×2 (07:52→15:55)
[2022-11-05 07:53] VITALS: BP 118/69; PULSE 82; RESP 16; TEMP 37.2; O2SAT 94
[2022-11-05] MEDS: Thiamine HCL 100 MG TABLET 200 MG PO ×2 (07:54→20:48)
[2022-11-05] MEDS: Loperamide HCl 2 MG CAPSULE PO ×2 (07:54→12:39)
[2022-11-05] MEDS: Cholecalciferol (Vitamin D3) 25 MCG TABLET PO (07:54)
[2022-11-05] MEDS: Aspirin Enteric Coated 81 MG TABLET.DR PO (07:54)
[2022-11-05] MEDS: Omeprazole 20 MG CAPSULE.DR PO ×2 (07:55→20:49)
[2022-11-05] MEDS: Sodium Bicarbonate 650 MG TABLET PO ×3 (07:55→20:48)
[2022-11-05] MEDS: Lidocaine 4 % Patch ADH..PATCH 1 PATCH TRANSDERMA ×2 (07:55→07:56)
[2022-11-05] MEDS: Nicotine 21 MG PATCH.TD24 TRANSDERMA (07:55)
[2022-11-05] MEDS: Heparin Sodium,Porcine 5,000 UNIT/ML VIAL 5000 UNIT SUBCUT (07:56)
[2022-11-05] MEDS: Magnesium Oxide 400 MG TABLET PO ×2 (07:57→15:54)
[2022-11-05] MEDS: Fluticasone Propionate Nasal 16 GM SPRAY 2 SPRAY NOSTRIL-B (08:22)
[2022-11-05 08:24] LABS: Anion Gap 18 (12-20); Blood Urea Nitrogen 12 mg/dL (9-16); Calcium 6.9 mg/dL (8.4-10.2); Carbon Dioxide 16 mmol/L (22-29); Chloride 106 mmol/L (96-108); Glucose Random 81 mg/dL (60-115); Magnesium 1.4 mg/dL (1.6-2.6); Potassium 4.2 mmol/L (3.3-5.1); Sodium 136 mmol/L (135-145)
[2022-11-05 11:29] VITALS: BP 115/62; PULSE 84; RESP 17; TEMP 37; O2SAT 94
[2022-11-05] MEDS: Magnesium Sulfate/H2O 2 GM/50 ML PIGGYBACK IV (12:39)
--- NOTE | 2022-11-05 13:47 | P.PNIM_ITS ---
Subjective Subjective Date of Service: 11/05/22 Interval History: Seen in follow-up for CVA, YAKELIN Interval history: Patient complaining of 9/10 right leg pain and swelling which she states is new. Did have x-ray of the right knee yesterday which was unremarkable except for possible suprapatellar bursitis. Review of Systems General: No fevers, malaise, unintentional weight loss HEENT: No blurred vision, diplopia. No sore throat, nasal congestion, rhinorrhea, sinus pain, ear pain Cardiovascular: No chest pain, palpitations, or leg edema Respiratory: No shortness of breath, wheezing, cough GI: No abdominal pain, nausea, vomiting, diarrhea, constipation, melena, hematochezia : No dysuria, hematuria, increased urinary frequency, decreased urinary output MSK: No myalgia, back pain. RLE pain/swelling Neuro: No headaches, weakness, paresthesias Skin: No rashes or lesions Physical Exam Vital Signs: Vital Signs: Last Vital Signs Temp 98.6 F 11/05/22 11:29 Pulse 84 11/05/22 11:29 Resp 17 11/05/22 11:29 BP 115/62 11/05/22 11:29 Pulse Ox 94 11/05/22 11:29 O2 Del Method 11/05/22 11:29 O2 Flow Rate 2 10/31/22 16:00 BMI result Body Mass Index 15.5 Constitutional - Awake and Alert, No apparent distress Eyes - PERRLA, EOMI Cardiovascular - S1S2, RRR, No edema Respiratory - Normal lung expansion, Normal respiratory effort, No respiratory distress, CTA bilaterally Gastrointestinal - NT / ND; +BS; No rebound or guarding - No CVA tenderness Extremities - right calf with mild ttp, small amount of swelling Musculoskeletal - Normal inspection, normal ROM Skin - Warm/Dry Neurological - Alert & oriented x3 Psychological - Appropriate affect Objective Data Active Medications Acetaminophen (Acetaminophen 325 Mg Tablet) 975 mg PO Q8H [facility] Last Admin: 11/05/22 07:52 Dose: 975 mg Documented By: KRYSTYNA Aspirin (Aspirin Enteric Coated 81 Mg Tablet.) 81 mg PO DAILY [facility] Last Admin: 11/05/22 07:54 Dose: 81 mg Documented By: KRYSTYNA Atorvastatin Calcium (Atorvastatin Calcium 80 Mg Tablet) 80 mg PO BEDTIME [facility] Last Admin: 11/04/22 22:36 Dose: 80 mg Documented By: DEMIJ Ferrous Sulfate (Ferrous Sulfate 324 Mg Tablet.Dr) 324 mg PO BIDWM [facility] Fluticasone Propionate (Fluticasone Propionate Nasal 16 Gm [place]) 2 spray NOSTRIL-B DAILY [facility] Last Admin: 11/05/22 08:22 Dose: 2 spray Documented By: KRYSTYNA Folic Acid (Folic Acid 1 Mg Tablet) 2 mg PO DAILY [facility] Last Admin: 11/05/22 07:52 Dose: 2 mg Documented By: KRYSTYNA Gabapentin (Gabapentin 100 Mg Capsule) 100 mg PO BID PRN PRN Reason: Pain (Scale Score 1-3) Last Admin: 11/03/22 20:50 Dose: 100 mg Documented By: NANCY Heparin Sodium (Porcine) (Heparin Sodium,Porcine 5,000 Unit/Ml Vial) 5,000 unit SUBCUT Q12H [facility] Last Admin: 11/05/22 07:56 Dose: 5,000 unit Documented By: KRYSTYNA Levofloxacin (Levaquin) 750 mg in 150 mls @ 100 mls/hr IV Q48H [facility] Magnesium Sulfate (Magnesium Sulfate/H2o) 2 gm in 50 mls @ 25 mls/hr IV ONCE ONE Stop: 11/05/22 14:20 Last Admin: 11/05/22 12:39 Dose: 25 mls/hr Documented By: KRYSTYNA Lidocaine (Lidocaine 4 % Patch Adh..Patch) 1 patch TRANSDERMA DAILY [facility]; Protocol Last Admin: 11/05/22 07:55 Dose: 1 patch Documented By: KRYSTYNA Lidocaine (Lidocaine 4 % Patch Adh..Patch) 1 patch TRANSDERMA DAILY [facility]; Protocol Last Admin: 11/05/22 07:56 Dose: 1 patch Documented By: KRYSTYNA Loperamide HCl (Loperamide Hcl 2 Mg Capsule) 2 mg PO Q4H [facility] Last Admin: 11/05/22 12:39 Dose: 2 mg Documented By: KRYSTYNA Magnesium Oxide (Magnesium Oxide 400 Mg Tablet) 400 mg PO BIDPC [facility] Last Admin: 11/05/22 07:57 Dose: 400 mg Documented By: KRYSTYNA Metoprolol Tartrate (Metoprolol Tartrate 25 Mg Tablet) 25 mg PO BID [facility]; Protocol Last Admin: 10/30/22 09:16 Dose: 25 mg Documented By: BIJAL Mirtazapine (Mirtazapine 15 Mg Tablet) 15 mg PO BEDTIME [facility] Last Admin: 11/04/22 22:36 Dose: 15 mg Documented By: CRISTOBAL Nicotine (Nicotine 21 Mg Patch.Td24) 21 mg TRANSDERMA DAILY PRN PRN Reason: Nicotine Cravings Last Admin: 10/29/22 13:17 Dose: 21 mg Documented By: TONYA Nicotine (Nicotine 21 Mg Patch.Td24) 21 mg TRANSDERMA DAILY [facility] Last Admin: 11/05/22 07:55 Dose: 21 mg Documented By: KRYSTYNA Omeprazole (Omeprazole 20 Mg Capsule.Dr) 20 mg PO BID [facility] Last Admin: 11/05/22 07:55 Dose: 20 mg Documented By: KRYSTYNA Ondansetron HCl (Ondansetron Hcl 4 Mg/2 Ml Vial) 4 mg IVPUSH Q8H PRN PRN Reason: Nausea and Vomiting Oxycodone HCl (Oxycodone Hcl Immed Release 5 Mg Tablet) 5 mg PO Q8H PRN PRN Reason: Pain, Severe (Pain Scale 7-10) Last Admin: 11/05/22 12:39 Dose: 5 mg Documented By: KRYSTYNA Pharmacy Consult (Consult Rx Perform Med Rec) 1 each MISCELLANE ONCE PRN PRN Reason: Consult order Pharmacy Consult (Consult Rx Etoh Phenob Im/Po) 1 each MISCELLANE ONCE PRN; Protocol PRN Reason: Consult order Pharmacy Consult (Consult Rx Vancomycin Dosing) 1 each MISCELLANE DAILY PRN PRN Reason: Consult order Sodium Bicarbonate (Sodium Bicarbonate 650 Mg Tablet) 650 mg PO TID [facility] Last Admin: 11/05/22 07:55 Dose: 650 mg Documented By: KRYSTYNA Thiamine HCl (Thiamine Hcl 100 Mg Tablet) 200 mg PO BID [facility] Last Admin: 11/05/22 07:54 Dose: 200 mg Documented By: KRYSTYNA Vitamin D (Cholecalciferol (Vitamin D3) 25 Mcg Tablet) 25 mcg PO DAILY [facility] Last Admin: 11/05/22 07:54 Dose: 25 mcg Documented By: KRYSTYNA Labs CBC & Chem 7: 11/04/22 07:51 11/05/22 05:54 Labs: Laboratory Results - last 24 hr 11/05/22 05:54 Anion Gap 18 Estim Creat Clear Calc 32.7 Estimated GFR 52 Random Glucose 81 Calcium 6.9 L Magnesium 1.4 L* Microbiology Microbiology Results: Microbiology 10/30/22 08:46 Blood Culture - Final Blood - Venous No growth after 5 days. 10/30/22 08:46 Blood Culture - Final Blood - Venous No growth after 5 days. Assessment and Plan (1) Gram-negative bacteremia: Status: Acute (2) Pneumonia: Status: Acute Plan 62-year-old female with past medical history of alcohol abuse presents to the hospital with complaints of weakness # NSVT- no recurrent episodes on telemetry -seems improved with electrolytic replacement. Continue monitoring/correcting lytes cardio eval noted-echo : Conclusions: - 1.? Normal LV systolic and diastolic function? 2. Mildly dilated right ventricle with severe LV systolic? dysfunction of unclear etiology? 3. Mild biatrial enlargement without any evidence of interatrial shunting ? 4. Mild mitral regurgitation ? 5. Bzsf-[id number] tricuspid regurgitation? 6. Mildly elevated right atrial pressure with upper limits of? ? normal right ventricular systolic pressure ? 7. No gross pericardial effusion ? continue asa,statin, metoprolol . # alcohol abuse with withdrawal- resolved -Completed phenobarb -Continue thiamine and folic acid #? acute/ subacute right precentral gyrus stroke ?multiple findings seen on head CT ?MRI showed evidence of right precentral get risks stroke along with? cerebral and cerebellar atrophy ?other MRI findings suggestive of chronic underlying cerebral and cerebellar loss from chronic alcoholism ?continue aspirin and high-dose statin, blood pressure control ?Neurology input appreciated ?echo: Conclusions: - 1.? Normal LV systolic and diastolic function? 2. Mildly dilated right ventricle with severe LV systolic? dysfunction of unclear etiology? 3. Mild biatrial enlargement without any evidence of interatrial shunting ? 4. Mild mitral regurgitation ? 5. Xivc-nz-zcifwkle tricuspid regurgitation? 6. Mildly elevated right atrial pressure with upper limits of? ? normal right ventricular systolic pressure ? 7. No gross pericardial effusion? carotid ultrasound with no major stenosis #RLE pain/swelling -Xray knee negative. Venous duplex ordered -Pain management as below # YAKELIN secondary to dehydration ?resolved with IV fluid follow BMP # COPD not in exacerbation Duonebs Incentive spirometry wean O2 down as tolerated # pneumonia: -Elevated WBC count improving,no fevers -Repeat blood cultures negative -procalcitonin 7.33 -respiratory panel negative -MRSA swab negative. Continue levaquin (D6) based on renal function. Total du ration 14d -Appreciate ID input #?hyponatremia-, likely related to dehydration and chronic alcoholism -Sodium now 136 today -she was strongly encouraged for p.o. intake and hydration. -Follow BMP # thrombocytosis reactive? #?Enterobacter bacteremia secondary to UTI -positive UA, UC contaminated -final blood cultures growing sensitive Enterobacter. Repeat cultures negative -Initially treated with ceftriaxone. Conitnue levaquin x 14d (D6) -Imodium for diarrhea (-ve CDiff) # frequent falls\rib fractures -likely secondary to above specially CVA -CT chest showed Nondisplaced fracture right posterior lateral eighth and ninth ribs without hematoma or pneumothorax. -physical therapy consulted -lidocaine patch,oob ,inecntive nahun, oxycodone prn # chronic macrocytic anemia ?secondary to alcohol abuse and folic acid deficiency ?start folic acid replacement #? moderate malnutrition -BMI of 15.5 -decreased po intake-Supplement added, encourged for po intake and hydratio n,remerone, received fluids overnight ,continue gentle iv hydration Hypomagnesemia and hypokalemia repleted with recurrence of hypomagnesemia. 2g IV Mag ordered. Continue 400mg mag PO BID DVT prophylaxis:? SCDs for low platelets ongoing hospitalisation need: pneumonia, bacteremia-need Iv antibiotics,and safe discharge plan Time Spent With Patient Time: Total time managing care of this patient today 40minutes. Time spent reviewing prior hospitalist progress note, infectious disease progress note, CBC, BMP, magnesium level, blood cultures, urine culture, PT evaluation Quality Stroke Does the patient have a stroke diagnosis?: No VTE Prior VTE?: No VTE Risk Level:: Medical - moderate - high VTE Device Contraindication: N/A - Device Ordered VTE Drug Contraindication: Treatment Not Indicated
[2022-11-05 15:55] VITALS: BP 110/64; PULSE 79; RESP 16; TEMP 36.6; O2SAT 95
[2022-11-05] MEDS: Ferrous Sulfate 324 MG TABLET.DR PO (15:55)
[2022-11-05] MEDS: levoFLOXacin/D5W 750 MG/150 ML PIGGYBACK 100 MG IV (16:00)
[2022-11-05 19:55] VITALS: BP 92/51; PULSE 90; RESP 16; TEMP 37.5; O2SAT 91
[2022-11-05] MEDS: Gabapentin 100 MG CAPSULE PO (20:48)
[2022-11-05] MEDS: Atorvastatin Calcium 80 MG TABLET PO (20:48)
[2022-11-05] MEDS: Mirtazapine 15 MG TABLET PO (20:48)
[2022-11-05] MEDS: Apixaban 5 MG TABLET PO (20:48)
[2022-11-05 23:22] VITALS: BP 93/49; PULSE 100; RESP 24; TEMP 37.4; O2SAT 96
[2022-11-06] MEDS: Loperamide HCl 2 MG CAPSULE PO ×6 (01:00→21:19)
[2022-11-06] MEDS: Acetaminophen 325 MG TABLET 975 MG PO ×3 (01:00→17:38)
[2022-11-06] MEDS: oxyCODONE HCl Immed Release 5 MG TABLET PO ×4 (03:16→21:19)
[2022-11-06 03:42] VITALS: BP 92/51; PULSE 94; RESP 18; TEMP 37.6; O2SAT 97
[2022-11-06 04:31] LABS: HBS Num1 0.24 mIU/mL (0-7.99); HBc Num1 0.11 S/CO (0.00-0.79); HBsAGNum1 0.27 S/CO (0.00-0.99); Hepatitis A Antibody IgM 0.14 Index (0-0.79); Hepatitis B Core Antibody Nonreactive (Nonreactive); Hepatitis B Surface Antigen Negative (Negative); ~HepC Num1 0.28 S/CO (0.00-0.79); ~Hepatitis A Antibody IgM Nonreactive (Nonreactive); ~Hepatitis B Surface Antibody NONREACTIVE (Nonreactive); ~Hepatitis C Antibody Nonreactive (Nonreactive)
[2022-11-06 06:07] LABS: Basophils Absolute Auto 0.2 X10*3/uL (0.0-0.2); Basophils Percent Auto 1.1 % (0-2); Eosinophils Absolute Auto 0.1 X10*3/uL (0.0-0.4); Eosinophils Percent Auto 0.5 % (0-4); Hemoglobin 8.1 g/dl (12.0-16.0); Imm Gran Abs Auto 0.13 X10*3/uL (0.00-0.03); Imm Gran Pct Auto 0.8 % (0.0-0.4); Lymphocytes Absolute Auto 2.6 X10*3/uL (1.2-4.9); Lymphocytes Percent Auto 15.5 % (20-40); MANUAL DIFF FLAG SCAN; Mean Corpuscular HGB Conc 35.2 g/dl (31.0-35.0); Mean Corpuscular Hemoglobin 37.7 pg (27.0-33.0); Mean Platelet Volume 10.2 fL (9.4-12.3); Monocytes Absolute Auto 2.4 X10*3/uL (0.1-1.2); Monocytes Percent Auto 14.4 % (2-11); Neutrophils Absolute Auto 11.3 x10*3/uL (2.0-8.3); Neutrophils Percent Auto 67.7 % (45-73); Platelet Count 492 X10*3/uL (160-400); Red Blood Count 2.15 X10*6/uL (4.20-5.50); Red Cell Distribution Width 16.3 % (11.0-16.0); SCAN SMEAR FLAG 1; White Blood Count 16.7 X10*3/uL (4.8-10.8)
[2022-11-06 06:12] LABS: INTERNATIONAL NORM RATIO 1.7 (0.9-1.1); Prothrombin Time 20.5 SEC (10.0-13.1)
[2022-11-06 06:21] LABS: Anion Gap 12 (12-20); Blood Urea Nitrogen 10 mg/dL (9-16); Calcium 7.1 mg/dL (8.4-10.2); Carbon Dioxide 22 mmol/L (22-29); Chloride 102 mmol/L (96-108); Creatinine Clr Calc Pharmacy 28.9; Estimated Glomerular Filt Rate 45; Glucose Random 80 mg/dL (60-115); Potassium 4.2 mmol/L (3.3-5.1); Sodium 132 mmol/L (135-145)
[2022-11-06 07:59] LABS: Magnesium 1.8 mg/dL (1.6-2.6)
[2022-11-06 08:00] VITALS: BP 110/60; PULSE 90; RESP 12; TEMP 37.3; O2SAT 91
[2022-11-06 08:04] LABS: SLIDE REVIEW VERIFIED
[2022-11-06] MEDS: Lidocaine 4 % Patch ADH..PATCH 1 PATCH TRANSDERMA ×2 (08:57→09:00)
[2022-11-06] MEDS: Aspirin Enteric Coated 81 MG TABLET.DR PO (09:00)
[2022-11-06] MEDS: Nicotine 21 MG PATCH.TD24 TRANSDERMA (09:00)
[2022-11-06] MEDS: Thiamine HCL 100 MG TABLET 200 MG PO ×2 (09:00→21:20)
[2022-11-06] MEDS: Apixaban 5 MG TABLET PO ×2 (09:01→21:19)
[2022-11-06] MEDS: Omeprazole 20 MG CAPSULE.DR PO ×2 (09:01→21:19)
[2022-11-06] MEDS: Sodium Bicarbonate 650 MG TABLET PO ×3 (09:01→21:19)
[2022-11-06] MEDS: Ferrous Sulfate 324 MG TABLET.DR PO ×2 (09:01→17:38)
[2022-11-06] MEDS: Cholecalciferol (Vitamin D3) 25 MCG TABLET PO (09:01)
[2022-11-06] MEDS: Folic Acid 1 MG TABLET 2 MG PO (09:01)
[2022-11-06] MEDS: Fluticasone Propionate Nasal 16 GM SPRAY 2 SPRAY NOSTRIL-B (09:16)
--- NOTE | 2022-11-06 09:30 | PM.EVENT ---
Event Note Date of Service: 11/06/22 Event Note: imaging reviewed. DVT noted. Due to overall history and prior history of thrombocytopenia not a candidate for any thrombo lytic therapy. Would continue with anticoagulation of Eliquis which the patient is on Time Spent With Patient Time: Total time managing care of this patient today ____ minutes.
[2022-11-06] MEDS: Magnesium Oxide 400 MG TABLET PO ×2 (10:37→17:39)
--- NOTE | 2022-11-06 10:48 | MHC.CLN ---
F/U PO INTAKE 50-100% REMERON IN PLACE PER MD AND MAY INCREASE APPETITE DIET RX: REGULAR-APPROPRIATE PT RECEIVES ENSURE BID PROVIDES ADDITIONAL 700KCALS, 40G PROTEIN MONITOR PO INTAKE
[2022-11-06 12:00] VITALS: BP 95/59; PULSE 86; RESP 16; TEMP 36.8; O2SAT 99
--- NOTE | 2022-11-06 13:08 | P.PNIM_ITS ---
Subjective Subjective Date of Service: 11/06/22 Interval History: seen and examined this morning follow up for DVT, pneumonia etc denies shortness of breath or cough Review of Systems Review of Systems: Yes all other systems are reviewed and are negative Constitutional Constitutional: Denies chills and Denies fever(s) Cardiovascular Cardiovascular: Denies chest pain, Denies palpitations and Denies dyspnea Respiratory Respiratory: Denies dyspnea Gastrointestinal Gastrointestinal: Denies abdominal pain Endocrine Endocrine: Denies palpitations Physical Exam Vital Signs: Vital Signs: Last Vital Signs Temp 98.2 F 11/06/22 12:00 Pulse 86 11/06/22 12:00 Resp 16 11/06/22 12:00 BP 95/59 L 11/06/22 12:00 Pulse Ox 99 11/06/22 12:00 O2 Del Method 11/06/22 12:00 O2 Flow Rate 2 11/06/22 12:00 BMI result Body Mass Index 15.5 Const: General: alert and awake Nutritional Appearance: cachectic and thin Resp: Effort & Inspection: normal respiratory effort and able to speak in complete sentences Auscultation: clear to auscultation bilaterally GI: Inspection: No distended Palpation (GI): Soft to palpation and nontender Extrem: Other: right lower extremity pedal edema Objective Data Active Medications Acetaminophen (Acetaminophen 325 Mg Tablet) 975 mg PO Q8H [facility] Last Admin: 11/06/22 09:00 Dose: 975 mg Documented By: PAYTON Apixaban (Apixaban 5 Mg Tablet) 5 mg PO BID [facility] Last Admin: 11/06/22 09:01 Dose: 5 mg Documented By: PAYTON Aspirin (Aspirin Enteric Coated 81 Mg Tablet.) 81 mg PO DAILY [facility] Last Admin: 11/06/22 09:00 Dose: 81 mg Documented By: PAYTON Atorvastatin Calcium (Atorvastatin Calcium 80 Mg Tablet) 80 mg PO BEDTIME [facility] Last Admin: 11/05/22 20:48 Dose: 80 mg Documented By: CAROL Ferrous Sulfate (Ferrous Sulfate 324 Mg Tablet.) 324 mg PO BIDWM [facility] Last Admin: 11/06/22 09:01 Dose: 324 mg Documented By: PAYTON Fluticasone Propionate (Fluticasone Propionate Nasal 16 Gm [place]) 2 spray NOSTRIL-B DAILY [facility] Last Admin: 11/06/22 09:16 Dose: 2 spray Documented By: PAYTON Folic Acid (Folic Acid 1 Mg Tablet) 2 mg PO DAILY [facility] Last Admin: 11/06/22 09:01 Dose: 2 mg Documented By: PAYTON Gabapentin (Gabapentin 100 Mg Capsule) 100 mg PO BID PRN PRN Reason: Pain (Scale Score 1-3) Last Admin: 11/05/22 20:48 Dose: 100 mg Documented By: CAROL Levofloxacin (Levaquin) 750 mg in 150 mls @ 100 mls/hr IV Q48H [facility] Last Infusion: 11/05/22 18:29 Dose: 0 mls/hr Documented By: CAROL Lidocaine (Lidocaine 4 % Patch Adh..Patch) 1 patch TRANSDERMA DAILY [facility]; Protocol Last Admin: 11/06/22 08:57 Dose: 1 patch Documented By: PAYTON Lidocaine (Lidocaine 4 % Patch Adh..Patch) 1 patch TRANSDERMA DAILY [facility]; Protocol Last Admin: 11/06/22 09:00 Dose: 1 patch Documented By: PAYTON Loperamide HCl (Loperamide Hcl 2 Mg Capsule) 2 mg PO Q4H [facility] Last Admin: 11/06/22 12:27 Dose: 2 mg Documented By: PAYTON Magnesium Oxide (Magnesium Oxide 400 Mg Tablet) 400 mg PO BIDPC [facility] Last Admin: 11/06/22 10:37 Dose: 400 mg Documented By: PAYTON Metoprolol Tartrate (Metoprolol Tartrate 25 Mg Tablet) 25 mg PO BID [facility]; Protoc ol Last Admin: 10/30/22 09:16 Dose: 25 mg Documented By: BIJAL Mirtazapine (Mirtazapine 15 Mg Tablet) 15 mg PO BEDTIME [facility] Last Admin: 11/05/22 20:48 Dose: 15 mg Documented By: CAROL Nicotine (Nicotine 21 Mg Patch.Td24) 21 mg TRANSDERMA DAILY PRN PRN Reason: Nicotine Cravings Last Admin: 10/29/22 13:17 Dose: 21 mg Documented By: TONYA Nicotine (Nicotine 21 Mg Patch.Td24) 21 mg TRANSDERMA DAILY [facility] Last Admin: 11/06/22 09:00 Dose: 21 mg Documented By: PAYTON Omeprazole (Omeprazole 20 Mg Capsule.Dr) 20 mg PO BID [facility] Last Admin: 11/06/22 09:01 Dose: 20 mg Documented By: PAYTON Ondansetron HCl (Ondansetron Hcl 4 Mg/2 Ml Vial) 4 mg IVPUSH Q8H PRN PRN Reason: Nausea and Vomiting Oxycodone HCl (Oxycodone Hcl Immed Release 5 Mg Tablet) 5 mg PO Q6H PRN PRN Reason: Pain, Severe (Pain Scale 7-10) Last Admin: 11/06/22 09:05 Dose: 5 mg Documented By: PAYTON Pharmacy Consult (Consult Rx Perform Med Rec) 1 each MISCELLANE ONCE PRN PRN Reason: Consult order Pharmacy Consult (Consult Rx Etoh Phenob Im/Po) 1 each MISCELLANE ONCE PRN; Protocol PRN Reason: Consult order Pharmacy Consult (Consult Rx Vancomycin Dosing) 1 each MISCELLANE DAILY PRN PRN Reason: Consult order Sodium Bicarbonate (Sodium Bicarbonate 650 Mg Tablet) 650 mg PO TID [facility] Last Admin: 11/06/22 09:01 Dose: 650 mg Documented By: PAYTON Thiamine HCl (Thiamine Hcl 100 Mg Tablet) 200 mg PO BID [facility] Last Admin: 11/06/22 09:00 Dose: 200 mg Documented By: PAYTON Vitamin D (Cholecalciferol (Vitamin D3) 25 Mcg Tablet) 25 mcg PO DAILY [facility] Last Admin: 11/06/22 09:01 Dose: 25 mcg Documented By: PAYTON Labs CBC & Chem 7: 11/06/22 05:38 11/06/22 05:38 Labs: Laboratory Results - last 24 hr 11/05/22 11/06/22 11/06/22 05:54 05:38 05:38 MCV 107.0 H MCH 37.7 H MCHC 35.2 H RDW 16.3 H Plt Count 492 H MPV 10.2 Immature Gran % (Auto) 0.8 H Neut % (Auto) 67.7 Lymph % (Auto) 15.5 L [place] % (Auto) 14.4 H Eos % (Auto) 0.5 Baso % (Auto) 1.1 Lymph # (Auto) 2.6 [place] # (Auto) 2.4 H Eos # (Auto) 0.1 Baso # (Auto) 0.2 Abs Immat Gran (auto) 0.13 H Absolute Neuts (auto) 11.3 H Absolute Nucleated RBC 0.000 Nucleated RBC % (auto) 0.0 Smear Tech's Comments VERIFIED PT INR Anion Gap 12 Estim Creat Clear Calc 28.9 Estimated GFR 45 Random Glucose 80 Calcium 7.1 L Magnesium 1.8 Hepatitis A IgM Ab Nonreactive Hep Bs Antigen Negative Hep Bs Antibody NONREACTIVE Hep B Core Total Ab Nonreactive Hepatitis C Ab (EIA) Nonreactive 11/06/22 05:38 MCV MCH MCHC RDW Plt Count MPV Immature Gran % (Auto) Neut % (Auto) Lymph % (Auto) [place] % (Auto) Eos % (Auto) Baso % (Auto) Lymph # (Auto) [place] # (Auto) Eos # (Auto) Baso # (Auto) Abs Immat Gran (auto) Absolute Neuts (auto) Absolute Nucleated RBC Nucleated RBC % (auto) Smear Tech's Comments PT 20.5 H INR 1.7 H Anion Gap Estim Creat Clear Calc Estimated GFR Random Glucose Calcium Magnesium Hepatitis A IgM Ab Hep Bs Antigen Hep Bs Antibody Hep B Core Total Ab Hepatitis C Ab (EIA) Assessment and Plan (1) Pneumonia: Status: Acute (2) NSVT (nonsustained ventricular tachycardia): Status: Acute (3) Gram-negative bacteremia: Status: Acute (4) UTI (urinary tract infection): Status: Acute Plan 62-year-old female with past medical history of alcohol abuse presents to the hospital with complaints of weakness NSVT- no recurrent episodes on telemetry seems improved with electrolytic replacement. Continue monitoring/correcting lytes cardio eval noted echo LFEV 60-65% continue asa,statin metoprolol on hold for soft bp acute/ subacute right precentral gyrus stroke ?multiple findings seen on head CT ?MRI showed evidence of right precentral get risks stroke along with? cerebral and cerebellar atrophy ?other MRI findings suggestive of chronic underlying cerebral and cerebellar loss from chronic alcoholism ?continue aspirin and high-dose statin, blood pressure control ?Neurology input appreciated ?echo: Conclusions: - 1.? Normal LV systolic and diastolic function? 2. Mildly dilated right ventricle with severe LV systolic? dysfunction of unclear etiology? 3. Mild biatrial enlargement without any evidence of interatrial shunting ? 4. Mild mitral regurgitation ? 5. Mlux-pi-xmkhocxo tricuspid regurgitation? 6. Mildly elevated right atrial pressure with upper limits of? ? normal right ventricular systolic pressure ? 7. No gross pericardial effusion? carotid ultrasound with no major stenosis Acute RLE DVT right common femoral to posterior tibial vein seen by vascular surgery,not candidate for thrombolytic therapy at this time continue AC with Eliquis Enterobacter bacteremia secondary to UTI positive UA, UC contaminated final blood cultures growing sensitive Enterobacter. Repeat cultures negative -Initially treated with ceftriaxone. Continue levaquin x 14d (D8) - can change to po on discharge alcohol abuse with withdrawal- resolved Completed phenobarb Continue thiamine and folic acid YAKELIN secondary to dehydration resolved with IV fluid COPD not in exacerbation Duonebs Incentive spirometry wean O2 down as tolerated pneumonia: Repeat blood cultures negative -procalcitonin 7.33 -respiratory panel negative -MRSA swab negative. Continue levaquin (D8) based on renal function. Total duration 14d -Appreciate ID input hyponatremia-, likely related to dehydration and chronic alcoholism encouraged p.o. intake and hydration. -Follow BMP thrombocytosis reactive? frequent falls\rib fractures -likely secondary to above specially CVA -CT chest showed Nondisplaced fracture right posterior lateral eighth and ninth ribs without hematoma or pneumothorax. -physical therapy consulted -lidocaine patch,oob ,inecntive nahun, oxycodone prn chronic macrocytic anemia ?secondary to alcohol abuse and folic acid deficiency ?continue folic acid replacement moderate malnutrition -BMI of 15.5 -decreased po intake-Supplement added, encourage po intake and hydration Hypomagnesemia and hypokalemia repleted Continue 400mg mag PO BID DVT prophylaxis:? SCDs for low platelets attending - dr. sharpe PT eval - rec STR ongoing hospitalization need: pneumonia, bacteremia-need Iv antibiotics,and safe discharge plan Time Spent With Patient Time: Total time managing care of this patient today ____ minutes. Quality Stroke Does the patient have a stroke diagnosis?: No VTE Prior VTE?: No VTE Risk Level:: Medical - moderate - high VTE Device Contraindication: N/A - Device Ordered VTE Drug Contraindication: Treatment Not Indicated
--- NOTE | 2022-11-06 14:39 | MHC.CM.PN ---
per rounds pt may be dcd on oral antibiotics plan remanins str
[2022-11-06 15:26] VITALS: BP 89/50; PULSE 85; RESP 17; TEMP 36.2; O2SAT 94
[2022-11-06 18:57] VITALS: BP 90/60; PULSE 94; RESP 17; TEMP 37.7; O2SAT 93
[2022-11-06] MEDS: Mirtazapine 15 MG TABLET PO (21:20)
[2022-11-06] MEDS: Atorvastatin Calcium 80 MG TABLET PO (21:20)
[2022-11-06 23:28] VITALS: BP 113/56; PULSE 100; RESP 16; TEMP 37.2; O2SAT 94
[2022-11-07] VITALS (8 sets, daily range): BP systolic 84–108; BP diastolic 53–60; PULSE 79–103; RESP 12–20; TEMP 36.4–37.5; O2SAT 93–98
[2022-11-07] MEDS: Loperamide HCl 2 MG CAPSULE PO ×6 (01:50→20:49)
[2022-11-07] MEDS: Acetaminophen 325 MG TABLET 975 MG PO ×3 (01:50→17:48)
[2022-11-07] MEDS: oxyCODONE HCl Immed Release 5 MG TABLET PO ×4 (03:37→22:38)
[2022-11-07 06:16] LABS: Basophils Absolute Auto 0.2 X10*3/uL (0.0-0.2); Basophils Percent Auto 0.9 % (0-2); Eosinophils Absolute Auto 0.1 X10*3/uL (0.0-0.4); Eosinophils Percent Auto 0.4 % (0-4); Hematocrit 21.6 % (37.0-47.0); Hemoglobin 7.5 g/dl (12.0-16.0); Imm Gran Abs Auto 0.21 X10*3/uL (0.00-0.03); Imm Gran Pct Auto 1.1 % (0.0-0.4); Lymphocytes Absolute Auto 2.6 X10*3/uL (1.2-4.9); Lymphocytes Percent Auto 13.3 % (20-40); MANUAL DIFF FLAG SCAN; Mean Corpuscular HGB Conc 34.7 g/dl (31.0-35.0); Mean Corpuscular Hemoglobin 36.8 pg (27.0-33.0); Mean Corpuscular Volume 105.9 fL (80.0-98.0); Mean Platelet Volume 10.4 fL (9.4-12.3); Monocytes Absolute Auto 3.1 X10*3/uL (0.1-1.2); Monocytes Percent Auto 15.7 % (2-11); Neutrophils Absolute Auto 13.5 x10*3/uL (2.0-8.3); Neutrophils Percent Auto 68.6 % (45-73); Platelet Count 410 X10*3/uL (160-400); Red Blood Count 2.04 X10*6/uL (4.20-5.50); Red Cell Distribution Width 16.1 % (11.0-16.0); SCAN SMEAR FLAG 1; White Blood Count 19.6 X10*3/uL (4.8-10.8)
[2022-11-07 06:48] LABS: SLIDE REVIEW VERIFIED
[2022-11-07 07:25] LABS: Creatinine Clr Calc Pharmacy 24.8; Estimated Glomerular Filt Rate 38
[2022-11-07 09:04] LABS: OBS Int Ctl Valid YES; OBS1 NEGATIVE (NEGATIVE)
[2022-11-07] MEDS: Folic Acid 1 MG TABLET 2 MG PO (09:45)
[2022-11-07] MEDS: Ferrous Sulfate 324 MG TABLET.DR PO ×2 (09:45→17:49)
[2022-11-07] MEDS: Sodium Bicarbonate 650 MG TABLET PO ×3 (09:45→20:49)
[2022-11-07] MEDS: Thiamine HCL 100 MG TABLET 200 MG PO ×2 (09:45→20:49)
[2022-11-07] MEDS: Lidocaine 4 % Patch ADH..PATCH 1 PATCH TRANSDERMA ×2 (09:46→09:47)
[2022-11-07] MEDS: Fluticasone Propionate Nasal 16 GM SPRAY 2 SPRAY NOSTRIL-B (09:46)
[2022-11-07] MEDS: Nicotine 21 MG PATCH.TD24 TRANSDERMA (09:46)
[2022-11-07] MEDS: Cholecalciferol (Vitamin D3) 25 MCG TABLET PO (09:46)
[2022-11-07] MEDS: Apixaban 5 MG TABLET PO ×2 (09:46→20:49)
[2022-11-07] MEDS: Omeprazole 20 MG CAPSULE.DR PO ×2 (09:46→20:49)
[2022-11-07] MEDS: Magnesium Oxide 400 MG TABLET PO ×2 (09:47→17:49)
--- NOTE | 2022-11-07 12:31 | HO.PM.IMPN ---
Subjective Subjective Date of Service: 11/07/22 Interval History: seen and examined this morning follow up for multiple issues no overnight events patient denies sob, cough, abdominal pain, fever, chills reporting pain in back (states chronic for 1.5 years) and pain in right leg Review of Systems Review of Systems: Yes all other systems are reviewed and are negative Constitutional Constitutional: Denies chills and Denies fever(s) ENT Ears, Nose, Mouth, and Throat: Denies dizziness Cardiovascular Cardiovascular: Denies chest pain, Denies palpitations and Denies dyspnea Respiratory Respiratory: Denies cough and Denies dyspnea Gastrointestinal Gastrointestinal: Denies abdominal pain, Denies nausea and Denies vomiting Neurologic Neurologic: Denies dizziness Endocrine Endocrine: Denies palpitations Physical Exam Vital Signs: Vital Signs: Last Vital Signs Temp 98.9 F 11/07/22 11:09 Pulse 83 11/07/22 11:09 Resp 12 11/07/22 11:09 BP 90/59 L 11/07/22 11:09 Pulse Ox 98 11/07/22 11:09 O2 Del Method 11/07/22 11:09 O2 Flow Rate 4 11/07/22 11:09 BMI result Body Mass Index 15.5 Const: General: alert and awake Nutritional Appearance: cachectic and thin Resp: Effort & Inspection: normal respiratory effort and able to speak in complete sentences Auscultation: clear to auscultation bilaterally Cardio: Rate: regular rate Heart sounds: S1 normal heart sound present and S2 normal heart sound present GI: Inspection: No distended Palpation (GI): Soft to palpation and nontender Extrem: Other: right lower extremity pedal edema Objective Data Active Medications Acetaminophen (Acetaminophen 325 Mg Tablet) 975 mg PO Q8H [facility] Last Admin: 11/07/22 09:45 Dose: 975 mg Documented By: MICHAEL Apixaban (Apixaban 5 Mg Tablet) 5 mg PO BID [facility] Last Admin: 11/07/22 09:46 Dose: 5 mg Documented By: MICHAEL Aspirin (Aspirin Enteric Coated 81 Mg Tablet.) 81 mg PO DAILY [facility] Last Admin: 11/06/22 09:00 Dose: 81 mg Documented By: PAYTON Atorvastatin Calcium (Atorvastatin Calcium 80 Mg Tablet) 80 mg PO BEDTIME [facility] Last Admin: 11/06/22 21:20 Dose: 80 mg Documented By: RADHA Ferrous Sulfate (Ferrous Sulfate 324 Mg Tablet.Dr) 324 mg PO BIDWM [facility] Last Admin: 11/07/22 09:45 Dose: 324 mg Documented By: MICHAEL Fluticasone Propionate (Fluticasone Propionate Nasal 16 Gm [place]) 2 spray NOSTRIL-B DAILY [facility] Last Admin: 11/07/22 09:46 Dose: 2 spray Documented By: MICHAEL Folic Acid (Folic Acid 1 Mg Tablet) 2 mg PO DAILY [facility] Last Admin: 11/07/22 09:45 Dose: 2 mg Documented By: MICHAEL Gabapentin (Gabapentin 100 Mg Capsule) 100 mg PO BID PRN PRN Reason: Pain (Scale Score 1-3) Last Admin: 11/05/22 20:48 Dose: 100 mg Documented By: CAROL Levofloxacin (Levaquin) 750 mg in 150 mls @ 100 mls/hr IV Q48H [facility] Last Infusion: 11/05/22 18:29 Dose: 0 mls/hr Documented By: CAROL Lidocaine (Lidocaine 4 % Patch Adh..Patch) 1 patch TRANSDERMA DAILY [facility]; Protocol Last Admin: 11/07/22 09:46 Dose: 1 patch Documented By: MICHAEL Lidocaine (Lidocaine 4 % Patch Adh..Patch) 1 patch TRANSDERMA DAILY [facility]; Protocol Last Admin: 11/07/22 09:47 Dose: 1 patch Documented By: MICHAEL Loperamide HCl (Loperamide Hcl 2 Mg Capsule) 2 mg PO Q4H [facility] Last Admin: 11/07/22 09:45 Dose: 2 mg Documented By: MICHAEL Magnesium Oxide (Magnesium Oxide 400 Mg Tablet) 400 mg PO BIDPC [facility] Last Admin: 11/07/22 09:47 Dose: 400 mg Documented By: MICHAEL Metoprolol Tartrate (Metoprolol Tartrate 25 Mg Tablet) 25 mg PO BID [facility]; Protocol Last Admin: 10/30/22 09:16 Dose: 25 mg Documented By: BIJAL Mirtazapine (Mirtazapine 15 Mg Tablet) 15 mg PO BEDTIME [facility] Last Admin: 11/06/22 21:20 Dose: 15 mg Documented By: RADHA Nicotine (Nicotine 21 Mg Patch.Td24) 21 mg TRANSDERMA DAILY PRN PRN Reason: Nicotine Cravings Last Admin: 10/29/22 13:17 Dose: 21 mg Documented By: TONYA Nicotine (Nicotine 21 Mg Patch.Td24) 21 mg TRANSDERMA DAILY [facility] Last Admin: 11/07/22 09:46 Dose: 21 mg Documented By: MICHAEL Omeprazole (Omeprazole 20 Mg Capsule.Dr) 20 mg PO BID [facility] Last Admin: 11/07/22 09:46 Dose: 20 mg Documented By: MICHAEL Ondansetron HCl (Ondansetron Hcl 4 Mg/2 Ml Vial) 4 mg IVPUSH Q8H PRN PRN Reason: Nausea and Vomiting Oxycodone HCl (Oxycodone Hcl Immed Release 5 Mg Tablet) 5 mg PO Q6H PRN PRN Reason: Pain, Severe (Pain Scale 7-10) Last Admin: 11/07/22 09:49 Dose: 5 mg Documented By: MICHAEL Pharmacy Consult (Consult Rx Perform Med Rec) 1 each MISCELLANE ONCE PRN PRN Reason: Consult order Pharmacy Consult (Consult Rx Etoh Phenob Im/Po) 1 each MISCELLANE ONCE PRN; Protocol PRN Reason: Consult order Pharmacy Consult (Consult Rx Vancomycin Dosing) 1 each MISCELLANE DAILY PRN PRN Reason: Consult order Sodium Bicarbonate (Sodium Bicarbonate 650 Mg Tablet) 650 mg PO TID [facility] Last Admin: 11/07/22 09:45 Dose: 650 mg Documented By: MICHAEL Thiamine HCl (Thiamine Hcl 100 Mg Tablet) 200 mg PO BID [facility] Last Admin: 11/07/22 09:45 Dose: 200 mg Documented By: MICHAEL Vitamin D (Cholecalciferol (Vitamin D3) 25 Mcg Tablet) 25 mcg PO DAILY [facility] Last Admin: 11/07/22 09:46 Dose: 25 mcg Documented By: MICHAEL Labs CBC & Chem 7: 11/07/22 05:33 11/07/22 05:33 Labs: Laboratory Results - last 24 hr 11/07/22 11/07/22 11/07/22 05:33 05:33 08:07 MCV 105.9 H MCH 36.8 H MCHC 34.7 RDW 16.1 H Plt Count 410 H MPV 10.4 Immature Gran % (Auto) 1.1 H Neut % (Auto) 68.6 Lymph % (Auto) 13.3 L [place] % (Auto) 15.7 H Eos % (Auto) 0.4 Baso % (Auto) 0.9 Lymph # (Auto) 2.6 [place] # (Auto) 3.1 H Eos # (Auto) 0.1 Baso # (Auto) 0.2 Abs Immat Gran (auto) 0.21 H Absolute Neuts (auto) 13.5 H Absolute Nucleated RBC 0.000 Nucleated RBC % (auto) 0.0 Smear Tech's Comments VERIFIED Estim Creat Clear Calc 24.8 Estimated GFR 38 Stool Occult Blood Blood Type O Positive Antibody Screen NEGATIVE Crossmatch See Detail 11/07/22 08:30 MCV MCH MCHC RDW Plt Count MPV Immature Gran % (Auto) Neut % (Auto) Lymph % (Auto) [place] % (Auto) Eos % (Auto) Baso % (Auto) Lymph # (Auto) [place] # (Auto) Eos # (Auto) Baso # (Auto) Abs Immat Gran (auto) Absolute Neuts (auto) Absolute Nucleated RBC Nucleated RBC % (auto) Smear Tech's Comments Estim Creat Clear Calc Estimated GFR Stool Occult Blood NEGATIVE Blood Type Antibody Screen Crossmatch Assessment and Plan (1) Pneumonia: Status: Acute (2) Gram-negative bacteremia: Status: Acute Plan 62-year-old female with past medical history of alcohol abuse presents to the hospital with complaints of weakness chronic macrocytic anemia secondary to alcohol abuse and folic acid deficiency b12, folic acid wnl. iron 22 heme negative, no obvious blood loss likely component of inflammation continue folic acid replacement -will transfuse 1 unit -follow CBC YAKELIN secondary to dehydration creatinine trending back up defer IVF for now as receiving blood transfusion pneumonia: repeat cxr 11/06 showing new effusions, wbc trending up, but no respiratory symptoms per patient - will obtain chest CT for better characterization respiratory panel negative MRSA swab negative. Continue levaquin (D9) based on renal function. Total duration 14d Appreciate ID input NSVT- no recurrent episodes on telemetry seems improved with electrolytic replacement. Continue monitoring/correcting lytes cardio eval noted echo LFEV 60-65% metoprolol on hold for soft bp acute/ subacute right precentral gyrus stroke ?multiple findings seen on head CT ?MRI showed evidence of right precentral get risks stroke along with? cerebral and cerebellar atrophy ?other MRI findings suggestive of chronic underlying cerebral and cerebellar loss from chronic alcoholism ?continue statin asa stopped now that pt is on full AC with Eliquis ?Neurology input appreciated ?echo: Conclusions: - 1.? Normal LV systolic and diastolic function? 2. Mildly dilated right ventricle with severe LV systolic? dysfunction of unclear etiology? 3. Mild biatrial enlargement without any evidence of interatrial shunting ? 4. Mild mitral regurgitation ? 5. [id number] tricuspid regurgitation? 6. Mildly elevated right atrial pressure with upper limits of? ? normal right ventricular systolic pressure ? 7. No gross pericardial effusion? carotid ultrasound with no major stenosis Acute RLE DVT right common femoral to posterior tibial vein seen by vascular surgery,not candidate for thrombolytic therapy at this time continue AC with Eliquis Enterobacter bacteremia secondary to UTI positive UA, UC contaminated final blood cultures growing sensitive Enterobacter. Repeat cultures negative -Initially treated with ceftriaxone. Continue levaquin x 14d (D9) - can change to po on discharge alcohol abuse with withdrawal- resolved Completed phenobarb Continue thiamine and folic acid COPD not in exacerbation Duonebs Incentive spirometry wean O2 down as tolerated hyponatremia-, likely related to dehydration and chronic alcoholism encouraged p.o. intake and hydration. -Follow BMP thrombocytosis reactive? frequent falls\rib fractures -likely secondary to above specially CVA -CT chest showed Nondisplaced fracture right posterior lateral eighth and ninth ribs without hematoma or pneumothorax. -lidocaine patch,oob, incentive nahun, oxycodone prn moderate malnutrition -BMI of 15.5 -decreased po intake-Supplement added, encourage po intake and hydration Hypomagnesemia and hypokalemia repleted Continue 400mg mag PO BID DVT prophylaxis:? SCDs for low platelets attending - dr. sharpe PT eval - rec STR ongoing hospitalization need: pneumonia, bacteremia-need Iv antibiotics,and safe discharge plan Time Spent With Patient Time: Total time managing care of this patient today ____ minutes. Quality Stroke Does the patient have a stroke diagnosis?: No VTE Prior VTE?: No VTE Risk Level:: Medical - moderate - high VTE Device Contraindication: N/A - Device Ordered VTE Drug Contraindication: Treatment Not Indicated
--- NOTE | 2022-11-07 13:29 | PC.NURSE ---
report received from overnight RN, medical reception per MAR. Pt due to get 1 unit of RBC, admin per TAR. pt has consistent c/o pain in R knee and foot, pain medication administered per MD orders, see JAN. PT assisted pt OOB to chair, tolerated well. Chair alarm on, call torres within reach, safety precautions taken, pt encouraged to call for assistance
[2022-11-07] MEDS: levoFLOXacin/D5W 750 MG/150 ML PIGGYBACK 100 MG IV (17:48)
[2022-11-07] MEDS: Atorvastatin Calcium 80 MG TABLET PO (20:49)
[2022-11-07] MEDS: Mirtazapine 15 MG TABLET PO (20:50)
[2022-11-08] VITALS (8 sets, daily range): BP systolic 89–120; BP diastolic 50–66; PULSE 84–89; RESP 12–17; TEMP 36.2–37.5; O2SAT 84–96
[2022-11-08] MEDS: Acetaminophen 325 MG TABLET 975 MG PO ×3 (01:09→17:38)
[2022-11-08] MEDS: Loperamide HCl 2 MG CAPSULE PO ×6 (01:09→21:30)
[2022-11-08 06:22] LABS: Hematocrit 29.5 % (37.0-47.0); Hemoglobin 10.2 g/dl (12.0-16.0); Mean Corpuscular HGB Conc 34.6 g/dl (31.0-35.0); Mean Corpuscular Hemoglobin 34.8 pg (27.0-33.0); Mean Corpuscular Volume 100.7 fL (80.0-98.0); Mean Platelet Volume 10.4 fL (9.4-12.3); Platelet Count 304 X10*3/uL (160-400); Red Blood Count 2.93 X10*6/uL (4.20-5.50); Red Cell Distribution Width 18.2 % (11.0-16.0); White Blood Count 17.9 X10*3/uL (4.8-10.8)
[2022-11-08 06:34] LABS: Anion Gap 16 (12-20); Blood Urea Nitrogen 15 mg/dL (9-16); Calcium 6.9 mg/dL (8.4-10.2); Carbon Dioxide 19 mmol/L (22-29); Chloride 103 mmol/L (96-108); Creatinine Clr Calc Pharmacy 21.1; Estimated Glomerular Filt Rate 31; Glucose Random 72 mg/dL (60-115); Magnesium 1.7 mg/dL (1.6-2.6); Potassium 3.8 mmol/L (3.3-5.1); Sodium 134 mmol/L (135-145)
[2022-11-08] MEDS: oxyCODONE HCl Immed Release 5 MG TABLET PO ×4 (06:41→20:49)
[2022-11-08] MEDS: Lactated Ringers 1,000 ML 100 ML IVCONT ×2 (07:46→17:39)
[2022-11-08] MEDS: Omeprazole 20 MG CAPSULE.DR PO ×2 (07:47→21:35)
[2022-11-08] MEDS: Apixaban 5 MG TABLET PO ×2 (07:47→20:41)
[2022-11-08] MEDS: Thiamine HCL 100 MG TABLET 200 MG PO ×2 (07:47→21:30)
[2022-11-08] MEDS: Folic Acid 1 MG TABLET 2 MG PO (07:48)
[2022-11-08] MEDS: Ferrous Sulfate 324 MG TABLET.DR PO ×2 (07:48→16:02)
[2022-11-08] MEDS: Cholecalciferol (Vitamin D3) 25 MCG TABLET PO (07:48)
[2022-11-08] MEDS: Magnesium Oxide 400 MG TABLET PO ×2 (07:48→17:39)
[2022-11-08] MEDS: Nicotine 21 MG PATCH.TD24 TRANSDERMA (07:49)
[2022-11-08] MEDS: Lidocaine 4 % Patch ADH..PATCH 1 PATCH TRANSDERMA ×2 (07:49→07:50)
[2022-11-08] MEDS: Fluticasone Propionate Nasal 16 GM SPRAY 2 SPRAY NOSTRIL-B (08:15)
[2022-11-08] MEDS: Sodium Bicarbonate 650 MG TABLET PO ×3 (08:15→21:40)
--- NOTE | 2022-11-08 10:10 | MHC.CLN ---
F/U PO INTAKE 75-100% REMERON IN PLACE PER MD- MAY INCREASE APPETITE DIET RX: REGULAR-APPROPRIATE PT RECEIVES ENSURE BID PROVIDES ADDITIONAL 700KCALS, 40G PROTEIN SUPP PROVIDES 61% EST KCAL NEEDS, 87% EST PROTEIN NEEDS MONITOR PO INTAKE AND WEIGHT
[2022-11-08 11:24] LABS: Procalcitonin 6.99 ng/mL
--- NOTE | 2022-11-08 13:08 | P.PNIM_ITS ---
Subjective Subjective Date of Service: 11/08/22 Interval History: seen and examined this morning follow up for pneumonia, bacteremia, DVT reporting ongoing pain in right leg denies fever, chills, SOB Physical Exam Vital Signs: Vital Signs: Last Vital Signs Temp 99.5 F 11/08/22 11:18 Pulse 89 11/08/22 11:18 Resp 12 11/08/22 11:18 BP 94/60 11/08/22 11:18 Pulse Ox 92 11/08/22 11:18 O2 Del Method 11/08/22 11:18 O2 Flow Rate 2 11/08/22 11:18 BMI result Body Mass Index 15.5 Const: General: alert and awake Nutritional Appearance: cachectic and thin Orientation/consciousness: patient oriented x3 Resp: Effort & Inspection: normal respiratory effort and able to speak in complete sentences Auscultation: clear to auscultation bilaterally Cardio: Rate: regular rate Heart sounds: S1 normal heart sound present and S2 normal heart sound present GI: Inspection: No distended Palpation (GI): Soft to palpation and nontender Neuro: General: patient oriented x3 and CN's II-XI intact bilaterally Extrem: Other: right lower extremity/foot edema Objective Data Active Medications Acetaminophen (Acetaminophen 325 Mg Tablet) 975 mg PO Q8H [facility] Last Admin: 11/08/22 10:05 Dose: 975 mg Documented By: MICHAEL Apixaban (Apixaban 5 Mg Tablet) 5 mg PO BID [facility] Last Admin: 11/08/22 07:47 Dose: 5 mg Documented By: MICHAEL Atorvastatin Calcium (Atorvastatin Calcium 80 Mg Tablet) 80 mg PO BEDTIME [facility] Last Admin: 11/07/22 20:49 Dose: 80 mg Documented By: RADHA Ferrous Sulfate (Ferrous Sulfate 324 Mg Tablet.Dr) 324 mg PO BIDWM [facility] Last Admin: 11/08/22 07:48 Dose: 324 mg Documented By: MICHAEL Fluticasone Propionate (Fluticasone Propionate Nasal 16 Gm [place]) 2 spray NOSTRIL-B DAILY [facility] Last Admin: 11/08/22 08:15 Dose: 2 spray Documented By: MICHAEL Folic Acid (Folic Acid 1 Mg Tablet) 2 mg PO DAILY [facility] Last Admin: 11/08/22 07:48 Dose: 2 mg Documented By: MICHAEL Gabapentin (Gabapentin 100 Mg Capsule) 100 mg PO BID PRN PRN Reason: Pain (Scale Score 1-3) Last Admin: 11/05/22 20:48 Dose: 100 mg Documented By: CAORL Levofloxacin (Levaquin) 750 mg in 150 mls @ 100 mls/hr IV Q48H [facility] Last Infusion: 11/07/22 21:02 Dose: 0 mls/hr Documented By: RADHA Lactated Ringer's (Lr) 1,000 mls @ 100 mls/hr IVCONT .Q10H [facility] Last Admin: 11/08/22 07:46 Dose: 100 mls/hr Documented By: MICHAEL Lidocaine (Lidocaine 4 % Patch Adh..Patch) 1 patch TRANSDERMA DAILY [facility]; Protocol Last Admin: 11/08/22 07:49 Dose: 1 patch Documented By: MICHAEL Lidocaine (Lidocaine 4 % Patch Adh..Patch) 1 patch TRANSDERMA DAILY [facility]; Protocol Last Admin: 11/08/22 07:50 Dose: 1 patch Documented By: MICHAEL Loperamide HCl (Loperamide Hcl 2 Mg Capsule) 2 mg PO Q4H [facility] Last Admin: 11/08/22 11:58 Dose: 2 mg Documented By: MICHAEL Magnesium Oxide (Magnesium Oxide 400 Mg Tablet) 400 mg PO BIDPC [facility] Last Admin: 11/08/22 07:48 Dose: 400 mg Documented By: MICHAEL Metoprolol Tartrate (Metoprolol Tartrate 25 Mg Tablet) 25 mg PO BID [facility]; Protocol Last Admin: 10/30/22 09:16 Dose: 25 mg Documented By: BIJAL Mirtazapine (Mirtazapine 15 Mg Tablet) 15 mg PO BEDTIME [facility] Last Admin: 11/07/22 20:50 Dose: 15 mg Documented By: RADHA Nicotine (Nicotine 21 Mg Patch.Td24) 21 mg TRANSDERMA DAILY PRN PRN Reason: Nicotine Cravings Last Admin: 10/29/22 13:17 Dose: 21 mg Documented By: TONYA Nicotine (Nicotine 21 Mg Patch.Td24) 21 mg TRANSDERMA DAILY [facility] Last Admin: 11/08/22 07:49 Dose: 21 mg Documented By: MICHAEL Omeprazole (Omeprazole 20 Mg Capsule.Dr) 20 mg PO BID [facility] Last Admin: 11/08/22 07:47 Dose: 20 mg Documented By: MICHAEL Ondansetron HCl (Ondansetron Hcl 4 Mg/2 Ml Vial) 4 mg IVPUSH Q8H PRN PRN Reason: Nausea and Vomiting Oxycodone HCl (Oxycodone Hcl Immed Release 5 Mg Tablet) 5 mg PO Q4H PRN PRN Reason: Pain, Severe (Pain Scale 7-10) Last Admin: 11/08/22 11:58 Dose: 5 mg Documented By: MICHAEL Pharmacy Consult (Consult Rx Perform Med Rec) 1 each MISCELLANE ONCE PRN PRN Reason: Consult order Pharmacy Consult (Consult Rx Etoh Phenob Im/Po) 1 each MISCELLANE ONCE PRN; Protocol PRN Reason: Consult order Pharmacy Consult (Consult Rx Vancomycin Dosing) 1 each MISCELLANE DAILY PRN PRN Reason: Consult order Sodium Bicarbonate (Sodium Bicarbonate 650 Mg Tablet) 650 mg PO TID [facility] Last Admin: 11/08/22 08:15 Dose: 650 mg Documented By: MICHAEL Thiamine HCl (Thiamine Hcl 100 Mg Tablet) 200 mg PO BID [facility] Last Admin: 11/08/22 07:47 Dose: 200 mg Documented By: MICHAEL Vitamin D (Cholecalciferol (Vitamin D3) 25 Mcg Tablet) 25 mcg PO DAILY [facility] Last Admin: 11/08/22 07:48 Dose: 25 mcg Documented By: MICHAEL Labs 11/08/22 05:31 11/08/22 05:31 Labs: Laboratory Results - last 24 hr 11/07/22 11/08/22 11/08/22 08:07 05:31 05:31 MCV 100.7 H D MCH 34.8 H MCHC 34.6 RDW 18.2 H Plt Count 304 D MPV 10.4 Absolute Nucleated RBC 0.000 Nucleated RBC % (auto) 0.0 Anion Gap 16 Estim Creat Clear Calc 21.1 Estimated GFR 31 Random Glucose 72 Calcium 6.9 L Magnesium 1.7 Procalcitonin Blood Type O Positive Antibody Screen NEGATIVE Crossmatch See Detail 11/08/22 05:31 MCV MCH MCHC RDW Plt Count MPV Absolute Nucleated RBC Nucleated RBC % (auto) Anion Gap Estim Creat Clear Calc Estimated GFR Random Glucose Calcium Magnesium Procalcitonin 6.99 Blood Type Antibody Screen Crossmatch Assessment and Plan (1) Pneumonia: Status: Acute (2) Gram-negative bacteremia: Status: Acute Plan 62-year-old female with past medical history of alcohol abuse presents to the hospital with complaints of weakness chronic macrocytic anemia secondary to alcohol abuse and folic acid deficiency b12, folic acid wnl. iron 22 heme negative, no obvious blood loss likely component of inflammation continue folic acid replacement s/p 1 unit of blood 11/07 with appropriate rise in H/H follow CBC YAKELIN creatinine trending back up pt reports decreased appetite continue IVF follow BMP pneumonia: repeat cxr 11/06 showing new effusions, wbc trending up, but no respiratory symptoms per patient Chest CT 11/07 with b/l pleural effusions, RLL consolidation/compressive atelectasis. d/w ID, given no respiratory symptoms and no fever, would not alter abx at this time respiratory panel negative MRSA swab negative. Continue levaquin (D10) based on renal function. Total duration 14d Appreciate ID input NSVT- no recurrent episodes on telemetry seems improved with electrolytic replacement. Continue monitoring/correcting lytes cardio eval noted echo LFEV 60-65% metoprolol on hold for soft bp acute/ subacute right precentral gyrus stroke ?multiple findings seen on head CT ?MRI showed evidence of right precentral get risks stroke along with? cerebral and cerebellar atrophy ?other MRI findings suggestive of chronic underlying cerebral and cerebellar loss from chronic alcoholism ?continue statin asa stopped now that pt is on full AC with Eliquis ?Neurology input appreciated ?echo: Conclusions: - 1.? Normal LV systolic and diastolic function? 2. Mildly dilated right ventricle with severe LV systolic? dysfunction of unclear etiology? 3. Mild biatrial enlargement without any evidence of interatrial shunting ? 4. Mild mitral regurgitation ? 5. [id number]-ljoofrdh tricuspid regurgitation? 6. Mildly elevated right atrial pressure with upper limits of? ? normal right ventricular systolic pressure ? 7. No gross pericardial effusion? carotid ultrasound with no major stenosis Acute RLE DVT right common femoral to posterior tibial vein seen by vascular surgery,not candidate for thrombolytic therapy at this time continue AC with Jose Enterobacter bacteremia secondary to UTI positive UA, UC contaminated final blood cultures growing sensitive Enterobacter. Repeat cultures negative Initially treated with ceftriaxone. Continue levaquin x 14d (D10) - can change to po on discharge alcohol abuse with withdrawal- resolved Completed phenobarb Continue thiamine and folic acid COPD not in exacerbation Duonebs Incentive spirometry wean O2 down as tolerated hyponatremia-, likely related to dehydration and chronic alcoholism encouraged p.o. intake and hydration. -Follow BMP thrombocytosis reactive? frequent falls\rib fractures -likely secondary to above specially CVA -CT chest showed Nondisplaced fracture right posterior lateral eighth and ninth ribs without hematoma or pneumothorax. -lidocaine patch,oob, incentive nahun, oxycodone prn moderate malnutrition -BMI of 15.5 -decreased po intake-Supplement added, encourage po intake and hydration Hypomagnesemia and hypokalemia repleted Continue 400mg mag PO BID DVT prophylaxis:? Jose attending - dr. sharpe PT eval - rec STR ongoing hospitalization need: pneumonia, bacteremia-need Iv antibiotics,and safe discharge plan Time Spent With Patient Time: Total time managing care of this patient today ____ minutes. Quality Stroke Does the patient have a stroke diagnosis?: No VTE Prior VTE?: No VTE Risk Level:: Medical - moderate - high VTE Device Contraindication: N/A - Device Ordered VTE Drug Contraindication: Treatment Not Indicated
[2022-11-08] MEDS: Gabapentin 100 MG CAPSULE PO (20:44)
[2022-11-08] MEDS: Mirtazapine 15 MG TABLET PO (21:35)
[2022-11-08] MEDS: Atorvastatin Calcium 80 MG TABLET PO (21:35)
[2022-11-09] VITALS (7 sets, daily range): BP systolic 86–128; BP diastolic 49–62; PULSE 89–99; RESP 15–18; TEMP 36.3–36.9; O2SAT 84–98
--- NOTE | 2022-11-09 00:04 | PC.NURSE ---
2100 Medication documented under day shift nurse due to error in logging in, corrected manually.
[2022-11-09] MEDS: Acetaminophen 325 MG TABLET 975 MG PO ×3 (00:12→16:42)
[2022-11-09] MEDS: Loperamide HCl 2 MG CAPSULE PO ×6 (00:14→23:48)
[2022-11-09] MEDS: oxyCODONE HCl Immed Release 5 MG TABLET PO ×6 (00:14→22:41)
[2022-11-09] MEDS: Lactated Ringers 1,000 ML 100 ML IVCONT ×2 (04:29→14:39)
[2022-11-09] MEDS: Cholecalciferol (Vitamin D3) 25 MCG TABLET PO (08:44)
[2022-11-09] MEDS: Nicotine 21 MG PATCH.TD24 TRANSDERMA (08:44)
[2022-11-09] MEDS: Ferrous Sulfate 324 MG TABLET.DR PO ×2 (08:44→16:42)
[2022-11-09] MEDS: Sodium Bicarbonate 650 MG TABLET PO ×3 (08:45→20:56)
[2022-11-09] MEDS: Apixaban 5 MG TABLET PO ×2 (08:45→20:53)
[2022-11-09] MEDS: Omeprazole 20 MG CAPSULE.DR PO ×2 (08:45→20:53)
[2022-11-09] MEDS: Thiamine HCL 100 MG TABLET 200 MG PO ×2 (08:45→20:37)
[2022-11-09] MEDS: Folic Acid 1 MG TABLET 2 MG PO (08:45)
[2022-11-09] MEDS: Lidocaine 4 % Patch ADH..PATCH 1 PATCH TRANSDERMA ×2 (08:56→08:57)
[2022-11-09] MEDS: Fluticasone Propionate Nasal 16 GM SPRAY 2 SPRAY NOSTRIL-B (09:41)
[2022-11-09] MEDS: Magnesium Oxide 400 MG TABLET PO ×2 (09:41→16:42)
--- NOTE | 2022-11-09 11:29 | HO.PM.IMPN ---
Subjective Subjective Date of Service: 11/09/22 Interval History: seen and examined this morning follow up for pneumonia, bacteremia, DVT reporting ongoing pain in right leg denies fever, chills, SOB Physical Exam Vital Signs: Vital Signs: Last Vital Signs Temp 98.0 F 11/09/22 07:57 Pulse 93 11/09/22 07:57 Resp 18 11/09/22 07:57 BP 86/49 L 11/09/22 07:57 Pulse Ox 98 11/09/22 07:57 O2 Del Method 11/09/22 07:57 O2 Flow Rate 2 11/09/22 07:57 BMI result Body Mass Index 15.5 Appearing in no acute distress lung sounds are clear to auscultation heart regular rate rhythm, clear S1, S2 positive bowel sounds, abdomen is soft, nontender neuro patient is alert x3, no focal deficits RLE edema Objective Data Active Medications Acetaminophen (Acetaminophen 325 Mg Tablet) 975 mg PO Q8H [facility] Last Admin: 11/09/22 08:47 Dose: 975 mg Documented By: ARABELLA Apixaban (Apixaban 5 Mg Tablet) 5 mg PO BID [facility] Last Admin: 11/09/22 08:45 Dose: 5 mg Documented By: ARABELLA Atorvastatin Calcium (Atorvastatin Calcium 80 Mg Tablet) 80 mg PO BEDTIME [facility] Last Admin: 11/08/22 21:35 Dose: 80 mg Documented By: LAILA Ferrous Sulfate (Ferrous Sulfate 324 Mg Tablet.Dr) 324 mg PO BIDWM [facility] Last Admin: 11/09/22 08:44 Dose: 324 mg Documented By: ARABELLA Fluticasone Propionate (Fluticasone Propionate Nasal 16 Gm [place]) 2 spray NOSTRIL-B DAILY [facility] Last Admin: 11/09/22 09:41 Dose: 2 spray Documented By: ARABELLA Folic Acid (Folic Acid 1 Mg Tablet) 2 mg PO DAILY [facility] Last Admin: 11/09/22 08:45 Dose: 2 mg Documented By: ARABELLA Gabapentin (Gabapentin 100 Mg Capsule) 100 mg PO BID PRN PRN Reason: Pain (Scale Score 1-3) Last Admin: 11/08/22 20:44 Dose: 100 mg Documented By: MICHAEL Levofloxacin (Levaquin) 750 mg in 150 mls @ 100 mls/hr IV Q48H [facility] Last Infusion: 11/07/22 21:02 Dose: 0 mls/hr Documented By: RADHA Lactated Ringer's (Lr) 1,000 mls @ 100 mls/hr IVCONT .Q10H [facility] Last Admin: 11/09/22 04:29 Dose: 100 mls/hr Documented By: LAILA Lidocaine (Lidocaine 4 % Patch Adh..Patch) 1 patch TRANSDERMA DAILY [facility]; Protocol Last Admin: 11/09/22 08:56 Dose: 1 patch Documented By: ARABELLA Lidocaine (Lidocaine 4 % Patch Adh..Patch) 1 patch TRANSDERMA DAILY [facility]; Protocol Last Admin: 11/09/22 08:57 Dose: 1 patch Documented By: ARABELLA Loperamide HCl (Loperamide Hcl 2 Mg Capsule) 2 mg PO Q4H [facility] Last Admin: 11/09/22 08:45 Dose: 2 mg Documented By: ARABELLA [facility] ([facility] Mg [facility] Last Admin: 11/09/22 09:41 Dose: 400 mg Documented By: ARABELLA Metoprolol Tartrate (Metoprolol Tartrate 25 Mg Tablet) 25 mg PO BID [facility]; Protocol Last Admin: 10/30/22 09:16 Dose: 25 mg Documented By: BIJAL Mirtazapine (Mirtazapine 15 Mg Tablet) 15 mg PO BEDTIME [facility] Last Admin: 11/08/22 21:35 Dose: 15 mg Documented By: LAILA Nicotine (Nicotine 21 Mg Patch.Td24) 21 mg TRANSDERMA DAILY PRN PRN Reason: Nicotine Cravings Last Admin: 10/29/22 13:17 Dose: 21 mg Documented By: TONYA Nicotine (Nicotine 21 Mg Patch.Td24) 21 mg TRANSDERMA DAILY [facility] Last Admin: 11/09/22 08:44 Dose: 21 mg Documented By: ARABELLA Omeprazole (Omeprazole 20 Mg Capsule.Dr) 20 mg PO BID [facility] Last Admin: 11/09/22 08:45 Dose: 20 mg Documented By: ARABELLA Ondansetron HCl (Ondansetron Hcl 4 Mg/2 Ml Vial) 4 mg IVPUSH Q8H PRN PRN Reason: Nausea and Vomiting Oxycodone HCl (Oxycodone Hcl Immed Release 5 Mg Tablet) 5 mg PO Q4H PRN PRN Reason: Pain, Severe (Pain Scale 7-10) Last Admin: 11/09/22 08:45 Dose: 5 mg Documented By: ARABELLA Pharmacy Consult (Consult Rx Perform Med Rec) 1 each MISCELLANE ONCE PRN PRN Reason: Consult order Pharmacy Consult (Consult Rx Etoh Phenob Im/Po) 1 each MISCELLANE ONCE PRN; Protocol PRN Reason: Consult order Pharmacy Consult (Consult Rx Vancomycin Dosing) 1 each MISCELLANE DAILY PRN PRN Reason: Consult order Sodium Bicarbonate (Sodium Bicarbonate 650 Mg Tablet) 650 mg PO TID [facility] Last Admin: 11/09/22 08:45 Dose: 650 mg Documented By: ARABELLA Thiamine HCl (Thiamine Hcl 100 Mg Tablet) 200 mg PO BID [facility] Last Admin: 11/09/22 08:45 Dose: 200 mg Documented By: ARABELLA Vitamin D (Cholecalciferol (Vitamin D3) 25 Mcg Tablet) 25 mcg PO DAILY [facility] Last Admin: 11/09/22 08:44 Dose: 25 mcg Documented By: ARABELLA Labs 11/08/22 05:31 11/08/22 05:31 Assessment and Plan (1) Pneumonia: Status: Acute (2) Gram-negative bacteremia: Status: Acute Plan 62-year-old female with past medical history of alcohol abuse presents to the hospital with complaints of weakness Chronic macrocytic anemia secondary to alcohol abuse and folic acid deficiency b12, folic acid wnl. iron 22 heme negative, no obvious blood loss likely component of inflammation continue folic acid replacement s/p 1 unit of blood 11/07 with appropriate rise in H/H follow CBC YAKELIN creatinine trending back up pt reports decreased appetite continue IVF follow BMP Pneumonia repeat cxr 11/06 showing new effusions, wbc trending up, but no respiratory symptoms per patient Chest CT 11/07 with b/l pleural effusions, RLL consolidation/compressive atelectasis. d/w ID, given no respiratory symptoms and no fever, would not alter abx at this time respiratory panel negative MRSA swab negative. completed abx Appreciate ID input NSVT- no recurrent episodes on telemetry seems improved with electrolytic replacement. Continue monitoring/correcting lytes cardio eval noted echo LFEV 60-65% metoprolol on hold for soft bp acute/ subacute right precentral gyrus stroke MRI showed evidence of right precentral stroke along with? cerebral and cerebellar atrophy other MRI findings suggestive of chronic underlying cerebral and cerebellar loss from chronic alcoholism continue statin asa stopped now that pt is on full AC with Eliquis Acute RLE DVT right common femoral to posterior tibial vein seen by vascular surgery,not candidate for thrombolytic therapy at this time continue AC with Eliquis Enterobacter bacteremia secondary to UTI positive UA, UC contaminated final blood cultures growing sensitive Enterobacter. Repeat cultures negative Initially treated with ceftriaxone, then Levaquin. competed total 17 days abx alcohol abuse with withdrawal- resolved Completed phenobarb Continue thiamine and folic acid COPD not in exacerbation Duonebs Incentive spirometry wean O2 down as tolerated hyponatremia likely related to dehydration and chronic alcoholism encouraged p.o. intake and hydration. Follow BMP thrombocytosis reactive? frequent falls\rib fractures likely secondary to above specially CVA CT chest showed Nondisplaced fracture right posterior lateral eighth and ninth ribs without hematoma or pneumothorax. lidocaine patch, oob, incentive nahun, oxycodone prn moderate malnutrition. BMI of 15.5 decreased po intake Supplement added, encourage po intake and hydration Hypomagnesemia and hypokalemia repleted Continue 400mg mag PO BID DVT prophylaxis:? Jose attending - dr. Junior PT eval - rec STR ongoing hospitalization need: pneumonia, bacteremia-need Iv antibiotics,and safe discharge plan Time Spent With Patient Time: Total time managing care of this patient today ____ minutes. Quality Stroke Does the patient have a stroke diagnosis?: No VTE Prior VTE?: No VTE Risk Level:: Medical - moderate - high VTE Device Contraindication: N/A - Device Ordered VTE Drug Contraindication: Treatment Not Indicated
[2022-11-09] MEDS: levoFLOXacin/D5W 750 MG/150 ML PIGGYBACK 100 MG IV (16:48)
[2022-11-09] MEDS: ondansetron HCL 4 MG/2 ML VIAL IVPUSH (20:49)
[2022-11-09] MEDS: Mirtazapine 15 MG TABLET PO (20:51)
[2022-11-09] MEDS: Atorvastatin Calcium 80 MG TABLET PO (20:52)
[2022-11-09] MEDS: Gabapentin 100 MG CAPSULE PO (20:53)
[2022-11-10] VITALS (7 sets, daily range): BP systolic 103–135; BP diastolic 52–87; PULSE 71–104; RESP 15–20; TEMP 36.3–37.2; O2SAT 94–98
--- NOTE | 2022-11-10 | ECG_ITS ---
Test Reason : cp Blood Pressure : / mmHG Vent. Rate : 097 BPM Atrial Rate : 097 BPM P-R Int : 152 ms QRS Dur : 098 ms QT Int : 356 ms P-R-T Axes : 097 067 064 degrees QTc Int : 452 ms Normal sinus rhythm Low voltage QRS Artifact on tracing Abnormal ECG When compared with ECG of 26-OCT-2021 10:51, low voltage present Referred By: Margret Grossman Electronically Signed By:Uriel Alexander
--- NOTE | 2022-11-10 02:18 | PC.NURSE ---
23:33 Notified Re: pt findings 4+ pitting edema on torso and bilateral extremities , petechiae on R lower extremity, black tarry stools, 2 episodes of N+V ,Zofran given with good effect. DR order to hold fluids.
[2022-11-10] MEDS: oxyCODONE HCl Immed Release 5 MG TABLET PO ×4 (03:00→21:20)
[2022-11-10] MEDS: Acetaminophen 325 MG TABLET 975 MG PO ×2 (05:02→23:55)
[2022-11-10] MEDS: Loperamide HCl 2 MG CAPSULE PO ×5 (05:02→21:20)
[2022-11-10] MEDS: Morphine Sulfate 2 MG/ML CARTRIDGE 1 MG IVPUSH (07:01)
[2022-11-10] MEDS: Cholecalciferol (Vitamin D3) 25 MCG TABLET PO (08:03)
[2022-11-10] MEDS: Thiamine HCL 100 MG TABLET 200 MG PO (08:03)
[2022-11-10] MEDS: Ferrous Sulfate 324 MG TABLET.DR PO (08:03)
[2022-11-10] MEDS: Omeprazole 20 MG CAPSULE.DR PO (08:03)
[2022-11-10] MEDS: Folic Acid 1 MG TABLET 2 MG PO (08:05)
[2022-11-10] MEDS: Apixaban 5 MG TABLET PO (08:05)
[2022-11-10] MEDS: Sodium Bicarbonate 650 MG TABLET PO ×2 (08:05→13:33)
[2022-11-10] MEDS: Magnesium Oxide 400 MG TABLET PO (08:05)
[2022-11-10] MEDS: Lidocaine 4 % Patch ADH..PATCH 1 PATCH TRANSDERMA ×2 (08:05→08:06)
[2022-11-10] MEDS: Nicotine 21 MG PATCH.TD24 TRANSDERMA (08:06)
[2022-11-10] MEDS: Fluticasone Propionate Nasal 16 GM SPRAY 2 SPRAY NOSTRIL-B (08:07)
--- NOTE | 2022-11-10 09:37 | P.PNIM_ITS ---
Subjective Subjective Date of Service: 11/10/22 Interval History: seen and examined this morning follow up for pneumonia, bacteremia, DVT reporting ongoing pain in right leg denies fever, chills, SOB Physical Exam Vital Signs: Vital Signs: Last Vital Signs Temp 97.3 F 11/10/22 08:00 Pulse 102 H 11/10/22 08:00 Resp 20 11/10/22 08:00 BP 106/53 L 11/10/22 08:00 Pulse Ox 94 11/10/22 03:03 O2 Del Method 11/10/22 03:03 O2 Flow Rate 2 11/09/22 23:50 BMI result Body Mass Index 15.5 Appearing in no acute distress lung sounds are clear to auscultation heart regular rate rhythm, clear S1, S2 positive bowel sounds, abdomen is soft, nontender neuro patient is alert x3, no focal deficits Objective Data Active Medications Acetaminophen (Acetaminophen 325 Mg Tablet) 975 mg PO Q8H [facility] Last Admin: 11/10/22 05:02 Dose: 975 mg Documented By: LAILA Apixaban (Apixaban 5 Mg Tablet) 5 mg PO BID [facility] Last Admin: 11/10/22 08:05 Dose: 5 mg Documented By: BIJAL Atorvastatin Calcium (Atorvastatin Calcium 80 Mg Tablet) 80 mg PO BEDTIME [facility] Last Admin: 11/09/22 20:52 Dose: 80 mg Documented By: LAILA Ferrous Sulfate (Ferrous Sulfate 324 Mg Tablet.Dr) 324 mg PO BIDWM [facility] Last Admin: 11/10/22 08:03 Dose: 324 mg Documented By: BIJAL Fluticasone Propionate (Fluticasone Propionate Nasal 16 Gm [place]) 2 spray NOSTRIL-B DAILY [facility] Last Admin: 11/10/22 08:07 Dose: 2 spray Documented By: BIJAL Folic Acid (Folic Acid 1 Mg Tablet) 2 mg PO DAILY [facility] Last Admin: 11/10/22 08:05 Dose: 2 mg Documented By: BIJAL Gabapentin (Gabapentin 100 Mg Capsule) 100 mg PO BID PRN PRN Reason: Pain (Scale Score 1-3) Last Admin: 11/09/22 20:53 Dose: 100 mg Documented By: LAILA Lidocaine (Lidocaine 4 % Patch Adh..Patch) 1 patch TRANSDERMA DAILY [facility]; Protocol Last Admin: 11/10/22 08:05 Dose: 1 patch Documented By: BIJAL Lidocaine (Lidocaine 4 % Patch Adh..Patch) 1 patch TRANSDERMA DAILY [facility]; Protocol Last Admin: 11/10/22 08:06 Dose: 1 patch Documented By: BIJAL Loperamide HCl (Loperamide Hcl 2 Mg Capsule) 2 mg PO Q4H [facility] Last Admin: 11/10/22 08:05 Dose: 2 mg Documented By: BIJAL Magnesium Oxide (Magnesium Oxide 400 Mg Tablet) 400 mg PO BIDPC [facility] Last Admin: 11/10/22 08:05 Dose: 400 mg Documented By: BIJAL Metoprolol Tartrate (Metoprolol Tartrate 25 Mg Tablet) 25 mg PO BID [facility]; Protocol Last Admin: 10/30/22 09:16 Dose: 25 mg Documented By: BIJAL Mirtazapine (Mirtazapine 15 Mg Tablet) 15 mg PO BEDTIME [facility] Last Admin: 11/09/22 20:51 Dose: 15 mg Documented By: LAILA Nicotine (Nicotine 21 Mg Patch.Td24) 21 mg TRANSDERMA DAILY PRN PRN Reason: Nicotine Cravings Last Admin: 10/29/22 13:17 Dose: 21 mg Documented By: TONYA Nicotine (Nicotine 21 Mg Patch.Td24) 21 mg TRANSDERMA DAILY [facility] Last Admin: 11/10/22 08:06 Dose: 21 mg Documented By: BIJAL Omeprazole (Omeprazole 20 Mg Capsule.Dr) 20 mg PO BID [facility] Last Admin: 11/10/22 08:03 Dose: 20 mg Documented By: BIJAL Ondansetron HCl (Ondansetron Hcl 4 Mg/2 Ml Vial) 4 mg IVPUSH Q8H PRN PRN Reason: Nausea and Vomiting Last Admin: 11/09/22 20:49 Dose: 4 mg Documented By: LAILA Oxycodone HCl (Oxycodone Hcl Immed Release 5 Mg Tablet) 5 mg PO Q4H PRN PRN Reason: Pain, Severe (Pain Scale 7-10) Last Admin: 11/10/22 03:00 Dose: 5 mg Documented By: LAILA Pharmacy Consult (Consult Rx Perform Med Rec) 1 each MISCELLANE ONCE PRN PRN Reason: Consult order Pharmacy Consult (Consult Rx Etoh Phenob Im/Po) 1 each MISCELLANE ONCE PRN; Protocol PRN Reason: Consult order Pharmacy Consult (Consult Rx Vancomycin Dosing) 1 each MISCELLANE DAILY PRN PRN Reason: Consult order Sodium Bicarbonate (Sodium Bicarbonate 650 Mg Tablet) 650 mg PO TID [facility] Last Admin: 11/10/22 08:05 Dose: 650 mg Documented By: BIJAL Thiamine HCl (Thiamine Hcl 100 Mg Tablet) 200 mg PO BID [facility] Last Admin: 11/10/22 08:03 Dose: 200 mg Documented By: BIJAL Vitamin D (Cholecalciferol (Vitamin D3) 25 Mcg Tablet) 25 mcg PO DAILY [facility] Last Admin: 11/10/22 08:03 Dose: 25 mcg Documented By: BIJAL Labs 11/08/22 05:31 11/08/22 05:31 Assessment and Plan (1) Pneumonia: Status: Acute (2) Gram-negative bacteremia: Status: Acute Plan 62-year-old female with past medical history of alcohol abuse presents to the hospital with complaints of weakness Acute RLE DVT right common femoral to posterior tibial vein seen by vascular surgery,not candidate for thrombolytic therapy at this time Eliquis started at 5mg BID rather than 10mg BID, also CC now down to 21 will stop eliquis and start warfarin 5mg today PT/INR daily Chronic macrocytic anemia secondary to alcohol abuse and folic acid deficiency b12, folic acid wnl. iron 22 heme negative, no obvious blood loss likely component of inflammation continue folic acid replacement s/p 1 unit of blood 11/07 with appropriate rise in H/H follow CBC YAKELIN creatinine trending back up pt reports decreased appetite continue IVF follow BMP Pneumonia repeat cxr 11/06 showing new effusions, wbc trending up, but no respiratory symptoms per patient Chest CT 11/07 with b/l pleural effusions, RLL consolidation/compressive atelectasis. d/w ID, given no respiratory symptoms and no fever, would not alter abx at this time respiratory panel negative MRSA swab negative. completed abx Appreciate ID input NSVT- no recurrent episodes on telemetry seems improved with electrolytic replacement. Continue monitoring/correcting lytes cardio eval noted echo LFEV 60-65% metoprolol on hold for soft bp acute/ subacute right precentral gyrus stroke MRI showed evidence of right precentral stroke along with? cerebral and cerebellar atrophy other MRI findings suggestive of chronic underlying cerebral and cerebellar loss from chronic alcoholism continue statin asa stopped now that pt is on full AC with Eliquis Enterobacter bacteremia secondary to UTI positive UA, UC contaminated final blood cultures growing sensitive Enterobacter. Repeat cultures negative Initially treated with ceftriaxone, then Levaquin. competed total 17 days abx alcohol abuse with withdrawal- resolved Completed phenobarb Continue thiamine and folic acid COPD not in exacerbation Duonebs Incentive spirometry wean O2 down as tolerated hyponatremia likely related to dehydration and chronic alcoholism encouraged p.o. intake and hydration. Follow BMP thrombocytosis reactive? frequent falls\rib fractures likely secondary to above specially CVA CT chest showed Nondisplaced fracture right posterior lateral eighth and ninth ribs without hematoma or pneumothorax. lidocaine patch, oob, incentive nahun, oxycodone prn moderate malnutrition. BMI of 15.5 decreased po intake Supplement added, encourage po intake and hydration Hypomagnesemia and hypokalemia repleted Continue 400mg mag PO BID DVT prophylaxis:? warfarin attending - dr. Junior PT eval - rec STR ongoing hospitalization need: pneumonia, bacteremia-need Iv antibiotics,and safe discharge plan Time Spent With Patient Time: Total time managing care of this patient today ____ minutes. Quality Stroke Does the patient have a stroke diagnosis?: No VTE Prior VTE?: No VTE Risk Level:: Medical - moderate - high VTE Device Contraindication: N/A - Device Ordered VTE Drug Contraindication: Treatment Not Indicated
[2022-11-10 10:38] LABS: INTERNATIONAL NORM RATIO 2.9 (0.9-1.1); Prothrombin Time 35.3 SEC (10.0-13.1)
[2022-11-10 10:47] LABS: Anion Gap 19 (12-20); Blood Urea Nitrogen 17 mg/dL (9-16); Carbon Dioxide 18 mmol/L (22-29); Chloride 97 mmol/L (96-108); Creatinine Clr Calc Pharmacy 15.8; Estimated Glomerular Filt Rate 22; Glucose Random 95 mg/dL (60-115); Potassium 4.6 mmol/L (3.3-5.1); Sodium 129 mmol/L (135-145)
--- NOTE | 2022-11-10 10:57 | ECG_ITS ---
Test Reason : cardiac arrest Blood Pressure : / mmHG Vent. Rate : 107 BPM Atrial Rate : 107 BPM P-R Int : 146 ms QRS Dur : 104 ms QT Int : 324 ms P-R-T Axes : 078 131 040 degrees QTc Int : 432 ms Sinus tachycardia Low voltage QRS Lateral infarct , age undetermined ST & T wave abnormality, consider anterior ischemia Abnormal ECG When compared with ECG of 26-OCT-2021 10:51, Cannot rule out lateral infarct Referred By: Margret Grossman Electronically Signed By:Uriel Alexander
--- NOTE | 2022-11-10 11:32 | PC.NURSE ---
Pt reported chest tightness at 10:38. She denied any pain, diaphoresis, SOB and vitals were as follows 95/58, 100, 18, 97.7F, and 97% on 3L NC. HCP made aware and an EKG was ordered. Results were sent to HCP for interpretation.
[2022-11-10] MEDS: ondansetron HCL 4 MG/2 ML VIAL IVPUSH ×2 (13:45→21:53)
[2022-11-10] MEDS: 0.9 % Sodium Chloride 1,000 ML 100 ML IVCONT (15:25)
[2022-11-10 17:23] LABS: Appearance Urine Clear; Color Urine Dark Yellow; Glucose Urine UA Negative (Negative); Leukocyte Esterase Urine Trace (Negative); Nitrite Urine Negative (Negative); Specific Gravity - Urine 1.025 (1.005-1.025); UMIC TRIGGER UACC YES; Urine Blood Negative (Negative); Urine Ketones Trace mg/dL (Negative); Urine Protein 30 (1+) mg/dL (Neg-Trace)
[2022-11-10 17:34] LABS: Potassium Urine Random 71.6 mmol/L; Sodium Urine Random < 20.0 mmol/L
[2022-11-10 17:38] LABS: Chloride Urine Random < 20.0 mmol/L
[2022-11-10 17:58] LABS: Bacteria Urine None Seen (None Seen); Hyaline Casts Urine 0-2 /LPF (0-2); WBC Urine 0-5 /HPF (0-5)
[2022-11-10 18:27] LABS: Anion Gap 22 (12-20); Blood Urea Nitrogen 18 mg/dL (9-16); Calcium 7.1 mg/dL (8.4-10.2); Carbon Dioxide 15 mmol/L (22-29); Chloride 95 mmol/L (96-108); Creatinine Clr Calc Pharmacy 14.3; Estimated Glomerular Filt Rate 20; Glucose Random 124 mg/dL (60-115); Potassium 4.7 mmol/L (3.3-5.1); Sodium 127 mmol/L (135-145)
[2022-11-10] MEDS: Mirtazapine 15 MG TABLET PO (21:20)
[2022-11-10] MEDS: Warfarin Sodium 5 MG TABLET PO (21:20)
[2022-11-11] VITALS (50 sets, daily range): BP systolic 38–138; BP diastolic 17–105; PULSE 66–112; RESP 15–38; TEMP 31.5–36.9; O2SAT 77–100; BMI 15.5; BMI 20.9
[2022-11-11] MEDS: oxyCODONE HCl Immed Release 5 MG TABLET PO ×2 (01:59→06:01)
[2022-11-11] MEDS: 0.9 % Sodium Chloride 1,000 ML 100 ML IVCONT (02:04)
[2022-11-11] MEDS: Loperamide HCl 2 MG CAPSULE PO (04:13)
[2022-11-11 06:53] LABS: Prothrombin Time 36.5 SEC (10.0-13.1)
--- NOTE | 2022-11-11 07:00 | CA_ITS ---
Transthoracic Echocardiogram Patient (Last, First, Middle): Ana Hall J Gender: Female Date of : 1960 Age: 62 Procedure Date: 11/11/2022 Procedure Type: Transthoracic Echocardiogram Location: ICU Height: 157.48 cm Weight: 38.56 kg BSA: 1.33 m2 Heart Rate: 112 bpm BP: 99 / 36 mmHg Food Beverage Server: SB Referring MD: Trent Espinoza MD Symptoms: s/p cardiac arrest Study Quality: Adequate ECG Rhythm: Tachycardia Conclusions: - Decreased left ventricular cavity size. There is mildly increased left ventricular wall thickness. The left ventricular systolic function is normal. The visually estimated ejection fraction is between 65-70%. Diastolic function is indeterminate on the basis of available data. - Normal right ventricular cavity size. There is mildly decreased right ventricular systolic function. - There is a moderate loculated pericardial effusion overlying the right ventricle. There is echo density seen in the pericardial space consistent with organized clot. There is a moderate pleural effusion. There are no definitive echocardiographic findings of tamponade physiology. Findings Left Ventricle Decreased left ventricular cavity size. There is mildly increased left ventricular wall thickness. The left ventricular systolic function is normal. The visually estimated ejection fraction is between 65-70%. Diastolic function is indeterminate on the basis of available data. Right Ventricle Normal right ventricular cavity size. There is mildly decreased right ventricular systolic function. Venous The inferior vena cava is normal in size and collapses greater than 50% with inspiration. Pericardium/Pleural There is a moderate loculated pericardial effusion overlying the right ventricle. There is echo density seen in the pericardial space consistent with organized clot. There is a moderate pleural effusion. There are no definitive echocardiographic findings of tamponade physiology. Prior Study Comparison Changes noted compared to prior study dated: 10/29/2022. RV function appears better than before but there is a moderate pericardial effusion with organized thrombus. Measurements 2D Linear Measurements IVSd: 1.11 0.6-0.9/0.6-1.0 cm LVIDd: 2.99 3.9-5.3/4.2-5.9 cm LVIDd Index: 2.25 2.4-3.2/2.2-3.1 cm/m2 LVIDs: 2.11 2.0-3.6 cm LVPWd: 0.76 0.7-1.1 cm LV Mass: 91.88 67-162/88-224 g LV Mass Index: 69.08 43-95/49-115 g/m2 LVOT Diam: 1.90 3.0+(-)1.3 cm 2D Systolic Function EF 4C: 51.40 >55% EF 2C: 45.00 >55% EF BiP: 47.10 >55% LVOT LVOT Pk Blayne: 1.07 LVOT Mn Blayne: 0.58 LVOT VTI: 0.12 LVOT Pk Grad: 5.00 LVOT Mn Grad: 2.00 LVOT Diam: 1.90 LVOT Area: 2.84 Updated in Other Vendor System with Status of Final Uriel Alexander MD electronically signed on 11/11/2022 12:14:22 PM with status of Final
--- NOTE | 2022-11-11 07:37 | W.ED.CONSULT ---
Consult Details Consult Details: Code called to room 445. Code was well underway ran by Margret Grossman who was at the patient side. History of DVT with low oxygen. Patient confirmed to be a full code at which time I placed myself at the head of the bed and was able to intubate the patient and place a OG tube. Procedures Intubation Time out performed: No sedative: none Laryngoscope: Ciara ET Tube Size: 7.5 ET Tube Uncuffed: Yes Tube Secured Depth (cm): 21 Tube Placement Confirmation: visualized tube passing through cords Patient Tolerated Procedure: well Intubation Complications: none Additional Comments: Post intubation a OG tube was placed and auscultated in position
[2022-11-11 07:51] LABS: Glucose, Whole Blood 109 mg/dL (60-115)
[2022-11-11] MEDS: Norepinephrine Bitartrate/D5W 8 MG/250 ML PLAST..BAG 3.62 MG IV (08:00)
[2022-11-11] MEDS: 0.9 % Sodium Chloride 1,000 ML 999 ML IV (08:00)
[2022-11-11 08:36] LABS: Basophils Absolute Auto 0.1 X10*3/uL (0.0-0.2); Basophils Percent Auto 0.4 % (0-2); Eosinophils Percent Auto 0.1 % (0-4); Hematocrit 31.1 % (37.0-47.0); Hemoglobin 10.4 g/dl (12.0-16.0); Imm Gran Abs Auto 1.27 X10*3/uL (0.00-0.03); Imm Gran Pct Auto 4.2 % (0.0-0.4); Lymphocytes Absolute Auto 3.5 X10*3/uL (1.2-4.9); Lymphocytes Percent Auto 11.6 % (20-40); MANUAL DIFF FLAG SCAN; Mean Corpuscular HGB Conc 33.4 g/dl (31.0-35.0); Mean Corpuscular Hemoglobin 35.4 pg (27.0-33.0); Mean Corpuscular Volume 105.8 fL (80.0-98.0); Mean Platelet Volume 10.9 fL (9.4-12.3); Monocytes Percent Auto 3.4 % (2-11); NRBC Pct Auto 0.3 /100WBC (0.0-0.2); Neutrophils Absolute Auto 24.1 x10*3/uL (2.0-8.3); Neutrophils Percent Auto 80.3 % (45-73); Platelet Count 176 X10*3/uL (160-400); Red Blood Count 2.94 X10*6/uL (4.20-5.50); Red Cell Distribution Width 17.7 % (11.0-16.0); SCAN SMEAR FLAG 1
[2022-11-11 08:57] LABS: B Type Natriuretic Peptide 567 pg/mL (<100)
[2022-11-11 09:03] LABS: Alanine Aminotransferase 19 U/L (0-31); Albumin Level 1.4 g/dL (3.5-5.0); Alkaline Phosphatase 520 U/L (39-117); Anion Gap 18 (12-20); Aspartate Amino Transferase 154 U/L (5-31); Bilirubin Total 0.9 mg/dL (0.0-1.0); Blood Urea Nitrogen 18 mg/dL (9-16); Carbon Dioxide 13 mmol/L (22-29); Chloride 100 mmol/L (96-108); Creatinine Clr Calc Pharmacy 14.7; Estimated Glomerular Filt Rate 21; Glucose Random 104 mg/dL (60-115); Magnesium 2.2 mg/dL (1.6-2.6); Phosphorus 7.2 mg/dL (2.7-4.5); Potassium 4.3 mmol/L (3.3-5.1); Sodium 127 mmol/L (135-145); Total Protein 3.7 g/dL (6.5-8.0)
[2022-11-11 09:09] LABS: ABG Refer to POC result
[2022-11-11 09:10] LABS: SLIDE REVIEW VERIFIED
[2022-11-11 09:12] LABS: Troponin-I High Sensitivity 214.4 ng/L (<3.5-17.0)
[2022-11-11 09:16] LABS: ABG Base Excess -16.6 mmol/L; ABG HCO3 11 mmol/L (22-26); ABG pCO2 34 mmHg (32-45); ABG pH 7.11 (7.35-7.45); ABG pO2 72 mmHg (83-108)
[2022-11-11 09:22] LABS: Calcium 5.9 mg/dL (8.4-10.2)
--- NOTE | 2022-11-11 09:26 | PM.EVENT ---
Event Note Date of Service: 11/11/22 Event Note: Rapid response called at approximately 0730 for unresponsiveness, upon arrival CPR had been initiated and was changed to code blue. Patient was pulseless and James machine was placed, no organized rhythm on monitor, essentially asystole. Patient intubated by emergency room physician Patient coded for approximately 9 minutes Total 3 doses of epinephrine and 1 dose IV bicarbonate Once patient's pulse returned chest compressions with the James stopped Patient started on IV fluids wide open Blood pressure 100/40, BS 130's Monitor showing organized rhythm with positive carotid pulse Discussed case via telephone with call center representative, Dr. Espinoza, who accepted patient patient then transported down to ICU Patients significant other was notified and is aware that the patient was coded and was transferred to the ICU Dx: CVA, RLE DVT, CAP, bacteremia, UTI Time Spent With Patient Time: Total time managing care of this patient today ____ minutes.
[2022-11-11] MEDS: Chlorhexidine Gluc Oral Rinse 15 ML MOUTHWASH BUCCAL ×3 (09:34→20:13)
[2022-11-11] MEDS: Albumin Human 25 % 100 ML IV ×2 (09:34→10:41)
[2022-11-11] MEDS: Pantoprazole Sodium 40 MG/10 ML VIAL IVPUSH ×2 (09:35→16:41)
[2022-11-11] MEDS: Sodium Bicarbonate 8.4% 50 MEQ/50 ML SYRINGE IVPUSH ×2 (09:36→22:22)
--- NOTE | 2022-11-11 09:43 | W.PM.CCHP ---
Procedures Date of Service Date of Service: 11/11/22 Central Line Placement Right IJ: Central Line Comments: Right internal jugular triple-lumen central venous catheter emergently placed under ultrasound guidance and usual sterile conditions with no immediate complications. Line position verified on chest x-ray.
--- NOTE | 2022-11-11 09:47 | MHC.CM.PN ---
Pt transferred to ICU after cardiac arrest: Pt is on max pressors and ventilatory support w/continued hypoxia. states her prognosis is grave. CM to follow for finalization of d/c planning.
[2022-11-11] MEDS: Thiamine HCL 100 MG TABLET 200 MG PO (10:10)
[2022-11-11] MEDS: Folic Acid 1 MG TABLET 2 MG PO (10:11)
[2022-11-11 10:31] LABS: Reflex Lactate? Lactic Acid Added
[2022-11-11] MEDS: fentaNYL citrate/NS 1,000 MCG/100 ML PLAST..BAG 2.5 MCG IVCONT (10:35)
--- NOTE | 2022-11-11 10:41 | PC.NURSE ---
Addendum entered by Belen Lazcano RN 11/11/22 18:29: PATIENT BROUGHT TO CT SCAN EPI GTT ADDED FOR ADDITIONAL BLOOD PRESSURE SUPPORT MD MET WITH PATIENTS BOYFRIEND TO DISCUSS RESULTS AND GOALS OF CARE - DECISION MADE TO MAKE PATIENT DNR, ORDER CHANGED IN COMPUTER 2 UNITS OF RBCS ORDERED AND ADMINISTERED TLC DRESSING CHANGED AND SURGICEL ADDED DUE TO BLEEDING FROM SITE - MD NOTIFIED NOTABLE INCREASE IN OVERALL EDEMA AND MOTTLING TO SKIN PATIENT STILL HAS NOT VOIDED FIO2 INCREASED TO 100% AND VBG PENDING Addendum entered by Belen Lazcano RN 11/11/22 14:53: PATIENT REMAINS ANEURIC - MD NOTIFIED BLADDER SCANNED FOR 15 ML Addendum entered by Belen Lazcano RN 11/11/22 11:18: PARTNER TOBI TOOK ALL OF PATIENTS BELONGINGS HOME WITH HIM PHONE NUMBERS UPDATED IN THE SYSTEM HOME PHONE DOES NOT HAVE A VOICEMAIL Original Note: PATIENT BROUGHT TO ICU POST CODE BLUE INTUBATED - .03/25 AT LIP AC 22/320/8/100% IO PLACED TO LEFT SHOULDER FOR TEMPORARY ACCESS UNTIL MD BEDSIDE FOR TLC PLACEMENT, REMOVED ONCE ACCESS OBTAINED LEVOPHED STARTED UPON ARRIVAL - SEE EMAR TLC TO RIJ PLACE - CXR FOR CONFIRMATION, ETT ADVANCED TO 25 AT LIP POST CXR SADLER PLACED FOR FLUID MANAGEMENT/ACCURATE I&O WITH NO URINE OUTPUT UPON INSERTION, MD AWARE LAB WORK OBTAINED VIA TLC - VENT SETTING ADJUSTED POST LABS: AC 28/320/8/100% SKIN MOTTLED THROUGHOUT BODY, DUSKY IN COLOR, COLD AND EDEMAOUS WITH WEEPING SKIN NOTED TO BILATERAL ARMS NO PULSES TO BLE NOTED WITH DOPPLAR - MD AWARE INCONTINENT OF DARK GREEN/BLOOD TINGE STOOL UPON ARRIVAL - MD AWARE, NO SAMPLE NEEDED AT THIS TIME BEDSIDE ECHO PERFORMED PATIENT UNABLE TO GO TO CT AT THIS TIME - TOO UNSTABLE, WILL REASSESS PATIENTS BOYFRIEND BEDSIDE AND UPDATED BY THIS RN AND MD RESTRAINTS APPLIED AT [address] [facility] BEDSIDE FOR SUPPORT FENTANYL GTT STARTED FOR HIGH RESPIRATORY RATE
--- NOTE | 2022-11-11 10:43 | P.CONCA_ITS ---
History of Present Illness History of Present Illness Date of Service: 11/11/22 Requesting physician: Trent Espinoza Chief complaint: PEA arrest. Narrative: 62 female who is s/p PEA arrest. it appears she had an echo in Oct 24 where severe RV dysfunction was noted. She had aspiration on the floor today and became bradycardic and received resuscitation. she has low voltage on the ECG. We checked echo which showed that RV function is better than before but she has coagulated blood in the pericardium. she is currently on vent with pressors. [facility] Past Medical History Medical History Alcoholism Anxiety Cervical spondylosis Cervical stenosis of spinal canal HTN (hypertension) Family History Family history: reviewed and not pertinent Surgical History Surgical History History of surgery Social History Social History Household Members: Significant Other Housing: House Do you presently have visiting nurse or other home services: No Alcohol intake: current Alcohol intake frequency: holidays/special occasions only Patient Tobacco Use Status: Current everyday Tobacco user Tobacco use type: Cigarette Cigarettes Per Day: 10 e-Cigarette/Vaping Use: Never Used Second Hand Smoke Exposure: No service: No Current occupational status: other Cognitive needs: No Hearing needs: No Vision needs: No Meds Allergies Allergy/AdvReac Type Severity Reaction Status Date / Time No Known Allergies Allergy Verified 10/23/22 16:44 Active Medications: Current Medications Chlorhexidine Gluconate (Chlorhexidine Gluc Oral Rinse 15 Ml Mouthwash) 15 ml BUCCAL TID FALGUNI Last Admin: 11/11/22 09:34 Dose: 15 ml Folic Acid (Folic Acid 1 Mg Tablet) 2 mg PO DAILY FALGUNI Last Admin: 11/11/22 10:11 Dose: 2 mg Norepinephrine Bitartrate (Levophed) 8 mg in 250 mls @ 0 mls/hr IV .Q0M FALGUNI; Protocol Last Titration: 11/11/22 09:32 Dose: 0.52 mcg/kg/min, 37.59 mls/hr Propofol (Diprivan) 1,000 mg in 100 mls @ 0 mls/hr IVCONT .Q0M FALGUNI; Protocol Albumin Human (Kedbumin 25 %) 100 mls @ 100 mls/hr IV Q1H [facility] Stop: 11/11/22 11:14 Last Admin: 11/11/22 10:41 Dose: 100 mls/hr Fentanyl (Sublimaze/Ns) 1,000 mcg in 100 mls @ 0 mls/hr IVCONT .Q0M [facility]; Protocol Last Admin: 11/11/22 10:35 Dose: 25 mcg/hr, 2.5 mls/hr Naloxone HCl (Naloxone Hcl 0.4 Mg/Ml Vial) 0.2 mg IVPUSH Q2M PRN PRN Reason: Excessive sedation or RR < 8 Pantoprazole Sodium (Pantoprazole Sodium 40 Mg/10 Ml Vial) 40 mg IVPUSH BID@0630,1630 [facility] Last Admin: 11/11/22 09:35 Dose: 40 mg Pharmacy Consult (Consult Rx Perform Med Rec) 1 each MISCELLANE ONCE PRN PRN Reason: Consult order Pharmacy Consult (Consult Rx Etoh Phenob Im/Po) 1 each MISCELLANE ONCE PRN; Protocol PRN Reason: Consult order Thiamine HCl (Thiamine Hcl 100 Mg Tablet) 200 mg PO BID [facility] Last Admin: 11/11/22 10:10 Dose: 200 mg Home Medications Medication Instructions Recorded Confirmed Last Taken Type fluticasone propionate 50 2 spray intranasal DAILY 09/29/21 10/23/22 09/29/21 History mcg/actuation nasal spray,suspension alendronate 70 mg tablet 70 mg PO FR@0600 10/23/22 10/23/22 Unknown History gabapentin 100 mg capsule 100 mg PO BID PRN Pain (Scale 10/23/22 10/23/22 Unknown History Score 1-3) nicotine 21 mg/24 hr daily 1 patch transdermal DAILY PRN 10/23/22 10/23/22 Unknown History transdermal patch Nicotine Cravings Physical Exam Vital Signs: Vital Signs: Last Vital Signs Temp 92.7 F L 11/11/22 10:00 Pulse 112 H 11/11/22 10:00 Resp 32 H 11/11/22 10:35 BP 96/54 L 11/11/22 10:00 Pulse Ox 90 L 11/11/22 10:00 O2 Del Method 11/11/22 10:00 O2 Flow Rate 4.5 11/10/22 23:22 FiO2 100 11/11/22 10:00 BMI result Body Mass Index 15.5 GENERAL APPEARANCE: sedated and ventilated. NECK: no carotid bruit, no obvious jugular venous distention. SKIN: no suspicious lesions, warm and dry. HEART: no murmurs, regular tachycardia. LUNGS: clear to auscultation anteriorly. ABDOMEN: soft, nontender. EXTREMITIES:2 + edema. PERIPHERAL PULSES: equal. NEUROLOGIC: sedated. Objective Labs and Meds 11/11/22 08:28 11/11/22 08:28 Lab results: Laboratory Results - last 24 hr 11/10/22 11/10/22 11/10/22 10:05 16:53 16:53 WBC RBC Hgb Hct MCV MCH MCHC RDW Plt Count MPV Immature Gran % (Auto) Neut % (Auto) Lymph % (Auto) [place] % (Auto) Eos % (Auto) Baso % (Auto) Lymph # (Auto) [place] # (Auto) Eos # (Auto) Baso # (Auto) Abs Immat Gran (auto) Absolute Neuts (auto) Absolute Nucleated RBC Nucleated RBC % (auto) Smear Tech's Comments PT INR O2 Saturation ABG pH at Pt Temp ABG pCO2 at Pt Temp ABG pO2 at Pt Temp ABG HCO3 ABG Base Excess (Actual) Sodium 129 L Potassium 4.6 D Chloride 97 Carbon Dioxide 18 L Anion Gap 19 BUN 17 H Creatinine 2.21 H Estim Creat Clear Calc 15.8 Estimated GFR 22 POC Glucose Random Glucose 95 Lactic Acid Calcium 7.0 L Phosphorus Magnesium Total Bilirubin AST ALT Alkaline Phosphatase Troponin I High Sens B-Natriuretic Peptide Total Protein Albumin Urine Color Dark Yellow Urine Appearance Clear Urine pH 5.0 Ur Specific [place] 1.025 Urine Protein 30 (1+) H Urine Glucose (UA) Negative Urine Ketones Trace Urine Blood Negative Urine Nitrite Negative Ur Leukocyte Esterase Trace H Urine RBC 3-5 H Urine WBC 0-5 Ur Squamous Epith Cells 3-5 Urine Bacteria None Seen Hyaline Casts 0-2 Ur Random Sodium < 20.0 Ur Random Potassium 71.6 Ur Random Chloride < 20.0 11/10/22 11/11/22 11/11/22 17:57 06:04 07:15 WBC RBC Hgb Hct MCV MCH MCHC RDW Plt Count MPV Immature Gran % (Auto) Neut % (Auto) Lymph % (Auto) [place] % (Auto) Eos % (Auto) Baso % (Auto) Lymph # (Auto) [place] # (Auto) Eos # (Auto) Baso # (Auto) Abs Immat Gran (auto) Absolute Neuts (auto) Absolute Nucleated RBC Nucleated RBC % (auto) Smear Tech's Comments PT 36.5 H INR 3.0 H O2 Saturation ABG pH at Pt Temp ABG pCO2 at Pt Temp ABG pO2 at Pt Temp ABG HCO3 ABG Base Excess (Actual) Sodium 127 L Potassium 4.7 Chloride 95 L Carbon Dioxide 15 L Anion Gap 22 H BUN 18 H Creatinine 2.44 H Estim Creat Clear Calc 14.3 Estimated GFR 20 POC Glucose 109 Random Glucose 124 H Lactic Acid Calcium 7.1 L Phosphorus Magnesium Total Bilirubin AST ALT Alkaline Phosphatase Troponin I High Sens B-Natriuretic Peptide Total Protein Albumin Urine Color Urine Appearance Urine pH Ur Specific [place] Urine Protein Urine Glucose (UA) Urine Ketones Urine Blood Urine Nitrite Ur Leukocyte Esterase Urine RBC Urine WBC Ur Squamous Epith Cells Urine Bacteria Hyaline Casts Ur Random Sodium Ur Random Potassium Ur Random Chloride 11/11/22 11/11/22 11/11/22 08:28 08:28 08:28 WBC 30.0 H* RBC 2.94 L Hgb 10.4 L Hct 31.1 L MCV 105.8 H D MCH 35.4 H MCHC 33.4 RDW 17.7 H Plt Count 176 D MPV 10.9 Immature Gran % (Auto) 4.2 H Neut % (Auto) 80.3 H Lymph % (Auto) 11.6 L [place] % (Auto) 3.4 Eos % (Auto) 0.1 Baso % (Auto) 0.4 Lymph # (Auto) 3.5 [place] # (Auto) 1.0 Eos # (Auto) 0.0 Baso # (Auto) 0.1 Abs Immat Gran (auto) 1.27 H Absolute Neuts (auto) 24.1 H Absolute Nucleated RBC 0.080 H Nucleated RBC % (auto) 0.3 H Smear Tech's Comments VERIFIED PT INR O2 Saturation ABG pH at Pt Temp ABG pCO2 at Pt Temp ABG pO2 at Pt Temp ABG HCO3 ABG Base Excess (Actual) Sodium 127 L Potassium 4.3 Chloride 100 Carbon Dioxide 13 L Anion Gap 18 BUN 18 H Creatinine 2.38 H Estim Creat Clear Calc 14.7 Estimated GFR 21 POC Glucose Random Glucose 104 Lactic Acid 8.0 H* Calcium 5.9 L* D Phosphorus 7.2 H Magnesium 2.2 Total Bilirubin 0.9 AST 154 H ALT 19 Alkaline Phosphatase 520 H Troponin I High Sens B-Natriuretic Peptide Total Protein 3.7 L Albumin 1.4 L Urine Color Urine Appearance Urine pH Ur Specific [place] Urine Protein Urine Glucose (UA) Urine Ketones Urine Blood Urine Nitrite Ur Leukocyte Esterase Urine RBC Urine WBC Ur Squamous Epith Cells Urine Bacteria Hyaline Casts Ur Random Sodium Ur Random Potassium Ur Random Chloride 11/11/22 11/11/22 11/11/22 08:28 08:28 09:05 WBC RBC Hgb Hct MCV MCH MCHC RDW Plt Count MPV Immature Gran % (Auto) Neut % (Auto) Lymph % (Auto) [place] % (Auto) Eos % (Auto) Baso % (Auto) Lymph # (Auto) [place] # (Auto) Eos # (Auto) Baso # (Auto) Abs Immat Gran (auto) Absolute Neuts (auto) Absolute Nucleated RBC Nucleated RBC % (auto) Smear Tech's Comments PT INR O2 Saturation 85.0 ABG pH at Pt Temp 7.11 L* ABG pCO2 at Pt Temp 34 ABG pO2 at Pt Temp 72 L ABG HCO3 11 L ABG Base Excess (Actual) -16.6 Sodium Potassium Chloride Carbon Dioxide Anion Gap BUN Creatinine Estim Creat Clear Calc Estimated GFR POC Glucose Random Glucose Lactic Acid Calcium Phosphorus Magnesium Total Bilirubin AST ALT Alkaline Phosphatase Troponin I High Sens 214.4 H* B-Natriuretic Peptide 567 H Total Protein Albumin Urine Color Urine Appearance Urine pH Ur Specific [place] Urine Protein Urine Glucose (UA) Urine Ketones Urine Blood Urine Nitrite Ur Leukocyte Esterase Urine RBC Urine WBC Ur Squamous Epith Cells Urine Bacteria Hyaline Casts Ur Random Sodium Ur Random Potassium Ur Random Chloride Imaging Radiologist's impression: Impressions Chest X-Ray 11/11/22 09:30 IMPRESSION: * ET tube is 6 cm above the joy. * The hazy opacities and peribronchial interstitial thickening are likely from pulmonary edema. * Small bilateral pleural effusions (right larger than left). Assessment and Plan (1) Bacteremia due to Enterobacter species: Status: Acute (2) Cardiac arrest: Status: Acute (3) Hemopericardium: Status: Acute Plan 62 female who was on AC for DVT had cardiac arrest with PEA. RV function is better but she has hemopericardium. Not in tamponade. Cannot get anticoagulation. conservative management for the hemopericardium. Can get IV fluids if hypotensive. We will follow along. Time Spent With Patient Time: Total time managing care of this patient today ____ minutes. Procedures Date of Service Date of Service: 11/11/22
[2022-11-11 11:12] LABS: ~Lactic Acid-LAB USE ONLY 8.2 mmol/L (0.5-2.0)
[2022-11-11 12:42] LABS: Reflex Lactate? 2 Y
[2022-11-11] MEDS: Norepinephrine Bitartrate/D5W 8 MG/250 ML PLAST..BAG 37.59 MG IV (12:50)
--- NOTE | 2022-11-11 12:52 | PM.CCPN ---
Subjective Subjective Date of Service: 11/11/22 Interval History: 62-year-old lady with underlying history of alcoholism, anxiety, hypertension admitted on 10/23/2022 with weakness after falls, noted to have subacute CVA, treated for Enterobacter bacteremia with hospital course complicated by right lower extremity DVT noted on 11/05/2022, treated with anticoagulation, further complicated by rectal bleeding and acute hypoxic respiratory failure with asystolic arrest on 11/11/2022. Returned spontaneous circulation after approximately 10 minutes of CPR. Patient intubated during the code and transferred to intensive care unit. In the intensive care unit requiring high-dose of vasopressors and high-level of ventilatory support. Central venous access placed for vasopressor support. Critical Care Time (minutes): 120 Physical Exam Vital Signs: Vital Signs: Last Vital Signs Temp 92.1 F L 11/11/22 12:00 Pulse 108 H 11/11/22 12:00 Resp 31 H 11/11/22 12:00 BP 116/70 11/11/22 12:00 Pulse Ox 99 11/11/22 12:00 O2 Del Method 11/11/22 12:00 O2 Flow Rate 4.5 11/10/22 23:22 FiO2 80 11/11/22 12:00 BMI result Body Mass Index 15.5 Const: General: no acute distress and other (cyanotic, cold skin) Nutritional Appearance: Edematous Eyes: Sclerae: sclerae normal Neck: Neck: Yes no lymphadenopathy, Yes trachea midline and Yes supple Resp: Auscultation: crackles (Diffuse bilateral) Cardio: Rate: regular rate Rhythm: regular rhythm Heart sounds: no gallops, no murmurs and no rubs GI: Inspection: Yes distended Palpation (GI): Firmness to palpation present (GI) Auscultation: Hypoactive bowel sounds present Extrem: General: No clubbing, Yes cyanosis and Yes edema (1+ bilateral) Objective Data Labs 11/11/22 08:28 11/11/22 08:28 Labs: Laboratory Results - last 24 hr 11/10/22 11/10/22 11/10/22 16:53 16:53 17:57 WBC RBC Hgb Hct MCV MCH MCHC RDW Plt Count MPV Immature Gran % (Auto) Neut % (Auto) Lymph % (Auto) [place] % (Auto) Eos % (Auto) Baso % (Auto) Lymph # (Auto) [place] # (Auto) Eos # (Auto) Baso # (Auto) Abs Immat Gran (auto) Absolute Neuts (auto) Absolute Nucleated RBC Nucleated RBC % (auto) Smear Tech's Comments PT INR O2 Saturation ABG pH at Pt Temp ABG pCO2 at Pt Temp ABG pO2 at Pt Temp ABG HCO3 ABG Base Excess (Actual) Sodium 127 L Potassium 4.7 Chloride 95 L Carbon Dioxide 15 L Anion Gap 22 H BUN 18 H Creatinine 2.44 H Estim Creat Clear Calc 14.3 Estimated GFR 20 POC Glucose Random Glucose 124 H Lactic Acid Lactic Acid F/U @ 2Hr Calcium 7.1 L Phosphorus Magnesium Total Bilirubin AST ALT Alkaline Phosphatase Troponin I High Sens B-Natriuretic Peptide Total Protein Albumin Urine Color Dark Yellow Urine Appearance Clear Urine pH 5.0 Ur Specific [place] 1.025 Urine Protein 30 (1+) H Urine Glucose (UA) Negative Urine Ketones Trace Urine Blood Negative Urine Nitrite Negative Ur Leukocyte Esterase Trace H Urine RBC 3-5 H Urine WBC 0-5 Ur Squamous Epith Cells 3-5 Urine Bacteria None Seen Hyaline Casts 0-2 Ur Random Sodium < 20.0 Ur Random Potassium 71.6 Ur Random Chloride < 20.0 11/11/22 11/11/22 11/11/22 06:04 07:15 08:28 WBC 30.0 H* RBC 2.94 L Hgb 10.4 L Hct 31.1 L MCV 105.8 H D MCH 35.4 H MCHC 33.4 RDW 17.7 H Plt Count 176 D MPV 10.9 Immature Gran % (Auto) 4.2 H Neut % (Auto) 80.3 H Lymph % (Auto) 11.6 L [place] % (Auto) 3.4 Eos % (Auto) 0.1 Baso % (Auto) 0.4 Lymph # (Auto) 3.5 [place] # (Auto) 1.0 Eos # (Auto) 0.0 Baso # (Auto) 0.1 Abs Immat Gran (auto) 1.27 H Absolute Neuts (auto) 24.1 H Absolute Nucleated RBC 0.080 H Nucleated RBC % (auto) 0.3 H Smear Tech's Comments VERIFIED PT 36.5 H INR 3.0 H O2 Saturation ABG pH at Pt Temp ABG pCO2 at Pt Temp ABG pO2 at Pt Temp ABG HCO3 ABG Base Excess (Actual) Sodium Potassium Chloride Carbon Dioxide Anion Gap BUN Creatinine Estim Creat Clear Calc Estimated GFR POC Glucose 109 Random Glucose Lactic Acid Lactic Acid F/U @ 2Hr Calcium Phosphorus Magnesium Total Bilirubin AST ALT Alkaline Phosphatase Troponin I High Sens B-Natriuretic Peptide Total Protein Albumin Urine Color Urine Appearance Urine pH Ur Specific [place] Urine Protein Urine Glucose (UA) Urine Ketones Urine Blood Urine Nitrite Ur Leukocyte Esterase Urine RBC Urine WBC Ur Squamous Epith Cells Urine Bacteria Hyaline Casts Ur Random Sodium Ur Random Potassium Ur Random Chloride 11/11/22 11/11/22 11/11/22 08:28 08:28 08:28 WBC RBC Hgb Hct MCV MCH MCHC RDW Plt Count MPV Immature Gran % (Auto) Neut % (Auto) Lymph % (Auto) [place] % (Auto) Eos % (Auto) Baso % (Auto) Lymph # (Auto) [place] # (Auto) Eos # (Auto) Baso # (Auto) Abs Immat Gran (auto) Absolute Neuts (auto) Absolute Nucleated RBC Nucleated RBC % (auto) Smear Tech's Comments PT INR O2 Saturation ABG pH at Pt Temp ABG pCO2 at Pt Temp ABG pO2 at Pt Temp ABG HCO3 ABG Base Excess (Actual) Sodium 127 L Potassium 4.3 Chloride 100 Carbon Dioxide 13 L Anion Gap 18 BUN 18 H Creatinine 2.38 H Estim Creat Clear Calc 14.7 Estimated GFR 21 POC Glucose Random Glucose 104 Lactic Acid 8.0 H* Lactic Acid F/U @ 2Hr Calcium 5.9 L* D Phosphorus 7.2 H Magnesium 2.2 Total Bilirubin 0.9 AST 154 H ALT 19 Alkaline Phosphatase 520 H Troponin I High Sens 214.4 H* B-Natriuretic Peptide Total Protein 3.7 L Albumin 1.4 L Urine Color Urine Appearance Urine pH Ur Specific [place] Urine Protein Urine Glucose (UA) Urine Ketones Urine Blood Urine Nitrite Ur Leukocyte Esterase Urine RBC Urine WBC Ur Squamous Epith Cells Urine Bacteria Hyaline Casts Ur Random Sodium Ur Random Potassium Ur Random Chloride 11/11/22 11/11/22 11/11/22 08:28 09:05 10:39 WBC RBC Hgb Hct MCV MCH MCHC RDW Plt Count MPV Immature Gran % (Auto) Neut % (Auto) Lymph % (Auto) [place] % (Auto) Eos % (Auto) Baso % (Auto) Lymph # (Auto) [place] # (Auto) Eos # (Auto) Baso # (Auto) Abs Immat Gran (auto) Absolute Neuts (auto) Absolute Nucleated RBC Nucleated RBC % (auto) Smear Tech's Comments PT INR O2 Saturation 85.0 ABG pH at Pt Temp 7.11 L* ABG pCO2 at Pt Temp 34 ABG pO2 at Pt Temp 72 L ABG HCO3 11 L ABG Base Excess (Actual) -16.6 Sodium Potassium Chloride Carbon Dioxide Anion Gap BUN Creatinine Estim Creat Clear Calc Estimated GFR POC Glucose Random Glucose Lactic Acid Lactic Acid F/U @ 2Hr 8.2 H* Calcium Phosphorus Magnesium Total Bilirubin AST ALT Alkaline Phosphatase Troponin I High Sens B-Natriuretic Peptide 567 H Total Protein Albumin Urine Color Urine Appearance Urine pH Ur Specific [place] Urine Protein Urine Glucose (UA) Urine Ketones Urine Blood Urine Nitrite Ur Leukocyte Esterase Urine RBC Urine WBC Ur Squamous Epith Cells Urine Bacteria Hyaline Casts Ur Random Sodium Ur Random Potassium Ur Random Chloride Microbiology Microbiology Results: Microbiology 10/30/22 08:46 Blood - Venous Blood Culture - Final No growth after 5 days. 10/30/22 08:46 Blood - Venous Blood Culture - Final No growth after 5 days. 10/23/22 20:53 Blood - Venous Blood Culture - Final Enterobacter aerogenes 10/23/22 20:53 Blood - Venous Blood Culture - Final Enterobacter aerogenes 10/23/22 21:29 Urine clean catch - Urine [place] top Urine Culture - Final Progress Note: A&P Assessment and plan (1) Cardiac arrest: Status: Acute (2) Alcoholism: Status: Acute (3) YAKELIN (acute kidney injury): Status: Acute (4) CVA (cerebral vascular accident): Status: Acute (5) Thrombocytopenia: Status: Acute (6) Bacteremia due to Enterobacter species: Status: Acute (7) Acute respiratory failure with hypoxia: Status: Resolved Plan Assessment: 62-year-old lady with multiple medical issues admitted with falls, likely secondary to subacute CVA, with hospital course complicated by Enterobacter bacteremia chemo acute kidney injury, acute deep venous thrombosis, cardiac arrest, acute hypoxic respiratory failure, now requiring and ventilatory and high-dose pressor support. Plan: Neuro: Acute encephalopathy after asystolic arrest. Cardiac: Cardiac arrest with assisted early. Status post return of spontaneous circulation after approximately 10 minutes of CPR. Cardiology service appreciated. 2D echocardiogram is pending. Patient requires high-level of vasopressor support. Pulmonary: Acute hypoxic respiratory failure intubated during the CPR. Underlying large right lower extremity DVT. Will reassess anticoagulation needs after results of 2D echocardiogram become available. Continue ventilatory support. Renal: Acute renal failure, anuric. Continue to monitor renal indices and urine output Endo: No acute issues. GI: Abdominal distension, at this time unable to transport to CT scan secondary to hemodynamic instability. If more l stable, will obtain CT abdomen and pelvis. ID: Enterobacter bacteremia status post antibiotic treatment. Infectious Disease service care appreciated. Heme/Onc: Right lower extremity deep venous thrombosis, will assess for anticoagulation versus IVC placement after initial stabilization and assessment of 2D echocardiogram. Psych: No acute issues. Miscellaneous: No acute issues. Prophylaxis: Famotidine, Coumadin Diet: Nothing by mouth Critical care time spent: 120 minutes excluding separately billable procedures Quality Stroke Does the patient have a stroke diagnosis?: No VTE Prior VTE?: No VTE Risk Level:: Medical - moderate - high VTE Device Contraindication: N/A - Device Ordered VTE Drug Contraindication: Treatment Not Indicated
[2022-11-11 13:37] LABS: ~Lactic Acid-LAB USE ONLY 10.7 mmol/L (0.5-2.0)
[2022-11-11] MEDS: EPINEPHrine 5 MG in Dextrose 5 % 250 ML 31.76 MG IVCONT (16:17)
[2022-11-11] MEDS: Lactated Ringers 1,000 ML 999 ML IV ×2 (16:42→17:12)
[2022-11-11] MEDS: Norepinephrine Bitartrate/D5W 8 MG/250 ML PLAST..BAG 63.62 MG IV (16:52)
[2022-11-11 16:57] LABS: Hematocrit 24.8 % (37.0-47.0); Hemoglobin 7.6 g/dl (12.0-16.0); Mean Corpuscular HGB Conc 30.6 g/dl (31.0-35.0); Mean Corpuscular Hemoglobin 34.7 pg (27.0-33.0); Mean Platelet Volume 11.2 fL (9.4-12.3); NRBC Pct Auto 0.6 /100WBC (0.0-0.2); Platelet Count 150 X10*3/uL (160-400); Red Blood Count 2.19 X10*6/uL (4.20-5.50); Red Cell Distribution Width 18.2 % (11.0-16.0)
[2022-11-11 17:00] LABS: Mean Corpuscular Volume 113.2 fL (80.0-98.0); White Blood Count 30.7 X10*3/uL (4.8-10.8)
[2022-11-11 17:15] LABS: Band Neutrophils Percent 10 % (3-5); Lymphocytes Absolute Manual 5.2 X10*3/uL (1.2-4.9); Lymphocytes Percent Manual 17 % (20-40); Monocytes Absolute Manual 0.6 X10*3/uL (0.1-1.2); Monocytes Percent Manual 2 % (2-11); Neutrophils Absolute Manual 24.9 X10*3/uL (2.0-8.3); Neutrophils Percent Manual 71 % (45-73)
[2022-11-11 17:20] LABS: Acanthocytes 2+ (3-5) /OIF; Burr Cells 1+ (0-2) /OIF; Hypochromasia 1+ (5-14) /OIF; Pappenheimer Bodies PRESENT; Polychromasia 1+ (0-2) /OIF; RBC Morphology NOTED; Schistocytes 1+ (0-2) /OIF
[2022-11-11 17:21] LABS: Macrocytosis 2+ (15-30) /OIF; Platelet Estimate SLIGHTLY DECREASED (NORMAL); Platelet Morphology Comment NORMAL; Toxic Vacuolation PRESENT
--- NOTE | 2022-11-11 17:23 | PM.CCN ---
Critical Care Event Note Summary Date of Service: 11/11/22 Code activated: No Narrative: Ongoing clinical status discussed with patient's healthcare proxy. Futility of repeat CPR, at least within next 72-96 hours discussed. Code status changed to DNR. Will readdress code status in next 96 hours, if patient survives. Critical Care Time (minutes): 0
[2022-11-11] MEDS: Sodium Bicarbonate 8.4% 150 MEQ in Dextrose 5 % 850 ML 100 MEQ IV (18:40)
[2022-11-11 18:49] LABS: Venous Blood Gas Refer to POC result
[2022-11-11 18:50] LABS: VBG Base Excess -27.8 mmol/L; VBG HCO3 4 mmol/L (22-26); VBG pCO2 25 mmHg; VBG pH 6.84 (7.32-7.43); VBG pO2 112 mmHg
[2022-11-11] MEDS: Sodium Bicarbonate 8.4% 50 MEQ/50 ML VIAL IVPUSH ×2 (19:03→23:57)
[2022-11-11] MEDS: Norepinephrine Bitartrate/D5W 8 MG/250 ML PLAST..BAG 52.05 MG IV (19:46)
[2022-11-11 20:13] LABS: VBG Base Excess -25.3 mmol/L; VBG HCO3 6 mmol/L (22-26); VBG pCO2 27 mmHg; VBG pH 6.93 (7.32-7.43); VBG pO2 91 mmHg
[2022-11-11 20:15] LABS: Venous Blood Gas Refer to POC result
[2022-11-11 20:20] LABS: Hematocrit 39.5 % (37.0-47.0); Hemoglobin 12.4 g/dl (12.0-16.0); Mean Corpuscular HGB Conc 31.4 g/dl (31.0-35.0); Mean Corpuscular Hemoglobin 33.1 pg (27.0-33.0); Mean Corpuscular Volume 105.3 fL (80.0-98.0); Mean Platelet Volume 10.9 fL (9.4-12.3); NRBC Pct Auto 0.5 /100WBC (0.0-0.2); Platelet Count 124 X10*3/uL (160-400); Red Blood Count 3.75 X10*6/uL (4.20-5.50); Red Cell Distribution Width 16.7 % (11.0-16.0); White Blood Count 28.7 X10*3/uL (4.8-10.8)
[2022-11-11 21:00] LABS: Band Neutrophils Percent 8 % (3-5); Lymphocytes Absolute Manual 3.7 X10*3/uL (1.2-4.9); Lymphocytes Percent Manual 13 % (20-40); Monocytes Absolute Manual 1.1 X10*3/uL (0.1-1.2); Monocytes Percent Manual 4 % (2-11); Neutrophils Absolute Manual 23.8 X10*3/uL (2.0-8.3); Neutrophils Percent Manual 75 % (45-73); Polychromasia 1+ (0-2) /OIF; RBC Morphology NOTED
[2022-11-11 21:01] LABS: Burr Cells 1+ (0-2) /OIF
[2022-11-11 21:02] LABS: Pappenheimer Bodies PRESENT; Schistocytes 1+ (0-2) /OIF; Toxic Vacuolation PRESENT
[2022-11-11 21:04] LABS: Macrocytosis 1+ (5-14) /OIF
[2022-11-11 21:06] LABS: Acanthocytes 1+ (0-2) /OIF
[2022-11-11 21:07] LABS: Platelet Estimate SLIGHTLY DECREASED (NORMAL); Platelet Morphology Comment NORMAL
[2022-11-11 21:08] LABS: Large Platelet PRESENT
[2022-11-11 21:48] LABS: INTERNATIONAL NORM RATIO 11.6 (0.9-1.1)
[2022-11-11] MEDS: EPINEPHrine 5 MG in Dextrose 5 % 250 ML 317.63 MG IVCONT (22:11)
[2022-11-11] MEDS: Norepinephrine Bitartrate/D5W 8 MG/250 ML PLAST..BAG 72.29 MG IV (22:52)
[2022-11-11] MEDS: EPINEPHrine 5 MG in Dextrose 5 % 250 ML 127.05 MG IVCONT (23:37)
[2022-11-12] VITALS (16 sets, daily range): BP systolic 56–124; BP diastolic 28–104; PULSE 10–85; RESP 10–28; TEMP 31.8–35.2; O2SAT 73–90
[2022-11-12] MEDS: Phytonadione (Vit K1) 10 MG in 0.9 % Sodium Chloride 50 ML 51 MG IV (00:42)
[2022-11-12] MEDS: Norepinephrine Bitartrate/D5W 8 MG/250 ML PLAST..BAG 69.4 MG IV ×2 (01:06→03:24)
[2022-11-12] MEDS: EPINEPHrine 5 MG in Dextrose 5 % 250 ML 127.05 MG IVCONT ×2 (01:34→03:37)
[2022-11-12] MEDS: fentaNYL citrate/NS 1,000 MCG/100 ML PLAST..BAG 5 MCG IVCONT (03:30)
[2022-11-12] MEDS: Sodium Bicarbonate 8.4% 50 MEQ/50 ML VIAL IVPUSH ×2 (04:54→05:32)
[2022-11-12 05:18] LABS: VBG Base Excess -22.7 mmol/L; VBG HCO3 8 mmol/L (22-26); VBG pCO2 40 mmHg; VBG pH 6.92 (7.32-7.43); VBG pO2 60 mmHg
[2022-11-12] MEDS: EPINEPHrine 5 MG in Dextrose 5 % 250 ML 285.87 MG IVCONT (05:21)
[2022-11-12 05:40] LABS: PLT CLUMP 1
[2022-11-12 05:42] LABS: Hematocrit 28.5 % (37.0-47.0); Hemoglobin 8.8 g/dl (12.0-16.0); Mean Corpuscular HGB Conc 30.9 g/dl (31.0-35.0); Mean Corpuscular Hemoglobin 33.3 pg (27.0-33.0); Mean Platelet Volume 10.7 fL (9.4-12.3); NRBC Pct Auto 1.3 /100WBC (0.0-0.2); Red Blood Count 2.64 X10*6/uL (4.20-5.50)
[2022-11-12 05:45] LABS: INTERNATIONAL NORM RATIO 4.9 (0.9-1.1); Prothrombin Time 60.4 SEC (10.0-13.1)
[2022-11-12] MEDS: Pantoprazole Sodium 40 MG/10 ML VIAL IVPUSH (05:50)
[2022-11-12] MEDS: Norepinephrine Bitartrate/D5W 8 MG/250 ML PLAST..BAG 72.29 MG IV ×2 (05:50→08:07)
[2022-11-12 05:52] LABS: White Blood Count 23.3 X10*3/uL (4.8-10.8)
--- NOTE | 2022-11-12 06:06 | PC.NURSE ---
Assumed care of patient at 1845. 2nd unit of PRBC finished transfusing w/o incident. INR 11.6, 4 units FFP and 10mg Vitamin K tranfused as ordered. Repeat PTT/INR to be done w/AM labs. Patient anuric; Smalls catheter irrigated multiple times for small blood clots w/no urine output - JOURNEYMAN MOLDER aware. At approximately 0230 patient noted to have bilateral fixed and dilated pupils 6mm w/right pupil being irregularly shaped. No cough/gag/corneal/pain reflexes present, JOURNEYMAN MOLDER notified w/no new orders at this time. Throughout shift increasing pressor support required to both max dosages, see eMAR. Significant other Savage contacted, plan for him to come in as soon as he is able to this morning. Continues to have significant worsening mottling/cyanosis this AM. JOSE contacted, chart being reviewed - referral #[id number].
[2022-11-12 06:11] LABS: Alanine Aminotransferase 27 U/L (0-31); Albumin Level 1.6 g/dL (3.5-5.0); Alkaline Phosphatase 386 U/L (39-117); Anion Gap 41 (12-20); Aspartate Amino Transferase 257 U/L (5-31); Bilirubin Total 1.1 mg/dL (0.0-1.0); Blood Urea Nitrogen 17 mg/dL (9-16); Calcium 5.3 mg/dL (8.4-10.2); Carbon Dioxide 8 mmol/L (22-29); Chloride 84 mmol/L (96-108); Estimated Glomerular Filt Rate 20; Glucose Random 377 mg/dL (60-115); Magnesium 2.6 mg/dL (1.6-2.6); Phosphorus 10.8 mg/dL (2.7-4.5); Potassium 6.1 mmol/L (3.3-5.1); Sodium 127 mmol/L (135-145); Total Protein 3.3 g/dL (6.5-8.0)
[2022-11-12] MEDS: EPINEPHrine 5 MG in Dextrose 5 % 250 ML 317.63 MG IVCONT ×3 (06:12→07:50)
[2022-11-12 06:55] LABS: Platelet Count 108 X10*3/uL (160-400)
[2022-11-12 07:11] LABS: Band Neutrophils Percent 13 % (3-5); Lymphocytes Absolute Manual 5.6 X10*3/uL (1.2-4.9); Lymphocytes Percent Manual 24 % (20-40); Metamyelocytes Absolute 0.5 X10*3/uL; Metamyelocytes Percent 2 %; Monocytes Absolute Manual 0.7 X10*3/uL (0.1-1.2); Monocytes Percent Manual 3 % (2-11); Neutrophils Absolute Manual 16.5 X10*3/uL (2.0-8.3); Neutrophils Percent Manual 58 % (45-73); Nucleated Red Blood Cells 4 /100WBC (0-0)
[2022-11-12 07:13] LABS: Acanthocytes 2+ (3-5) /OIF; Burr Cells 1+ (0-2) /OIF; Macrocytosis 2+ (15-30) /OIF; RBC Morphology NOTED; Venous Blood Gas Refer to POC result
[2022-11-12 07:14] LABS: Hypochromasia 1+ (5-14) /OIF; Pappenheimer Bodies PRESENT; Polychromasia 1+ (0-2) /OIF; Toxic Vacuolation PRESENT
[2022-11-12 07:15] LABS: Platelet Estimate DECREASED (NORMAL); Platelet Morphology Comment NORMAL
[2022-11-12] MEDS: Sodium Bicarbonate 8.4% 150 MEQ in Dextrose 5 % 850 ML 100 MEQ IV (07:50)
--- NOTE | 2022-11-12 10:13 | PM.DDS ---
Discharge Sum: Prov Provider Primary care physician: Carlos Guzman MD Consults: 10/23/22 22:27 Consult to Neurology Routine Consulting Provider: [facility] Reason for consultation: Left arm weakness Has provider been notified: No 10/24/22 14:51 Consult to Care Team Routine Comment: Reason for consultation: alcoholism. acute stroke 10/28/22 11:25 Consult to Cardiology Routine Consulting Provider: Uriel Alexander Reason for consultation: NSVT run, asymptomatic 10/29/22 08:27 Consult to Infectious Diseases Routine Consulting Provider: Juanita Yeh Reason for consultation: enterobacter bactermeia Has provider been notified: No 11/05/22 15:35 Consult to Vascular Surgery Routine Consulting Provider: Clint Horne Reason for consultation: proximal RLE dvt Pronouncing clinician: Trent Espinoza Discharge Sum: Diag Contributing Factors (1) Cardiac arrest: (2) Metabolic acidosis: (3) Coagulopathy: (4) Thrombocytopenia: (5) Upper GI bleed: (6) Hemopericardium: (7) Deep venous thrombosis: (8) Pulmonary aspiration: (9) Bacteremia due to Enterobacter species: Discharge Sum: Summary Date and Time Date of admission: 10/23/22 22:28 Summary Details: 62-year-old lady with underlying history of alcoholism, anxiety, hypertension admitted on 10/23/2022 with weakness after falls, noted to have subacute CVA, treated for Enterobacter bacteremia with hospital course complicated by right lower extremity DVT noted on 11/05/2022, treated with anticoagulation, further complicated by rectal bleeding and acute hypoxic respiratory failure with asystolic arrest on 11/11/2022. Returned spontaneous circulation after approximately 10 minutes of CPR. Patient intubated during the code and transferred to intensive care unit. In the intensive care unit requiring high-dose of vasopressors and high-level of ventilatory support. Central venous access placed for vasopressor support. patient further pressor requirements continue to increase. Her initial post code laboratory studies with significant for elevated lactate, but normal hemoglobin. After stability rain of patient blood pressure CT chest and abdomen to get with 2D echocardiogram of obtained. 2D echocardiogram was suspicious for possible localized hemopericardium without tamponade, however not corroborated on CT chest. CT abdomen showed high-density material in jejunum through transverse colon compatible with blood. Follow-up CBC demonstrated drop of 3 g in hemoglobin, but with no overt rectal bleed. repeat INR increased to 10. Patient was given vitamin K, 4 units of FFP, and 2 units of packed red blood cells. Bicarbonate drip and pushes were utilized in attempt to control profound metabolic acidosis. However, patient's pressor requirements continued to escalate with worsening acidosis resulting in repeat cardiac arrest at approximately 08:14 on 11/12/2022. At that time, in agreement with previous discussion about DNR code status with patient's healthcare proxy, no further resuscitative measures were attempted and patient passed peacefully. Additional Data Confirmation of as documented by pronouncing clinician: no pulse, no respirations, no heart sounds and pupils fixed and dilated Family: contacted Attending physician: Trent Espinoza MD Was code activated?: No Autopsy requested?: No clothing examiner notified?: No
== END 2022-11-12 08:21 | disposition expired | DRG 45 ==
LOC: HO.ED 20:47 → HO.EDOVER 22:34 → HO.IMC 10-24 14:24 → HO.ICU 11-11 07:57
PROVIDERS: Internal Medicine; Nurse Practitioner Acute Care; Physician Assistant; Physician Assistant Medical; Registered Nurse Community Health; Student in an Organized Health Care Education/Training Program; Admitting Provider Internal Medicine; Emergency Provider Emergency Medicine; PCP Internal Medicine; Visit Provider Internal Medicine Pulmonary Disease
DX: I63.49 Cerebral infarction due to embolism of other cerebral artery (principal); J96.01 Acute respiratory failure with hypoxia; I31.2 Hemopericardium, not elsewhere classified; J91.8 Pleural effusion in other conditions classified elsewhere; E44.0 Moderate protein-calorie malnutrition; R78.81 Bacteremia; D68.69 Other thrombophilia; J18.9 Pneumonia, unspecified organism; N17.9 Acute kidney failure, unspecified; I82.411 Acute embolism and thrombosis of right femoral vein; D69.6 Thrombocytopenia, unspecified; E87.1 Hypo-osmolality and hyponatremia; D52.9 Folate deficiency anemia, unspecified; E86.0 Dehydration; I47.1 Supraventricular tachycardia; S22.41XA Multiple fractures of ribs, right side, initial encounter for closed fracture; J44.0 Chronic obstructive pulmonary disease with (acute) lower respiratory infection; G83.21 Monoplegia of upper limb affecting right dominant side; F17.210 Nicotine dependence, cigarettes, uncomplicated; R29.6 Repeated falls; Z91.81 History of falling; R29.700 NIHSS score 0; N39.0 Urinary tract infection, site not specified; F10.239 Alcohol dependence with withdrawal, unspecified; E83.42 Hypomagnesemia; E87.6 Hypokalemia; I08.1 Rheumatic disorders of both mitral and tricuspid valves; I95.2 Hypotension due to drugs; T40.2X5A Adverse effect of other opioids, initial encounter; W19.XXXA Unspecified fall, initial encounter; I46.9 Cardiac arrest, cause unspecified; Z66 Do not resuscitate; E87.20 Acidosis, unspecified; K70.9 Alcoholic liver disease, unspecified; F41.9 Anxiety disorder, unspecified; B96.89 Other specified bacterial agents as the cause of diseases classified elsewhere; Z68.1 Body mass index [BMI] 19.9 or less, adult; Z20.822 Contact with and (suspected) exposure to COVID-19; Y90.4 Blood alcohol level of 80-99 mg/100 ml; Z71.6 Tobacco abuse counseling; Z79.51 Long term (current) use of inhaled steroids; Z79.899 Other long term (current) drug therapy
CPT/HCPCS: 0241U; 36415; 36600; 70450; 70551; 71045; 71250; 72125; 73560; 74176; 80048; 80053; 80061; 80202; 81001; 82077; 82272; 82436; 82550; 82565; 82607; 82728; 82746; 82803; 82947; 83540; 83605; 83735; 83880; 84100; 84133; 84145; 84300; 84484; 85007; 85025; 85027; 85610; 86704; 86706; 86709; 86803; 86850; 86900; 86901; 86923; 87040; 87077; 87086; 87186; 87205; 87340; 87493; 87633; 87640; 87641; 93005; 93306; 93308; 93880; 93971; 94002; 94003; 94640; 94799; 96361; 96372; 96374; 97110; 97162; 97166; 97530; 97535; 99285; C1758; J0171; J0456; J0696; J1940; J1956; J2270; J2405; J2560; J3010; J3370; J3430; J3475; P9016; P9017; P9047; Q9957